=== PATIENT | female | born 1935 | race Caucasian/White ===

== ENCOUNTER → 2016-04-07 | Outpatient (CLI) | payer OTHER ==
[~2016-04-07] MED LIST: ACET-749 PO; ASCO1CAP3 PO; ASPI81TA28 PO; ATEN50TA8 PO; BIOT1CAP3 PO; CHOL100010 PO; CLTP PO; CYAN100T6 PO; GLC500 PO; GLIM2TAB2 PO; HYDC25 PO; METH500T37 PO; MGN PO; MULT-506 PO; OMEP20CA9 PO; POTA10CA28 PO; SALI1SPR15 NAE; [UNRECOGNIZED DRUG - OTHER] OPL
[2016-04-07 10:13] LABS: BASO % 0.5 %; BASO ABS # 0.07 K/uL (0-0.2); COMPLETE YES; EOS % 2.7 %; HEMATOCRIT 38.8 % (37-47); IG% 0.4 %; LYMPH % 18.7 %; LYMPH ABS # 2.58 K/uL (1.2-3.4); MEAN CELL VOLUME 88.8 fL (80-100); MEAN CORPUSCULAR HEMOGLOBIN 28.8 pg (25-34); MEAN CORPUSCULAR HGB CONC 32.5 g/dl (32-36); MEAN PLATELET VOLUME 9.8 fL (7.4-10.4); MONO % 7.8 %; NEUT % 69.9 %; PLATELET COUNT 526 K/uL (130-400); RED BLOOD COUNT 4.37 M/uL (4.2-5.4); WHITE BLOOD COUNT 13.82 K/uL (4.8-10.8)
[2016-04-07 10:24] LABS: ESTIMATED AVERAGE GLUCOSE 169 mg/dl; HA1C FLAG Normal (Normal)
== END | disposition home or self-care (01) ==
LOC: C.LAB1850 09:08
PROVIDERS: ATTEND Internal Medicine
DX: E11.9 Type 2 diabetes mellitus without complications (principal); D72.829 Elevated white blood cell count, unspecified; E78.5 Hyperlipidemia, unspecified

== ENCOUNTER → 2016-04-13 | Outpatient (CLI) | payer OTHER | END | disposition home or self-care (01) | LOC: C.LABSPEC 14:04 | PROVIDERS: ATTEND Internal Medicine | DX: E78.5 Hyperlipidemia, unspecified (principal); E11.9 Type 2 diabetes mellitus without complications; D72.829 Elevated white blood cell count, unspecified ==

== ENCOUNTER → 2016-05-02 | Outpatient (CLI) | payer OTHER ==
--- NOTE | 2016-05-02 15:53 | DIAGNOSTIC IMAGING REPORT ---
CERVICAL SPINE 3 VIEWS HISTORY: Neuropathy M48.00 Spinal [id number] COMPARISON: None FINDINGS: The cervical spine is visualized from C1 through the superior endplate of T1. There is no fracture. Mild reversal of the normal cervical curvature rather significant degenerative intervertebral this change from C5 through T1 Prevertebral soft tissues and the atlantodens interval are intact. IMPRESSION: Mild reversal of the normal cervical curvature. Significant degenerative intervertebral disc change C5-T1. No acute bony abnormality. Electronically signed by: Terrance Rodriguez M.D. 05/02/2016 3:52 PM Dictated Date/Time: 05/02/2016 3:51 PM
--- NOTE | 2016-05-02 15:54 | DIAGNOSTIC IMAGING REPORT ---
THORACIC SPINE 3 VIEWS HISTORY: Back pain M48.00 Spinal [id number] COMPARISON: None. FINDINGS: There is no fracture. No subluxation. Significant degenerative intervertebral disc changes throughout. This is most prominent at T11-T12. Moderate sclerosis of the vertebral endplates. Mild patient scoliosis. IMPRESSION: Degenerative change. Scoliosis. No acute process. Electronically signed by: Terrance Rodriguez M.D. 05/02/2016 3:53 PM Dictated Date/Time: 05/02/2016 3:52 PM
== END | disposition home or self-care (01) ==
LOC: C.RAD 14:39
PROVIDERS: ATTEND Internal Medicine
DX: M48.00 Spinal stenosis, site unspecified (principal); M50.322 Other cervical disc degeneration at C5-C6 level; M50.323 Other cervical disc degeneration at C6-C7 level; M50.33 Other cervical disc degeneration, cervicothoracic region; M41.9 Scoliosis, unspecified

== ENCOUNTER → 2016-05-02 | Outpatient (CLI) | payer OTHER ==
[~2016-05-02] MED LIST changes: +OPTIRAY 320 IV PRN
--- NOTE | 2016-05-02 15:32 | DIAGNOSTIC IMAGING REPORT ---
ABDOMEN AND PELVIS CT WITH IV AND ORAL CONTRAST CT DOSE: HISTORY: Colon carcinoma metastatic disease TECHNIQUE: Multiaxial CT images of the abdomen and pelvis were performed following the use of intravenous and oral contrast. COMPARISON STUDY: 09/02/2015 FINDINGS: Stable 7 mm nodular density posterior right costophrenic angle. Lung bases otherwise are clear. Mild fatty infiltration of liver. Spleen is uniform. Pancreas is unremarkable. There is suggestion of focal wall thickening versus adherent soft tissue to the fundus of the gallbladder measuring 1.4 x 0.6 cm. Possibility of a somewhat sessile polyp is also a consideration. Area is an interval finding from the prior study. Gallbladder is negative for distention. Bowel pattern is considered nonobstructive throughout. Kidneys enhance uniformly. There is no evidence for hydronephrosis. There is minimal stable hyperplastic change of the left adrenal. Bowel pattern within the abdomen and pelvis is nonobstructive. There are operative changes consistent with a hemicolectomy. There is no significant abdominal pelvic or inguinal adenopathy. Osseous structures appear to be intact. There is no significant pelvic inguinal or abdominal adenopathy. IMPRESSION: 1. Stable 7 mm nodule right lung base. 2. Fatty infiltration of liver. 3. Focal wall thickening fundal aspect of the gallbladder laterally measuring 1.4 x 0.6 cm. Ultrasound is initially indicated to exclude a sessile or polypoid lesion. 4. Evaluation of the abdomen and pelvis is otherwise negative post hemicolectomy. Electronically signed by: Terrance Rodriguez M.D. 05/02/2016 3:31 PM Dictated Date/Time: 05/02/2016 3:26 PM
--- NOTE | 2016-05-02 15:54 | DIAGNOSTIC IMAGING REPORT ---
CHEST CT WITH CONTRAST CT DOSE: 760.14 mGycm HISTORY: Colon cancer. TECHNIQUE: Multiaxial CT images of the chest were performed following the intravenous administration of contrast. COMPARISON: Chest CT 09/02/2015. FINDINGS: Trace mucoid material within the trachea and mainstem bronchi. There are few partially opacified bilateral lower lobe bronchi. This is similar to the prior study. No pleural effusions. No pneumothorax. 2 cm left apical groundglass opacity remains unchanged. A 1 cm right upper lobe groundglass opacity is also similar to the prior study. Stable 7 mm right lower lobe pulmonary nodule. No new pulmonary nodules identified. No mediastinal or hilar lymphadenopathy. The heart is normal in size. Stable mild nodular thickening within the left adrenal gland. No suspicious lytic or blastic osseous lesions. IMPRESSION: 1. No change from the prior study. 2. Stable 7 mm nodule within the right lower lobe. 3. Stable left upper lobe 2 cm and right upper lobe 1 cm groundglass opacities. These are nonspecific and could represent low-grade primary bronchogenic malignancies. Continued follow-up is recommended for Electronically signed by: Nitesh Gonsalez M.D. 05/02/2016 3:53 PM Dictated Date/Time: 05/02/2016 3:41 PM
== END | disposition home or self-care (01) ==
LOC: C.CTS 14:35
PROVIDERS: ATTEND Nurse Practitioner
DX: C18.2 Malignant neoplasm of ascending colon (principal); R91.1 Solitary pulmonary nodule; K76.0 Fatty (change of) liver, not elsewhere classified; R93.2 Abnormal findings on diagnostic imaging of liver and biliary tract; R91.8 Other nonspecific abnormal finding of lung field; M48.00 Spinal stenosis, site unspecified; M50.322 Other cervical disc degeneration at C5-C6 level; M50.323 Other cervical disc degeneration at C6-C7 level; M50.33 Other cervical disc degeneration, cervicothoracic region; M41.9 Scoliosis, unspecified

== ENCOUNTER → 2016-05-18 | Outpatient (CLI) | payer OTHER ==
[~2016-05-18] MED LIST changes: -OPTIRAY 320 IV PRN
--- NOTE | 2016-05-18 09:30 | DIAGNOSTIC IMAGING REPORT ---
ADDENDUM Review of the study compared to multiple prior CT exams shows that this most likely is a stable finding. Considered to be nonaggressive nonacute and stable. Electronically signed by: Terrance Rodriguez M.D. 06/30/2016 9:14 AM Dictated Date/Time: 06/30/2016 9:13 AM ORIGINAL REPORT BILIARY ULTRASOUND CLINICAL HISTORY: Colon carcinoma gallbladder mass visualized on prior CT scanning. COMPARISON STUDY: CT scan dated 05/02/2016, biliary ultrasound dated to 112 FINDINGS: The pancreas appears sonographically normal. No focal hepatic masses are visualized. The liver is of slightly increased echogenicity. There is no ductal dilatation. The common bile duct measures 5 mm. There is no right-sided hydronephrosis. There is a 16 mm sessile lesion involving the gallbladder fundus. There is a smaller sessile lesion the region of the gallbladder neck. There is an equivocal gallstone in the region the neck. The fundal lesion is nonspecific but could represent adenomyomatosis. IMPRESSION: 1. Equivocal gallstone 2. 16 mm sessile lesion within the gallbladder fundus. While nonspecific, this is a typical site for adenomyomatosis. Unfortunately, the appearance is nonspecific and other diagnostic considerations include gallbladder polyps, gallbladder adenomas, and gallbladder adenocarcinoma. Electronically signed by: Frederic Landers M.D. 05/18/2016 9:29 AM Dictated Date/Time: 05/18/2016 9:20 AM
== END | disposition home or self-care (01) ==
LOC: C.ULTR 08:41
PROVIDERS: ATTEND Nurse Practitioner
DX: C18.2 Malignant neoplasm of ascending colon (principal); K80.20 Calculus of gallbladder without cholecystitis without obstruction; K82.8 Other specified diseases of gallbladder

== ENCOUNTER → 2016-09-01 | Outpatient (CLI) | payer OTHER ==
[~2016-09-01] MED LIST changes: -ACET-749 PO
[2016-09-01 10:15] LABS: CALCIUM 9.1 mg/dl (8.5-10.1)
[2016-09-01 10:18] LABS: ALT/SGPT 20 U/L (12-78); BLOOD UREA NITROGEN 16 mg/dl (7-18); BUN/CREATININE RATIO 13.3 (10-20); CARBON DIOXIDE 26 mmol/L (21-32); CHLORIDE 105 mmol/L (98-107); CHOLESTEROL 214 mg/dl (0-200); GLUCOSE 167 mg/dl (70-99); POTASSIUM 4.2 mmol/L (3.5-5.1); SODIUM 141 mmol/L (136-145)
[2016-09-01 10:21] LABS: ALB/GLOB RATIO 0.9 (0.9-2); ALKALINE PHOSPHATASE 86 U/L (45-117); AST/SGOT 14 U/L (15-37); CHOLESTEROL/HDL RATIO 5.4; HDL CHOLESTEROL 40 mg/dl; LDL CHOLESTEROL CALCULATED 130 mg/dl; TRIGLYCERIDES 221 mg/dl (0-150); VERY LOW DENSITY LIPOPROT CALC 44 mg/dl
[2016-09-01 10:42] LABS: ESTIMATED AVERAGE GLUCOSE 169 mg/dl; HA1C FLAG Normal (Normal)
== END | disposition home or self-care (01) ==
LOC: C.LAB1850 08:59
PROVIDERS: ATTEND Internal Medicine
DX: E11.9 Type 2 diabetes mellitus without complications (principal)

== ENCOUNTER → 2017-06-09 | Outpatient (CLI) | payer OTHER ==
[~2017-06-09] MED LIST changes: +TRAM-10 PO; -[UNRECOGNIZED DRUG - OTHER] OPL
--- NOTE | 2017-06-09 14:23 | DIAGNOSTIC IMAGING REPORT ---
THORACIC SPINE 3 VIEWS ROUTINE CLINICAL HISTORY: M48.00 Spinal [id number] Back pain COMPARISON STUDY: April 2016 FINDINGS: There is a mild S-shaped thoracolumbar scoliosis. The paraspinal line is not displaced. There are mild multilevel degenerative changes. No acute fractures or subluxations are visualized. No destructive lesions are visualized. IMPRESSION: Scoliosis and multilevel degenerative change. No acute fractures Electronically signed by: Frederic Landers M.D. 06/09/2017 2:21 PM Dictated Date/Time: 06/09/2017 2:21 PM
== END | disposition home or self-care (01) ==
LOC: C.RAD1850 14:03
PROVIDERS: ATTEND Internal Medicine
DX: M48.00 Spinal stenosis, site unspecified (principal); M54.9 Dorsalgia, unspecified

== ENCOUNTER 2018-11-28 16:00 | Inpatient (IN) ==
[2018-11-28 17:02] LABS: iSTAT Creatinine 1.7 mg/dl (0.6-1.3); iSTAT Hemoglobin 10.9 g/dl (12.0-16.0); iSTAT Ionized Calcium 1.17 mmol/l (1.12-1.32); iSTAT Potassium 4.8 mEq/L (3.3-5.0)
--- NOTE | 2018-11-28 17:31 | CT Scan Report ---
CT head/brain wo con CLINICAL HISTORY: 83 years-old Female presenting with trauma, fall, posterior head injury. TECHNIQUE: Multidetector CT imaging of the head was performed without the use of intravenous contrast . IV contrast: None. One or more dose lowering techniques were used consistent with the principles of ALARA (as low as reasonably achievable), including automatic exposure control, mA or kV adjustment t o individual patient size, and/or use of iterative reconstruction. COMPARISON: None. CT DOSE (mGy.cm): The estimated cumulative dose is 1400.69. 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 Proportional ventricular and sulcal prominence, likely age-related parenchymal volume loss. No hemorr john. Periventricular and subcortical white matter hypoattenuation, nonspecific but likely indicative of chronic small vessel ischemic change. No acute territorial infarct. No mass effect or midline jonathan ft. No extra-axial fluid collection. Paranasal sinuses and mastoid air cells clear. Calvarium intact. Soft tissue swelling with subcutaneous emphysema and small hematoma in the left parietal scalp near the vertex. IMPRESSION: 1. Chronic small vessel ischemic change. No acute intracranial abnormality. 2. Small left parietal scalp hematoma, laceration, and contusion. No subjacent osseous injury. Electronically signed by: Skip Amador M.D. 11/28/2018 5:30 PM
--- NOTE | 2018-11-28 17:34 | CT Scan Report ---
CT lumbar spine wo con CT DOSE: 1400.69 mGy.cm CLINICAL HISTORY: Low back pain status post trauma. TECHNIQUE: Helical images were acquired in transverse plane. Reformatted sagittal and coronal images were reviewed. A dose lowering technique was utilized adhering to the principles of ALARA. CONTRAST: No contrast was administered COMPARISON STUDY: None. FINDINGS: There is a thoracolumbar scoliosis. L1-2 level: There is a gas within the disc.. There is a circumferential disc bulge. There is no signi ficant spinal or foraminal stenosis L2-3 level: There is gas within the disc. There is a circumferential disc bulge. There is minimal spi nal canal narrowing. There is no significant foraminal stenosis L3-4 level: There is a circumferential disc bulge asymmetric to the right. There is mild to moderate spinal canal narrowing. There is no cystic or foraminal stenosis. L4-5 level: There is a grade 1 spondylolisthesis of L4 and L5. There is gas within the disc. There is a circumferential disc bulge. There is mild to moderate spinal stenosis. There is no significant for aminal narrowing L5-S1 level: There is no evidence of significant disc bulge or focal herniation. There is no evidence of spinal or foraminal stenosis. No acute fractures or traumatic subluxations are visualized. IMPRESSION: 1. No acute fractures or traumatic subluxations identified 2. Multilevel spondylytic changes with mild to moderate spinal stenosis at the L3-4, and L4-5 levels. 3. Scoliosis Electronically signed by: Frederic Landers M.D. 11/28/2018 5:33 PM
--- NOTE | 2018-11-28 17:36 | CT Scan Report ---
CT cervical spine wo con CLINICAL HISTORY: 83 years-old Female presenting with trauma, posterior head injury, fall. TECHNIQUE: Multidetector CT of the cervical spine was performed without the use of intravenous contra st. IV contrast: None. One or more dose lowering techniques were used consistent with the principles of ALARA (as low as reasonably achievable), including automatic exposure control, mA or kV adjustment to individual patient size, and/or use of iterative reconstruction. COMPARISON: Cervical spine radiographs from 05/02/2016. CT DOSE (mGy.cm): The estimated cumulative dose is 1400.69. 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 Slight reversal of normal cervical lordosis centered at C5-6 as on prior exam. Vertebral bodies maint ain normal height and alignment otherwise. Intervertebral disc height loss noted to a severe degree a t C5-6 and C6-7, where there is the greatest degree of degenerative change and disc osteophyte comple xes. Mild to moderate posterior bony spurring resulting in spinal canal narrowing combination with un derlying disc bulges. This is greatest at C5-6. Degenerative changes of the atlantodental articulatio n. Facet arthropathy and uncovertebral hypertrophy results in very degrees of osseous neural foramina l narrowing. No acute fracture or subluxation. Visualized portion of the skull base intact. Paraspina l soft tissues within normal limits. IMPRESSION: 1. No acute osseous injury of the cervical spine. 2. Multilevel degenerative changes with spinal canal and neural foraminal narrowing. Electronically signed by: Skip Amador M.D. 11/28/2018 5:35 PM
--- NOTE | 2018-11-28 18:45 | XRay Report ---
XR chest 1V portable CLINICAL HISTORY: 83 years-old Female presenting with trauma. TECHNIQUE: Portable upright AP view of the chest was obtained. COMPARISON: 06/21/[address] from 06/22/2018. FINDINGS: Atherosclerosis of the aortic arch. Cardiac silhouette normal in size. No focal opacity. No large eff usion or pneumothorax. Osteopenia suspected. No gross evidence of fracture. Upper abdomen normal. IMPRESSION: 1. No acute cardiopulmonary disease. Electronically signed by: Skip Amador M.D. 11/28/2018 6:43 PM
--- NOTE | 2018-11-28 18:46 | XRay Report ---
XR pelvis 1-2V routine CLINICAL HISTORY: 83 years-old Female presenting with trauma. TECHNIQUE: Single frontal view of the pelvis was obtained. COMPARISON: None. FINDINGS: Sacroiliac joints with mild degenerative change. Pubic symphysis and hip joints congruent. Allowing f or underlying osteopenia, bony pelvis intact. Femoral necks intact. Degenerative changes of the lower lumbar spine. And anastomotic suture margin is noted in the right lower quadrant. IMPRESSION: Allowing for osteopenia, no acute osseous injury. Electronically signed by: Skip Amador M.D. 11/28/2018 6:45 PM
[2018-11-28] MEDS ORDERED: LIDO/EPINEPHRINE/SOD BICARB 20 ML VIAL ONE (19:13)
--- NOTE | 2018-11-28 22:01 | History & Physical Report ---
Date of Service November 28, 2018 Assessment & Plan (1) Closed head injury: Monitor overnight Neurochecks Q 4 hours (2) Fall from ground level: PT/OT evaluate and treat Social service consult (patient lives alone and has reported falling numerous times over the past 4 months). (3) Laceration of scalp: Stapled in the ED (4) Hematoma of left parietal scalp: Pain control ordered (5) Diabetic neuropathy associated with type 2 diabetes mellitus: Sliding scale insulin coverage Holding Metformin Continue glimepiride Diabetic diet Check HGBA1C Present on Admission?: Yes (6) Lumbar degenerative disc disease: Pain control (7) Hypertension: Continue HCTZ and atenolol. (8) Hyperlipidemia: Patient has adverse drug reaction to statins and does not take. (9) Diabetes mellitus: Sliding scale insulin coverage Holding Metformin Continue glimepiride Diabetic diet Check HGBA1C History of Present Illness 83 y/o female presented to the ED following a ground level fall at her PCP's office today. She went to office in regards to lower extremity numbness b/l and weakness. while at office she fell back striking her head. No loss of consciousness, No syncope, No seizure activity, No visual changes, No headache, or neck pain. She told me that she simply lost balance and went backwards. She has had longstanding lumbar spine pain and has had facet injections through pain management in the past. She declines having F/C, cough, N/V/D, chest pain, SOB, or dysuria. In the ED she had gregory placed for posterior scalp laceration. CT head was negative for bleed. She does have a L parietal scalp hematoma. Primary Care Provider: Hao Patiño MD Allergies Allergy/AdvReac Type Severity Reaction Status Date / Time Tgnstcj-Hpu-Txa Reductase AdvReac Mild leg Verified 11/28/18 17:07 Inhibitor cramping Home Medications Home Medications Medication Instructions Recorded Confirmed Type aspirin 81 mg tablet,delayed 81 mg PO DAILY 08/06/18 11/28/18 History release biotin 5,000 mcg sublingual tablet 5,000 mcg SL DAILY 08/06/18 11/28/18 History glimepiride 2 mg tablet 2 mg PO HS tab 08/06/18 11/28/18 History metformin 500 mg tablet 1,000 mg PO BID tab 08/06/18 11/28/18 History multivitamin capsule 1 cap PO DAILY 08/06/18 11/28/18 History omeprazole 20 mg capsule,delayed 20 mg PO DAILY 08/06/18 11/28/18 History release potassium chloride ER 10 mEq 10 meq PO DAILY #90 cap 09/11/18 11/28/18 Rx capsule,extended release atenolol 50 mg tablet 50 mg PO DAILY #90 tab 09/26/18 11/28/18 Rx acetaminophen 300 mg-codeine 30 mg 1 tab PO BID #60 tab 11/22/18 11/28/18 Rx tablet calcium carbonate-vitamin D3 1 tab PO DAILY 11/28/18 11/28/18 History [Calcium 600 + D(3)] cholecalciferol (vitamin D3) 1,000 unit PO DAILY 11/28/18 11/28/18 History [Vitamin D3] cyanocobalamin (vitamin B-12) 50 mcg PO DAILY 11/28/18 11/28/18 History [Vitamin B-12] glimepiride 1 mg PO QAM 11/28/18 11/28/18 History hydrochlorothiazide 12.5 mg PO DAILY 11/28/18 11/28/18 History ketoconazole 1 applic TOPICAL BID 11/28/18 11/28/18 History magnesium 250 mg PO DAILY 11/28/18 11/28/18 History methocarbamol 500 mg PO BID PRN 11/28/18 11/28/18 History Past Med/Surg History Medical History History of malignant neoplasm of colon (Resolved) GERD (gastroesophageal reflux disease) HTN (hypertension) Hyperlipidemia Lumbar degenerative disc disease Type II diabetes mellitus Colon cancer Colonic mass H/O: hysterectomy Surgical History H/O right hemicolectomy History of cataract extraction History of tonsillectomy and adenoidectomy Family History Father Lung cancer Mother Stroke syndrome Hypertension Cancer Diabetes Sister Diabetes Social History Preferred Language: [place] Visual Impairment: No Limitations Hearing Ability: Normal Beliefs That Will Affect Care: None marital status: / Current Living Situation: Alone current occupational status: retired Feels Safe at Home: Yes Smoking Status: Current every day smoker Hx Alcohol Use: No Hx Substance Use: No Review of Systems Review of Systems: NEEDS EDITING Constitutional- no fever; no weight loss Eyes- no acute visual changes ENT- no sinus drainage; no pharyngitis Pulmonary- no cough, no wheezing, no shortness of breath Cardiac- no chest pain, no palpitations, no orthopnea, +mild chronic lower ext edema. GI- no nausea, no vomiting, no diarrhea, no melena, no hematochezia - no dysuria, no hematuria Musculoskeletal- + chronic arthralgias, no myalgias Derm- no rashes, no new skin lesions, no changing skin lesions Hematologic- no unusual bruising, no unusual bleeding Lymphatics- no adenopathy Endocrine- no polyuria or polydipsia; no heat or cold intolerance Neuro- no headaches, no focal neurologic symptoms Psych- no anxiety, no depression Physical Exam Physical Exam: NEEDS EDITING General- adult Head- atraumatic Head - gregory posterior scalp, L parietal scalp hematoma. Eyes- PERRL, EOMI, anicteric ENT- oropharynx clear Neck- supple, no JVD, no adenopathy, no thyromegaly; carotids +2/2, no bruits appreciated Lungs- clear to auscultation and percussion Heart- regular rhythm; no murmur, no gallop, no rub appreciated Abdomen- normal bowel sounds, soft, nontender, no masses or hepatosplenomegaly Extremities- +1 edema b/l lower ext mid calf to ankle, no calf tenderness; peripheral pulses intact Neuro- alert, oriented x 3; PERRL, EOMI; no facial palsy; no dysarthria; motor 5 /5 bilaterally; no cogwheel rigidity; finger to nose intact bilaterally, decreased sensation b/l feet. Skin- warm & dry Results & Data Vital Signs (Past 12 Hours) Vital Signs Temp Pulse Pulse Resp BP BP Pulse Ox 11/28/18 21:00 84 18 132/60 95 11/28/18 19:04 91 H 18 146/60 H 94 11/28/18 16:16 36.7 C 93 H 20 150/91 H 94 Laboratory Results POC Hgb 10.9 g/dl (12.0-16.0) L 11/28/18 16:50 POC Hct 32 % (37-47) L 11/28/18 16:50 POC Sodium 139 mEq/L (135-144) 11/28/18 16:50 POC Potassium 4.8 mEq/L (3.3-5.0) 11/28/18 16:50 POC Chloride 105 mEq/L (101-112) 11/28/18 16:50 POC Total CO2 23 mEq/l (24-31) L 11/28/18 16:50 POC Anion Gap 18.0 mmol/L (16-25) 11/28/18 16:50 POC BUN 21 mg/dl (7-18) H 11/28/18 16:50 POC Creatinine 1.7 mg/dl (0.6-1.3) H 11/28/18 16:50 POC Glucose (other) 78 mg/dl (70-99) 11/28/18 16:50 POC Ioniz Calcium Flavio 1.17 mmol/l (1.12-1.32) 11/28/18 16:50 Laboratory Results Laboratory Results POC Hgb 10.9 g/dl (12.0-16.0) L 11/28/18 16:50 POC Hct 32 % (37-47) L 11/28/18 16:50 POC Sodium 139 mEq/L (135-144) 11/28/18 16:50 POC Potassium 4.8 mEq/L (3.3-5.0) 11/28/18 16:50 POC Chloride 105 mEq/L (101-112) 11/28/18 16:50 POC Total CO2 23 mEq/l (24-31) L 11/28/18 16:50 POC Anion Gap 18.0 mmol/L (16-25) 11/28/18 16:50 POC BUN 21 mg/dl (7-18) H 11/28/18 16:50 POC Creatinine 1.7 mg/dl (0.6-1.3) H 11/28/18 16:50 POC Glucose (other) 78 mg/dl (70-99) 11/28/18 16:50 POC Ioniz Calcium Flavio 1.17 mmol/l (1.12-1.32) 11/28/18 16:50 Code Status & VTE Plan VTE Prophylaxis Plan VTE Prophylaxis will be ordered: Yes PG Care Time/CCT Total # of Minutes Spent Total Time Spent: 55 Total Time Spent with Patient: Total time spent is greater than 50% in coordination of care (as documented) at patient's floor/unit and/or counseling patient:
[2018-11-28] MEDS ORDERED: MoRPHine SULFATE 2 MG/ML CARP IV PRN (23:16)
[2018-11-28] MEDS ORDERED: GLUCOSE 10 TABS/TUBE PO PRN (23:16)
[2018-11-28] MEDS ORDERED: ACETAMINOPHEN 325 MG TAB PO PRN (23:16)
[2018-11-28] MEDS ORDERED: DEXTROSE 50% 50 ML SYRINGE IV PRN (23:16)
[2018-11-28] MEDS ORDERED: CARBOHYDRATES FOR HYPOGLYCEMIA PO PRN (23:16)
[2018-11-28] MEDS ORDERED: ONDANSETRON INJ 2 MG/ML 2 ML VIAL IV PRN (23:16)
[2018-11-28] MEDS ORDERED: GLIMEPIRIDE 2 MG TAB PO SCH (23:16)
[2018-11-28] MEDS ORDERED: GLUCAGON FOR INJ 1 MG VIAL SQ PRN (23:16)
[2018-11-28] MEDS: GLUCOSE 40% GEL 15 GM TUBE PO PRN (23:56)
[2018-11-29 00:13] LABS: Creatine Kinase 70 U/L (26-192); Troponin I < 0.015 ng/ml (0-0.045)
[2018-11-29 00:20] LABS: Folate (Folic Acid) > 24.00 ng/ml (>5.38); Vitamin B12 638 pg/ml (211-911)
[2018-11-29 06:33] LABS: Hematocrit (blood only) 33.3 % (37-47); Hemoglobin 10.9 g/dL (12.0-16.0); Mean Corpuscular Hgb Conc 32.7 g/dL (32-36); Mean Corpuscular Volume 91.7 fL (80-100); Mean Platelet Volume 10.1 fL (7.4-10.4); Platelet Count 368 K/uL (130-400); RDW Coefficient of Variation 17.5 % (11.5-14.5); RDW Standard Deviation 58.6 fL (36.4-46.3); Red Blood Count 3.63 M/uL (4.2-5.4); White Blood Count 11.31 K/uL (4.8-10.8)
[2018-11-29 07:00] LABS: Estimated Average Glucose 131 mg/dl; Hemoglobin A1C 6.2 % (4.5-5.6)
[2018-11-29 07:26] LABS: BUN Creatinine Ratio 12.7 (10-20); Calcium 8.6 mg/dl (8.5-10.1); Creatinine Clr Calc Pharmacy 27.5 ml/min; Est GFR (African American) 39.4; Magnesium 1.4 mg/dl (1.8-2.4); Potassium 4.4 mmol/L (3.5-5.1)
[2018-11-29] MEDS ORDERED: INSULIN ASPART 100 UNITS/ML 3 ML PEN SC SCH (07:30)
[2018-11-29] MEDS: GLUCOSE 40% GEL 15 GM TUBE PO PRN (07:31)
[2018-11-29] MEDS ORDERED: Nursing to Pharmacy Communication ONE (08:35)
[2018-11-29] MEDS: MAGNESIUM SULFATE / D5W 1 GM/100 ML BAG IV SCH ×2 (08:59→10:12)
[2018-11-29] MEDS ORDERED: GLIMEPIRIDE 2 MG TAB PO SCH (09:00)
[2018-11-29] MEDS: CYANOCOBALAMIN (VITAMIN B-12) 100 MCG TABLET PO SCH (09:17)
[2018-11-29] MEDS: PANTOprazole 40 MG TAB PO SCH (09:17)
[2018-11-29] MEDS: MULTIVITAMIN TAB PO SCH (09:18)
[2018-11-29] MEDS: CALCIUM 600MG + VIT D 400 IU TAB PO SCH (09:18)
[2018-11-29] MEDS: MAGNESIUM OXIDE 400 MG TAB PO SCH (09:20)
[2018-11-29] MEDS: hydroCHLOROthiazide 25 MG TAB PO SCH (09:20)
[2018-11-29] MEDS: POTASSIUM CHLORIDE 10 MEQ TABCR PO SCH (09:21)
[2018-11-29] MEDS: ATENOLOL 50 MG TABLET PO SCH (09:21)
[2018-11-29] MEDS: ASPIRIN 81 MG ECTAB PO SCH (09:21)
[2018-11-29] MEDS: CHOLECALCIFEROL 1,000 UNITS TAB PO SCH (09:22)
[2018-11-29] MEDS ORDERED: ALUMINUM/MAGNESIUM SUSP 30 ML UDC PO PRN (09:29)
[2018-11-29] MEDS ORDERED: POLYETHYLENE (MIRALAX) 17 GM PACK PO PRN (10:13)
[2018-11-29] MEDS: DOCUSATE SODIUM/SENNA 50/8.6MG TAB PO SCH ×2 (11:37→20:14)
[2018-11-29] MEDS: NICOTINE 21 MG/24 HR TDSY TD SCH (11:38)
[2018-11-29] MEDS: ALBUT/IPRATROP 3MG/0.5MG NEB 3 ML VIAL NEB SCH ×3 (12:43→19:41)
--- NOTE | 2018-11-29 12:44 | Hospitalist Progress Note ---
Date of Service November 29, 2018 Assessment & Plan (1) Closed head injury: - Related to fall; CT head showed small left parietal scalp hematoma, laceration and contusion. - Neuro checks -- mental status is intact, at baseline. (2) Fall from ground level: - Pt. has reported falling frequently over last few months -- may be related to generalized weakness vs. bilateral numbness in setting of spinal complications or diabetic neuropathy vs. hypoglycemic episodes. - PT/OT evaluation -- will likely require rehab placement. (3) Laceration of scalp: - Stapled in ED; continue topical wound care. (4) Hematoma of left parietal scalp: - Monitor CBC daily -- H/H is trending down, will monitor. (5) Chest pain: - Developed chest pain this morning -- may be GERD related vs. cardiac vs. pulmonary. - EKG negative; Trop negative x 2. - PPI daily; also ordered Maalox prn. - Consider evaluation of PE if pain persists. (6) Diabetic neuropathy associated with type 2 diabetes mellitus: - Hgb A1C was 6.2. - Holding home Metformin; will d/c Amaryl due to likelihood of hypoglycemic episodes leading to falls. - Hold SSI coverage - BG 50-70's this AM. - Will likely continue Metformin 1 gm BID at discharge but d/c Amaryl. (7) Lumbar degenerative disc disease: - Continue Tylenol #3 for pain control. (8) Hypertension: - Continue HCTZ and Atenolol. (9) Hyperlipidemia: - Does not tolerate statins. (10) GERD (gastroesophageal reflux disease): - PPI daily; Maalox prn. (11) CKD (chronic kidney disease), stage III: - Renally dose all meds. - Cr is currently at baseline. (12) Anemia: - Hgb trending down -- will continue to monitor. (13) Tobacco abuse: - Smokes >2 PPD; nicotine patch ordered. - Will start Duonebs QID scheduled for wheezing/coarse breath sounds. - CXR was negative. (14) Electrolyte abnormality: - Mag level 1.4 -- ordered Mag sulfate 2 gm IV. (15) DVT prophylaxis: - Heparin q12hr. Dispo: PCU for PT/OT evaluation, evaluation of chest pain and lab work monitoring. Supervising Physician Co-Signing Physician Notes PA Supervision Note: I did not personally see or examine the patient today, but I verified all winn points of SAMIRA Delacruz's assessment and plan with the following exceptions/additions: None Subjective Pt. reports frequent falls at home -- she has struggled with climbing stairs over the last few months. Pt. fell on day of admission and hit her head -- required gregory in the ER for posterior scalp lesion. She denies shortness of breath; pt. is a >2pack per day smoker -- will order nicotine patch. She complained of chest pain this morning -- pain is located in the center of her chest, does not radiate to other areas. Denies nausea/vomiting, diaphoresis, SOB. EKG was negative; Trop negative x 2. Review of Systems Review of Systems: All systems reviewed & are unremarkable except as noted in HPI & below Constitutional: + fatigue and + weakness; no fever, no chills and no anorexia Respiratory: no cough, no dyspnea, no dyspnea on exertion and no wheezing Cardiovascular: + chest pain; no palpitations, no lightheadedness and no edema Gastrointestinal: + constipation; no abdominal pain and no nausea Genitourinary: no difficulty urinating Musculoskeletal: no back pain and no joint pain Integumentary: no non-healing lesions Neurologic: + unsteadiness and + generalized weakness Physical Exam Physical Exam: General: Resting comfortably HEENT: NC/AT; PERRLA with EOMI; [place] conjunctiva, MMM. No erythema of posterior pharynx Neck: Supple and nontender Cardiac: RRR Lungs: on room air; coarse breath sounds throughout Abdomen: Bowel normoactive X 4; Nontender to palpation Extremities: Warm. No edema present Neuro: No focal weakness Skin: Laceration on left parietal lobe, gregory intact. No bleeding noted. Results & Data Vital Signs (Past 12 Hours) Vital Signs Temp Pulse Pulse Resp BP BP Pulse Ox 11/29/18 11:15 36.8 C 72 16 167/87 H 91 11/29/18 07:25 68 11/29/18 06:59 36.4 C L 84 20 155/70 H 97 11/29/18 04:19 36.5 C 88 19 152/79 H 97 Laboratory Results 11/29/18 11/29/18 11/29/18 Range/Units 09:48 07:48 07:30 WBC (4.8-10.8) K/uL RBC (4.2-5.4) M/uL Hgb (12.0-16.0) g/dL POC Hgb (12.0-16.0) g/dl Hct (37-47) % POC Hct (37-47) % MCV (80-100) fL MCH (25-34) pg MCHC (32-36) g/dL RDW Std Deviation (36.4-46.3) fL RDW Coeff of Remy (11.5-14.5) % Plt Count (130-400) K/uL MPV (7.4-10.4) fL POC Sodium (135-144) mEq/L Sodium (136-145) mmol/L POC Potassium (3.3-5.0) mEq/L Potassium (3.5-5.1) mmol/L POC Chloride (101-112) mEq/L Chloride (98-107) mmol/L Carbon Dioxide (21-32) mmol/L POC Total CO2 (24-31) mEq/l Anion Gap (3-11) POC Anion Gap (16-25) mmol/L POC BUN (7-18) mg/dl BUN (7-18) mg/dl Creatinine (0.6-1.2) mg/dl POC Creatinine (0.6-1.3) mg/dl Est Cr Clr Drug Dosing ml/min Est GFR ( Amer) Est GFR (Non-Af Amer) BUN/Creatinine Ratio (10-20) Glucose (70-99) mg/dl POC Glucose 72 51 L* (70-99) POC Glucose (other) (70-99) mg/dl Estimat Average Glucose mg/dl Hemoglobin A1c (4.5-5.6) % Calcium (8.5-10.1) mg/dl POC Ioniz Calcium Flavio (1.12-1.32) mmol/l Magnesium (1.8-2.4) mg/dl Total Creatine Kinase (26-192) U/L Troponin I < 0.015 (0-0.045) ng/ml Vitamin B12 (211-911) pg/ml Folate (>5.38) ng/ml 11/29/18 11/29/18 11/29/18 Range/Units 07:06 05:46 05:46 WBC (4.8-10.8) K/uL RBC (4.2-5.4) M/uL Hgb (12.0-16.0) g/dL POC Hgb (12.0-16.0) g/dl Hct (37-47) % POC Hct (37-47) % MCV (80-100) fL MCH (25-34) pg MCHC (32-36) g/dL RDW Std Deviation (36.4-46.3) fL RDW Coeff of Remy (11.5-14.5) % Plt Count (130-400) K/uL MPV (7.4-10.4) fL POC Sodium (135-144) mEq/L Sodium 142 (136-145) mmol/L POC Potassium (3.3-5.0) mEq/L Potassium 4.4 (3.5-5.1) mmol/L POC Chloride (101-112) mEq/L Chloride 108 H (98-107) mmol/L Carbon Dioxide 29 (21-32) mmol/L POC Total CO2 (24-31) mEq/l Anion Gap 6.0 (3-11) POC Anion Gap (16-25) mmol/L POC BUN (7-18) mg/dl BUN 18 (7-18) mg/dl Creatinine 1.43 H (0.6-1.2) mg/dl POC Creatinine (0.6-1.3) mg/dl Est Cr Clr Drug Dosing 27.5 ml/min Est GFR ( Amer) 39.4 Est GFR (Non-Af Amer) 34.0 BUN/Creatinine Ratio 12.7 (10-20) Glucose 46 L* (70-99) mg/dl POC Glucose 85 (70-99) POC Glucose (other) (70-99) mg/dl Estimat Average Glucose 131 mg/dl Hemoglobin A1c 6.2 H (4.5-5.6) % Calcium 8.6 (8.5-10.1) mg/dl POC Ioniz Calcium Flavio (1.12-1.32) mmol/l Magnesium 1.4 L (1.8-2.4) mg/dl Total Creatine Kinase (26-192) U/L Troponin I (0-0.045) ng/ml Vitamin B12 (211-911) pg/ml Folate (>5.38) ng/ml 11/29/18 11/29/18 11/28/18 Range/Units 05:46 00:13 23:49 WBC 11.31 H (4.8-10.8) K/uL RBC 3.63 L (4.2-5.4) M/uL Hgb 10.9 L (12.0-16.0) g/dL POC Hgb (12.0-16.0) g/dl Hct 33.3 L (37-47) % POC Hct (37-47) % MCV 91.7 (80-100) fL MCH 30.0 (25-34) pg MCHC 32.7 (32-36) g/dL RDW Std Deviation 58.6 H (36.4-46.3) fL RDW Coeff of Remy 17.5 H (11.5-14.5) % Plt Count 368 (130-400) K/uL MPV 10.1 (7.4-10.4) fL POC Sodium (135-144) mEq/L Sodium (136-145) mmol/L POC Potassium (3.3-5.0) mEq/L Potassium (3.5-5.1) mmol/L POC Chloride (101-112) mEq/L Chloride (98-107) mmol/L Carbon Dioxide (21-32) mmol/L POC Total CO2 (24-31) mEq/l Anion Gap (3-11) POC Anion Gap (16-25) mmol/L POC BUN (7-18) mg/dl BUN (7-18) mg/dl Creatinine (0.6-1.2) mg/dl POC Creatinine (0.6-1.3) mg/dl Est Cr Clr Drug Dosing ml/min Est GFR ( Amer) Est GFR (Non-Af Amer) BUN/Creatinine Ratio (10-20) Glucose (70-99) mg/dl POC Glucose 92 47 L* (70-99) POC Glucose (other) (70-99) mg/dl Estimat Average Glucose mg/dl Hemoglobin A1c (4.5-5.6) % Calcium (8.5-10.1) mg/dl POC Ioniz Calcium Flavio (1.12-1.32) mmol/l Magnesium (1.8-2.4) mg/dl Total Creatine Kinase (26-192) U/L Troponin I (0-0.045) ng/ml Vitamin B12 (211-911) pg/ml Folate (>5.38) ng/ml 11/28/18 11/28/18 11/28/18 Range/Units 23:42 23:42 23:23 WBC (4.8-10.8) K/uL RBC (4.2-5.4) M/uL Hgb (12.0-16.0) g/dL POC Hgb (12.0-16.0) g/dl Hct (37-47) % POC Hct (37-47) % MCV (80-100) fL MCH (25-34) pg MCHC (32-36) g/dL RDW Std Deviation (36.4-46.3) fL RDW Coeff of Remy (11.5-14.5) % Plt Count (130-400) K/uL MPV (7.4-10.4) fL POC Sodium (135-144) mEq/L Sodium (136-145) mmol/L POC Potassium (3.3-5.0) mEq/L Potassium (3.5-5.1) mmol/L POC Chloride (101-112) mEq/L Chloride (98-107) mmol/L Carbon Dioxide (21-32) mmol/L POC Total CO2 (24-31) mEq/l Anion Gap (3-11) POC Anion Gap (16-25) mmol/L POC BUN (7-18) mg/dl BUN (7-18) mg/dl Creatinine (0.6-1.2) mg/dl POC Creatinine (0.6-1.3) mg/dl Est Cr Clr Drug Dosing ml/min Est GFR ( Amer) Est GFR (Non-Af Amer) BUN/Creatinine Ratio (10-20) Glucose (70-99) mg/dl POC Glucose 47 L* (70-99) POC Glucose (other) (70-99) mg/dl Estimat Average Glucose mg/dl Hemoglobin A1c (4.5-5.6) % Calcium (8.5-10.1) mg/dl POC Ioniz Calcium Flavio (1.12-1.32) mmol/l Magnesium (1.8-2.4) mg/dl Total Creatine Kinase 70 (26-192) U/L Troponin I < 0.015 (0-0.045) ng/ml Vitamin B12 638 (211-911) pg/ml Folate > 24.00 (>5.38) ng/ml 11/28/18 11/28/18 Range/Units 23:22 16:50 WBC (4.8-10.8) K/uL RBC (4.2-5.4) M/uL Hgb (12.0-16.0) g/dL POC Hgb 10.9 L (12.0-16.0) g/dl Hct (37-47) % POC Hct 32 L (37-47) % MCV (80-100) fL MCH (25-34) pg MCHC (32-36) g/dL RDW Std Deviation (36.4-46.3) fL RDW Coeff of Remy (11.5-14.5) % Plt Count (130-400) K/uL MPV (7.4-10.4) fL POC Sodium 139 (135-144) mEq/L Sodium (136-145) mmol/L POC Potassium 4.8 (3.3-5.0) mEq/L Potassium (3.5-5.1) mmol/L POC Chloride 105 (101-112) mEq/L Chloride (98-107) mmol/L Carbon Dioxide (21-32) mmol/L POC Total CO2 23 L (24-31) mEq/l Anion Gap (3-11) POC Anion Gap 18.0 (16-25) mmol/L POC BUN 21 H (7-18) mg/dl BUN (7-18) mg/dl Creatinine (0.6-1.2) mg/dl POC Creatinine 1.7 H (0.6-1.3) mg/dl Est Cr Clr Drug Dosing ml/min Est GFR ( Amer) Est GFR (Non-Af Amer) BUN/Creatinine Ratio (10-20) Glucose (70-99) mg/dl POC Glucose 47 L* (70-99) POC Glucose (other) 78 (70-99) mg/dl Estimat Average Glucose mg/dl Hemoglobin A1c (4.5-5.6) % Calcium (8.5-10.1) mg/dl POC Ioniz Calcium Flavio 1.17 (1.12-1.32) mmol/l Magnesium (1.8-2.4) mg/dl Total Creatine Kinase (26-192) U/L Troponin I (0-0.045) ng/ml Vitamin B12 (211-911) pg/ml Folate (>5.38) ng/ml PG Care Time/CCT Total # of Minutes Spent Total Time Spent with Patient: Total time spent is greater than 50% in coordination of care (as documented) at patient's floor/unit and/or counseling patient:
[2018-11-30 06:20] LABS: Hematocrit (blood only) 32.7 % (37-47); Hemoglobin 10.5 g/dL (12.0-16.0); Mean Corpuscular Hgb Conc 32.1 g/dL (32-36); Mean Corpuscular Volume 90.1 fL (80-100); Mean Platelet Volume 9.8 fL (7.4-10.4); Platelet Count 362 K/uL (130-400); RDW Coefficient of Variation 17.2 % (11.5-14.5); RDW Standard Deviation 56.6 fL (36.4-46.3); Red Blood Count 3.63 M/uL (4.2-5.4); White Blood Count 11.31 K/uL (4.8-10.8)
[2018-11-30 06:55] LABS: BUN Creatinine Ratio 10.5 (10-20); Calcium 8.1 mg/dl (8.5-10.1); Creatinine Clr Calc Pharmacy 23.9 ml/min; Est GFR (African American) 37.2; Est GFR (Non-African American) 32.1; Magnesium 1.7 mg/dl (1.8-2.4); Potassium 3.8 mmol/L (3.5-5.1)
[2018-11-30] MEDS: ALBUT/IPRATROP 3MG/0.5MG NEB 3 ML VIAL NEB SCH ×3 (07:00→19:08)
[2018-11-30] MEDS ORDERED: GLUCOSE 40% GEL 15 GM TUBE PO PRN (08:36)
[2018-11-30] MEDS ORDERED: GLUCOSE 10 TABS/TUBE PO PRN (08:36)
[2018-11-30] MEDS ORDERED: GLUCAGON FOR INJ 1 MG VIAL SQ PRN (08:36)
[2018-11-30] MEDS ORDERED: DEXTROSE 50% 50 ML SYRINGE IV PRN (08:36)
[2018-11-30] MEDS ORDERED: CARBOHYDRATES FOR HYPOGLYCEMIA PO PRN (08:36)
[2018-11-30] MEDS ORDERED: MAGNESIUM SULFATE / D5W 1 GM/100 ML BAG IV ONE (09:00)
[2018-11-30] MEDS: DOCUSATE SODIUM/SENNA 50/8.6MG TAB PO SCH ×2 (09:35→20:42)
[2018-11-30] MEDS: PANTOprazole 40 MG TAB PO SCH (09:35)
[2018-11-30] MEDS: CYANOCOBALAMIN (VITAMIN B-12) 100 MCG TABLET PO SCH (09:36)
[2018-11-30] MEDS: MAGNESIUM OXIDE 400 MG TAB PO SCH (09:36)
[2018-11-30] MEDS: MULTIVITAMIN TAB PO SCH (09:36)
[2018-11-30] MEDS: CHOLECALCIFEROL 1,000 UNITS TAB PO SCH (09:36)
[2018-11-30] MEDS: ASPIRIN 81 MG ECTAB PO SCH (09:36)
[2018-11-30] MEDS: POTASSIUM CHLORIDE 10 MEQ TABCR PO SCH (09:36)
[2018-11-30] MEDS: CALCIUM 600MG + VIT D 400 IU TAB PO SCH (09:36)
[2018-11-30] MEDS: ATENOLOL 50 MG TABLET PO SCH (09:36)
[2018-11-30] MEDS: hydroCHLOROthiazide 25 MG TAB PO SCH (09:37)
[2018-11-30] MEDS: NICOTINE 21 MG/24 HR TDSY TD SCH (09:37)
[2018-11-30] MEDS ORDERED: IBUPROFEN 200 MG TAB PO ONE (10:05)
[2018-11-30] MEDS ORDERED: ATENOLOL 50 MG TABLET PO SCH (10:15)
[2018-11-30] MEDS ORDERED: ATENOLOL 25 MG TABLET PO STA (10:25)
[2018-11-30] MEDS: INSULIN ASPART 100 UNITS/ML 3 ML PEN SC SCH ×3 (12:29→20:40)
--- NOTE | 2018-11-30 12:55 | Hospitalist Progress Note ---
Date of Service November 30, 2018 Assessment & Plan (1) Closed head injury: - Related to fall; CT head showed small left parietal scalp hematoma, laceration and contusion. - Mental status is at baseline. (2) Fall from ground level: - Pt. has reported falling frequently over last few months -- may be related to generalized weakness vs. bilateral numbness in setting of spinal complications or diabetic neuropathy vs. hypoglycemia. - PT/OT - discharge to rehab, pt. has requested [facility]. (3) Laceration of scalp: - Stapled in ED; continue topical wound care. (4) Hematoma of left parietal scalp: - Monitor CBC daily -- H/H is below baseline, will monitor. (5) Chest pain: - Developed chest pain on 11/29 -- pain is now located in bilat rib area, likely related to chronic coughing episodes. - EKG negative; Trop negative x 2. - Ibuprofen x 1 dose for inflammation; consider short course of steroids for inflammation. - Consider CT of chest to rule out PE if pain persists, no improvement with anti-inflammatory agents. (6) Pain and swelling of lower extremity: - Reports LE edema and pain, most severe on right lateral thigh. Imaging negative for fractures at admission. - Outpatient doppler of bilat LE negative on 11/20; pt. refused repeat doppler during this admission. - ADORE hose for swelling; on HCTZ daily, no indication for increased dose vs. additional loop diuretic. - Tylenol & Tylenol #3 prn acute pain. (7) Diabetic neuropathy associated with type 2 diabetes mellitus: - Hgb A1C was 6.2. - Previously on Metformin and Amaryl at home -- hypoglycemia may have been contributing to falls. - SSI coverage with gluc checks as inpt. - Recommend d/c'ing Metformin at discharge due to CKD and decreasing Amaryl to 1 mg PO daily. (8) Lumbar degenerative disc disease: - Continue Tylenol #3 for pain control. (9) Hypertension: - Continue HCTZ and Atenolol. - BP has been elevated -- will increase Atenolol to 75 mg daily. (10) Hyperlipidemia: - Does not tolerate statins. (11) GERD (gastroesophageal reflux disease): - PPI daily; Maalox prn. (12) CKD (chronic kidney disease), stage III: - Renally dose all meds. - Cr is currently at baseline. (13) Anemia: - Monitor H/H daily -- currently below baseline. (14) Tobacco abuse: - Smokes >2 PPD; nicotine patch ordered. - Duonebs QID scheduled. - CXR was negative. (15) Electrolyte abnormality: - Hypomagnesemia ---> Mag level 1.7, ordered Mag sulfate 1 gm IV. - Continue mag oxide 400 mg daily and KCl 10 mEq daily. (16) DVT prophylaxis: - TEDS; Holding heparin in setting of scalp hematoma, recent falls. Dispo: Downgrade to med/surg with tele; discharge to rehab pending placement. Supervising Physician Co-Signing Physician Notes PA Supervision Note: I did not personally see or examine the patient today, but I verified all winn points of SAMIRA Delacruz's assessment and plan with the following exceptions/additions: None Subjective Pt. has bilat rib pain -- pain is likely related to chronic cough. Pain is increased with inspiration/expiration. Denies sternal chest pain, SOB. Has right leg/lateral thigh pain -- did have doppler of bilat LE on 11/20, was negative for DVT. Has tenderness to palpation of bilat LE in general, appears chronic. Pt. reports swelling of lower extremities, not noted on exam. Denies headache, pain at site of laceration with gregory. Plan for rehab placement -- she requested [facility]. Review of Systems Review of Systems: All systems reviewed & are unremarkable except as noted in HPI & below Constitutional: + fatigue and + weakness; no fever, no chills and no anorexia Respiratory: + problem reported (Bilateral rib pain 2/2 coughing ); no cough, no dyspnea, no dyspnea on exertion and no wheezing Cardiovascular: no chest pain, no palpitations, no lightheadedness and no edema Gastrointestinal: no abdominal pain, no nausea and no constipation Genitourinary: no difficulty urinating Musculoskeletal: + swelling (Bilat LE ) and + myalgia (Bilat LE, >right thigh lateral ); no back pain and no joint pain Integumentary: no non-healing lesions Physical Exam Physical Exam: General: Resting comfortably HEENT: NC/AT; PERRLA with EOMI; [place] conjunctiva, MMM. No erythema of posterior pharynx Neck: Supple and nontender Cardiac: RRR Lungs: on room air; diminished in bilat lung bases, otherwise clear throughout. Abdomen: Bowel normoactive X 4; Nontender to palpation Extremities: Warm. +1 mild bilat LE edema. Tenderness to light palpation over majority of lower extremities, no specific area identified. Neuro: No focal weakness Skin: Laceration on left parietal lobe, gregory intact, no active bleeding noted. Results & Data Vital Signs (Past 12 Hours) Vital Signs Temp Pulse Pulse Pulse Resp BP BP 11/30/18 11:56 37 C 73 20 156/92 H 11/30/18 09:20 37.2 C 88 16 152/73 H 11/30/18 07:45 37.0 C 74 18 134/62 11/30/18 07:02 101 H 18 11/30/18 03:32 36.8 C 72 20 174/71 H 11/30/18 01:47 68 Pulse Ox 11/30/18 11:56 90 11/30/18 09:20 88 L 11/30/18 07:45 95 11/30/18 07:02 91 11/30/18 03:32 92 11/30/18 01:47 Laboratory Results 11/30/18 11/30/18 11/30/18 Range/Units 11:51 05:52 05:52 WBC 11.31 H (4.8-10.8) K/uL RBC 3.63 L (4.2-5.4) M/uL Hgb 10.5 L (12.0-16.0) g/dL Hct 32.7 L (37-47) % MCV 90.1 (80-100) fL MCH 28.9 (25-34) pg MCHC 32.1 (32-36) g/dL RDW Std Deviation 56.6 H (36.4-46.3) fL RDW Coeff of Remy 17.2 H (11.5-14.5) % Plt Count 362 (130-400) K/uL MPV 9.8 (7.4-10.4) fL Sodium 140 (136-145) mmol/L Potassium 3.8 (3.5-5.1) mmol/L Chloride 106 (98-107) mmol/L Carbon Dioxide 29 (21-32) mmol/L Anion Gap 5.0 (3-11) BUN 16 (7-18) mg/dl Creatinine 1.50 H (0.6-1.2) mg/dl Est Cr Clr Drug Dosing 23.9 ml/min Est GFR ( Amer) 37.2 Est GFR (Non-Af Amer) 32.1 BUN/Creatinine Ratio 10.5 (10-20) Glucose 115 H (70-99) mg/dl POC Glucose 246 H (70-99) Calcium 8.1 L (8.5-10.1) mg/dl Magnesium 1.7 L (1.8-2.4) mg/dl 11/29/18 11/29/18 Range/Units 20:22 11:21 WBC (4.8-10.8) K/uL RBC (4.2-5.4) M/uL Hgb (12.0-16.0) g/dL Hct (37-47) % MCV (80-100) fL MCH (25-34) pg MCHC (32-36) g/dL RDW Std Deviation (36.4-46.3) fL RDW Coeff of Remy (11.5-14.5) % Plt Count (130-400) K/uL MPV (7.4-10.4) fL Sodium (136-145) mmol/L Potassium (3.5-5.1) mmol/L Chloride (98-107) mmol/L Carbon Dioxide (21-32) mmol/L Anion Gap (3-11) BUN (7-18) mg/dl Creatinine (0.6-1.2) mg/dl Est Cr Clr Drug Dosing ml/min Est GFR ( Amer) Est GFR (Non-Af Amer) BUN/Creatinine Ratio (10-20) Glucose (70-99) mg/dl POC Glucose 126 H 193 H (70-99) Calcium (8.5-10.1) mg/dl Magnesium (1.8-2.4) mg/dl PG Care Time/CCT Total # of Minutes Spent Total Time Spent with Patient: Total time spent is greater than 50% in coordination of care (as documented) at patient's floor/unit and/or counseling patient:
[2018-12-01] MEDS ORDERED: MoRPHine SULFATE 2 MG/ML CARP IV STA (04:42)
[2018-12-01 05:54] LABS: Hematocrit (blood only) 31.5 % (37-47); Hemoglobin 10.2 g/dL (12.0-16.0); Mean Corpuscular Hgb Conc 32.4 g/dL (32-36); Mean Platelet Volume 9.8 fL (7.4-10.4); Platelet Count 297 K/uL (130-400); RDW Coefficient of Variation 17.3 % (11.5-14.5); RDW Standard Deviation 56.7 fL (36.4-46.3); White Blood Count 18.99 K/uL (4.8-10.8)
[2018-12-01 06:24] LABS: BUN Creatinine Ratio 12.8 (10-20); Creatinine Clr Calc Pharmacy 23.1 ml/min; Est GFR (African American) 35.8; Est GFR (Non-African American) 30.9; Potassium 3.8 mmol/L (3.5-5.1)
[2018-12-01] MEDS: ALBUT/IPRATROP 3MG/0.5MG NEB 3 ML VIAL NEB SCH ×3 (07:04→18:56)
[2018-12-01] MEDS: INSULIN ASPART 100 UNITS/ML 3 ML PEN SC SCH ×4 (08:30→20:18)
--- NOTE | 2018-12-01 08:34 | XRay Report ---
XR chest 1V portable CLINICAL HISTORY: 83 years-old Female presenting with cp. TECHNIQUE: Portable upright AP view of the chest was obtained. COMPARISON: 11/28/2018. FINDINGS: Atherosclerosis of the aortic arch. Cardiac silhouette enlarged. Mild pulmonary vessel prominence. In terval development of extensive left retrocardiac opacity potentially also with a left pleural effusi on. No pneumothorax. Right lung and pleural space grossly clear. Suspected underlying osteopenia. IMPRESSION: 1. Left basilar infiltrate concerning for aspiration or pneumonia. 2. Possible left pleural effusion. 3. Cardiomegaly with mild volume overload. Electronically signed by: Skip Amador M.D. 12/01/2018 8:32 AM
--- NOTE | 2018-12-01 08:51 | Emergency Department Note ---
Entered by Estrellita Colindres acting as a scribe for Hannah Bosch DO History of Present Illness General Chief complaint: Fall Stated complaint: FALL, LACERATION TO BACK OF HEAD, ORAL INJURY Time Seen by Provider: 11/28/18 16:09 Source: patient Mode of arrival: EMS History of Present Illness Provider complaint: Fall Onset (ago): hour(s) 1 Location: head Relieved By: + none Exacerbated By: + none Associated symptoms: + denies other symptoms (Loss of conciousness, shoulder, hip, rib, or abdominal pain) and + other (Lower back soreness, ); no nausea/vomiting and no shortness of breath The patient is a 83 year old female who presents to the Emergency Room with complaints of a fall that occurred about an hour ago. The patient states that she was walking into a doctors appointment when her legs gave out and she fell backwards. The patient reports she hit her head on the ground and in the process knocked out her front dental implant that was placed on Monday. Denies any other facial or dental trauma. The patient's symptoms are not relieved nor are they exacerbated by anything. The patient reports experiencing lower back soreness but denies any pain in her shoulder, hip, ribs, or abdomen. Additionally, the patient denies any nausea/vomiting or shortness of breath. The patient mentioned she was going to a doctors appointment for bilateral leg numbness and swelling that has been ongoing for the past 4 months. The patient reports she takes a baby aspirin everyday but denies being on blood thinners. Patient denies loss of consciousness during the fall, however was not able to get up on her own. Home Medications Home Medications Medication Instructions Recorded Confirmed Type aspirin 81 mg tablet,delayed 81 mg PO DAILY 08/06/18 11/28/18 History release biotin 5,000 mcg sublingual tablet 5,000 mcg SL DAILY 08/06/18 11/28/18 History glimepiride 2 mg tablet 2 mg PO DAILYBD tab 08/06/18 11/29/18 History metformin 500 mg tablet 1,000 mg PO BID tab 08/06/18 11/28/18 History multivitamin capsule 1 cap PO DAILY 08/06/18 11/28/18 History omeprazole 20 mg capsule,delayed 20 mg PO DAILY 08/06/18 11/28/18 History release potassium chloride ER 10 mEq 10 meq PO DAILY #90 cap 09/11/18 11/28/18 Rx capsule,extended release atenolol 50 mg tablet 50 mg PO DAILY #90 tab 09/26/18 11/28/18 Rx acetaminophen 300 mg-codeine 30 mg 1 tab PO BID #60 tab 11/22/18 11/28/18 Rx tablet calcium carbonate-vitamin D3 1 tab PO DAILY 11/28/18 11/28/18 History [Calcium 600 + D(3)] cholecalciferol (vitamin D3) 1,000 unit PO DAILY 11/28/18 11/28/18 History [Vitamin D3] cyanocobalamin (vitamin B-12) 50 mcg PO DAILY 11/28/18 11/28/18 History [Vitamin B-12] glimepiride 1 mg PO QAM 11/28/18 11/28/18 History hydrochlorothiazide 12.5 mg PO DAILY 11/28/18 11/28/18 History ketoconazole 1 applic TOPICAL BID 11/28/18 11/28/18 History magnesium 250 mg PO DAILY 11/28/18 11/28/18 History methocarbamol 500 mg PO BID PRN 11/28/18 11/28/18 History Allergies Allergy/AdvReac Type Severity Reaction Status Date / Time Pvmdtgl-Ubd-Btw Reductase AdvReac Mild leg Verified 11/28/18 17:07 Inhibitor cramping Past Med/Surg History Medical History History of malignant neoplasm of colon (Resolved) GERD (gastroesophageal reflux disease) HTN (hypertension) Hyperlipidemia Lumbar degenerative disc disease Type II diabetes mellitus Colon cancer Colonic mass H/O: hysterectomy Surgical History H/O right hemicolectomy History of cataract extraction History of tonsillectomy and adenoidectomy Family History Father Lung cancer Mother Stroke syndrome Hypertension Cancer Diabetes Sister Diabetes Social History Preferred Language: [place] Communication Ability: Effective Visual Impairment: No Limitations Hearing Ability: Normal Hotel Attendant Required: No Beliefs That Will Affect Care: None marital status: / Current Living Situation: Alone current occupational status: retired Other Information That Helps Us Care for You: No Feels Safe at Home: Yes Safety Concerns: Feels Safe At This Time Smoking Status: Current every day smoker Tobacco Type: cigarettes ; Cigarettes Per Day: 3 packs ; Do You Dip or Chew Tobacco: No ; Hx Alcohol Use: No Hx Substance Use: No Review of Systems See HPI for pertinent positives & negatives. and A total of 10 systems reviewed and were otherwise negative Physical Exam Vital Signs Vital Signs - 24 hr 11/28/18 16:16 11/28/18 19:04 Temperature 36.7 C Temperature Source Oral Sepsis Recent Fever Within 48 Hours No Sepsis Action Taken by Nursing No Action Required Pulse Rate 93 H Pulse Rate [Apical] 91 H Pulse Rhythm Regular Pulse Strength Normal Respiratory Rate 20 18 Respiratory Effort / Characteristics Non-Labored Spontaneous Non-Labored Respiratory Depth Normal Normal Respiratory Pattern Regular Blood Pressure 150/91 H Blood Pressure [Left Arm] 146/60 H Blood Pressure Mean 110 Blood Pressure Mean [Left Arm] 88 Blood Pressure Position Lying Pulse Oximetry 94 94 Oxygen Delivery Method Room Air GENERAL: alert, well appearing, well nourished, no distress, non-toxic HEAD: normal cephalic, atraumatic, no rocha sign, no raccoon eyes EYE EXAM: normal conjunctiva, PERRL and EOM's grossly intact OROPHARYNX: no exudate, no erythema, lips, buccal mucosa, and tongue normal and mucous membranes are moist EARS: TMs clear b/l without hemotympanum, no edema along the canals NECK: supple, no nuchal rigidity, no adenopathy, non-tender CHEST: stable to compression anteriorly and posteriorly LUNGS: clear to auscultation. Normal chest wall mechanics, no w/r/r HEART: no murmurs, S1 normal and S2 normal ABDOMEN: abdomen soft, non-tender, normo-active bowel sounds, no masses, no rebound or guarding. PELVIS: stable to compression anteriorly and posteriorly BACK: Back is symmetrical on inspection and there is no deformity, no midline tenderness, no CVA tenderness. UPPER EXTREMITIES: full active and passive range of motion of all joints without tenderness to palpation, no deformities, normal distal pulses LOWER EXTREMITIES: full active and passive range of motion of all joints without tenderness to palpation, no deformities, normal distal pulses NEURO EXAM: Normal sensorium, cranial nerves II-XII grossly intact, normal speech, no gross weakness of arms, no gross weakness of legs. GCS: 15. Procedures Free Text Procedures Laceration repair: Lido with epi was infiltrated into the wound margins to provide local anesthesia. The wound was inspected for foreign bodies, tendon, artery and bone or joint involvement and none was found. The wound was irrigated with saline and closed with 5 staple(s) using 5 staple(s) and a clean dressing was applied. In order to better approximate wound margins, partial hematoma evacuation was performed. Patient had no recurrent bleeding. The patient tolerated the procedure well. Course 1624: Past medical records reviewed. The patient was evaluated in room C05. A complete history and physical exam was performed. 1934: Patient unsteady here with ambulatory trial. Will ask case management to evaluate options for possible inpatient rehab. Discussed all results with patient. Scalp laceration repaired. 2006: I spoke with Dr. Currie- Hospitalist about the patient's case and he will accept the patient for further evaluation. Administered Medications Acetaminophen (Tylenol) 650 mg PO Q4H PRN PRN Reason: mild pain or fever Stop: 12/28/18 23:15 Last Admin: 11/30/18 21:03 Dose: 650 mg Documented by: [id number] Albuterol (Duoneb) 3 ml NEB [id number] [facility] Stop: 12/29/18 11:59 Last Admin: 12/01/18 07:04 Dose: 3 ml Documented by: [id number] Admin: 11/30/18 19:08 Dose: 3 ml Documented by: [id number] Admin: 11/30/18 13:19 Dose: 3 ml Documented by: [id number] Admin: 11/30/18 07:00 Dose: 3 ml Documented by: [id number] Admin: 11/29/18 19:41 Dose: 3 ml Documented by: [id number] Admin: 11/29/18 13:24 Dose: Not Given Documented by: [id number] Admin: 11/29/18 12:43 Dose: 3 ml Documented by: [id number] Aspirin (Ecotrin Ectab) 81 mg PO DAILY [facility] Stop: 12/29/18 08:59 Last Admin: 11/30/18 09:36 Dose: 81 mg Documented by: [id number] Admin: 11/29/18 09:21 Dose: 81 mg Documented by: [id number] Cyanocobalamin (Vitamin B-12) 50 mcg PO DAILY [facility] Stop: 12/29/18 08:59 Last Admin: 11/30/18 09:36 Dose: 50 mcg Documented by: [id number] Admin: 11/29/18 09:17 Dose: 50 mcg Documented by: [id number] Hydrochlorothiazide (Hctz) 12.5 mg PO DAILY [facility] Stop: 12/29/18 08:59 Last Admin: 11/30/18 09:37 Dose: 12.5 mg Documented by: [id number] Admin: 11/29/18 09:20 Dose: 12.5 mg Documented by: [id number] Insulin Aspart (Novolog Flexpen) 0 units SC ACHS [facility] Stop: 12/30/18 11:29 Last Admin: 11/30/18 20:40 Dose: 1 units Documented by: [id number] Cosigned by: [id number] Admin: 11/30/18 17:25 Dose: Not Given Documented by: [id number] Cosigned by: [id number] Admin: 11/30/18 12:29 Dose: 4 units Documented by: [id number] Cosigned by: [id number] Magnesium Oxide (Mag-Ox) 400 mg PO DAILY [facility] Stop: 12/29/18 08:59 Last Admin: 11/30/18 09:36 Dose: 400 mg Documented by: [id number] Admin: 11/29/18 09:20 Dose: 400 mg Documented by: [id number] Miscellaneous (Remove Nicoderm Patch) 1 ea N/A HS [facility] Stop: 12/29/18 20:59 Last Admin: 11/30/18 20:44 Dose: 1 ea Documented by: [id number] Admin: 11/29/18 20:14 Dose: 1 ea Documented by: [id number] Morphine Sulfate (Morphine Sulfate) 2 mg IV Q3H PRN PRN Reason: Severe Pain Stop: 12/12/18 23:15 Last Admin: 11/30/18 03:09 Dose: 2 mg Documented by: [id number] Multivitamins (Multivitamin Tab) 1 tab PO DAILY [facility] Stop: 12/29/18 08:59 Last Admin: 11/30/18 09:36 Dose: 1 tab Documented by: [id number] Admin: 11/29/18 09:18 Dose: 1 tab Documented by: [id number] Multivitamins/Minerals (Caltrate Plus) 1 tab PO DAILY [facility] Stop: 12/29/18 08:59 Last Admin: 11/30/18 09:36 Dose: 1 tab Documented by: [id number] Admin: 11/29/18 09:18 Dose: 1 tab Documented by: [id number] Nicotine (Nicoderm Cq) 21 mg TD QAM [facility] Stop: 12/29/18 10:14 Last Admin: 11/30/18 09:37 Dose: 21 mg Documented by: [id number] Admin: 11/29/18 11:38 Dose: 21 mg Documented by: [id number] Pantoprazole Sodium (Protonix) 40 mg PO DAILY [facility] Stop: 12/29/18 08:59 Last Admin: 11/30/18 09:35 Dose: 40 mg Documented by: [id number] Admin: 11/29/18 09:17 Dose: 40 mg Documented by: [id number] Potassium Chloride (Klor-Con M10) 10 meq PO DAILY [facility] Stop: 12/29/18 08:59 Last Admin: 11/30/18 09:36 Dose: 10 meq Documented by: [id number] Admin: 11/29/18 09:21 Dose: 10 meq Documented by: [id number] Senna/Docusate Sodium (Senokot S) 1 tab PO BID [facility] Stop: 12/29/18 10:14 Last Admin: 11/30/18 20:42 Dose: 1 tab Documented by: [id number] Admin: 11/30/18 09:35 Dose: 1 tab Documented by: [id number] Admin: 11/29/18 20:14 Dose: Not Given Documented by: [id number] Admin: 11/29/18 11:37 Dose: 1 tab Documented by: [id number] Vitamin D (Vitamin D3) 1,000 units PO DAILY [facility] Stop: 12/29/18 08:59 Last Admin: 11/30/18 09:36 Dose: 1,000 units Documented by: [id number] Admin: 11/29/18 09:22 Dose: 1,000 units Documented by: [id number] Discontinued Medications Atenolol (Tenormin) 50 mg PO DAILY [facility] Stop: 12/29/18 08:59 Last Admin: 11/30/18 09:36 Dose: 50 mg Documented by: [id number] Admin: 11/29/18 09:21 Dose: 50 mg Documented by: [id number] Atenolol (Tenormin) 75 mg PO DAILY [facility] Stop: 12/30/18 10:14 Last Admin: 11/30/18 10:57 Dose: Not Given Documented by: [id number] Atenolol (Tenormin) 25 mg PO NOW STA Stop: 11/30/18 10:26 Last Admin: 11/30/18 12:05 Dose: 25 mg Documented by: [id number] Glimepiride (Amaryl) 2 mg PO HS [facility] Stop: 12/28/18 23:15 Last Admin: 11/28/18 23:50 Dose: Not Given Documented by: [id number] Glucose (Glucose 40%) 15 - 30 gm PO UD PRN; Protocol PRN Reason: Hypoglycemia Protocol Stop: 12/28/18 23:15 Last Admin: 11/29/18 07:31 Dose: 30 gm Documented by: [id number] Admin: 11/28/18 23:56 Dose: 30 gm Documented by: [id number] Magnesium Sulfate/Dextrose (Magnesium Sulfate / D5w) 1 gm in 100 mls @ 100 mls/hr IV Q1H [facility] Stop: 11/29/18 10:14 Last Infusion: 11/29/18 11:27 Dose: 0 mls/hr Documented by: [id number] Admin: 11/29/18 10:12 Dose: 100 mls/hr Documented by: [id number] Infusion: 11/29/18 09:59 Dose: 100 mls/hr Documented by: [id number] Admin: 11/29/18 08:59 Dose: 100 mls/hr Documented by: [id number] Magnesium Sulfate/Dextrose (Magnesium Sulfate / D5w) 1 gm in 100 mls @ 100 mls/hr IV ONE ONE Stop: 11/30/18 09:59 Last Infusion: 11/30/18 10:46 Dose: 0 mls/hr Documented by: [id number] Admin: 11/30/18 09:41 Dose: 100 mls/hr Documented by: [id number] Ibuprofen (Advil) 400 mg PO NOW ONE Stop: 11/30/18 10:06 Last Admin: 11/30/18 12:05 Dose: 400 mg Documented by: [id number] Insulin Aspart (Novolog Flexpen) 0 units SC ACHS [facility] Stop: 12/29/18 07:29 Last Admin: 11/29/18 10:18 Dose: Not Given Documented by: [id number] Cosigned by: [id number] Lidocaine/Epinephrine (Buffered Xylocaine/Epinephrine 1%) Confirm Administered Dose 20 ml .ROUTE .STK-MED ONE Stop: 11/28/18 19:14 Last Admin: 11/28/18 19:39 Dose: 20 ml Documented by: [id number] Miscellaneous (Carbohydrates For Hypoglycemia) 15 - 30 gm PO UD PRN PRN Reason: Hypoglycemia Treatment Stop: 12/28/18 23:15 Last Admin: 11/28/18 23:31 Dose: 30 gm Documented by: [id number] Morphine Sulfate (Morphine Sulfate) 1 mg IV NOW STA Stop: 12/01/18 04:43 Last Admin: 12/01/18 05:19 Dose: 1 mg Documented by: [id number] Medical Decision Making Differential Diagnosis Differential diagnosis: Etiologies such as fracture, cervical/vertebral injury, dislocation, intra- abdominal process, pneumothorax, intrathoracic trauma, intracranial injury, soft tissue injury, neurologic process, as well as other traumatic pathologies were entertained. Medical Records Attestation: I reviewed the patient's medical records. Home Medications Current Medication List: was personally reviewed by me Laboratory Data Result diagrams: 12/01/18 05:33 12/01/18 05:33 Lab Results 11/28/18 11/28/18 11/28/18 Range/Units 16:50 23:22 23:23 WBC (4.8-10.8) K/uL RBC (4.2-5.4) M/uL Hgb (12.0-16.0) g/dL POC Hgb 10.9 L (12.0-16.0) g/dl Hct (37-47) % POC Hct 32 L (37-47) % MCV (80-100) fL MCH (25-34) pg MCHC (32-36) g/dL RDW Std Deviation (36.4-46.3) fL RDW Coeff of Remy (11.5-14.5) % Plt Count (130-400) K/uL MPV (7.4-10.4) fL POC Sodium 139 (135-144) mEq/L Sodium (136-145) mmol/L POC Potassium 4.8 (3.3-5.0) mEq/L Potassium (3.5-5.1) mmol/L POC Chloride 105 (101-112) mEq/L Chloride (98-107) mmol/L Carbon Dioxide (21-32) mmol/L POC Total CO2 23 L (24-31) mEq/l Anion Gap (3-11) POC Anion Gap 18.0 (16-25) mmol/L POC BUN 21 H (7-18) mg/dl BUN (7-18) mg/dl Creatinine (0.6-1.2) mg/dl POC Creatinine 1.7 H (0.6-1.3) mg/dl Est Cr Clr Drug Dosing ml/min Est GFR ( Amer) Est GFR (Non-Af Amer) BUN/Creatinine Ratio (10-20) Glucose (70-99) mg/dl POC Glucose 47 L* 47 L* (70-99) POC Glucose (other) 78 (70-99) mg/dl Estimat Average Glucose mg/dl Hemoglobin A1c (4.5-5.6) % Calcium (8.5-10.1) mg/dl POC Ioniz Calcium Flavio 1.17 (1.12-1.32) mmol/l Magnesium (1.8-2.4) mg/dl Total Creatine Kinase (26-192) U/L Troponin I (0-0.045) ng/ml Vitamin B12 (211-911) pg/ml Folate (>5.38) ng/ml 11/28/18 11/28/18 11/28/18 Range/Units 23:42 23:42 23:49 WBC (4.8-10.8) K/uL RBC (4.2-5.4) M/uL Hgb (12.0-16.0) g/dL POC Hgb (12.0-16.0) g/dl Hct (37-47) % POC Hct (37-47) % MCV (80-100) fL MCH (25-34) pg MCHC (32-36) g/dL RDW Std Deviation (36.4-46.3) fL RDW Coeff of Remy (11.5-14.5) % Plt Count (130-400) K/uL MPV (7.4-10.4) fL POC Sodium (135-144) mEq/L Sodium (136-145) mmol/L POC Potassium (3.3-5.0) mEq/L Potassium (3.5-5.1) mmol/L POC Chloride (101-112) mEq/L Chloride (98-107) mmol/L Carbon Dioxide (21-32) mmol/L POC Total CO2 (24-31) mEq/l Anion Gap (3-11) POC Anion Gap (16-25) mmol/L POC BUN (7-18) mg/dl BUN (7-18) mg/dl Creatinine (0.6-1.2) mg/dl POC Creatinine (0.6-1.3) mg/dl Est Cr Clr Drug Dosing ml/min Est GFR ( Amer) Est GFR (Non-Af Amer) BUN/Creatinine Ratio (10-20) Glucose (70-99) mg/dl POC Glucose 47 L* (70-99) POC Glucose (other) (70-99) mg/dl Estimat Average Glucose mg/dl Hemoglobin A1c (4.5-5.6) % Calcium (8.5-10.1) mg/dl POC Ioniz Calcium Flavio (1.12-1.32) mmol/l Magnesium (1.8-2.4) mg/dl Total Creatine Kinase 70 (26-192) U/L Troponin I < 0.015 (0-0.045) ng/ml Vitamin B12 638 (211-911) pg/ml Folate > 24.00 (>5.38) ng/ml 11/29/18 11/29/18 11/29/18 Range/Units 00:13 05:46 05:46 WBC 11.31 H (4.8-10.8) K/uL RBC 3.63 L (4.2-5.4) M/uL Hgb 10.9 L (12.0-16.0) g/dL POC Hgb (12.0-16.0) g/dl Hct 33.3 L (37-47) % POC Hct (37-47) % MCV 91.7 (80-100) fL MCH 30.0 (25-34) pg MCHC 32.7 (32-36) g/dL RDW Std Deviation 58.6 H (36.4-46.3) fL RDW Coeff of Remy 17.5 H (11.5-14.5) % Plt Count 368 (130-400) K/uL MPV 10.1 (7.4-10.4) fL POC Sodium (135-144) mEq/L Sodium 142 (136-145) mmol/L POC Potassium (3.3-5.0) mEq/L Potassium 4.4 (3.5-5.1) mmol/L POC Chloride (101-112) mEq/L Chloride 108 H (98-107) mmol/L Carbon Dioxide 29 (21-32) mmol/L POC Total CO2 (24-31) mEq/l Anion Gap 6.0 (3-11) POC Anion Gap (16-25) mmol/L POC BUN (7-18) mg/dl BUN 18 (7-18) mg/dl Creatinine 1.43 H (0.6-1.2) mg/dl POC Creatinine (0.6-1.3) mg/dl Est Cr Clr Drug Dosing 27.5 ml/min Est GFR ( Amer) 39.4 Est GFR (Non-Af Amer) 34.0 BUN/Creatinine Ratio 12.7 (10-20) Glucose 46 L* (70-99) mg/dl POC Glucose 92 (70-99) POC Glucose (other) (70-99) mg/dl Estimat Average Glucose mg/dl Hemoglobin A1c (4.5-5.6) % Calcium 8.6 (8.5-10.1) mg/dl POC Ioniz Calcium Flavio (1.12-1.32) mmol/l Magnesium 1.4 L (1.8-2.4) mg/dl Total Creatine Kinase (26-192) U/L Troponin I (0-0.045) ng/ml Vitamin B12 (211-911) pg/ml Folate (>5.38) ng/ml 11/29/18 11/29/18 11/29/18 Range/Units 05:46 07:06 07:30 WBC (4.8-10.8) K/uL RBC (4.2-5.4) M/uL Hgb (12.0-16.0) g/dL POC Hgb (12.0-16.0) g/dl Hct (37-47) % POC Hct (37-47) % MCV (80-100) fL MCH (25-34) pg MCHC (32-36) g/dL RDW Std Deviation (36.4-46.3) fL RDW Coeff of Remy (11.5-14.5) % Plt Count (130-400) K/uL MPV (7.4-10.4) fL POC Sodium (135-144) mEq/L Sodium (136-145) mmol/L POC Potassium (3.3-5.0) mEq/L Potassium (3.5-5.1) mmol/L POC Chloride (101-112) mEq/L Chloride (98-107) mmol/L Carbon Dioxide (21-32) mmol/L POC Total CO2 (24-31) mEq/l Anion Gap (3-11) POC Anion Gap (16-25) mmol/L POC BUN (7-18) mg/dl BUN (7-18) mg/dl Creatinine (0.6-1.2) mg/dl POC Creatinine (0.6-1.3) mg/dl Est Cr Clr Drug Dosing ml/min Est GFR ( Amer) Est GFR (Non-Af Amer) BUN/Creatinine Ratio (10-20) Glucose (70-99) mg/dl POC Glucose 85 51 L* (70-99) POC Glucose (other) (70-99) mg/dl Estimat Average Glucose 131 mg/dl Hemoglobin A1c 6.2 H (4.5-5.6) % Calcium (8.5-10.1) mg/dl POC Ioniz Calcium Flavio (1.12-1.32) mmol/l Magnesium (1.8-2.4) mg/dl Total Creatine Kinase (26-192) U/L Troponin I (0-0.045) ng/ml Vitamin B12 (211-911) pg/ml Folate (>5.38) ng/ml 11/29/18 11/29/18 Range/Units 07:48 09:48 WBC (4.8-10.8) K/uL RBC (4.2-5.4) M/uL Hgb (12.0-16.0) g/dL POC Hgb (12.0-16.0) g/dl Hct (37-47) % POC Hct (37-47) % MCV (80-100) fL MCH (25-34) pg MCHC (32-36) g/dL RDW Std Deviation (36.4-46.3) fL RDW Coeff of Remy (11.5-14.5) % Plt Count (130-400) K/uL MPV (7.4-10.4) fL POC Sodium (135-144) mEq/L Sodium (136-145) mmol/L POC Potassium (3.3-5.0) mEq/L Potassium (3.5-5.1) mmol/L POC Chloride (101-112) mEq/L Chloride (98-107) mmol/L Carbon Dioxide (21-32) mmol/L POC Total CO2 (24-31) mEq/l Anion Gap (3-11) POC Anion Gap (16-25) mmol/L POC BUN (7-18) mg/dl BUN (7-18) mg/dl Creatinine (0.6-1.2) mg/dl POC Creatinine (0.6-1.3) mg/dl Est Cr Clr Drug Dosing ml/min Est GFR ( Amer) Est GFR (Non-Af Amer) BUN/Creatinine Ratio (10-20) Glucose (70-99) mg/dl POC Glucose 72 (70-99) POC Glucose (other) (70-99) mg/dl Estimat Average Glucose mg/dl Hemoglobin A1c (4.5-5.6) % Calcium (8.5-10.1) mg/dl POC Ioniz Calcium Flavio (1.12-1.32) mmol/l Magnesium (1.8-2.4) mg/dl Total Creatine Kinase (26-192) U/L Troponin I < 0.015 (0-0.045) ng/ml Vitamin B12 (211-911) pg/ml Folate (>5.38) ng/ml Imaging Data Radiologist's Impression: Radiology results as stated below per my review and the radiologist's interpretation: CT lumbar spine wo con CT DOSE: 1400.69 mGy.cm CLINICAL HISTORY: Low back pain status post trauma. TECHNIQUE: Helical images were acquired in transverse plane. Reformatted sagittal and coronal images were reviewed. A dose lowering technique was utilized adhering to the principles of ALARA. CONTRAST: No contrast was administered COMPARISON STUDY: None. FINDINGS: There is a thoracolumbar scoliosis. L1-2 level: There is a gas within the disc.. There is a circumferential disc bulge. There is no significant spinal or foraminal stenosis L2-3 level: There is gas within the disc. There is a circumferential disc bulge. There is minimal spinal canal narrowing. There is no significant foraminal stenosis L3-4 level: There is a circumferential disc bulge asymmetric to the right. There is mild to moderate spinal canal narrowing. There is no cystic or foraminal stenosis. L4-5 level: There is a grade 1 spondylolisthesis of L4 and L5. There is gas within the disc. There is a circumferential disc bulge. There is mild to moderate spinal stenosis. There is no significant foraminal narrowing L5-S1 level: There is no evidence of significant disc bulge or focal herniation. There is no evidence of spinal or foraminal stenosis. No acute fractures or traumatic subluxations are visualized. IMPRESSION: 1. No acute fractures or traumatic subluxations identified 2. Multilevel spondylytic changes with mild to moderate spinal stenosis at the L3-4, and L4-5 levels. 3. Scoliosis Electronically signed by: Frederic Landers M.D. 11/28/2018 5:[address] head/brain wo con CLINICAL HISTORY: 83 years-old Female presenting with trauma, fall, posterior head injury. TECHNIQUE: Multidetector CT imaging of the head was performed without the use of intravenous contrast. IV contrast: None. One or more dose lowering techniques were used consistent with the principles of ALARA (as low as reasonably achievable), including automatic exposure control, mA or kV adjustment to indiv idual patient size, and/or use of iterative reconstruction. COMPARISON: None. CT DOSE (mGy.cm): The estimated cumulative dose is 1400.69. FINDINGS: Network Services Project Manager topogram: Unremarkable. Proportional ventricular and sulcal prominence, likely age-related parenchymal volume loss. No hemorrhage. Periventricular and subcortical white matter hypoattenuation, nonspecific but likely indicative of chronic small vessel ischemic change. No acute territorial infarct. No mass effect or midline shift. No extra-axial fluid collection. Paranasal sinuses and mastoid air cells clear. Calvarium intact. Soft tissue swelling with subcutaneous emphysema and small hematoma in the left parietal scalp near the vertex. IMPRESSION: 1. Chronic small vessel ischemic change. No acute intracranial abnormality. 2. Small left parietal scalp hematoma, laceration, and contusion. No subjacent osseous injury. Electronically signed by: Skip Amador M.D. 11/28/2018 5:[address] cervical spine wo con CLINICAL HISTORY: 83 years-old Female presenting with trauma, posterior head in jury, fall. TECHNIQUE: Multidetector CT of the cervical spine was performed without the use of intravenous contrast. IV contrast: None. One or more dose lowering techniques were used consistent with the principles of ALARA (as low as reasonably achievable), including automatic exposure control, mA or kV adjustment to individual patient size, and/or use of iterative reconstruction. COMPARISON: Cervical spine radiographs from 05/02/2016. CT DOSE (mGy.cm): The estimated cumulative dose is 1400.69. FINDINGS: [employer] Services Project Manager topogram: Unremarkable. Slight reversal of normal cervical lordosis centered at C5-6 as on prior exam. Vertebral bodies maintain normal height and alignment otherwise. Intervertebral disc height loss noted to a severe degree at C5-6 and C6-7, where there is the greatest degree of degenerative change and disc osteophyte complexes. Mild to moderate posterior bony spurring resulting in spinal canal narrowing combination with underlying disc bulges. This is greatest at C5-6. Degenerative changes of the atlantodental articulation. Facet arthropathy and uncovertebral hypertrophy results in very degrees of osseous neural foraminal narrowing. No acute fracture or subluxation. Visualized portion of the skull base intact. Paraspinal soft tissues within normal limits. IMPRESSION: 1. No acute osseous injury of the cervical spine. 2. Multilevel degenerative changes with spinal canal and neural foraminal narrowing. Electronically signed by: Skip Amador M.D. 11/28/2018 5:35 PM XR pelvis 1-2V routine CLINICAL HISTORY: 83 years-old Female presenting with trauma. TECHNIQUE: Single frontal view of the pelvis was obtained. COMPARISON: None. FINDINGS: Sacroiliac joints with mild degenerative change. Pubic symphysis and hip joints congruent. Allowing for underlying osteopenia, bony pelvis intact. Femoral necks intact. Degenerative changes of the lower lumbar spine. And anastomotic suture margin is noted in the right lower quadrant. IMPRESSION: Allowing for osteopenia, no acute osseous injury. Electronically signed by: Skip Amador M.D. 11/28/2018 6:45 PM XR chest 1V portable CLINICAL HISTORY: 83 years-old Female presenting with trauma. TECHNIQUE: Portable upright AP view of the chest was obtained. COMPARISON: 06/21/[address] from 06/22/2018. FINDINGS: Atherosclerosis of the aortic arch. Cardiac silhouette normal in size. No focal opacity. No large effusion or pneumothorax. Osteopenia suspected. No gross evidence of fracture. Upper abdomen normal. IMPRESSION: 1. No acute cardiopulmonary disease. Electronically signed by: Skip Amador M.D. 11/28/2018 6:43 PM ECG Data Attestation: I personally reviewed and interpreted this ECG as follows: Indication: other (Fall) Rate (beats per minute): 88 Rhythm: normal sinus Findings: + other (Normal axis, normal intervals); no PVC and no acute ischemic change Blood Pressure Blood Pressure Findings: Elevated blood pressure Blood Pressure Disposition: Referred to patients primary care provider MDM Narrative This is an elderly female who lives at home alone who presents after fall while trying to keep an appointment with her family doctor. Patient did sustain a closed head injury with a scalp laceration. Imaging of the patient was performed and was reassuring, and the scalp laceration repaired. Patient tolerated procedure well and had no new or evolving complaints while she was observed in the emergency room. Patient unfortunately was unable to ambulate with a steady gait even with her walker and I felt it was unsafe for her to be discharged at this time. Patient states she has no other way for family to stay with her for her to stay with any additional family locally. Options for inpatient rehab are unavailable. Case discussed with hospitalist for additional evaluation and management and likely PT/OT evaluation. Patient hemodynamically stable in the emergency room. Have a low suspicion for any other occult traumatic injury. Patient's symptoms did seem mechanical in nature in her lower leg complaints have been ongoing for the last 4 months, no new changes. I do not suspect occult infectious etiology, no evidence of acute electrolyte abnor mality. Patient was gently hydrated here as a precaution. Creatinine appears stable compared to prior. Impression & Plan CHI (closed head injury), Abnormal gait, Fall from ground level, Laceration of scalp, Renal insufficiency, Hypertension Discharge Plan Visit Data *Final* Discharge Date/Time: 11/28/18 22:19 Chief Complaint: Fall Stated Complaint: FALL, LACERATION TO BACK OF HEAD, ORAL INJURY ED Provider: Hannah Bosch Discharge Problem: CHI (closed head injury), Abnormal gait, Fall from ground level, Laceration of scalp, Renal insufficiency, Hypertension Patient Disposition: Admitted As Inpatient Discharge Instructions Interventions: ED Discharge Assessment Last Done: 11/28/18 22:19 Discharge Problem: CHI (closed head injury) Qualifiers: Encounter type: initial encounter Qualified Code(s): S09.90XA - Unspecified injury of head, initial encounter Laceration of scalp Qualifiers: Encounter type: initial encounter Qualified Code(s): S01.01XA - Laceration without foreign body of scalp, initial encounter Hypertension Qualifiers: Hypertension type: essential hypertension Qualified Code(s): I10 - Essential (primary) hypertension The scribe's documentation has been prepared under my direction and personally reviewed by me in its entirety. I confirm that the note above accurately reflects all work, treatment, procedures, and medical decision making performed by me.
[2018-12-01] MEDS ORDERED: AZITHROMYCIN 500 MG in DEXTROSE 5% 250 ML IV STA (09:19)
[2018-12-01] MEDS ORDERED: cefTRIAXone SODIUM 1,000 MG in DEXTROSE 5% 50 ML IV SCH (09:30)
[2018-12-01] MEDS: CALCIUM 600MG + VIT D 400 IU TAB PO SCH (10:56)
[2018-12-01] MEDS: hydroCHLOROthiazide 25 MG TAB PO SCH (10:57)
[2018-12-01] MEDS: ASPIRIN 81 MG ECTAB PO SCH (10:57)
[2018-12-01] MEDS: CHOLECALCIFEROL 1,000 UNITS TAB PO SCH (10:59)
[2018-12-01] MEDS: CYANOCOBALAMIN (VITAMIN B-12) 100 MCG TABLET PO SCH (10:59)
[2018-12-01] MEDS: POTASSIUM CHLORIDE 10 MEQ TABCR PO SCH (11:00)
[2018-12-01] MEDS: MULTIVITAMIN TAB PO SCH (11:00)
[2018-12-01] MEDS: ATENOLOL 50 MG TABLET PO SCH (11:00)
[2018-12-01] MEDS: MAGNESIUM OXIDE 400 MG TAB PO SCH (11:00)
[2018-12-01] MEDS: PANTOprazole 40 MG TAB PO SCH (11:01)
[2018-12-01] MEDS: DOCUSATE SODIUM/SENNA 50/8.6MG TAB PO SCH ×2 (11:22→20:13)
[2018-12-01] MEDS: NICOTINE 21 MG/24 HR TDSY TD SCH (12:57)
--- NOTE | 2018-12-01 13:36 | Hospitalist Progress Note ---
Date of Service December 01, 2018 Assessment & Plan (1) Chest pain: - Developed chest pain on 11/29 -- pain is located in bilat rib area, likely related to chronic coughing episodes vs. PNA. - EKG negative; Trop negative x 2. - Consider short course of steroids for inflammation. - CXR showed left opacity c/w PNA -- see below. (2) PNA (pneumonia): - CXR with left basilar opacity c/w PNA; acute rise in WBC, 18.99 this morning. - Sputum culture pending collection. - Will start Ceftriaxone and Azithromycin for empiric coverage. - Duonebs QID scheduled. (3) Pain and swelling of lower extremity: - Reports LE edema and pain. Imaging negative for fractures at admission. - Outpatient doppler of bilat LE negative on 11/20; pt. refused repeat doppler during this admission. - ADORE hose for swelling. - Tylenol & Tylenol #3 prn acute pain. (4) Fall from ground level: - Pt. has reported falling frequently over last few months -- may be related to generalized weakness vs. bilateral numbness in setting of spinal complications or diabetic neuropathy vs. hypoglycemia. - PT/OT - discharge to rehab once medically stable, pt. has requested [facility]. (5) Closed head injury: - Related to fall; CT head showed small left parietal scalp hematoma, laceration and contusion. - Mental status is at baseline. (6) Laceration of scalp: - Stapled in ED; continue topical wound care. (7) Hematoma of left parietal scalp: - Monitor CBC daily -- H/H is below baseline but stable. (8) Diabetic neuropathy associated with type 2 diabetes mellitus: - Hgb A1C was 6.2. - Previously on Metformin and Amaryl at home -- hypoglycemia may have been contributing to falls. - SSI coverage with gluc checks as inpt. - Recommend d/c'ing Metformin at discharge due to CKD and decreasing Amaryl to 1 mg PO daily. (9) Lumbar degenerative disc disease: - Continue Tylenol #3 for pain control. (10) Hypertension: - Continue HCTZ and Atenolol. - BP has been intermittently elevated. (11) Hyperlipidemia: - Does not tolerate statins. (12) GERD (gastroesophageal reflux disease): - PPI daily; Maalox prn. (13) CKD (chronic kidney disease), stage III: - Renally dose all meds. - Cr is currently at baseline. (14) Anemia: - Monitor H/H daily -- currently below baseline. (15) Tobacco abuse: - Smokes >2 PPD; nicotine patch ordered. (16) Electrolyte abnormality: - Continue mag oxide 400 mg daily and KCl 10 mEq daily. (17) DVT prophylaxis: - TEDS; Holding heparin in setting of scalp hematoma, recent falls. Dispo: Discharge to rehab once medically stable. Supervising Physician Co-Signing Physician Notes PA Supervision Note: I did not personally see or examine the patient today, but I verified all winn points of SAMIRA Delacruz's assessment and plan with the following exceptions/additions: None Subjective Pt. complained of chest pain overnight -- CXR showed left opacity concerning for PNA. Chest pressure is located on the bilat rib area. Denies SOB at rest or with exertion. Has cough, productive. She is tired/fatigued. Review of Systems Review of Systems: All systems reviewed & are unremarkable except as noted in HPI & below Constitutional: + fatigue and + weakness; no fever, no chills and no anorexia Respiratory: + cough; no change in sputum, no dyspnea, no dyspnea on exertion and no wheezing Cardiovascular: + chest pain; no palpitations, no lightheadedness and no edema Gastrointestinal: no abdominal pain, no nausea, no vomiting, no constipation and no diarrhea/loose stools Genitourinary: no difficulty urinating Musculoskeletal: no back pain and no joint pain Integumentary: no non-healing lesions Physical Exam Physical Exam: General: Resting comfortably, no acute distress. HEENT: NC/AT; PERRLA with EOMI; [place] conjunctiva, MMM. No erythema of posterior pharynx Neck: Supple and nontender Cardiac: RRR Lungs: on room air; crackles in left base, otherwise clear throughout. Abdomen: Bowel normoactive X 4; Nontender to palpation Extremities: Warm. No LE edema noted. Tender to light palpation noted over most of LE. Neuro: No focal weakness Skin: Laceration on left parietal lobe, gregory intact. Results & Data Vital Signs (Past 12 Hours) Vital Signs Temp Pulse Pulse Resp BP Pulse Ox 12/01/18 07:24 36.7 C 78 16 136/74 94 12/01/18 07:06 68 18 95 12/01/18 04:00 36.8 C 65 19 147/65 H 95 12/01/18 03:11 81 Laboratory Results 12/01/18 12/01/18 12/01/18 Range/Units 08:16 05:33 05:33 WBC (4.8-10.8) K/uL RBC (4.2-5.4) M/uL Hgb (12.0-16.0) g/dL Hct (37-47) % MCV (80-100) fL MCH (25-34) pg MCHC (32-36) g/dL RDW Std Deviation (36.4-46.3) fL RDW Coeff of Remy (11.5-14.5) % Plt Count (130-400) K/uL MPV (7.4-10.4) fL Sodium 139 (136-145) mmol/L Potassium 3.8 (3.5-5.1) mmol/L Chloride 105 (98-107) mmol/L Carbon Dioxide 26 (21-32) mmol/L Anion Gap 8.0 (3-11) BUN 20 H (7-18) mg/dl Creatinine 1.55 H (0.6-1.2) mg/dl Est Cr Clr Drug Dosing 23.1 ml/min Est GFR ( Amer) 35.8 Est GFR (Non-Af Amer) 30.9 BUN/Creatinine Ratio 12.8 (10-20) Glucose 138 H (70-99) mg/dl POC Glucose 140 H (70-99) Calcium 8.0 L (8.5-10.1) mg/dl Magnesium 2.0 (1.8-2.4) mg/dl Troponin I < 0.015 (0-0.045) ng/ml 12/01/18 11/30/18 11/30/18 Range/Units 05:33 20:19 16:07 WBC 18.99 H (4.8-10.8) K/uL RBC 3.50 L (4.2-5.4) M/uL Hgb 10.2 L (12.0-16.0) g/dL Hct 31.5 L (37-47) % MCV 90.0 (80-100) fL MCH 29.1 (25-34) pg MCHC 32.4 (32-36) g/dL RDW Std Deviation 56.7 H (36.4-46.3) fL RDW Coeff of Remy 17.3 H (11.5-14.5) % Plt Count 297 (130-400) K/uL MPV 9.8 (7.4-10.4) fL Sodium (136-145) mmol/L Potassium (3.5-5.1) mmol/L Chloride (98-107) mmol/L Carbon Dioxide (21-32) mmol/L Anion Gap (3-11) BUN (7-18) mg/dl Creatinine (0.6-1.2) mg/dl Est Cr Clr Drug Dosing ml/min Est GFR ( Amer) Est GFR (Non-Af Amer) BUN/Creatinine Ratio (10-20) Glucose (70-99) mg/dl POC Glucose 167 H 106 H (70-99) Calcium (8.5-10.1) mg/dl Magnesium (1.8-2.4) mg/dl Troponin I (0-0.045) ng/ml PG Care Time/CCT Total # of Minutes Spent Total Time Spent with Patient: Total time spent is greater than 50% in coordination of care (as documented) at patient's floor/unit and/or counseling patient: (1) Laceration of scalp Encounter type: initial encounter Qualified Code(s): S01.01XA - Laceration without foreign body of scalp, initial encounter
[2018-12-01] MEDS: cefTRIAXone SODIUM 2,000 MG in DEXTROSE 5% 50 ML IV SCH (14:50)
[2018-12-01] MEDS: ACETAMINOPHEN W/CODEINE #3 1 TAB PO PRN (15:37)
[2018-12-02] MEDS: ALBUT/IPRATROP 3MG/0.5MG NEB 3 ML VIAL NEB SCH ×3 (07:04→19:21)
[2018-12-02 07:05] LABS: BUN Creatinine Ratio 12.2 (10-20); Calcium 8.2 mg/dl (8.5-10.1); Creatinine Clr Calc Pharmacy 23.8 ml/min; Est GFR (African American) 36.9; Est GFR (Non-African American) 31.9; Magnesium 1.8 mg/dl (1.8-2.4); Potassium 3.5 mmol/L (3.5-5.1)
[2018-12-02 08:57] LABS: Hematocrit (blood only) 29.6 % (37-47); Hemoglobin 9.5 g/dL (12.0-16.0); Mean Corpuscular Hgb Conc 32.1 g/dL (32-36); Mean Corpuscular Volume 90.8 fL (80-100); Mean Platelet Volume 10.3 fL (7.4-10.4); Platelet Count 341 K/uL (130-400); RDW Coefficient of Variation 17.1 % (11.5-14.5); Red Blood Count 3.26 M/uL (4.2-5.4); White Blood Count 14.05 K/uL (4.8-10.8)
[2018-12-02] MEDS: INSULIN ASPART 100 UNITS/ML 3 ML PEN SC SCH ×4 (10:20→21:49)
[2018-12-02] MEDS: CALCIUM 600MG + VIT D 400 IU TAB PO SCH (10:21)
[2018-12-02] MEDS: ASPIRIN 81 MG ECTAB PO SCH (10:22)
[2018-12-02] MEDS: hydroCHLOROthiazide 25 MG TAB PO SCH (10:22)
[2018-12-02] MEDS: MAGNESIUM OXIDE 400 MG TAB PO SCH (10:23)
[2018-12-02] MEDS: POTASSIUM CHLORIDE 10 MEQ TABCR PO SCH (10:23)
[2018-12-02] MEDS: MULTIVITAMIN TAB PO SCH (10:23)
[2018-12-02] MEDS: NICOTINE 21 MG/24 HR TDSY TD SCH (10:24)
[2018-12-02] MEDS: PANTOprazole 40 MG TAB PO SCH (10:25)
[2018-12-02] MEDS: ATENOLOL 50 MG TABLET PO SCH (10:26)
[2018-12-02] MEDS: CYANOCOBALAMIN (VITAMIN B-12) 100 MCG TABLET PO SCH (10:26)
[2018-12-02] MEDS: predniSONE 20 MG TAB PO SCH (10:26)
[2018-12-02] MEDS: CHOLECALCIFEROL 1,000 UNITS TAB PO SCH (10:26)
[2018-12-02] MEDS: ACETAMINOPHEN W/CODEINE #3 1 TAB PO PRN (10:27)
[2018-12-02] MEDS: cefTRIAXone SODIUM 2,000 MG in DEXTROSE 5% 50 ML IV SCH (10:31)
--- NOTE | 2018-12-02 11:31 | Hospitalist Progress Note ---
Date of Service December 02, 2018 Assessment & Plan (1) Chest pain: - Developed chest pain on 11/29 -- pain is located in bilat rib area, likely related to coughing episodes vs. PNA. - EKG negative; Trop negative x 2. - Tylenol and Tylenol#3 for pain; will avoid NSAIDs in setting of CKD. - Start short course of steroids for inflammation -- Prednisone 40 mg PO daily, taper over next 5-7 days. - CXR showed left opacity c/w PNA -- see below. (2) PNA (pneumonia): - CXR with left basilar opacity c/w PNA; WBC improved from 18.9 to 14.05 since starting antibiotics. - Sputum culture pending collection. - Continue Ceftriaxone and Azithromycin for empiric coverage. - Duonebs QID scheduled. - Will start Prednisone 40 mg PO daily for ?COPD exacerbation and acute inflammation related to coughing. (3) Pain and swelling of lower extremity: - LE edema and pain. Imaging negative for fractures at admission. - Outpatient doppler of bilat LE negative on 11/20; pt. refused repeat doppler during this admission. - ADORE hose for swelling; Heparin q12hr for DVT ppx. (4) Fall from ground level: - Pt. has reported falling frequently over last few months -- may be related to generalized weakness vs. bilateral numbness in setting of spinal complications or diabetic neuropathy vs. hypoglycemia. - PT/OT - discharge to rehab, will need peer to peer for SNF placement on 12/03/18. (5) Closed head injury: - Related to fall; CT head showed small left parietal scalp hematoma, laceration and contusion. - Mental status at baseline. (6) Laceration of scalp: - Stapled in ED; continue topical wound care. - Will need gregory removed 10-14 days following placement. (7) Hematoma of left parietal scalp: - Monitor CBC daily -- H/H is below baseline, will monitor. (8) Diabetic neuropathy associated with type 2 diabetes mellitus: - Hgb A1C was 6.2. - Previously on Metformin and Amaryl at home -- hypoglycemia may have been contributing to falls. - SSI coverage with gluc checks. - Recommend d/c'ing Metformin at discharge due to CKD and decreasing Amaryl to 1 mg PO daily. (9) Lumbar degenerative disc disease: - Continue Tylenol #3 for pain control. (10) Hypertension: - Continue HCTZ and Atenolol. - BP has been intermittently elevated. (11) Hyperlipidemia: - Does not tolerate statins. (12) GERD (gastroesophageal reflux disease): - PPI daily; Maalox prn. (13) CKD (chronic kidney disease), stage III: - Renally dose all meds. - Cr is currently at baseline. (14) Anemia: - Monitor H/H daily -- currently below baseline. (15) Tobacco abuse: - Smokes >2 PPD; nicotine patch ordered. (16) Electrolyte abnormality: - Continue mag oxide 400 mg daily and KCl 10 mEq daily. (17) DVT prophylaxis: - TEDS; will resume Heparin q12hr (>48 hours since fall with scalp laceration) Dispo: Discharge to SNF pending placement -- will need peer to peer completed on Monday, see case management note. Supervising Physician Co-Signing Physician Notes PA Supervision Note: I did not personally see or examine the patient today, but I verified all winn points of SAMIRA Delacruz's assessment and plan with the following exceptions/additions: None Subjective Pt. complains of chest pain -- in bilat rib area, likely related to coughing episodes. Will start prednisone for coverage of inflammation/in setting of COPD with PNA and ?exacerbation. She also has pain in both legs -- previous doppler was negative for DVT. Denies shortness of breath, increased cough with sputum production, N/V, constipation. Plan for SNF placement likely on Monday. Review of Systems Review of Systems: All systems reviewed & are unremarkable except as noted in HPI & below Constitutional: + fatigue and + weakness; no fever, no chills and no anorexia Respiratory: + cough; no change in sputum, no dyspnea, no dyspnea on exertion and no wheezing Cardiovascular: + chest pain; no radiating jaw, neck or arm pain, no palpitations, no lightheadedness and no edema Gastrointestinal: no abdominal pain, no nausea and no constipation Genitourinary: no difficulty urinating Musculoskeletal: + body aches (LE tenderness to palpation); no back pain and no joint pain Integumentary: no non-healing lesions Physical Exam Physical Exam: General: Resting comfortably, no acute distress. HEENT: NC/AT; PERRLA with EOMI; [place] conjunctiva, MMM. No erythema of posterior pharynx Neck: Supple and nontender Cardiac: RRR Lungs: on room air; diminished in bilat lower lung bases. Abdomen: Bowel normoactive X 4; Nontender to palpation Extremities: Warm. Tender to light palpation noted over most of LE, no specific point identified. Neuro: No focal weakness Skin: Laceration on left parietal lobe, gregory intact. Results & Data Vital Signs (Past 12 Hours) Vital Signs Temp Pulse Pulse Resp BP Pulse Ox 12/02/18 07:07 37.2 C 77 19 167/66 H 91 12/02/18 07:04 73 16 92 12/02/18 03:30 37.1 C 80 17 125/64 93 12/01/18 23:32 37.0 C 73 18 149/56 H 92 12/01/18 23:18 65 Laboratory Results 12/02/18 12/02/18 12/02/18 Range/Units 08:06 05:55 05:49 WBC 14.05 H (4.8-10.8) K/uL RBC 3.26 L (4.2-5.4) M/uL Hgb 9.5 L (12.0-16.0) g/dL Hct 29.6 L (37-47) % MCV 90.8 (80-100) fL MCH 29.1 (25-34) pg MCHC 32.1 (32-36) g/dL RDW Std Deviation 57.0 H (36.4-46.3) fL RDW Coeff of Remy 17.1 H (11.5-14.5) % Plt Count 341 (130-400) K/uL MPV 10.3 (7.4-10.4) fL Sodium 139 (136-145) mmol/L Potassium 3.5 (3.5-5.1) mmol/L Chloride 104 (98-107) mmol/L Carbon Dioxide 29 (21-32) mmol/L Anion Gap 5.0 (3-11) BUN 18 (7-18) mg/dl Creatinine 1.51 H (0.6-1.2) mg/dl Est Cr Clr Drug Dosing 23.8 ml/min Est GFR ( Amer) 36.9 Est GFR (Non-Af Amer) 31.9 BUN/Creatinine Ratio 12.2 (10-20) Glucose 107 H (70-99) mg/dl POC Glucose 130 H (70-99) Calcium 8.2 L (8.5-10.1) mg/dl Magnesium 1.8 (1.8-2.4) mg/dl 12/01/18 12/01/18 12/01/18 Range/Units 20:09 17:02 12:04 WBC (4.8-10.8) K/uL RBC (4.2-5.4) M/uL Hgb (12.0-16.0) g/dL Hct (37-47) % MCV (80-100) fL MCH (25-34) pg MCHC (32-36) g/dL RDW Std Deviation (36.4-46.3) fL RDW Coeff of Remy (11.5-14.5) % Plt Count (130-400) K/uL MPV (7.4-10.4) fL Sodium (136-145) mmol/L Potassium (3.5-5.1) mmol/L Chloride (98-107) mmol/L Carbon Dioxide (21-32) mmol/L Anion Gap (3-11) BUN (7-18) mg/dl Creatinine (0.6-1.2) mg/dl Est Cr Clr Drug Dosing ml/min Est GFR ( Amer) Est GFR (Non-Af Amer) BUN/Creatinine Ratio (10-20) Glucose (70-99) mg/dl POC Glucose 139 H 107 H 209 H (70-99) Calcium (8.5-10.1) mg/dl Magnesium (1.8-2.4) mg/dl PG Care Time/CCT Total # of Minutes Spent Total Time Spent with Patient: Total time spent is greater than 50% in coordination of care (as documented) at patient's floor/unit and/or counseling patient: (1) Laceration of scalp Encounter type: initial encounter Qualified Code(s): S01.01XA - Laceration without foreign body of scalp, initial encounter
[2018-12-02] MEDS: DOCUSATE SODIUM/SENNA 50/8.6MG TAB PO SCH ×2 (12:14→21:49)
[2018-12-02] MEDS: AZITHROMYCIN 250 MG in DEXTROSE 5% 250 ML IV SCH (12:15)
[2018-12-02] MEDS: HEPARIN SOD 5,000 UNIT/0.5 ML VIAL SQ SCH (21:49)
[2018-12-03] MEDS: ALBUT/IPRATROP 3MG/0.5MG NEB 3 ML VIAL NEB SCH (06:50)
[2018-12-03 06:52] LABS: Hematocrit (blood only) 28.1 % (37-47); Hemoglobin 9.1 g/dL (12.0-16.0); Mean Corpuscular Hgb Conc 32.4 g/dL (32-36); Mean Corpuscular Volume 90.4 fL (80-100); Mean Platelet Volume 10.2 fL (7.4-10.4); Platelet Count 336 K/uL (130-400); RDW Coefficient of Variation 16.9 % (11.5-14.5); RDW Standard Deviation 56.2 fL (36.4-46.3); Red Blood Count 3.11 M/uL (4.2-5.4); White Blood Count 11.23 K/uL (4.8-10.8)
[2018-12-03 07:32] LABS: BUN Creatinine Ratio 11.4 (10-20); Calcium 8.2 mg/dl (8.5-10.1); Creatinine Clr Calc Pharmacy 20.9 ml/min; Est GFR (African American) 31.5; Est GFR (Non-African American) 27.2; Potassium 3.4 mmol/L (3.5-5.1)
[2018-12-03] MEDS: AZITHROMYCIN 250 MG in DEXTROSE 5% 250 ML IV SCH (07:54)
[2018-12-03] MEDS: INSULIN ASPART 100 UNITS/ML 3 ML PEN SC SCH ×3 (08:03→17:18)
[2018-12-03] MEDS: HEPARIN SOD 5,000 UNIT/0.5 ML VIAL SQ SCH (08:04)
[2018-12-03] MEDS: ACETAMINOPHEN W/CODEINE #3 1 TAB PO PRN (08:29)
[2018-12-03] MEDS: CALCIUM 600MG + VIT D 400 IU TAB PO SCH (08:29)
[2018-12-03] MEDS: DOCUSATE SODIUM/SENNA 50/8.6MG TAB PO SCH (08:29)
[2018-12-03] MEDS: ASPIRIN 81 MG ECTAB PO SCH (08:29)
[2018-12-03] MEDS: NICOTINE 21 MG/24 HR TDSY TD SCH (08:30)
[2018-12-03] MEDS: CYANOCOBALAMIN (VITAMIN B-12) 100 MCG TABLET PO SCH (08:30)
[2018-12-03] MEDS: PANTOprazole 40 MG TAB PO SCH (08:30)
[2018-12-03] MEDS: CHOLECALCIFEROL 1,000 UNITS TAB PO SCH (08:31)
[2018-12-03] MEDS: hydroCHLOROthiazide 25 MG TAB PO SCH (08:31)
[2018-12-03] MEDS: ATENOLOL 50 MG TABLET PO SCH (08:31)
[2018-12-03] MEDS: POTASSIUM CHLORIDE 10 MEQ TABCR PO SCH (08:31)
[2018-12-03] MEDS: MULTIVITAMIN TAB PO SCH (08:31)
[2018-12-03] MEDS: predniSONE 20 MG TAB PO SCH (08:31)
[2018-12-03] MEDS: MAGNESIUM OXIDE 400 MG TAB PO SCH (08:31)
[2018-12-03] MEDS ORDERED: INSULIN HUMAN NPH SC SCH (09:00)
[2018-12-03] MEDS: cefTRIAXone SODIUM 2,000 MG in DEXTROSE 5% 50 ML IV SCH (11:26)
[2018-12-03] MEDS ORDERED: ALBUT/IPRATROP 3MG/0.5MG NEB 3 ML VIAL NEB SCH (13:00)
--- NOTE | 2018-12-03 16:49 | Discharge Summary ---
Date of Service December 03, 2018 Admission HPI Per Admitting Provider 83 y/o female presented to the ED following a ground level fall at her PCP's office today. She went to office in regards to lower extremity numbness b/l and weakness. while at office she fell back striking her head. No loss of consciousness, No syncope, No seizure activity, No visual changes, No headache, or neck pain. She told me that she simply lost balance and went backwards. She has had longstanding lumbar spine pain and has had facet injections through pain management in the past. She declines having F/C, cough, N/V/D, chest pain, SOB, or dysuria. In the ED she had gregory placed for posterior scalp laceration. CT head was negative for bleed. She does have a L parietal scalp hematoma. Primary Care Provider: Hao Patiño MD Admission Exam Per Admitting Provider General- adult Head- atraumatic Head - gregory posterior scalp, L parietal scalp hematoma. Eyes- PERRL, EOMI, anicteric ENT- oropharynx clear Neck- supple, no JVD, no adenopathy, no thyromegaly; carotids +2/2, no bruits appreciated Lungs- clear to auscultation and percussion Heart- regular rhythm; no murmur, no gallop, no rub appreciated Abdomen- normal bowel sounds, soft, nontender, no masses or hepatosplenomegaly Extremities- +1 edema b/l lower ext mid calf to ankle, no calf tenderness; peripheral pulses intact Neuro- alert, oriented x 3; PERRL, EOMI; no facial palsy; no dysarthria; motor 5/5 bilaterally; no cogwheel rigidity; finger to nose intact bilaterally, decreased sensation b/l feet. Skin- warm & dry Principal Diagnosis closed head injury, CAP Discharge Exam Vitals noted and within normal limits GENERAL: Awake, alert to person, place, and time, nontoxic-appearing, in no distress. HENT: Normocephalic, atraumatic. Mucus membranes appear moist. EYES: Normal conjunctiva. Sclera non-icteric. EOMI. NECK: Supple. Full range of motion. RESPIRATORY: Clear to auscultation. Normal work of breathing. CARDIAC: Regular rate, normal rhythm. Extremities warm and well perfused, ABDOMEN: Soft, non-distended. Bowel sounds are normal. LOWER EXTREMITIES: Inspection of calves reveal equal size bilaterally. They are non-tender. Trace edema, stockings in place. No discoloration. NEURO: No gross focal motor deficits noted. Sensation in tact. CN II-XII grossly in tact. . SKIN: Rash not present. No jaundice noted. Significant lesions not present. PSYCH: Appropriate mood and affect. Cooperative. Exam as done by Priscilla Vallejo MD, [employer]. Discharge Data Allergies Allergy/AdvReac Type Severity Reaction Status Date / Time Qhpheme-Nkg-Qls Reductase AdvReac Mild leg Verified 11/28/18 17:07 Inhibitor cramping Consultations 11/28/18 20:08 ED Decision to Admit Stat 11/28/18 23:16 Consult Case Management - Discharge Planning Routine Ordered Studies 11/28/18 16:30 CT cervical spine wo con Stat CT head/brain wo con Stat CT lumbar spine wo con Stat Hospital Course (1) PNA (pneumonia): PT presented to hospital VIA EMS after mechanical fall while at home. CT imaging of head showed small left parietal scalp hematoma, laceration and contusion. No neurological defects or concerns. Laceration stapled in ED with no complications. Imaging of the spine showed chronic arthritis and spinal stenosis. Concern for weakness and cough - found to have pneumonia. Treated for CAP with azithromycin and ceftriaxone to cover for GN. Clinically improved on this co- regimen, plan for azithromycin and cefdinir to be finished Nov. Due to coughing, pt did develop rib pain (cardiac reasons ruled out with negative EKGs, neg troponins, stable CXR). Treated with Tylenol #3 while inpatient, which is a home med. Planned steroid burst for costochondral pain starting at 40mg. Pt notes several weeks of lower extremity pain and edema b/l - doppler 03Sept neg for DVT. Treated with compression and elevation - to continue at home. Given heparin q12hr for prophylaxis only while inpatient. Patients [id number] is very well controlled (last A1C 12Sept 6.2%), and given weakness/concern for falls and lack of OH/CVA history, recommend goal of 7% to prevent risk of hypoglycemia. Recommend continuing monotherapy with metformin and DC sulfonylurea medication as this is associated with hypoglycemia. PT/OT do recommend inpatient rehab and pt and family are agreeable. To do: 1. Finish abx as written with steroid taper 2. Continue tobacco cessation 3. Elevation lower extremities for 20min TID + compression hose for chronic BL LE venous stasis. 4. Will need gregory removed from scalp laceration 23Sept. 5. Continue all other home medications for HTN, chronic pain. (Pt is intolerant of statins). Goal is for increased mobility and strengthening, and eventual return to home independently. Jayshree Vallejo MD. (2) Closed head injury: (3) Hematoma of left parietal scalp: (4) Fall from ground level: (5) Tobacco abuse: (6) CKD (chronic kidney disease), stage III: (7) Pain and swelling of lower extremity: Total Time Total Time Spent Total Time Spent (In Minutes): Less than 30 Discharge Plan Discharge Items Patient Disposition: Transfer [facility] Reason For Visit: GROUND LEVEL FALL WITH CLOSED HEAD INJURY Discharge Diagnosis: ground level fall with closed head injury, mechanical fall, CAP Activity: As commented below Bathing: No limitations Non-emergency contact: Primary Care Provider Call non-emergency contact if: you have any medication questions and your symptoms worsen Follow-up/Referrals: ProHao MD [Primary Care Provider] - Diet: Carb Consistent or DM2 Addtl Attending Provider Instructions: PT presented to hospital VIA EMS after mechanical fall while at home. CT imaging of head showed small left parietal scalp hematoma, laceration and contusion. No neurological defects or concerns. Laceration stapled in ED with no complications. Imaging of the spine showed chronic arthritis and spinal stenosis. Pt was concerned for weakness and cough - found to have pneumonia. Treated for CAP with azithromycin and ceftriaxone to cover for GN. Clinically improved on this co-regimen, plan for azithromycin and cefdinir to be finished Nov. Due to coughing, pt did develop rib pain (cardiac reasons ruled out with negative EKGs, neg troponins, stable CXR). Treated with Tylenol #3 while inpatient, which is a home med. Planned steroid burst for costochondral pain starting at 40mg. Pt notes several weeks of lower extremity pain and edema b/l - doppler 03Sept neg for DVT. Treated with compression and elevation - to continue at home. Given heparin q12hr for prophylaxis only while inpatient. Patients [id number] is very well controlled (last A1C 12Sept 6.2%), and given weakness/concern for falls and lack of OH/CVA history, recommend goal of 7% to prevent risk of hypoglycemia. Recommend continuing monotherapy with metformin and DC sulfonylurea medication as this is associated with hypoglycemia. PT/OT do recommend inpatient rehab and pt and family are agreeable. To do: 1. Finish abx as written with steroid taper 2. Continue tobacco cessation 3. Elevation lower extremities for 20min TID + compression hose for chronic BL LE venous stasis. 4. Will need gregory removed from scalp laceration 23Sept. 5. Continue all other home medications for HTN, chronic pain. (Pt is intolerant of statins). Goal is for increased mobility and strengthening, and eventual return to home independently. Jayshree Vallejo MD. Pending Studies at Discharge: No Stand-Alone Forms: My [facility] Skilled Items Patient informed of condition?: Yes DNR: No Discharge Level of Care: Acute rehab Communicable Disease: No Discharge Prognosis: Improving Lines: None Urinary Catheter: No Medications and DC Order Prescriptions: New azithromycin [Zithromax] 250 mg Tablet 250 mg PO QAM 3 Days Qty: 3 RF: 0 nicotine [Nicoderm CQ] 21 mg/24 hr Patch 24 Hour 21 mg transdermal QAM 30 Days Qty: 30 RF: 0 cefdinir 300 mg Capsule 300 mg PO HS 3 Days Qty: 3 RF: 0 prednisone 10 mg tablet 10 mg PO DAILY Qty: 13 RF: 0 Continued aspirin 81 mg tablet,delayed release (DR/EC) 81 mg PO DAILY RF: 0 metformin 500 mg tablet 1,000 mg PO BID RF: 0 omeprazole 20 mg capsule,delayed release(DR/EC) 20 mg PO DAILY RF: 0 multivitamin capsule 1 cap PO DAILY RF: 0 biotin 5,000 mcg tablet, sublingual 5,000 mcg SL DAILY RF: 0 potassium chloride 10 mEq capsule, extended release 10 meq PO DAILY Qty: 90 RF: 1 atenolol 50 mg tablet 50 mg PO DAILY Qty: 90 RF: 3 acetaminophen-codeine 300-30 mg tablet 1 tab PO BID Qty: 60 RF: 0 Vitamin B-12 50 mcg Tablet 50 mcg PO DAILY RF: 0 magnesium 250 mg Tablet 250 mg PO DAILY RF: 0 ketoconazole 2 % Cream 1 applic TOPICAL BID RF: 0 cholecalciferol (vitamin D3) [Vitamin D3] 1,000 unit Capsule 1,000 unit PO DAILY RF: 0 calcium carbonate-vitamin D3 [Calcium 600 + D(3)] 600 mg(1,500mg) -400 unit Tablet 1 tab PO DAILY RF: 0 hydrochlorothiazide 12.5 mg Tablet 12.5 mg PO DAILY RF: 0 methocarbamol 500 mg tablet 500 mg PO BID PRN (Reason: MUSCLE SPASMS) RF: 0 Discontinued glimepiride 2 mg tablet 2 mg PO DAILYBD RF: 0 glimepiride 2 mg Tablet 1 mg PO QAM RF: 0 Discharge Orders: Discharge Order (Routine); Ordered 12/03/18 Ordered By: Priscilla Vallejo Admission Data Admit Date/Time: 11/29/18 11:01 Attending Provider: Behzad Miller Admit Provider: Twin Currie Primary Care Provider: Hao Patiño Other Providers: Twin Currie ; Cami Alfonso Other Interventions: Discharge Summary Assessment (RN) Last Done: 12/03/18 16:45 DC Date/Time DO NOT enter until pt leaves facility: 12/03/18 18:27 Supervising Physician Co-Signing Physician Notes I personally examined the patient and verified all winn points of history and exam, discussed case, and agree with decision making with Dr Vallejo. Feeling better. Understands going to rehab would be in her best interest, and is willing to do so. No other new complaints. Vitals noted, in general she is awake alert pleasant no distress. HEENT normocephalic atraumatic mucous members are moist. Breathing unlabored no accessory muscle use good effort. Skin shows no rashes no pallor or icterus. Weakness/deconditioning/fall/closed head injurystable for rehab at [facility] Community-acquired pneumoniaimproving, finish course of antibiotics Otherwise as above Resident Activity Tracking Resident Involvement: Resident Care Provided Care Provided: Adult Hospital Medicine
[2018-12-03] MEDS ORDERED: CEFDINIR 300 MG CAP PO SCH (21:00)
[2018-12-04] MEDS ORDERED: AZITHROMYCIN 250 MG TAB PO SCH (09:00)
== END 2018-12-03 18:27 | DRG 190 ==
LOC: ED 16:00 → 2S 16:00 → SUATTDRO 21:17 → 2S 22:19 → SUATTDRO 11-29 11:01 → 2N 11-30 14:30

== ENCOUNTER 2019-07-10 18:48 | Observation (INO) ==
--- NOTE | 2019-07-10 19:28 | Emergency Department Note ---
History of Present Illness General Chief complaint: Leg Injury/Pain Stated complaint: LEG PAIN Time Seen by Provider: 07/10/19 18:52 Source: patient Mode of arrival: EMS Limitations: no limitations History of Present Illness Provider Complaint: + extremity pain Onset (ago): 8 hour(s) Pain Consistency: + constant Location: + left and + lower extremity Current Pain Intensity: 3 Quality: + aching Radiation: + none Relieving factors: + rest Exacerbating factors: + range of motion, + weight bearing and + walking Associated symptoms: + denies other symptoms Context: no recent travel, no recent surgery/procedure and no recent illness HPI Narrative: This is an 83-year-old female who presents to the ED with a chief complaint of left leg pain. The patient states that at 10 AM she was in her shower seat when her leg got twisted in the seat. She states that this injured her leg. She states that the pain prohibited her from getting out of the chair. She finally got out of the chair when her son came to check on her. She was brought in to the hospital by ambulance for evaluation. She denies any other injuries. Denies other symptoms other than being hungry because she has not eaten today. She complains of pain in the left calf region. States that her pain is worse with movement. Home Medications Home Medications Medication Instructions Recorded Confirmed Type aspirin 81 mg tablet,delayed 81 mg PO DAILY 08/06/18 07/10/19 History release biotin 5,000 mcg sublingual tablet 5,000 mcg SL DAILY 08/06/18 11/28/18 History metformin 500 mg tablet 1,000 mg PO BID tab 08/06/18 11/28/18 History multivitamin 1 cap PO DAILY 08/06/18 11/28/18 History omeprazole 20 mg capsule,delayed 20 mg PO DAILY 08/06/18 07/10/19 History release potassium chloride 10 mEq 10 meq PO DAILY #90 cap 09/11/18 11/28/18 Rx capsule,extended release Vitamin B-12 50 mcg PO DAILY 11/28/18 11/28/18 History calcium carbonate-vitamin D3 1 tab PO DAILY 11/28/18 11/28/18 History [Calcium 600 + D(3)] cholecalciferol (vitamin D3) 1,000 unit PO DAILY 11/28/18 11/28/18 History [Vitamin D3] hydrochlorothiazide 12.5 mg PO DAILY 11/28/18 11/28/18 History ketoconazole 1 applic TOPICAL BID 11/28/18 11/28/18 History magnesium 250 mg PO DAILY 11/28/18 11/28/18 History methocarbamol 500 mg PO BID PRN 11/28/18 11/28/18 History prednisone 10 mg PO DAILY #13 tab 12/03/18 Rx blood sugar diagnostic #100 ea 05/28/19 Rx atenolol 25 mg PO DAILY 07/10/19 07/10/19 History nateglinide 60 mg PO DAILY 07/10/19 07/10/19 History sertraline 25 mg PO DAILY 07/10/19 07/10/19 History Allergies Allergy/AdvReac Type Severity Reaction Status Date / Time Amaxges-Itn-Vsq Reductase AdvReac Mild leg Verified 07/10/19 19:28 Inhibitor cramping Past Med/Surg History Medical History Colon cancer Colonic mass GERD (gastroesophageal reflux disease) History of malignant neoplasm of colon (Resolved) HTN (hypertension) (Acute) Hyperlipidemia Lumbar degenerative disc disease Type II diabetes mellitus Surgical History H/O right hemicolectomy H/O: hysterectomy History of cataract extraction History of tonsillectomy and adenoidectomy Family History Father Lung cancer Mother Stroke syndrome Hypertension Cancer Diabetes Sister Diabetes Social History Preferred Language: Nicaraguan Communication Ability: Effective Visual Impairment: No Limitations Hearing Ability: Normal Director Of Claims Required: No Beliefs That Will Affect Care: None marital status: / Current Living Situation: Alone current occupational status: retired Feels Safe at Home: Yes Smoking Status: Never smoker Tobacco Type: cigarettes ; Cigarettes Per Day: 3 packs ; Hx Alcohol Use: No Hx Substance Use: No Review of Systems A total of 6 systems reviewed and were otherwise negative Physical Exam Vital Signs: Vital Signs - 24 hr 07/10/19 18:55 Temperature 36.9 C Temperature Source Oral Pulse Rate 95 H Respiratory Rate 18 Blood Pressure 182/107 H Blood Pressure Estee n 132 Pulse Oximetry 100 Oxygen Delivery Me thod Room Air Sepsis Recent Feve r Within 48 Hours No Sepsis New/Unexpla ined Change in Men dinesh Status No Sepsis Action Take n by Nursing No Action Required Physical Exam: CONSTITUTIONAL/VITAL SIGNS: Reviewed / noted above. GENERAL: Non-toxic in appearance. INTEGUMENTARY: Warm, dry, and Rudolph. HEAD: Normocephalic. EYES: without scleral icterus or trauma. ENT/OROPHARYNX: clear and moist. LYMPHADENOPATHY/NECK: Is supple without lymphadenopathy or meningismus. RESPIRATORY: Lungs clear and equal. CARDIOVASCULAR: Regular rate and rhythm. GI/ABDOMEN: Soft and nontender. No organomegaly or pulsatile mass. No rebound or guarding. Normal bowel sounds. EXTREMITIES: Warm and well perfused. There is tenderness to palpation of the left mid posterior calf. The patient also has increased discomfort with dorsiflexion of the foot and with any movement of the leg. No obvious visible abnormalities noted on my exam. BACK: No CVA tenderness. NEUROLOGICAL: Intact without focal deficits. PSYCHIATRIC: normal affect. MUSCULOSKELETAL: Normally developed with good muscle tone. TRIAGE NURSING DOCUMENTATION REVIEWED. Medical Decision Making Differential Diagnosis Differential includes contusion, fracture, dislocation, laceration Medical Records Attestation: I reviewed the patient's medical records. Home Medications Current Medication List: was personally reviewed by me Imaging Data Attestation: I personally reviewed and interpreted this imaging study as follows: My Impression: No acute fracture or dislocation Radiologist's Impression: X-ray of the left tib-fib:IMPRESSION: Soft tissue swelling with no radiographic evidence of left tibial or fibular fracture. Blood Pressure Blood Pressure Findings: Elevated blood pressure Blood Pressure Disposition: Referred to patients primary care provider [facility] Narrative This is an 83-year-old female who presents to the ED with a chief complaint of left leg pain. The patient states that at 10 AM she was in her shower seat when her leg got twisted in the seat. She states that this injured her leg. She states that the pain prohibited her from getting out of the chair. She finally got out of the chair when her son came to check on her. She was brought in to the hospital by ambulance for evaluation. She denies any other injuries. Denies other symptoms other than being hungry because she has not eaten today. She complains of pain in the left calf region. States that her pain is worse with movement. The patient's blood pressure was noted to be elevated. Her exam reveals tenderness to the left calf region. There is also increased pain with dorsiflexion of the left foot in the area of the calf as well as movement of the knee causes the increased discomfort. No obvious visible abnormalities. No gross bony deformities. X-ray of the tib-fib did not show any fracture or dislocation. There was noted to be soft tissue swelling. Patient was fed while here. She was given some Tylenol for pain. The patient is felt to be stable for discharge. She does have a walker at home. She states that she will stay on one level where she has access to bathroom and food. She is felt to be stable for discharge. I did talk to the patient about possibly going to [facility] rehab as she lives alone has some difficulty getting around. She declined this, however. Impression & Plan Contusion of left leg Discharge Plan Visit Data Chief Complaint: Leg Injury/Pain Stated Complaint: LEG PAIN ED Provider: Henrry Freitas Discharge Problem: Contusion of left leg Patient Disposition: Home - Self-Care Condition: Good Discharge Instructions Activity Restrictions/Additional Instructions: Your x-ray did not show any evidence of a fracture or other serious injury. Use your walker at home to help you get around. Take Tylenol for pain. Follow-up with your doctor for further care and evaluation in 1-2 days if symptoms persist. Return to the emergency department for worsening or new symptoms or any concerns. You have been examined and treated today on an emergency basis only. This is not a substitute for, or an effort to provide, complete comprehensive medical care. It is impossible to recognize and treat all injuries or illnesses in a single emergency department visit. It is therefore important that you follow up closely with your doctor. Call as soon as possible for an appointment. Forms Stand Alone Forms: My [facility], Important Visit Information Prescriptions Prescriptions: No Action aspirin 81 mg tablet,delayed release (DR/EC) 81 mg PO DAILY RF: 0 metformin 500 mg tablet 1,000 mg PO BID RF: 0 omeprazole 20 mg capsule,delayed release(DR/EC) 20 mg PO DAILY RF: 0 multivitamin capsule 1 cap PO DAILY RF: 0 biotin 5,000 mcg tablet, sublingual 5,000 mcg SL DAILY RF: 0 potassium chloride 10 mEq capsule, extended release 10 meq PO DAILY Qty: 90 RF: 1 (DME) OneTouch Ultra Blue Test Strip Strip See Rx Instructions .ROUTE .MEDSUPPLY Qty: 100 RF: 3 Vitamin B-12 50 mcg Tablet 50 mcg PO DAILY RF: 0 magnesium 250 mg Tablet 250 mg PO DAILY RF: 0 ketoconazole 2 % Cream 1 applic TOPICAL BID RF: 0 cholecalciferol (vitamin D3) [Vitamin D3] 1,000 unit Capsule 1,000 unit PO DAILY RF: 0 calcium carbonate-vitamin D3 [Calcium 600 + D(3)] 600 mg(1,500mg) -400 unit Tablet 1 tab PO DAILY RF: 0 hydrochlorothiazide 12.5 mg Tablet 12.5 mg PO DAILY RF: 0 methocarbamol 500 mg tablet 500 mg PO BID PRN (Reason: MUSCLE SPASMS) RF: 0 prednisone 10 mg tablet 10 mg PO DAILY Qty: 13 RF: 0 atenolol 25 mg tablet 25 mg PO DAILY RF: 0 nateglinide 60 mg tablet 60 mg PO DAILY RF: 0 sertraline 25 mg tablet 25 mg PO DAILY RF: 0 Referrals Referrals: Mario Ghosh MD [Primary Care Provider] - Discharge Problem: Contusion of left leg Qualifiers: Encounter type: initial encounter Qualified Code(s): S80.12XA - Contusion of left lower leg, initial encounter
--- NOTE | 2019-07-10 19:46 | XRay Report ---
LEFT TIBIA AND FIBULA 2 VIEWS CLINICAL HISTORY: Left leg injury. FINDINGS: AP and lateral views of the left tibia and fibula are obtained. No prior studies are availa ble for comparison at the time of dictation. The skeletal structures are osteopenic. There is no radi ographic evidence of left tibial or fibular fracture. The knee and ankle joints are grossly maintaine d. Soft tissue edema is present throughout the left lower extremity. IMPRESSION: Soft tissue swelling with no radiographic evidence of left tibial or fibular fracture. Electronically signed by: Philip Cheng M.D. 07/10/2019 7:45 PM
[2019-07-10] MEDS ORDERED: ACETAMINOPHEN 500 MG TAB PO STA (19:59)
[2019-07-10] MEDS ORDERED: ATENOLOL 25 MG TABLET PO ONE (21:21)
[2019-07-10] MEDS ORDERED: POTASSIUM CHLORIDE 20 MEQ TABCR PO STA (21:24)
[2019-07-10] MEDS ORDERED: ATENOLOL 50 MG TABLET ONE (21:43)
--- NOTE | 2019-07-10 21:52 | XRay Report ---
SINGLE VIEW CHEST CLINICAL HISTORY: Renal failure. FINDINGS: An AP, portable, upright chest radiograph is compared to study dated 12/01/2018. The examina tion is degraded by portable technique and patient rotation. The cardiomediastinal silhouette is unre markable noting atherosclerotic calcification of the thoracic aorta. The pulmonary vasculature is non congested. Chronic interstitial thickening is similar to previous. There is bibasilar scarring/atelec tasis. No airspace consolidation or large pleural effusion is identified. No pneumothorax is seen. Th e skeletal structures are osteopenic. The bony thorax is grossly intact. IMPRESSION: No active disease in the chest. ACT 112: Negative or not required by law. Electronically signed by: Philip Cheng M.D. 07/10/2019 9:51 PM
[2019-07-10 22:15] LABS: Hematocrit (blood only) 38.1 % (37-47); Hemoglobin 12.7 g/dL (12.0-16.0); Mean Corpuscular Hemoglobin 30.5 pg (25-34); Mean Corpuscular Hgb Conc 33.3 g/dL (32-36); Mean Corpuscular Volume 91.4 fL (80-100); Mean Platelet Volume 9.7 fL (7.4-10.4); Platelet Count 369 K/uL (130-400); RDW Coefficient of Variation 15.6 % (11.5-14.5); Red Blood Count 4.17 M/uL (4.2-5.4); White Blood Count 19.46 K/uL (4.8-10.8)
[2019-07-10] MEDS ORDERED: TRAMADOL HCL 50 MG TABLET PO STA (22:21)
--- NOTE | 2019-07-10 22:22 | History & Physical Report ---
Date of Service July 10, 2019 Assessment & Plan (1) Asymptomatic hypertensive urgency: Secondary to left leg pain secondary to mechanical fall Ambulatory dysfunction COPD as per records, pulmonary status at baseline colon cancer sp surgery (2014), patient denies knowledge of diagnosis despite documentation DM2 on oral medications, suboptimal control as of recent outpatient hemoglobin A1c of 12.5 every 2019 CRI, creatinine close to baseline past tobacco abuse OBS Medical telemetry Analgesia Titrate home BP meds PT OT eval Basal insulin, ISS BG goal [id number], carb count coverage DVT prophylaxis. Heparin subcu Full code Patient son requesting updates from providers. Mr. Geraldo Carlos, contact #[phone]. Text document was generated using [employer] voice recognition software. It may contain grammatical or spelling errors. Kindly contact undersigned for clarification of any documentation item in question. History of Present Illness Chief Complaint: Fall, left leg pain Primary Care Provider: Mario Ghosh MD History obtained from patient and records. Medical history significant for hypertension, COPD as per records, colon cancer sp surgery, DM2 on oral medications, CRI (recent baseline creatinine of 2 last April 2019), past tobacco abuse. Recent confinement November 2018 for pneumonia in scalp hematoma secondary to mechanical fall. Patient tripped in her shower today after hitting a shower seat with her left leg. Achy left leg pain without chest pain, S OB, syncope, LOC. Patient consulted ER for evaluation. Unable to be placed for rehab from the emergency room. 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 Allergies Allergy/AdvReac Type Severity Reaction Status Date / Time Cvonzdn-Ydh-Yyk Reductase AdvReac Mild leg Verified 07/10/19 19:28 Inhibitor cramping Home Medications Home Medications Medication Instructions Recorded Confirmed Type multivitamin 1 cap PO QPM 08/06/18 07/10/19 History omeprazole 20 mg capsule,delayed 20 mg PO DAILY 08/06/18 07/10/19 History release Vitamin B-12 50 mcg PO DAILY 11/28/18 07/10/19 History cholecalciferol (vitamin D3) 1,000 unit PO DAILY 11/28/18 07/10/19 History [Vitamin D3] hydrochlorothiazide 12.5 mg PO DAILY 11/28/18 07/10/19 History blood sugar diagnostic #100 ea 05/28/19 Rx atenolol 25 mg PO PM 07/10/19 07/10/19 History dulaglutide [Trulicity] 0.75 mg SUBCUT WK 07/10/19 07/10/19 History sertraline 25 mg PO QPM 07/10/19 07/10/19 History Past Med/Surg History Medical History Colon cancer Colonic mass GERD (gastroesophageal reflux disease) History of malignant neoplasm of colon (Resolved) HTN (hypertension) (Acute) Hyperlipidemia Lumbar degenerative disc disease Type II diabetes mellitus Surgical History H/O right hemicolectomy H/O: hysterectomy History of cataract extraction History of tonsillectomy and adenoidectomy Family History Father Lung cancer Mother Stroke syndrome Hypertension Cancer Diabetes Sister Diabetes Social History Preferred Language: [place] Konger Communication Ability: Effective Visual Impairment: No Limitations Hearing Ability: Normal Screening Technician Required: No Beliefs That Will Affect Care: None marital status: / Current Living Situation: Alone current occupational status: retired Feels Safe at Home: Yes Smoking Status: Never smoker Tobacco Type: cigarettes ; Cigarettes Per Day: 3 packs ; Hx Alcohol Use: No Hx Substance Use: No Review of Systems Review of Systems: As per HPI, all 10 systems reviewed, all other ROS negative Physical Exam Physical Exam: GENERAL: Comfortable, pleasant, no respiratory distress SKIN: Normal color, warm HEENT: [place] palpebral conjunctivae, no ptosis, dry buccal mucosa NECK : Supple, no tenderness CHEST : Decreased breath sounds , no tenderness HEART : RRR, systolic murmur ABDOMEN: Some distention, nontender EXTREMITIES : minimal LLE swelling w/tenderness, no other conspicuous deform ities noted NEUROLOGIC : Coherent, no facial asymmetry, no other gross focality Results & Data Results & Data ([facility]) Vital Signs (Past 12 Hours) Vital Signs Temp Pulse Pulse Resp BP BP Pulse Ox 07/10/19 21:45 97 H 18 167/87 H 96 07/10/19 20:19 106 H 18 162/87 H 92 07/10/19 18:55 36.9 C 95 H 18 182/107 H 100 Laboratory Results Laboratory Results Laboratory Results WBC 19.46 K/uL (4.8-10.8) H 07/10/19 22:00 RBC 4.17 M/uL (4.2-5.4) L 07/10/19 22:00 Hgb 12.7 g/dL (12.0-16.0) 07/10/19 22:00 Hct 38.1 % (37-47) 07/10/19 22:00 MCV 91.4 fL (80-100) 07/10/19 22:00 MCH 30.5 pg (25-34) 07/10/19 22:00 MCHC 33.3 g/dL (32-36) 07/10/19 22:00 RDW Std Deviation 52.0 fL (36.4-46.3) H 07/10/19 22:00 RDW Coeff of Remy 15.6 % (11.5-14.5) H 07/10/19 22:00 Plt Count 369 K/uL (130-400) 07/10/19 22:00 MPV 9.7 fL (7.4-10.4) 07/10/19 22:00 Immature Gran % (Auto) 0.7 % 07/10/19 22:00 Neut % (Auto) 85.5 % 07/10/19 22:00 Lymph % (Auto) 6.7 % 07/10/19 22:00 [place] % (Auto) 6.6 % 07/10/19 22:00 Eos % (Auto) 0.3 % 07/10/19 22:00 Baso % (Auto) 0.2 % 07/10/19 22:00 Immature Gran # (Auto) 0.13 K/uL (0.00-0.02) H 07/10/19 22:00 Neut # (Auto) 16.67 K/uL (1.4-6.5) H 07/10/19 22:00 Lymph # (Auto) 1.30 K/uL (1.2-3.4) 07/10/19 22:00 [place] # (Auto) 1.28 K/uL (0.11-0.59) H 07/10/19 22:00 Eos # (Auto) 0.05 K/uL (0-0.5) 07/10/19 22:00 Baso # (Auto) 0.03 K/uL (0-0.2) 07/10/19 22:00 APTT 25.4 Seconds (21.0-31.0) 07/10/19 22:00 PTT Ratio 0.9 07/10/19 22:00 Sodium 136 mmol/L (136-145) 07/10/19 22:00 Potassium 3.9 mmol/L (3.5-5.1) 07/10/19 22:00 Chloride 102 mmol/L (98-107) 07/10/19 22:00 Carbon Dioxide 28 mmol/L (21-32) 07/10/19 22:00 Anion Gap 6.0 (3-11) 07/10/19 22:00 BUN 23 mg/dl (7-18) H 07/10/19 22:00 Creatinine 1.92 mg/dl (0.6-1.2) H 07/10/19 22:00 Est Cr Clr Drug Dosing 12.9 ml/min 07/10/19 22:00 Est GFR ( Amer) 27.6 07/10/19 22:00 Est GFR (Non-Af Amer) 23.8 07/10/19 22:00 BUN/Creatinine Ratio 12.2 (10-20) 07/10/19 22:00 Glucose 284 mg/dl (70-99) H 07/10/19 22:00 Calcium 9.2 mg/dl (8.5-10.1) 07/10/19 22:00 Magnesium 1.5 mg/dl (1.8-2.4) L 07/10/19 22:00 Total Bilirubin 0.6 mg/dl (0.2-1) 07/10/19 22:00 AST 16 U/L (15-37) 07/10/19 22:00 ALT 21 U/L (12-78) 07/10/19 22:00 Alkaline Phosphatase 126 U/L (45-117) H 07/10/19 22:00 Total Creatine Kinase 265 U/L (26-192) H 07/10/19 22:00 Total Protein 7.3 gm/dl (6.4-8.2) 07/10/19 22:00 Albumin 3.4 gm/dl (3.4-5.0) 07/10/19 22:00 Globulin 3.9 gm/dl (2.5-4.0) 07/10/19 22:00 Albumin/Globulin Ratio 0.9 (0.9-2) 07/10/19 22:00 TSH 0.888 uIu/ml (0.300-4.500) 07/10/19 22:00 WBC 19.46 K/uL (4.8-10.8) H 07/10/19 22:00 RBC 4.17 M/uL (4.2-5.4) L 07/10/19:00 Hgb 12.7 g/dL (12.0-16.0) 07/10/19 22:00 Hct 38.1 % (37-47) 07/10/19 22:00 MCV 91.4 fL (80-100) 07/10/19 22:00 MCH 30.5 pg (25-34) 07/10/19 22:00 MCHC 33.3 g/dL (32-36) 07/10/19 22:00 RDW Std Deviation 52.0 fL (36.4-46.3) H 07/10/19 22:00 RDW Coeff of Remy 15.6 % (11.5-14.5) H 07/10/19 22:00 Plt Count 369 K/uL (130-400) 07/10/19 22:00 MPV 9.7 fL (7.4-10.4) 07/10/19 22:00 Diagnostic Findings Left tibia/fibula x-ray: Soft tissue swelling with no radiographic evidence of left tibial or fibular fracture. Chest x-ray : No active disease in the chest. EKG pending at time of dictation
[2019-07-10] MEDS: TRAMADOL HCL 50 MG TABLET PO PRN (22:27)
[2019-07-10 22:28] LABS: Potassium 3.9 mmol/L (3.5-5.1)
[2019-07-10 22:33] LABS: Albumin Level 3.4 gm/dl (3.4-5.0); BUN Creatinine Ratio 12.2 (10-20); Calcium 9.2 mg/dl (8.5-10.1); Creatinine Clr Calc Pharmacy 12.9 ml/min; Est GFR (African American) 27.6; Est GFR (Non-African American) 23.8; Magnesium 1.5 mg/dl (1.8-2.4)
[2019-07-10 22:34] LABS: Partial Thromboplastin Ratio 0.9; Partial Thromboplastin Time 25.4 Seconds (21.0-31.0)
[2019-07-10 22:35] LABS: Basophils # (auto) 0.03 K/uL (0-0.2); Basophils % (auto) 0.2 %; Eosinophils # (auto) 0.05 K/uL (0-0.5); Eosinophils % (auto) 0.3 %; Immature Granulocytes # (auto) 0.13 K/uL (0.00-0.02); Immature Granulocytes % (auto) 0.7 %; Lymphocytes % (auto) 6.7 %; Monocytes # (auto) 1.28 K/uL (0.11-0.59); Monocytes % (auto) 6.6 %; Neutrophils # (auto) 16.67 K/uL (1.4-6.5); Neutrophils % (auto) 85.5 %
[2019-07-10 22:44] LABS: Albumin Globulin Ratio 0.9 (0.9-2); Bilirubin,Total 0.6 mg/dl (0.2-1); Globulin 3.9 gm/dl (2.5-4.0); Thyroid Stimulating Hormone 0.888 uIu/ml (0.300-4.500); Total Protein 7.3 gm/dl (6.4-8.2)
[2019-07-10 22:55] LABS: Appearance Urine Clear (Clear); Bacteria Urine Automated Negative (Negative); Bilirubin Urine Negative (Negative); Blood Urine Negative (Negative); Color Urine Yellow; Epithelial Cell Urine Auto >30 /lpf (0-5); Glucose Urine UA 3+ (Negative); Ketones Urine Trace (Negative); Leukocyte Esterase Urine Negative (Negative); Nitrite Urine Negative (Negative); Protein Urine 1+ (Negative); Specific Gravity Urine 1.025 (1.000-1.030); Urobilinogen Urine Negative (Negative)
[2019-07-10 23:06] LABS: RBC Urine Automated 0-4 /hpf (0-4)
[2019-07-10] MEDS ORDERED: GLUCOSE 10 TABS/TUBE PO PRN (23:14)
[2019-07-10] MEDS ORDERED: ACETAMINOPHEN 325 MG TAB PO PRN (23:14)
[2019-07-10] MEDS ORDERED: PROMETHAZINE HCL 12.5 MG in SODIUM CHLORIDE 0.9% 50 ML IV PRN (23:14)
[2019-07-10] MEDS ORDERED: CARBOHYDRATES FOR HYPOGLYCEMIA PO PRN (23:14)
[2019-07-10] MEDS ORDERED: HYDROmorphone INJ 0.5 MG/0.5 ML SYR IV PRN (23:14)
[2019-07-10] MEDS ORDERED: GLUCAGON FOR INJ 1 MG VIAL SQ PRN (23:14)
[2019-07-10] MEDS ORDERED: DEXTROSE 50% 50 ML SYRINGE IV PRN (23:14)
[2019-07-10] MEDS ORDERED: GLUCOSE 40% GEL 15 GM TUBE PO PRN (23:14)
[2019-07-10] MEDS ORDERED: INSULIN GLARGINE SOLOSTAR 100 UNITS/ML 3 ML PEN SC STA (23:22)
[2019-07-10] MEDS ORDERED: NSS + 20MEQ KCL 20 MEQ/1,000 ML BAG IV ONE (23:30)
[2019-07-11] MEDS: MAGNESIUM SULFATE / D5W 1 GM/100 ML BAG IV SCH ×2 (00:20→01:33)
[2019-07-11] MEDS: INSULIN ASPART 100 UNITS/ML 3 ML PEN SC SCH ×5 (00:26→21:00)
[2019-07-11] MEDS: TRAMADOL HCL 50 MG TABLET PO PRN ×2 (05:36→10:43)
[2019-07-11] MEDS: HEPARIN SOD 5,000 UNIT/0.5 ML VIAL SQ SCH ×3 (05:46→21:01)
[2019-07-11 07:04] LABS: Basophils # (auto) 0.03 K/uL (0-0.2); Basophils % (auto) 0.2 %; Eosinophils # (auto) 0.16 K/uL (0-0.5); Eosinophils % (auto) 1.2 %; Hematocrit (blood only) 33.1 % (37-47); Immature Granulocytes # (auto) 0.13 K/uL (0.00-0.02); Lymphocytes # (auto) 1.78 K/uL (1.2-3.4); Lymphocytes % (auto) 13.5 %; Mean Corpuscular Hemoglobin 30.6 pg (25-34); Mean Corpuscular Hgb Conc 33.2 g/dL (32-36); Mean Corpuscular Volume 92.2 fL (80-100); Mean Platelet Volume 9.7 fL (7.4-10.4); Monocytes # (auto) 1.24 K/uL (0.11-0.59); Monocytes % (auto) 9.4 %; Neutrophils # (auto) 9.82 K/uL (1.4-6.5); Neutrophils % (auto) 74.7 %; Platelet Count 342 K/uL (130-400); RDW Coefficient of Variation 15.8 % (11.5-14.5); RDW Standard Deviation 53.4 fL (36.4-46.3); Red Blood Count 3.59 M/uL (4.2-5.4); White Blood Count 13.16 K/uL (4.8-10.8)
[2019-07-11 07:32] LABS: BUN Creatinine Ratio 12.3 (10-20); Calcium 8.8 mg/dl (8.5-10.1); Creatinine Clr Calc Pharmacy 21.3 ml/min; Est GFR (African American) 30.7; Est GFR (Non-African American) 26.5; Magnesium 2.2 mg/dl (1.8-2.4); Potassium 3.8 mmol/L (3.5-5.1)
[2019-07-11] MEDS: PANTOprazole 40 MG TAB PO SCH (08:15)
[2019-07-11] MEDS: CYANOCOBALAMIN (VITAMIN B-12) 100 MCG TABLET PO SCH (08:15)
[2019-07-11] MEDS: INSULIN GLARGINE SOLOSTAR 100 UNITS/ML 3 ML PEN SC SCH ×2 (08:17→20:59)
--- NOTE | 2019-07-11 11:42 | XRay Report ---
XR ankle LT min 3V routine CLINICAL HISTORY: left ankle pain pain COMPARISON: 07/10/2019 DISCUSSION: Nonspecific soft tissue edematous change. Bone findings consistent with osteopenia. No evidence for fracture or dislocation. Ankle mortise is aligned anatomically. IMPRESSION: 1. Nonspecific soft tissue edema. 2. Osteopenia. 3. No acute bony abnormality. ACT 112: Negative or not required by law. The above report was generated using voice recognition software. It may contain grammatical, syntax or spelling errors. Electronically signed by: Terrance Rodriguez M.D. 07/11/2019 11:40 AM
--- NOTE | 2019-07-11 14:40 | Hospitalist Progress Note ---
Date of Service July 11, 2019 Assessment & Plan (1) Abnormal gait: (2) Fall: Left Lower extremities tenderness Mechanical fall Xray of LLE showed soft tissue swelling with no radiographic evidence of left tibial or fibular fracture. Xray of left ankle showed no evidence for fracture or dislocation. Continue pain control with tramadol and Tylenol Continue PT/OT Fall precaution Waiting for placement to rehab HTN BP was elevated on admission mostly due to the pain Continue Atenolol HCTZ on hold, will resume BP stable Diabetes Hba1c 12.5 on 05/06/19 Outpatient DM meds on hold On lantus and insulin novolog coverage Continue monitor BS CKD Creatinine on admission 1.9 Creatinine has been fluctuates from 1.5 to 2 Creatinine today 1.7 Will continue to hold HCTZ today Monitor BMP Elevated WBC Mostly reactive due to the Fall Procalcitonin wnl UA negative for UTI CXR showed no infiltrate WBC trending down to 13 Elevated CPK CPK on admission 265--> 282 Received IVF Continue monitor DVT px on Heparin subq CODE STATUS Full code Disposition Will discharge to rehab tomorrow Admission and Anticipated Discharge Date Admission Date: July 10, 2019 Subjective Pt was seen and examined Lying in bed with no distress Pt said that she is having a lot of pain in her Left foot She said that pain is worst when she moved her left leg Denies any chest pain, palpitation, dizziness and SOB Physical Exam Physical Exam: General- No acute distress Head- atraumatic Eyes- PERRL, EOMI, ENT- oropharynx clear Neck- supple, no JVD Lungs- clear to auscultation Heart- regular rhythm; + murmur Abdomen- normal bowel sounds, soft, nontender Extremities- no calf tenderness, right ankle pain Neuro- alert, oriented x 3; PERRL, EOMI; no facial palsy; no dysarthria Skin- warm & dry Results & Data Results & Data ([facility]) Vital Signs (Past 12 Hours) Vital Signs Temp Pulse Pulse Resp BP Pulse Ox 07/11/19 11:03 36.4 C L 78 16 116/67 93 07/11/19 10:47 93 07/11/19 08:00 65 07/11/19 07:47 37 C 81 16 105/62 91 07/11/19 02:42 36.8 C 76 16 123/72 95
[2019-07-11] MEDS ORDERED: ATENOLOL 25 MG TABLET PO SCH (21:00)
[2019-07-11] MEDS ORDERED: SERTRALINE HCL 50 MG TABLET PO SCH (21:00)
[2019-07-11] MEDS ORDERED: MULTIVITAMIN TAB PO SCH (21:00)
[2019-07-12] MEDS: HEPARIN SOD 5,000 UNIT/0.5 ML VIAL SQ SCH ×2 (05:43→13:03)
[2019-07-12 05:44] LABS: Hematocrit (blood only) 32.8 % (37-47); Hemoglobin 10.8 g/dL (12.0-16.0); Mean Corpuscular Hemoglobin 30.9 pg (25-34); Mean Corpuscular Hgb Conc 32.9 g/dL (32-36); Mean Platelet Volume 9.8 fL (7.4-10.4); Platelet Count 332 K/uL (130-400); RDW Coefficient of Variation 15.9 % (11.5-14.5); RDW Standard Deviation 54.6 fL (36.4-46.3); Red Blood Count 3.49 M/uL (4.2-5.4); White Blood Count 11.68 K/uL (4.8-10.8)
[2019-07-12 06:16] LABS: BUN Creatinine Ratio 11.9 (10-20); Calcium 8.6 mg/dl (8.5-10.1); Creatinine Clr Calc Pharmacy 19.6 ml/min; Est GFR (African American) 27.8
[2019-07-12] MEDS: CYANOCOBALAMIN (VITAMIN B-12) 100 MCG TABLET PO SCH (09:54)
[2019-07-12] MEDS: PANTOprazole 40 MG TAB PO SCH (09:54)
[2019-07-12] MEDS: INSULIN GLARGINE SOLOSTAR 100 UNITS/ML 3 ML PEN SC SCH (09:57)
[2019-07-12] MEDS: INSULIN ASPART 100 UNITS/ML 3 ML PEN SC SCH ×2 (09:58→13:04)
--- NOTE | 2019-07-12 16:28 | Hospitalist Progress Note ---
Date of Service July 12, 2019 Assessment & Plan (1) Abnormal gait: (2) Fall: Left Lower extremities tenderness Mechanical fall Xray of LLE showed soft tissue swelling with no radiographic evidence of left tibial or fibular fracture. Xray of left ankle showed no evidence for fracture or dislocation. Continue pain control with tramadol and Tylenol Continue PT/OT Fall precaution Will go to rehab today HTN BP was elevated on admission mostly due to the pain Continue Atenolol HCTZ on hold, will resume BP stable Diabetes Hba1c 12.5 on 05/06/19 Outpatient DM meds on hold On lantus and insulin novolog coverage Continue monitor BS CKD Creatinine on admission 1.9 Creatinine has been fluctuates from 1.5 to 2 Creatinine today 1.79 HCTZ on hold Will resume on discharge Check BMP in 1 week Elevated WBC Mostly reactive due to the Fall Procalcitonin wnl UA negative for UTI CXR showed no infiltrate WBC trending down to 11K Elevated CPK CPK on admission 265--> 282 -->149 Received IVF Continue monitor DVT px on Heparin subq CODE STATUS Full code Disposition Will discharge to rehab today Admission and Anticipated Discharge Date Admission Date: July 10, 2019 Subjective Pt was seen and examined Lying in bed with no distress She said that she feels tired Pt said that her pain is slightly improves Updated provided to her son Denies any chest pain, palpitation and SOB Physical Exam Physical Exam: General- No acute distress Head- atraumatic Eyes- PERRL, EOMI, ENT- oropharynx clear Neck- supple, no JVD Lungs- clear to auscultation Heart- regular rhythm; + murmur Abdomen- normal bowel sounds, soft, nontender Extremities- no calf tenderness, right ankle pain Neuro- alert, oriented x 3; PERRL, EOMI; no facial palsy; no dysarthria Skin- warm & dry Results & Data Results & Data ([facility]) Vital Signs (Past 12 Hours) Vital Signs Temp Pulse Resp BP BP Pulse Ox 07/12/19 14:41 36.2 C L 71 18 116/71 93 07/12/19 10:52 36.9 C 77 18 137/72 90 07/12/19 07:13 36.9 C 76 16 148/70 H 91
--- NOTE | 2019-07-13 08:37 | Discharge Summary ---
Date of Service July 12, 2019 Admission HPI Per Admitting Provider History obtained from patient and records. Medical history significant for hypertension, COPD as per records, colon cancer sp surgery, DM2 on oral medications, CRI (recent baseline creatinine of 2 last April 2019), past tobacco abuse. Recent confinement November 2018 for pneumonia in scalp hematoma secondary to mechanical fall. Patient tripped in her shower today after hitting a shower seat with her left leg. Achy left leg pain without chest pain, S OB, syncope, LOC. Patient consulted ER for evaluation. Unable to be placed for rehab from the emergency room. 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 Admission Exam Per Admitting Provider GENERAL: Comfortable, pleasant, no respiratory distress SKIN: Normal color, warm HEENT: [place] palpebral conjunctivae, no ptosis, dry buccal mucosa NECK : Supple, no tenderness CHEST : Decreased breath sounds , no tenderness HEART : RRR, systolic murmur ABDOMEN: Some distention, nontender EXTREMITIES : minimal LLE swelling w/tenderness, no other conspicuous deformities noted NEUROLOGIC : Coherent, no facial asymmetry, no other gross focality Principal Diagnosis Abnormal gait: Fall: HTN Diabetes Chronic Kidney disease Elevated WBC Elevated Creatine Kinase Discharge Exam General- No acute distress Head- atraumatic Eyes- PERRL, EOMI, ENT- oropharynx clear Neck- supple, no JVD Lungs- clear to auscultation Heart- regular rhythm; + murmur Abdomen- normal bowel sounds, soft, nontender Extremities- no calf tenderness, right ankle pain Neuro- alert, oriented x 3; PERRL, EOMI; no facial palsy; no dysarthria Skin- warm & dry Discharge Data Allergies Allergy/AdvReac Type Severity Reaction Status Date / Time Mkwpyiu-Mes-Wko Reductase AdvReac Mild leg Verified 07/10/19 19:28 Inhibitor cramping Consultations 07/10/19 21:15 ED Decision to Admit Stat 07/10/19 23:14 Consult Case Management - Discharge Planning Routine Ordered Studies LEFT TIBIA AND FIBULA 2 VIEWS CLINICAL HISTORY: Left leg injury. FINDINGS: AP and lateral views of the left tibia and fibula are obtained. No prior studies are available for comparison at the time of dictation. The skeletal structures are osteopenic. There is no radiographic evidence of left tibial or fibular fracture. The knee and ankle joints are grossly maintained. Soft tissue edema is present throughout the left lower extremity. IMPRESSION: Soft tissue swelling with no radiographic evidence of left tibial or fibular fracture. Electronically signed by: Philip Cheng M.D. 07/10/2019 7:45 PM Dictated: 07/10/191942 Transcribed: 07/10/191942 SINGLE VIEW CHEST CLINICAL HISTORY: Renal failure. FINDINGS: An AP, portable, upright chest radiograph is compared to study dated 12/01/2018. The examination is degraded by portable technique and patient rotation. The cardiomediastinal silhouette is unremarkable noting atherosclerotic calcification of the thoracic aorta. The pulmonary vasculature is noncongested. Chronic interstitial thickening is similar to previous. There is bibasilar scarring/atelectasis. No airspace consolidation or large pleural effusion is identified. No pneumothorax is seen. The skeletal structures are osteopenic. The bony thorax is grossly intact. IMPRESSION: No active disease in the chest. ACT 112: Negative or not required by law. Electronically signed by: Philip Cheng M.D. 07/10/2019 9:51 PM Dictated: 07/10/192149 Transcribed: 07/10/192149 XR ankle LT min 3V routine CLINICAL HISTORY: left ankle pain pain COMPARISON: 07/10/2019 DISCUSSION: Nonspecific soft tissue edematous change. Bone findings consistent with osteopenia. No evidence for fracture or dislocation. Ankle mortise is aligned anatomically. IMPRESSION: 1. Nonspecific soft tissue edema. 2. Osteopenia. 3. No acute bony abnormality. ACT 112: Negative or not required by law. The above report was generated using voice recognition software. It may contain grammatical, syntax or spelling errors. Electronically signed by: Terrance Rodriguez M.D. 07/11/2019 11:40 AM Dictated: 07/11/19 1138 Transcribed: 07/11/19 1138 Hospital Course (1) Abnormal gait: (2) Fall: Left Lower extremities tenderness Mechanical fall Xray of LLE showed soft tissue swelling with no radiographic evidence of left tibial or fibular fracture. Xray of left ankle showed no evidence for fracture or dislocation. Continue pain control with tramadol and Tylenol Continue PT/OT Fall precaution Will go to rehab today HTN BP was elevated on admission mostly due to the pain Continue Atenolol HCTZ on hold, will resume BP stable Diabetes Hba1c 12.5 on 05/06/19 Outpatient DM meds on hold On lantus and insulin novolog coverage Continue monitor BS CKD Creatinine on admission 1.9 Creatinine has been fluctuates from 1.5 to 2 Creatinine today 1.9 HCTZ on hold Will resume on discharge Check BMP in 1 week Elevated WBC Mostly reactive due to the Fall Procalcitonin wnl UA negative for UTI CXR showed no infiltrate WBC trending down to 11K Elevated CPK CPK on admission 265--> 282 -->149 Received IVF Continue monitor DVT px on Heparin subq CODE STATUS Full code Disposition Will discharge to rehab today Total Time Total Time Spent Total Time Spent (In Minutes): 35 minutes Total Time Includes: Examination of the Patient, Discharge Planning, Medication Reconciliation, Communication With Other Providers and Other Discharge Plan Discharge Items Patient Disposition: Transfer Inpatient Rehab Fac Reason For Visit: HTN URGENCY Discharge Diagnosis: Abnormal gait: Fall: HTN Diabetes Chronic Kidney disease Elevated WBC Elevated Creatine Kinase Condition on Discharge: Good Activity: Resume your previous activity Non-emergency contact: Primary Care Provider Call non-emergency contact if: you have any medication questions, your pain is not controlled and your pain is worsening Follow-up/Referrals: Mario Ghosh MD [Primary Care Provider] - Diet: Carb Consistent or DM2 Addtl Attending Provider Instructions: Follow up with your primary care provider once discharge from rehab Continue physical and occupational therapy Increase activity as tolerated Fall precaution Continue monitor your blood sugar and your physician will adjust your diabetic medication if needed Check BMP in 1 week to monitor electrolytes and kidney function Please hold Tramadol if pt becomes lethargy and drowsy. Pending Studies at Discharge: No Stand-Alone Forms: My [facility] [place] Skilled Items Patient informed of condition?: Yes DNR: No Discharge Level of Care: Acute rehab Communicable Disease: No Discharge Prognosis: Stable Lines: None Urinary Catheter: No Medications and DC Order Prescriptions: New tramadol 50 mg Tablet 25 - 50 mg PO Q6HWA PRN (Reason: pain) Qty: 10 RF: 0 acetaminophen [Mapap (acetaminophen)] 325 mg Tablet 650 mg PO Q6H PRN (Reason: mild pain (scale score 1-4)) Qty: 30 RF: 0 Continued omeprazole 20 mg capsule,delayed release(DR/EC) 20 mg PO DAILY RF: 0 multivitamin capsule 1 cap PO QPM RF: 0 (DME) OneTouch Ultra Blue Test Strip Strip See Rx Instructions .ROUTE .MEDSUPPLY Qty: 100 RF: 3 Vitamin B-12 50 mcg Tablet 50 mcg PO DAILY RF: 0 cholecalciferol (vitamin D3) [Vitamin D3] 1,000 unit Capsule 1,000 unit PO DAILY RF: 0 hydrochlorothiazide 12.5 mg Tablet 12.5 mg PO DAILY RF: 0 atenolol 25 mg tablet 25 mg PO PM RF: 0 sertraline 25 mg tablet 25 mg PO QPM RF: 0 Trulicity 0.75 mg/0.5 mL pen injector 0.75 mg SUBCUT WK RF: 0 Discharge Orders: Discharge Order (Routine); Ordered 07/12/19 Ordered By: Urbano Estrada Admission Data Admit Date/Time: 07/10/19 22:24 Attending Provider: Urbano Estrada Admit Provider: Oseas Rasmussen Primary Care Provider: Mario Ghosh Other Providers: [facility] ; Oseas Rasmussen Other Interventions: Discharge Summary Assessment (RN) Last Done: 07/12/19 17:05 DC Date/Time DO NOT enter until pt leaves facility: 07/12/19 17:20
== END 2019-07-12 17:20 ==
LOC: 2N 18:48 → ED 18:48 → 2N 23:02

== ENCOUNTER 2019-10-25 08:07 | Inpatient (IN) ==
--- NOTE | 2019-10-25 08:13 | Emergency Department Note ---
History of Present Illness General Chief complaint: Diarrhea Time Seen by Provider: 10/25/19 08:08 Source: patient, EMS, RN notes reviewed and old records reviewed Mode of arrival: EMS Limitations: altered mental status History of Present Illness Provider complaint: Altered mental status Onset (ago): day(s) 1 Location: head Associated symptoms: + confusion and + weakness; no chest pain, no diaphoresis, no fever/chills, no headaches, no nausea/vomiting and no shortness of breath Treatments prior to arrival: none This is an 84-year-old female who was recently evaluated in the emergency department for high blood sugar who comes from [facility]. Pt was recently evaluated in the ED for high blood sugar. EMS reports that the patient has been trying to use the bathroom in a closet and has been generally confused. There was concern for pneumonia several days ago. Upon arrival to the emergency department the patient has no complaints although she was originally confused when EMS arrived. Home Medications Home Medications Medication Instructions Recorded Confirmed Type Vitamin B-12 50 mcg PO DAILY 11/28/18 10/25/19 History cholecalciferol (vitamin D3) 1,000 unit PO DAILY 11/28/18 10/25/19 History [Vitamin D3] hydrochlorothiazide 12.5 mg PO MOWEFR 11/28/18 10/25/19 History blood sugar diagnostic #100 ea 05/28/19 10/25/19 Rx Trulicity 0.75 mg SUBCUT WK 07/10/19 10/25/19 History atenolol 12.5 mg PO PM 07/10/19 10/25/19 History sertraline 25 mg PO HS 07/10/19 10/25/19 History acetaminophen [Mapap 650 mg PO Q6H PRN #30 tab 07/12/19 10/25/19 Rx (acetaminophen)] docusate sodium 100 mg PO BID 10/25/19 10/25/19 History insulin glargine [Basaglar KwikPen 30 unit SUBCUT HS 10/25/19 10/25/19 History U-100 Insulin] multivitamin,ch-uign-dzviogkb 1 tab PO DAILY 10/25/19 10/25/19 History [Therems-M] nitrofurantoin monohyd/m-cryst 100 mg PO BID 10/25/19 10/25/19 History pantoprazole 40 mg PO QAM 10/25/19 10/25/19 History polyethylene glycol 3350 [Miralax] 17 g PO DAILY PRN 10/25/19 10/25/19 History tramadol 25 mg PO Q12H PRN 10/25/19 10/25/19 History Allergies Allergy/AdvReac Type Severity Reaction Status Date / Time Jjmqxmj-Kby-Qid Reductase AdvReac Mild leg Verified 10/25/19 09:19 Inhibitor cramping Past Med/Surg History Medical History Colon cancer Colonic mass GERD (gastroesophageal reflux disease) History of malignant neoplasm of colon (Resolved) HTN (hypertension) (Acute) Hyperlipidemia Lumbar degenerative disc disease Type II diabetes mellitus Surgical History H/O right hemicolectomy H/O: hysterectomy History of cataract extraction History of tonsillectomy and adenoidectomy Family History Father Lung cancer Mother Stroke syndrome Hypertension Cancer Diabetes Sister Diabetes Social History Smoking Status: Unknown if ever smoked Cigarettes Per Day: 3 packs; Hx Alcohol Use: No Hx Substance Use: No Preferred Language: Peruvian Communication Ability: Effective Visual Impairment: No Limitations Hearing Ability: Normal 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 Beliefs That Will Affect Care: None marital status: / Current Living Situation: Spouse current occupational status: retired Feels Safe at Home: Yes Review of Systems A total of 10 systems reviewed and were otherwise negative Physical Exam Vital Signs Vital Signs - 24 hr 10/25/19 08:28 Temperature 37.4 C Temperature Source Oral Pulse Rate 77 Respiratory Rate 18 Respiratory Effort / Characteristics Non-Labored Spontaneous Respiratory Depth Normal Respiratory Pattern Regular Blood Pressure 170/66 H Blood Pressure Mean 100 Pulse Oximetry 96 Oxygen Delivery Method Room Air Sepsis Recent Fever Within 48 Hours No Sepsis New/Unexplained Change in Mental Status N/A Sepsis Action Taken by Nursing No Action Required VITAL SIGNS - Vital signs and nursing notes were reviewed. GENERAL - 84-year-old female appearing stated age who is in no acute distress. Communicates well with provider and answers some questions appropriately. SKIN - Without rashes. HEAD - NC/AT. EYES - PERRL with EOMI bilaterally. Sclera anicteric. Palpebral conjunctiva pink and moist with no injection noted. EARS - No deformities of external structures noted on gross examination bilaterally. No pain elicited with palpation of the tragus bilaterally. External auditory canals without discharge or otorrhea. Tympanic membranes pearly bryan without retraction or bulging. No fluid or purulent material visualized behind the TM. Handle of malleus, umbo, cone of light, pars tensa/flaccid all easily visualized. NOSE - Midline and without cyanosis. No epistaxis or purulent drainage noted. Septum midline without deviation or septal hematoma noted. MOUTH/OROPHARYNX - Without perioral cyanosis. Buccal mucosa pink and moist and without leukoplakia. Tongue midline with equal elevation of palate bilaterally. No tonsillar hypertrophy, erythema, or exudates noted. dentition noted. NECK - Neck with FROM. Supple to palpation. lymphadenopathy noted. No nuchal rigidity. LUNGS - Chest wall symmetric without accessory muscle use, intercostals retra ctions, or central cyanosis. Normal vesicular breath sounds CTA B/L. No wheezes, rales, or rhonchi appreciated. CARDIAC - RRR with S1/S2. No murmur, rubs, or gallops appreciated. ABDOMEN - Abdominal contour without pulsations or visible masses. BS normoactive all four quadrants. No tenderness, palpable masses, hepatosplenomegaly, or ascites noted. EXTREMITIES - No clubbing or peripheral cyanosis. No pretibial edema present. +3/5 radial, posterior tibial, and dorsalis pedis pulses palpated throughout. +5/5 strength noted in UE/LE bilaterally. NEUROLOGIC - Cranial nerves II through XII grossly intact. Sensory intact to light touch throughout. Patellar reflexes +2/4. PSYCH - A&Ox3 and cooperates fully with examiner. Pt is very pleasant and interacts well with examiner. Course Administered Medications Atenolol (Tenormin) 12.5 mg PO QAM [facility] Stop: 11/25/19 08:59 Last Admin: 10/26/19 10:19 Dose: 12.5 mg Documented by: [id number] Cyanocobalamin (Vitamin B-12) 50 mcg PO DAILY [facility] Stop: 11/25/19 08:59 Last Admin: 10/26/19 10:20 Dose: 50 mcg Documented by: [id number] Ertapenem 500 mg/ Sodium (Chloride) 55 mls @ 110 mls/hr IV Q24H [facility]; Protocol Stop: 11/05/19 13:59 Last Infusion: 10/26/19 16:03 Dose: 0 mls/hr Documented by: [id number] Admin: 10/26/19 15:30 Dose: 110 mls/hr Documented by: [id number] Insulin Aspart (Novolog Flexpen) 0 units SC ACHS [facility] Stop: 11/25/19 11:29 Last Admin: 10/26/19 21:11 Dose: 3 units Documented by: [id number] Cosigned by: [id number] Admin: 10/26/19 17:22 Dose: 5 units Documented by: [id number] Cosigned by: [id number] Admin: 10/26/19 13:11 Dose: Not Given Documented by: [id number] Magnesium Oxide (Mag-Ox) 400 mg PO [facility] Stop: 11/25/19 09:44 Last Admin: 10/26/19 10:19 Dose: 400 mg Documented by: [id number] Pantoprazole Sodium (Protonix) 40 mg PO [facility] Stop: 11/25/19 08:59 Last Admin: 10/26/19 10:19 Dose: 40 mg Documented by: [id number] Sertraline HCl (Zoloft) 25 mg PO [facility] Stop: 11/25/19 08:59 Last Admin: 10/26/19 10:20 Dose: 25 mg Documented by: [id number] Vitamin D (Vitamin D3) 1,000 units PO DAILY [facility] Stop: 11/25/19 08:59 Last Admin: 10/26/19 10:20 Dose: 1,000 units Documented by: [id number] Discontinued Medications Albuterol (Duoneb) 3 ml NEB NOW STA Stop: 10/26/19 18:49 Last Admin: 10/26/19 19:11 Dose: 3 ml Documented by: [id number] Hydralazine HCl (Hydralazine Hcl) 5 mg IV NOW ONE Stop: 10/25/19 12:36 Last Admin: 10/25/19 13:21 Dose: 5 mg Documented by: [id number] Sodium Chloride (Nss) 500 mls @ 999 mls/hr IV .Q31M [facility] Stop: 10/25/19 08:45 Last Infusion: 10/25/19 09:27 Dose: 0 mls/hr Documented by: [id number] Admin: 10/25/19 08:54 Dose: 999 mls/hr Documented by: [id number] Piperacillin Sod/Tazobactam (Sod 3.375 gm/ Dextrose) 100 ml in 115 mls @ 230 mls/hr IV TODAY@1300 ONE Stop: 10/25/19 13:29 Last Admin: 10/25/19 14:05 Dose: Not Given Documented by: [id number] Cefoxitin Sodium (Mefoxin) 2,000 mg in 60 mls @ 100 mls/hr IV NOW STA Stop: 10/25/19 13:32 Last Infusion: 10/25/19 14:08 Dose: 0 mls/hr Documented by: [id number] Admin: 10/25/19 13:22 Dose: 100 mls/hr Documented by: [id number] Ertapenem 500 mg/ Sodium (Chloride) 55 mls @ 110 mls/hr IV NOW STA Stop: 10/25/19 13:36 Last Infusion: 10/25/19 15:13 Dose: 0 mls/hr Documented by: [id number] Admin: 10/25/19 14:10 Dose: 110 mls/hr Documented by: [id number] Sodium Chloride (Nss 1000ml) 1,000 mls @ 100 mls/hr IV .Q10H [facility] Stop: 11/24/19 14:34 Last Infusion: 10/26/19 09:59 Dose: 0 mls/hr Documented by: [id number] Admin: 10/25/19 22:57 Dose: 100 mls/hr Documented by: [id number] Infusion: 10/25/19 22:57 Dose: 100 mls/hr Documented by: [id number] Admin: 10/25/19 15:23 Dose: 100 mls/hr Documented by: [id number] Acetaminophen (Ofirmev) 1,000 mg in 100 mls @ 400 mls/hr IV Q8H PRN; Protocol PRN Reason: Headache or Pain Stop: 10/28/19 17:59 Last Infusion: 10/25/19 18:22 Dose: 0 mls/hr Documented by: [id number] Admin: 10/25/19 18:07 Dose: 400 mls/hr Documented by: [id number] Dextrose/Sodium Chloride (D5w And 1/2nss) 1,000 mls @ 60 mls/hr IV .[id number] [facility] Stop: 11/25/19 07:14 Last Infusion: 10/26/19 09:59 Dose: 0 mls/hr Documented by: [id number] Admin: 10/26/19 07:55 Dose: 60 mls/hr Documented by: [id number] Potassium Chloride (K Elliot / Wtr) 10 meq in 100 mls @ 100 mls/hr IV Q1H [facility] Stop: 10/26/19 09:29 Last Infusion: 10/26/19 15:25 Dose: 0 mls/hr Documented by: [id number] Admin: 10/26/19 12:58 Dose: 100 mls/hr Documented by: [id number] Infusion: 10/26/19 11:17 Dose: 100 mls/hr Documented by: [id number] Admin: 10/26/19 10:17 Dose: 100 mls/hr Documented by: [id number] Magnesium Sulfate/Dextrose (Magnesium Sulfate / D5w) 1 gm in 100 mls @ 50 mls/hr IV Q2H [facility] Stop: 10/26/19 13:59 Last Infusion: 10/26/19 15:25 Dose: 0 mls/hr Documented by: [id number] Admin: 10/26/19 13:00 Dose: 50 mls/hr Documented by: [id number] Infusion: 10/26/19 12:29 Dose: 50 mls/hr Documented by: [id number] Admin: 10/26/19 10:29 Dose: 50 mls/hr Documented by: [id number] Furosemide 40 mg/ Syringe 4 mls @ 4 mls/min IV ONE ONE Stop: 10/26/19 18:31 Last Admin: 10/26/19 18:32 Dose: 4 mls/min Documented by: [id number] Indomethacin (Indocin) Confirm Administered Dose 100 mg ND .STK-MED ONE Stop: 10/25/19 19:08 Last Admin: 10/25/19 20:37 Dose: 100 mg Documented by: [id number] Insulin Glargine (Lantus Per Unit) 10 units SQ NOW ONE Stop: 10/26/19 16:31 Last Admin: 10/26/19 16:14 Dose: 10 units Documented by: [id number] Cosigned by: [id number] Ioversol (Optiray 320) Confirm Administered Dose 1 ml IV .STK-MED ONE Stop: 10/25/19 17:09 Last Admin: 10/26/19 12:57 Dose: Not Given Documented by: [id number] Potassium Chloride (Archana Ciel Elix) 40 meq PO NOW STA Stop: 10/26/19 07:08 Last Admin: 10/26/19 12:58 Dose: Not Given Documented by: [id number] Potassium Chloride (Archana Ciel Elix) 40 meq PO NOW STA Stop: 10/26/19 10:13 Last Admin: 10/26/19 10:21 Dose: 40 meq Documented by: [id number] Medical Decision Making Differential Diagnosis Infection, dehydration, metabolic abnormality, hypo/hyperglycemia, electrolyte disturbance, anemia, hypoxia, cardiac sources, intracerebral event, toxicologic, neurologic, as well as other pathologies. Medical Records Attestation: I reviewed the patient's medical records. Home Medications Current Medication List: was personally reviewed by me Laboratory Data Attestation: I reviewed the patient's lab results. Result diagrams: 10/27/19 05:56 10/26/19 15:01 Lab Results 10/25/19 10/25/19 10/25/19 Range/Units 08:25 08:31 08:31 WBC 20.06 H (4.8-10.8) K/uL RBC 3.59 L (4.2-5.4) M/uL Hgb 10.6 L (12.0-16.0) g/dL Hct 31.8 L (37-47) % MCV 88.6 (80-100) fL MCH 29.5 (25-34) pg MCHC 33.3 (32-36) g/dL RDW Std Deviation 50.5 H (36.4-46.3) fL RDW Coeff of Remy 15.6 H (11.5-14.5) % Plt Count 466 H (130-400) K/uL MPV 10.1 (7.4-10.4) fL Immature Gran % (Auto) 0.5 % Neut % (Auto) 82.9 % Lymph % (Auto) 6.9 % [place] % (Auto) 6.0 % Eos % (Auto) 3.6 % Baso % (Auto) 0.1 % Neut # (Auto) 16.62 H (1.4-6.5) K/uL Lymph # (Auto) 1.38 (1.2-3.4) K/uL [place] # (Auto) 1.20 H (0.11-0.59) K/uL Eos # (Auto) 0.72 H (0-0.5) K/uL Baso # (Auto) 0.03 (0-0.2) K/uL Immature Gran # (Auto) 0.11 H (0.00-0.02) K/uL Sodium 135 L (136-145) mmol/L Potassium 3.5 (3.5-5.1) mmol/L Chloride 104 (98-107) mmol/L Carbon Dioxide 21 (21-32) mmol/L Anion Gap 10.0 (3-11) BUN 31 H (7-18) mg/dl Creatinine 1.69 H (0.6-1.2) mg/dl Est Cr Clr Drug Dosing 21.8 ml/min Est GFR ( Amer) 32.0 Est GFR (Non-Af Amer) 27.6 BUN/Creatinine Ratio 18.4 (10-20) Glucose 142 H (70-99) mg/dl Lactate (0.4-2.0) mmol/L Calcium 8.8 (8.5-10.1) mg/dl Total Bilirubin 0.6 (0.2-1) mg/dl AST 11 L (15-37) U/L ALT 29 (12-78) U/L Alkaline Phosphatase 160 H (45-117) U/L Total Creatine Kinase 27 (26-192) U/L Troponin I < 0.015 (0-0.045) ng/ml Total Protein 7.2 (6.4-8.2) gm/dl Albumin 2.6 L (3.4-5.0) gm/dl Globulin 4.6 H (2.5-4.0) gm/dl Albumin/Globulin Ratio 0.6 L (0.9-2) Procalcitonin (0-0.5) ng/ml TSH 1.880 (0.300-4.500) uIu/ml Urine Color Urine Appearance (Clear) Urine pH (4.5-7.5) Ur Specific [place] (1.000-1.030) Urine Protein (Negative) Urine Glucose (UA) (Negative) Urine Ketones (Negative) Urine Blood (Negative) Urine Nitrite (Negative) Urine Bilirubin (Negative) Urine Urobilinogen (Negative) Ur Leukocyte Esterase (Negative) Urine WBC (Auto) (0-5) /hpf Urine RBC (Auto) (0-4) /hpf U Hyaline Cast (Auto) (0-5) /lpf U Epithel Cells (Auto) (0-5) /lpf Urine Bacteria (Auto) (Negative) Stl C. diff Tox B Gene Negative Cdiff Gene (Neg) COVID-19 PCR (Negative) 10/25/19 10/25/19 10/25/19 Range/Units 08:45 11:55 13:00 WBC (4.8-10.8) K/uL RBC (4.2-5.4) M/uL Hgb (12.0-16.0) g/dL Hct (37-47) % MCV (80-100) fL MCH (25-34) pg MCHC (32-36) g/dL RDW Std Deviation (36.4-46.3) fL RDW Coeff of Remy (11.5-14.5) % Plt Count (130-400) K/uL MPV (7.4-10.4) fL Immature Gran % (Auto) % Neut % (Auto) % Lymph % (Auto) % [place] % (Auto) % Eos % (Auto) % Baso % (Auto) % Neut # (Auto) (1.4-6.5) K/uL Lymph # (Auto) (1.2-3.4) K/uL [place] # (Auto) (0.11-0.59) K/uL Eos # (Auto) (0-0.5) K/uL Baso # (Auto) (0-0.2) K/uL Immature Gran # (Auto) (0.00-0.02) K/uL Sodium (136-145) mmol/L Potassium (3.5-5.1) mmol/L Chloride (98-107) mmol/L Carbon Dioxide (21-32) mmol/L Anion Gap (3-11) BUN (7-18) mg/dl Creatinine (0.6-1.2) mg/dl Est Cr Clr Drug Dosing ml/min Est GFR ( Amer) Est GFR (Non-Af Amer) BUN/Creatinine Ratio (10-20) Glucose (70-99) mg/dl Lactate 1.1 (0.4-2.0) mmol/L Calcium (8.5-10.1) mg/dl Total Bilirubin (0.2-1) mg/dl AST (15-37) U/L ALT (12-78) U/L Alkaline Phosphatase (45-117) U/L Total Creatine Kinase (26-192) U/L Troponin I (0-0.045) ng/ml Total Protein (6.4-8.2) gm/dl Albumin (3.4-5.0) gm/dl Globulin (2.5-4.0) gm/dl Albumin/Globulin Ratio (0.9-2) Procalcitonin (0-0.5) ng/ml TSH (0.300-4.500) uIu/ml Urine Color Dark Yellow Urine Appearance Clear (Clear) Urine pH 5.0 (4.5-7.5) Ur Specific [place] 1.016 (1.000-1.030) Urine Protein 1+ H (Negative) Urine Glucose (UA) Negative (Negative) Urine Ketones Negative (Negative) Urine Blood Negative (Negative) Urine Nitrite Negative (Negative) Urine Bilirubin Negative (Negative) Urine Urobilinogen Negative (Negative) Ur Leukocyte Esterase Negative (Negative) Urine WBC (Auto) 1-5 (0-5) /hpf Urine RBC (Auto) 0-4 (0-4) /hpf U Hyaline Cast (Auto) 1-5 (0-5) /lpf U Epithel Cells (Auto) 10-20 H (0-5) /lpf Urine Bacteria (Auto) Negative (Negative) Stl C. diff Tox B Gene (Neg) COVID-19 PCR NEGATIVE (Negative) 10/25/19 Range/Units 13:00 WBC (4.8-10.8) K/uL RBC (4.2-5.4) M/uL Hgb (12.0-16.0) g/dL Hct (37-47) % MCV (80-100) fL MCH (25-34) pg MCHC (32-36) g/dL RDW Std Deviation (36.4-46.3) fL RDW Coeff of Remy (11.5-14.5) % Plt Count (130-400) K/uL MPV (7.4-10.4) fL Immature Gran % (Auto) % Neut % (Auto) % Lymph % (Auto) % [place] % (Auto) % Eos % (Auto) % Baso % (Auto) % Neut # (Auto) (1.4-6.5) K/uL Lymph # (Auto) (1.2-3.4) K/uL [place] # (Auto) (0.11-0.59) K/uL Eos # (Auto) (0-0.5) K/uL Baso # (Auto) (0-0.2) K/uL Immature Gran # (Auto) (0.00-0.02) K/uL Sodium (136-145) mmol/L Potassium (3.5-5.1) mmol/L Chloride (98-107) mmol/L Carbon Dioxide (21-32) mmol/L Anion Gap (3-11) BUN (7-18) mg/dl Creatinine (0.6-1.2) mg/dl Est Cr Clr Drug Dosing ml/min Est GFR ( Amer) Est GFR (Non-Af Amer) BUN/Creatinine Ratio (10-20) Glucose (70-99) mg/dl Lactate (0.4-2.0) mmol/L Calcium (8.5-10.1) mg/dl Total Bilirubin (0.2-1) mg/dl AST (15-37) U/L ALT (12-78) U/L Alkaline Phosphatase (45-117) U/L Total Creatine Kinase (26-192) U/L Troponin I (0-0.045) ng/ml Total Protein (6.4-8.2) gm/dl Albumin (3.4-5.0) gm/dl Globulin (2.5-4.0) gm/dl Albumin/Globulin Ratio (0.9-2) Procalcitonin 0.62 H (0-0.5) ng/ml TSH (0.300-4.500) uIu/ml Urine Color Urine Appearance (Clear) Urine pH (4.5-7.5) Ur Specific [place] (1.000-1.030) Urine Protein (Negative) Urine Glucose (UA) (Negative) Urine Ketones (Negative) Urine Blood (Negative) Urine Nitrite (Negative) Urine Bilirubin (Negative) Urine Urobilinogen (Negative) Ur Leukocyte Esterase (Negative) Urine WBC (Auto) (0-5) /hpf Urine RBC (Auto) (0-4) /hpf U Hyaline Cast (Auto) (0-5) /lpf U Epithel Cells (Auto) (0-5) /lpf Urine Bacteria (Auto) (Negative) Stl C. diff Tox B Gene (Neg) COVID-19 PCR (Negative) Imaging Data Radiologist's Impression: [facility], [place] [phone] XRay Report Patient: FRANCK PASTRANA Date: 10/25/19 MR#: [id number]: [address], [address] Acct ID:[id number]: [facility] Date: 1935[facility] Zip: [place] [address] Age: 84Location: ED Sex: F Room/Bed: Att Phy:Diagnosis: ALTERED MENTAL STATUS Chani Phy: [employer] [facility],IncService Date: 10/25/19 Fam Phy:Interpreting Phy: Terrance Rodriguez MD Admit Phy: Ordering Phy: Henrry Cooper MD cc: ~ XR chest 1V portable CLINICAL HISTORY: Pt c/o pneumonia pain. Nausea. Dyspnea. COMPARISON STUDY: 10/23/2019 FINDINGS: Mild chronic and chronic interstitial and bronchovascular prominence. This is unchanged to slightly improved compared to the prior exam. No well- defined focal infiltrate. IMPRESSION: Mild improvement of the interstitial edematous change described previously. ACT 112: Negative or not required by law. The above report was generated using voice recognition software. It may contain grammatical, syntax or spelling errors. Electronically signed by: Terrance Rodriguez M.D. 10/25/2019 9:59 AM Dictated: 10/25/19 0959 Transcribed: 10/25/19 0959 [facility], [place] [phone] CT Scan Report Patient: FRANCK PASTRANA Date: 10/25/19 MR#: [id number]: [address], [address] Acct ID:[id number]: [facility] Date: 1935[facility] Zip: [place] [address] Age: 84Location: ED Sex: F Room/Bed: Att Phy:Diagnosis: ALTERED MENTAL STATUS Chani Phy: [facility] Nash,IncService Date: 10/25/19 Fam Phy:Interpreting Phy: Frederic Landers MD Admit Phy: Ordering Phy: Henrry Cooper MD cc: ~ CT head/brain wo con CLINICAL HISTORY: Acute change in mental status COMPARISON STUDY: November 2018 TECHNIQUE: Axial CT of the brain is performed from the vertex to the skull base. IV contrast was not administered for this examination. A dose lowering technique was utilized adhering to the principles of ALARA. CT DOSE: 614.27 mGy.cm FINDINGS: No intra or extra-axial mass lesions are visualized. There is no CT evidence of acute cortical infarction. There is no evidence of midline shift. There is no acute hemorrhage. No calvarial fractures are visualized. There are patchy white matter hypodensities likely on a small vessel basis. There is no evidence of pathologic ventricular dilatation. There is no evidence of acute sinusitis IMPRESSION: No acute intracranial findings ACT 112: Negative or not required by law. Electronically signed by: Frederic Landers M.D. 10/25/2019 9:26 AM Dictated: 10/25/19923 Transcribed: 10/25/19923 [place] [phone] CT Scan Report Patient: FRANCK PASTRANA Date: 10/25/19 MR#: [id number]: [address] Acct ID:[id number]: [facility]ERSON[facility] MARY LOU Date: 1935ty Zip: [place] [address] Age: 84Location: ED Sex: F Room/Bed: Att Phy:Diagnosis: ALTERED MENTAL STATUS Chani Phy: [facility]lee Nash,IncService Date: 10/25/19 Fam Phy:Interpreting Phy: Philip Cheng MD Admit Phy: Ordering Phy: Henrry Cooper MD cc: ~ CT SCAN OF THE ABDOMEN AND PELVIS WITHOUT IV CONTRAST CLINICAL HISTORY: Diarrhea. COMPARISON STUDY: Abdominal CT dated 05/02/2016. TECHNIQUE: CT scan of the abdomen and pelvis is performed from the lung bases to the proximal femora. Images are reviewed in the axial, sagittal, and coronal planes. IV contrast was not administered for this examination as per the referring clinician. Note that the examination was performed in suboptimal fashion without oral and IV contrast. There is also motion artifact. A dose lowering technique was utilized adhering to the principles of ALARA. CT DOSE: 405.77 mGy.cm FINDINGS: Lung bases: The heart is normal in size and without pericardial effusion. The coronary arteries and mitral annulus are densely calcified. There are trace pleural effusions with dependent atelectasis. No lobar consolidation is seen at the lung bases. There is a small hiatal hernia. Liver: The unenhanced liver is normal in size, contour, and attenuation. There is minimal central intrahepatic biliary ductal dilatation. Gallbladder: The gallbladder is distended. There is layering hyperdense material within the gallbladder lumen. There is also hyperdense material filling the com mon bile duct (axial images #167 and #176). No gallbladder wall thickening or pericholecystic inflammation is identified. Adenomyomatosis is noted in the fundal region. Spleen: Normal in size and attenuation. Pancreas: The unenhanced pancreas is atrophic and grossly unremarkable. Adrenal glands: Nodular thickening of the adrenal glands is similar to previous. Kidneys: The unenhanced kidneys are atrophic and without hydronephrosis. There are no renal calculi identified. There is no evidence of contour deforming renal mass lesion. Abdominal vasculature: The abdominal aorta is normal in course and caliber noting advanced atherosclerotic calcification. Bowel: There is no bowel obstruction. Liquid stool is noted in the right colon. There is no colonic wall thickening or pericolonic inflammation. A tiny duodenal diverticulum is noted. The appendix is not identified and reported surgically absent. Peritoneum: There is no intraperitoneal free air or abdominal ascites. There is a small fat-containing umbilical hernia. Lymphadenopathy: Calcified upper abdominal lymph nodes are incidentally noted. No pathologically enlarged lymph nodes are identified. Pelvic viscera: The bladder is decompressed around a Still catheter and not well evaluated. The uterus is surgically absent. No adnexal lesion is seen. Skeletal structures: The skeletal structures are osteopenic. There is mild-to- moderate lumbosacral spondylosis. No lytic or blastic lesions are seen. IMPRESSION: 1. Suboptimal examination without oral and IV contrast. The examination is also compromised by motion artifact. 2. The gallbladder is significantly distended. There is minimal layering hyperdense material within the gallbladder lumen, as well as large hyperdense filling defects within the dilated common bile duct. This could represent cholelithiasis/choledocholithiasis or possibly hemobilia. Ultrasound could be considered for further assessment. 3. Liquid stool is noted in the right colon. Clinical indication evidence of a diarrheal illness. There is no colonic wall thickening or pericolonic inflammation. 4. Trace pleural effusions. 5. Additional findings as above. ACT 112: Negative or not required by law. Electronically signed by: Philip Cheng M.D. 10/25/2019 12:27 PM Dictated: 10/25/19 1216 Transcribed: 10/25/19 1216 [place] [phone] Ultrasound Report Patient: FRANCK PASTRANA Date: 10/25/19 MR#: [id number]: [address], [address] Acct ID:[id number]: SOLIS MANRIQUE PERSONAL [facility] Date: 1935ty Zip: [place] [address] Age: 84Location: ED Sex: F Room/Bed: Att Phy:Diagnosis: ALTERED MENTAL STATUS Chani Phy: [facility] Date: 10/25/19 Fam Phy:Interpreting Phy: Terrance Rodriguez MD Admit Phy: Ordering Phy: Brandee Sun MD cc: ~ US gallbladder HISTORY: Pain. Nausea. choledocholithiasis COMPARISON: None. FINDINGS: Combination of gallstones and sludge within the gallbladder lumen. Common bile duct 1 cm. Combination of gallstones and sludge within the proximal common bile duct. Liver is uniform throughout. Pancreas and right kidney are within normal limits. IMPRESSION: 1. Gallstones and sludge within the gallbladder lumen. 2. Distended common duct at 1 cm. 3. Choledocholithiasis with a combination of sludge and gallstones within the proximal common bile duct ACT 112: Negative or not required by law. The above report was generated using voice recognition software. It may contain grammatical, syntax or spelling errors. Electronically signed by: Terrance Rodriguez M.D. 10/25/2019 2:27 PM Dictated: 10/25/19 1426 Transcribed: 10/25/19 1426 ECG Data Attestation: I personally reviewed and interpreted this ECG as follows: Indication: + altered mental status Rate (beats per minute): 76 Rhythm: + normal sinus ECG Intervals/blocks: + Normal QT-c (452) ECG [place]: + Normal ECG ST segments: no ST depression and no ST elevation Comparison ECG Date: no prior available MDM Narrative Patient was seen and evaluated as above in room A10. Review was performed of nursing notes and vital signs. I did review pertinent previous visits and patient history. After obtaining a thorough history and physical examination the above work up was performed. This is an 84-year-old female presents emergency department with altered mental status. The patient this is the patient's second visit to the emergency department this week. She was sent for CAT scan abdomen pelvis which was concerning for choledocholithiasis. She was started on broad-spectrum antibiotics and discussed with both gastroenterology as well as the hospitalist service. Patient is in agreement with the treatment plan. She has an increasing white blood cell count. An order was placed for continuous cardiac monitoring. The monitor shows a rate of 86 with Normal SInus rhythm. The patient was evaluated during the global COVID-19 pandemic, and that diagnosi s was suspected/considered upon their initial presentation. Their evaluation, treatment and testing was consistent with current guidelines for patients who present with complaints or symptoms that may be related to COVID-19. Impression & Plan Hyperglycemia, Cholangitis, Leukocytosis Discharge Plan Visit Data *Final* Discharge Date/Time: 10/25/19 13:45 Chief Complaint: Diarrhea ED Provider: Henrry Cooper Discharge Problem: Hyperglycemia, Cholangitis, Leukocytosis Patient Disposition: Admitted As Inpatient Discharge Instructions Interventions: ED Discharge Assessment Last Done: 10/25/19 13:45 Discharge Problem: Leukocytosis Qualifiers: Leukocytosis type: unspecified Qualified Code(s): D72.829 - Elevated white bloo d cell count, unspecified
[2019-10-25] MEDS ORDERED: SODIUM CHLORIDE 0.9% 500 ML IV SCH (08:15)
[2019-10-25 08:44] LABS: Basophils # (auto) 0.03 K/uL (0-0.2); Basophils % (auto) 0.1 %; Eosinophils # (auto) 0.72 K/uL (0-0.5); Eosinophils % (auto) 3.6 %; Hematocrit (blood only) 31.8 % (37-47); Hemoglobin 10.6 g/dL (12.0-16.0); Immature Granulocytes # (auto) 0.11 K/uL (0.00-0.02); Immature Granulocytes % (auto) 0.5 %; Lymphocytes # (auto) 1.38 K/uL (1.2-3.4); Lymphocytes % (auto) 6.9 %; Mean Corpuscular Hemoglobin 29.5 pg (25-34); Mean Corpuscular Hgb Conc 33.3 g/dL (32-36); Mean Corpuscular Volume 88.6 fL (80-100); Mean Platelet Volume 10.1 fL (7.4-10.4); Neutrophils # (auto) 16.62 K/uL (1.4-6.5); Neutrophils % (auto) 82.9 %; Platelet Count 466 K/uL (130-400); RDW Coefficient of Variation 15.6 % (11.5-14.5); RDW Standard Deviation 50.5 fL (36.4-46.3); Red Blood Count 3.59 M/uL (4.2-5.4); White Blood Count 20.06 K/uL (4.8-10.8)
[2019-10-25 09:02] LABS: Alanine Aminotransferase 29 U/L (12-78); Albumin Level 2.6 gm/dl (3.4-5.0); Aspartate Aminotransferase 11 U/L (15-37); BUN Creatinine Ratio 18.4 (10-20); Blood Urea Nitrogen 31 mg/dl (7-18); Calcium 8.8 mg/dl (8.5-10.1); Carbon Dioxide 21 mmol/L (21-32); Chloride 104 mmol/L (98-107); Creatinine Clr Calc Pharmacy 21.8 ml/min; Est GFR (Non-African American) 27.6; Glucose 142 mg/dl (70-99); Potassium 3.5 mmol/L (3.5-5.1); Sodium 135 mmol/L (136-145)
[2019-10-25 09:12] LABS: Albumin Globulin Ratio 0.6 (0.9-2); Alkaline Phosphatase 160 U/L (45-117); Bilirubin,Total 0.6 mg/dl (0.2-1); Creatine Kinase 27 U/L (26-192); Globulin 4.6 gm/dl (2.5-4.0); Total Protein 7.2 gm/dl (6.4-8.2); Troponin I < 0.015 ng/ml (0-0.045)
[2019-10-25 09:20] LABS: Appearance Urine Clear (Clear); Bacteria Urine Automated Negative (Negative); Bilirubin Urine Negative (Negative); Blood Urine Negative (Negative); Color Urine Dark Yellow; Glucose Urine UA Negative (Negative); Ketones Urine Negative (Negative); Leukocyte Esterase Urine Negative (Negative); Nitrite Urine Negative (Negative); Protein Urine 1+ (Negative); RBC Urine Automated 0-4 /hpf (0-4); Specific Gravity Urine 1.016 (1.000-1.030); Urobilinogen Urine Negative (Negative)
--- NOTE | 2019-10-25 09:28 | CT Scan Report ---
CT head/brain wo con CLINICAL HISTORY: Acute change in mental status COMPARISON STUDY: November 2018 TECHNIQUE: Axial CT of the brain is performed from the vertex to the skull base. IV contrast was not administered for this examination. A dose lowering technique was utilized adhering to the principles of ALARA. CT DOSE: 614.27 mGy.cm FINDINGS: No intra or extra-axial mass lesions are visualized. There is no CT evidence of acute cortical infarc tion. There is no evidence of midline shift. There is no acute hemorrhage. No calvarial fractures ar e visualized. There are patchy white matter hypodensities likely on a small vessel basis. There is no evidence of pathologic ventricular dilatation. There is no evidence of acute sinusitis IMPRESSION: No acute intracranial findings ACT 112: Negative or not required by law. Electronically signed by: Frederic Landers M.D. 10/25/2019 9:26 AM
--- NOTE | 2019-10-25 09:54 | Ultrasound Report ---
US venous doppler LE LT CLINICAL HISTORY: Pt c/o left Lower extremity PAIN. EDEMA. COMPARISON STUDY: 11/20/2018 FINDINGS: Real-time and color flow Doppler imaging were performed. Flow was seen within the femoral, popliteal and calf veins with no intraluminal thrombus demonstrated. The saphenous vein is patent. IMPRESSION: No evidence of deep venous thrombosis. ACT 112: Negative or not required by law. The above report was generated using voice recognition software. It may contain grammatical, syntax or spelling errors. Electronically signed by: Terrance Rodriguez M.D. 10/25/2019 9:53 AM
--- NOTE | 2019-10-25 10:01 | XRay Report ---
XR chest 1V portable CLINICAL HISTORY: Pt c/o pneumonia pain. Nausea. Dyspnea. COMPARISON STUDY: 10/23/2019 FINDINGS: Mild chronic and chronic interstitial and bronchovascular prominence. This is unchanged to slightly improved compared to the prior exam. No well-defined focal infiltrate. IMPRESSION: Mild improvement of the interstitial edematous change described previously. ACT 112: Negative or not required by law. The above report was generated using voice recognition software. It may contain grammatical, syntax or spelling errors. Electronically signed by: Terrance Rodriguez M.D. 10/25/2019 9:59 AM
--- NOTE | 2019-10-25 12:28 | CT Scan Report ---
CT SCAN OF THE ABDOMEN AND PELVIS WITHOUT IV CONTRAST CLINICAL HISTORY: Diarrhea. COMPARISON STUDY: Abdominal CT dated 05/02/2016. TECHNIQUE: CT scan of the abdomen and pelvis is performed from the lung bases to the proximal femora. Images are reviewed in the axial, sagittal, and coronal planes. IV contrast was not administered for this examination as per the referring clinician. Note that the examination was performed in suboptim al fashion without oral and IV contrast. There is also motion artifact. A dose lowering technique was utilized adhering to the principles of ALARA. CT DOSE: 405.77 mGy.cm FINDINGS: Lung bases: The heart is normal in size and without pericardial effusion. The coronary arteries and m itral annulus are densely calcified. There are trace pleural effusions with dependent atelectasis. No lobar consolidation is seen at the lung bases. There is a small hiatal hernia. Liver: The unenhanced liver is normal in size, contour, and attenuation. There is minimal central int rahepatic biliary ductal dilatation. Gallbladder: The gallbladder is distended. There is layering hyperdense material within the gallbladd er lumen. There is also hyperdense material filling the common bile duct (axial images #167 and #176) . No gallbladder wall thickening or pericholecystic inflammation is identified. Adenomyomatosis is no temo in the fundal region. Spleen: Normal in size and attenuation. Pancreas: The unenhanced pancreas is atrophic and grossly unremarkable. Adrenal glands: Nodular thickening of the adrenal glands is similar to previous. Kidneys: The unenhanced kidneys are atrophic and without hydronephrosis. There are no renal calculi i dentified. There is no evidence of contour deforming renal mass lesion. Abdominal vasculature: The abdominal aorta is normal in course and caliber noting advanced atheroscle rotic calcification. Bowel: There is no bowel obstruction. Liquid stool is noted in the right colon. There is no colonic w all thickening or pericolonic inflammation. A tiny duodenal diverticulum is noted. The appendix is n ot identified and reported surgically absent. Peritoneum: There is no intraperitoneal free air or abdominal ascites. There is a small fat-containin g umbilical hernia. Lymphadenopathy: Calcified upper abdominal lymph nodes are incidentally noted. No pathologically enla rged lymph nodes are identified. Pelvic viscera: The bladder is decompressed around a Still catheter and not well evaluated. The uteru s is surgically absent. No adnexal lesion is seen. Skeletal structures: The skeletal structures are osteopenic. There is rmon-me-vukaeqze lumbosacral sp ondylosis. No lytic or blastic lesions are seen. IMPRESSION: 1. Suboptimal examination without oral and IV contrast. The examination is also compromised by motion artifact. 2. The gallbladder is significantly distended. There is minimal layering hyperdense material within t he gallbladder lumen, as well as large hyperdense filling defects within the dilated common bile duct . This could represent cholelithiasis/choledocholithiasis or possibly hemobilia. Ultrasound could be considered for further assessment. 3. Liquid stool is noted in the right colon. Clinical indication evidence of a diarrheal illness. The re is no colonic wall thickening or pericolonic inflammation. 4. Trace pleural effusions. 5. Additional findings as above. ACT 112: Negative or not required by law. Electronically signed by: Philip Cheng M.D. 10/25/2019 12:27 PM
[2019-10-25] MEDS ORDERED: PIPERACILL/TAZOBAC CONSULT ACTIVE PRN (12:33)
[2019-10-25] MEDS ORDERED: hydrALAZINE HCL 20 MG/ML VIAL IV ONE (12:35)
[2019-10-25] MEDS ORDERED: cefOXitin 2,000 MG/60 ML BAG IV STA (12:57)
[2019-10-25] MEDS ORDERED: PIPERACILLIN/TAZOBACTAM 3.375 GM in DEXTROSE 5% 100 ML/100 ML BAG IV ONE (13:00)
[2019-10-25] MEDS ORDERED: ERTAPENEM SODIUM 500 MG in SODIUM CHLORIDE 0.9% 50 ML IV STA (13:07)
[2019-10-25] MEDS ORDERED: ONDANSETRON INJ 2 MG/ML 2 ML VIAL IV PRN ×2 (13:19→20:12)
--- NOTE | 2019-10-25 13:24 | Gastrointestinal Consultation ---
Date of Consultation October 25, 2019 Assessment & Plan (1) Cholangitis: Ms. Carlos's confusion and leukocytosis are most likely caused by cholangitis as evidenced by CT suggesting choledocholithiasis in the presence of leukocytosis. 1. Discussed with Dr. Mesa who reviewed the case and has planned ERCP this afternoon. 2. Continue Ertapenem. 3. Keep NPO. 4. IV fluids per primary services. 5. I spoke with Geraldo Carlos, her son. He is at work, a highway truck driver. After discussing indication and providing a description of the procedure, of which he was familiar because his underwent this previously, I reviewed risks: infection, perforation of the bile duct and pancreatitis. He provides informal consent. He says that he will probably not be here during the procedure but can be reached by phone. Present on Admission?: Yes Supervising Physician Co-Signing Physician Notes I performed a history and physical examination of the patient today, including specifically on physical exam - soft abdomen. I have discussed the patient's management with the advanced practitioner. Please refer to the nurse practitioner's note for the documented findings and plan of care. ERCP today History of Present Illness Reason for Consultation: "ERCP" Requesting Physician: Dr. Cooper Attending Physician: Dr. Sun History of Present Illness Ms. Fatmata Carlos is an 84 yr old female who lives at [facility]. She carries a hx of DM-2, right jayesh-collectomy for colon cancer, interstitial lung disease, hx of smoking, CKD, hyperlipidemia, DVT (not anticoagulated). She was sent to [facility] for confusion and there is also some mention of diarrhea. She was also tx for recent UTI (see 10/16/19 urine cx) and hyperglycemia on 10/22. On arrival, afebrile with leukocytosis (WBC 20 with shift left). LFTs are normal. CT shows layering gallbladder sludge and debris in the CBD. The pt is awake and interactive and able to tell me her name but unable to tell me where she lives or what month/yr this is. She is being given Ertapenime and Vanco IV, fluids and being kept NPO. Allergies Allergy/AdvReac Type Severity Reaction Status Date / Time Pvpgxlu-Csb-Szn Reductase AdvReac Mild leg Verified 10/25/19 09:19 Inhibitor cramping Home Medications Home Medications Medication Instructions Recorded Confirmed Type Vitamin B-12 50 mcg PO DAILY 11/28/18 10/25/19 History cholecalciferol (vitamin D3) 1,000 unit PO DAILY 11/28/18 10/25/19 History [Vitamin D3] hydrochlorothiazide 12.5 mg PO MOWEFR 11/28/18 10/25/19 History blood sugar diagnostic #100 ea 05/28/19 10/25/19 Rx Trulicity 0.75 mg SUBCUT WK 07/10/19 10/25/19 History atenolol 12.5 mg PO PM 07/10/19 10/25/19 History sertraline 25 mg PO HS 07/10/19 10/25/19 History acetaminophen [Mapap 650 mg PO Q6H PRN #30 tab 07/12/19 10/25/19 Rx (acetaminophen)] docusate sodium 100 mg PO BID 10/25/19 10/25/19 History insulin glargine [Basaglar KwikPen 30 unit SUBCUT HS 10/25/19 10/25/19 History U-100 Insulin] multivitamin,ss-sjxj-sdbwqqqb 1 tab PO DAILY 10/25/19 10/25/19 History [Therems-M] nitrofurantoin monohyd/m-cryst 100 mg PO BID 10/25/19 10/25/19 History pantoprazole 40 mg PO QAM 10/25/19 10/25/19 History polyethylene glycol 3350 [Miralax] 17 g PO DAILY PRN 10/25/19 10/25/19 History tramadol 25 mg PO Q12H PRN 10/25/19 10/25/19 History Patient History Medical History Colon cancer Colonic mass GERD (gastroesophageal reflux disease) History of malignant neoplasm of colon (Resolved) HTN (hypertension) (Acute) Hyperlipidemia Lumbar degenerative disc disease Type II diabetes mellitus Surgical History H/O right hemicolectomy H/O: hysterectomy History of cataract extraction History of tonsillectomy and adenoidectomy Family History Father Lung cancer Mother Stroke syndrome Hypertension Cancer Diabetes Sister Diabetes Social History Smoking Status: Unknown if ever smoked Cigarettes Per Day: 3 packs; Hx Alcohol Use: No Hx Substance Use: No Preferred Language: Hebrew Communication Ability: Effective Visual Impairment: No Limitations Hearing Ability: Normal Mimeographer Required: No Beliefs That Will Affect Care: None marital status: / Current Living Situation: Spouse current occupational status: retired Other Information That Helps Us Care for You: No Feels Safe at Home: Yes Safety Concerns: Feels Safe At This Time Review of Systems Review of Systems: Pt c/o diarrhea but answers no too all other ROS questions - unsure of her ability to provide ROS due to confusion. Physical Exam Constitutional: well developed, well nourished, + ill appearing and + thin; no acute distress Eyes: PERRL, conjunctivae normal, anicteric sclerae ENMT: external ear and nose normal, oropharynx normal Neck: trachea midline, no thyromegaly Respiratory: normal respiratory effort, lungs clear to auscultation Cardiovascular: RRR, no murmur, no edema Gastrointestinal (Abdomen): normal bowel sounds, soft, nontender, no hepatosplenomegaly pt is not tender on deep palpation Musculoskeletal: no cyanosis or clubbing, extremities motor strength 5/5 able to walk to bathroom with assistance Skin: Red, dull, non confluent rash on lower legs. Neurologic: PERRL, EOMI, accommodation nl, no face palsy, no dysarthria Psychiatric: Orientation: alert Speech: normal rate/rhythm/volume of speech Affect: + anxious affect (slightly) Insight: + limited insight Judgement: + poor judgement Lymphatic: no cervical or axillary lymphadenopathy Results & Data ([facility]) Vital Signs (Past 12 Hours) Vital Signs Temp Pulse Resp BP Pulse Ox 10/25/19 11:00 80 20 172/68 H 95 10/25/19 10:31 75 20 151/82 H 100 10/25/19 10:01 74 20 168/69 H 98 10/25/19 09:42 78 18 175/75 H 96 10/25/19 09:01 77 19 183/83 H 94 10/25/19 08:30 80 20 160/79 H 95 10/25/19 08:28 37.4 C 77 18 170/66 H 96 Laboratory Results WBC 20, Hb 10, Hct 31, Platelets 466, INR 1.0, Na 135, K 3.5, BN 31, Cr 169, glucose 142. T Bili 0.6, AST 11, ALT 29, Alk Phos 160. Diagnostic Findings Non contrast CT abd/pelvis today: 1. Suboptimal examination without oral and IV contrast. The examination is also compromised by motion artifact. 2. The gallbladder is significantly distended. There is minimal layering hyperdense material within the gallbladder lumen, as well as large hyperdense filling defects within the dilated common bile duct. This could represent cholelithiasis/choledocholithiasis or possibly hemobilia. Ultrasound could be considered for further assessment. 3. Liquid stool is noted in the right colon. Clinical indication evidence of a diarrheal illness. There is no colonic wall thickening or pericolonic inflammati on. 4. Trace pleural effusions. 5. Additional findings as above. Medications Administered Cefoxitin and Ertapenem IV
--- NOTE | 2019-10-25 13:29 | Electrocardiogram Report ---
Test Reason : Blood Pressure : / mmHG Vent. Rate : 076 BPM Atrial Rate : 076 BPM P-R Int : 134 ms QRS Dur : 068 ms QT Int : 402 ms P-R-T Axes : 077 013 065 degrees QTc Int : 452 ms Normal sinus rhythm Normal ECG When compared with ECG of 23-OCT-2019 16:58, No significant change was found Confirmed by Jamari Reddy ([id number]) on 10/25/2019 1:29:13 PM Referred By: Baylee Ely Mckee Confirmed By:Esau Reddy
--- NOTE | 2019-10-25 14:13 | History & Physical Report ---
Date of Service October 25, 2019 Assessment & Plan Admission and Anticipated Discharge Date Admission Date: Sepsis secondary to choledocholithiasis/with cholecystitis: Patient presents with elevated white count 20,000, with left shift, dehydration, with acute renal failure Source of infection choledochal lithiasis, with distended gallbladder and sludge suggestive of cholecystitis Appreciate input from [facility] gastroenterology, status post ERCP today Blood culture ordered Patient started on IV Invanz Surgery consult requested as patient will need cholecystectomy prior to discharge Confusion/altered mental status due to metabolic encephalopathy: Due to sepsis/infection-as outlined above CT head negative, no evidence of stroke Continue IV fluids, antibiotic as outlined above, underwent ERCP, surgery consult requested for cholecystectomy Leukocytosis: Due to sepsis with choledocholithiasis cholecystitis, Management as outlined above Follow daily CBC Follow blood cultures Acute renal failure on CKD stage IV: Due to sepsis/infection causing dehydration Continue IV fluids Avoid contrast studies, NSAIDs Hold HCTZ Follow BMP Type 2 diabetes: Insulin sliding scale, basal Lantus Hyponatremia: IV fluids with normal saline, repeat BMP in a.m. CODE STATUS: DNR/DNI DVT prophylaxis SCD and teds as patient will need GI procedure and possible gallbladder surgery Disposition: Admit to telemetry, patient is a resident at [facility], Will need PT OT evaluation when medically stable Case management consulted for discharge planning issues History of Present Illness Chief Complaint: Confusion/weakness Primary Care Provider: N[facility]aux Riche [facility] 84-year-old female with past medical history of CKD stage III ,type 2 diabetes, hypertension, hyperlipidemia ,interstitial lung disease history of colon cancer status post right hemicolectomy in 2014, Sent to ER from [facility] as patient was found to be confused, disoriented Patient had multiple loose watery bowel movements in ER Stool C. difficile negative, Lab showed: marked leukocytosis with white count of 20K, normal LFT, alkaline phosphatase mildly elevated 160, and acute renal failure creatinine 1.6 COVID-[address] abdomen pelvis shows significantly distended gallbladder with sludge, large hyperdense filling defect in the dilated common bile duct, right upper quadrant ultrasound shows positive stone and sludge within the gallbladder lumen, and distended CBD duct at 1 cm along with choledocholithiasis with a combination of sludge and gallstone within the proximal common biliary tract GI evaluation requested, patient was seen by [facility] GI team in the ER, Underwent ERCP today Allergies Allergy/AdvReac Type Severity Reaction Status Date / Time Xnesvds-Bak-Hlo Reductase AdvReac Mild leg Verified 10/25/19 09:19 Inhibitor cramping Home Medications Home Medications Medication Instructions Recorded Confirmed Type Vitamin B-12 50 mcg PO DAILY 11/28/18 10/25/19 History cholecalciferol (vitamin D3) 1,000 unit PO DAILY 11/28/18 10/25/19 History [Vitamin D3] hydrochlorothiazide 12.5 mg PO MOWEFR 11/28/18 10/25/19 History blood sugar diagnostic #100 ea 05/28/19 10/25/19 Rx Trulicity 0.75 mg SUBCUT WK 07/10/19 10/25/19 History atenolol 12.5 mg PO PM 07/10/19 10/25/19 History sertraline 25 mg PO HS 07/10/19 10/25/19 History acetaminophen [Mapap 650 mg PO Q6H PRN #30 tab 07/12/19 10/25/19 Rx (acetaminophen)] docusate sodium 100 mg PO BID 10/25/19 10/25/19 History insulin glargine [Basaglar KwikPen 30 unit SUBCUT HS 10/25/19 10/25/19 History U-100 Insulin] multivitamin,tb-vrew-tuivtldr 1 tab PO DAILY 10/25/19 10/25/19 History [Therems-M] nitrofurantoin monohyd/m-cryst 100 mg PO BID 10/25/19 10/25/19 History pantoprazole 40 mg PO QAM 10/25/19 10/25/19 History polyethylene glycol 3350 [Miralax] 17 g PO DAILY PRN 10/25/19 10/25/19 History tramadol 25 mg PO Q12H PRN 10/25/19 10/25/19 History Past Med/Surg History Medical History Colon cancer Colonic mass GERD (gastroesophageal reflux disease) History of malignant neoplasm of colon (Resolved) HTN (hypertension) (Acute) Hyperlipidemia Lumbar degenerative disc disease Type II diabetes mellitus Surgical History H/O right hemicolectomy H/O: hysterectomy History of cataract extraction History of tonsillectomy and adenoidectomy Family History Father Lung cancer Mother Stroke syndrome Hypertension Cancer Diabetes Sister Diabetes Social History Smoking Status: Unknown if ever smoked Cigarettes Per Day: 3 packs; Hx Alcohol Use: No Hx Substance Use: No Preferred Language: Serbian Communication Ability: Effective Visual Impairment: No Limitations Hearing Ability: Normal Operations Vocational Instructor Required: No Beliefs That Will Affect Care: None marital status: / Current Living Situation: Spouse current occupational status: retired Feels Safe at Home: Yes Review of Systems Review of Systems: Unobtainable due to cognitive status Physical Exam Constitutional: WD/WN, vitals as above + ill appearing Eyes: + anicteric sclerae ENMT: Dry oral mucous membrane Neck: trachea midline, no thyromegaly Respiratory: normal respiratory effort; no respiratory distress and no cough Auscultation: lungs clear to auscultation bilaterally; no wheezes Cardiovascular: RRR, no murmur, no edema Gastrointestinal (Abdomen): Percussion/Palpation: abdomen soft Epigastric and right upper quadrant tenderness Musculoskeletal: Generalized weakness Skin: no rashes, warm and dry Neurologic: PERRL, EOMI, accommodation nl, no face palsy, no dysarthria Psychiatric: Orientation: alert Confused, oriented to person only Results & Data Results & Data ([facility]) Vital Signs (Past 12 Hours) Vital Signs Temp Pulse Resp BP Pulse Ox 10/25/19 13:30 89 18 177/80 H 99 10/25/19 13:21 79 20 167/72 H 99 10/25/19 13:01 93 H 18 170/82 H 97 10/25/19 12:34 87 20 178/86 H 99 10/25/19 12:01 82 18 191/91 H 96 10/25/19 11:31 84 18 163/73 H 96 10/25/19 11:00 80 20 172/68 H 95 10/25/19 10:31 75 20 151/82 H 100 10/25/19 10:01 74 20 168/69 H 98 10/25/19 09:42 78 18 175/75 H 96 10/25/19 09:01 77 19 183/83 H 94 08/07/20 08:30 80 20 160/79 H 95 10/25/19 08:28 37.4 C 77 18 170/66 H 96 Diagnostic Findings Non contrast CT abd/pelvis today: 1. Suboptimal examination without oral and IV contrast. The examination is also compromised by motion artifact. 2. The gallbladder is significantly distended. There is minimal layering hyperde nse material within the gallbladder lumen, as well as large hyperdense filling defects within the dilated common bile duct. This could represent cholelithiasis/choledocholithiasis or possibly hemobilia. Ultrasound could be considered for further assessment. 3. Liquid stool is noted in the right colon. Clinical indication evidence of a diarrheal illness. There is no colonic wall thickening or pericolonic inflammation. 4. Trace pleural effusions. 5. Additional findings as above. US gallbladder FINDINGS: Combination of gallstones and sludge within the gallbladder lumen. Common bile duct 1 cm. Combination of gallstones and sludge within the proximal common bile duct. Liver is uniform throughout. Pancreas and right kidney are within normal limits. IMPRESSION: 1. Gallstones and sludge within the gallbladder lumen. 2. Distended common duct at 1 cm. 3. Choledocholithiasis with a combination of sludge and gallstones within the proximal common bile duct Code Status & VTE Plan VTE Prophylaxis Plan VTE Prophylaxis will be ordered: Yes
--- NOTE | 2019-10-25 14:28 | Ultrasound Report ---
US gallbladder HISTORY: Pain. Nausea. choledocholithiasis COMPARISON: None. FINDINGS: Combination of gallstones and sludge within the gallbladder lumen. Common bile duct 1 cm. Combination of gallstones and sludge within the proximal common bile duct. Liver is uniform throughout. Pancreas and right kidney are within normal limits. IMPRESSION: 1. Gallstones and sludge within the gallbladder lumen. 2. Distended common duct at 1 cm. 3. Choledocholithiasis with a combination of sludge and gallstones within the proximal common bile du ct ACT 112: Negative or not required by law. The above report was generated using voice recognition software. It may contain grammatical, syntax or spelling errors. Electronically signed by: Terrance Rodriguez M.D. 10/25/2019 2:27 PM
[2019-10-25] MEDS: SODIUM CHLORIDE 0.9% 1000ML 1,000 ML IV SCH ×2 (15:23→22:57)
--- NOTE | 2019-10-25 16:01 | Surgery Consultation ---
Date of Consultation October 25, 2019 Assessment & Plan (1) Cholangitis: This is an 84y F with a PMH of CKD, DM2, HTN, HLD, interstitial lung disease, and colon cancer s/p R hemicolectomy '15, who presents to the [facility] ED from [facility] on 10/25/19 with presumed confusion. Surgery was consulted as imaging has revealed a distended gallbladder with cholelithiasis, sludge, & choledocholithiasis. WBC 20. LFTs overall unremarkable with a slight increase in alkp: 160. Patients vital signs are stable. She is currently NPO with IVF and has been started on IV ertapenem for concern of cholangitis. She has been scheduled for an ERCP with GI this evening. We will follow along and discuss surgical planning in the near future pending patient's progress. Dr. Mendez-patient is found with dilated common bile duct and debris within the common bile duct likely cholangitis She does have a dilated gallbladder with sludge. I do not plan on performing cholecystectomy at the same time as the ERCP We will see how she does for a day or 2 and likely proceed before she is discharged likely on Monday or Monday. May have Clear liquids postop if ordered by the GI team. I did discuss this with her son Geraldo and he understands. History of Present Illness Attending Physician: Brandee Sun MD History of Present Illness This is an 84y F with a PMH of CKD, DM2, HTN, HLD, interstitial lung disease, and colon cancer s/p R hemicolectomy '15, who presents to the [facility] ED from [facility] on 10/25/19 with presumed confusion. Per patient she states that she was doing some work with [employer] today, when people noted she was acting confused and was subsequently sent here for further evaluation. In the ED labs were notable for an elevated WBC 20, LFT's normal outside of slightly elevated AlkP: 160, Cr: 1.6, Covid-19 negative. She was imaged with head CT which was unremarkable in addition to a CT a/p that revealed a significantly distended gallbladder with large hyperdense filling defects within the dilated common bile duct. A follow up RUQ US was obtained thereafter revealing + stones & sludge within the gallbladder lumen, a distended common duct at 1 cm, along with choledocholithiasis with a combination of sludge and gallstones within the proximal common bile duct. Patient alert and oriented to person and place, but thinks the year is 2016. When asked she currently denies any abdominal pain, diarrhea/constipation, nausea/vomiting, fevers/chills, urinary symptoms, chest pain or shortness of breath. She states she has been eating "too good" at [facility] and denies any issues with greasy/fatty/spicy foods in the past. Surgery was consulted for further evaluation given gallbladder findings on imaging. Allergies Allergy/AdvReac Type Severity Reaction Status Date / Time Qkoqpwv-Uvq-Nup Reductase AdvReac Mild leg Verified 10/25/19 09:19 Inhibitor cramping Home Medications Home Medications Medication Instructions Recorded Confirmed Type Vitamin B-12 50 mcg PO DAILY 11/28/18 10/25/19 History cholecalciferol (vitamin D3) 1,000 unit PO DAILY 11/28/18 10/25/19 History [Vitamin D3] hydrochlorothiazide 12.5 mg PO MOWEFR 11/28/18 10/25/19 History blood sugar diagnostic #100 ea 05/28/19 10/25/19 Rx Trulicity 0.75 mg SUBCUT WK 07/10/19 10/25/19 History atenolol 12.5 mg PO PM 07/10/19 10/25/19 History sertraline 25 mg PO HS 07/10/19 10/25/19 History acetaminophen [Mapap 650 mg PO Q6H PRN #30 tab 07/12/19 10/25/19 Rx (acetaminophen)] docusate sodium 100 mg PO BID 10/25/19 10/25/19 History insulin glargine [Basaglar KwikPen 30 unit SUBCUT HS 10/25/19 10/25/19 History U-100 Insulin] multivitamin,kc-juut-bdfkyqfb 1 tab PO DAILY 10/25/19 10/25/19 History [Therems-M] nitrofurantoin monohyd/m-cryst 100 mg PO BID 10/25/19 10/25/19 History pantoprazole 40 mg PO QAM 10/25/19 10/25/19 History polyethylene glycol 3350 [Miralax] 17 g PO DAILY PRN 10/25/19 10/25/19 History tramadol 25 mg PO Q12H PRN 10/25/19 10/25/19 History Patient History Medical History Colon cancer Colonic mass GERD (gastroesophageal reflux disease) History of malignant neoplasm of colon (Resolved) HTN (hypertension) (Acute) Hyperlipidemia Lumbar degenerative disc disease Type II diabetes mellitus Surgical History H/O right hemicolectomy H/O: hysterectomy History of cataract extraction History of tonsillectomy and adenoidectomy Family History Father Lung cancer Mother Stroke syndrome Hypertension Cancer Diabetes Sister Diabetes Social History Smoking Status: Unknown if ever smoked Cigarettes Per Day: 3 packs; Hx Alcohol Use: No Hx Substance Use: No Preferred Language: Indonesian Communication Ability: Effective Visual Impairment: No Limitations Hearing Ability: Normal 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 Beliefs That Will Affect Care: None marital status: / Current Living Situation: Spouse current occupational status: retired Other Information That Helps Us Care for You: No Feels Safe at Home: Yes Safety Concerns: Feels Safe At This Time Review of Systems Review of Systems: Other (Patient has some confusion, but her responses to ROS are as below) Constitutional: no fever and no chills Respiratory: no dyspnea Gastrointestinal: no abdominal pain, no bloating, no nausea, no vomiting and no change in bowel habits Genitourinary: denies urinary symptoms Physical Exam Physical Exam: awake, oriented to person and place Constitutional: cooperative and comfortable; no acute distress Respiratory: normal respiratory effort Gastrointestinal (Abdomen): Inspection/Auscultation: + abdominal surgical scar (two horizontal scars noted on abdomen, healed well); abdomen not distended Percussion/Palpation: + abdomen tender (mild ttp RUQ) and abdomen soft Results & Data Vital Signs (Past 12 Hours) Vital Signs Temp Pulse Pulse Resp BP BP Pulse Ox 10/25/19 14:51 37.1 C 99 H 18 176/78 H 96 10/25/19 13:30 89 18 177/80 H 99 10/25/19 13:21 79 20 167/72 H 99 10/25/19 13:01 93 H 18 170/82 H 97 10/25/19 12:34 87 20 178/86 H 99 10/25/19 12:01 82 18 191/91 H 96 10/25/19 11:31 84 18 163/73 H 96 10/25/19 11:00 80 20 172/68 H 95 10/25/19 10:31 75 20 151/82 H 100 10/25/19 10:01 74 20 168/69 H 98 10/25/19 09:42 78 18 175/75 H 96 10/25/19 09:01 77 19 183/83 H 94 10/25/19 08:30 80 20 160/79 H 95 10/25/19 08:28 37.4 C 77 18 170/[address] SCAN OF THE ABDOMEN AND PELVIS WITHOUT IV CONTRAST CLINICAL HISTORY: Diarrhea. COMPARISON STUDY: Abdominal CT dated 05/02/2016. TECHNIQUE: CT scan of the abdomen and pelvis is performed from the lung bases to the proximal femora. Images are reviewed in the axial, sagittal, and coronal planes. IV contrast was not administered for this examination as per the referring clinician. Note that the examination was performed in suboptimal fashion without oral and IV contrast. There is also motion artifact. A dose lowering technique was utilized adhering to the principles of ALARA. CT DOSE: 405.77 mGy.cm FINDINGS: Lung bases: The heart is normal in size and without pericardial effusion. The coronary arteries and mitral annulus are densely calcified. There are trace pleural effusions with dependent atelectasis. No lobar consolidation is seen at the lung bases. There is a small hiatal hernia. Liver: The unenhanced liver is normal in size, contour, and attenuation. There is minimal central intrahepatic biliary ductal dilatation. Gallbladder: The gallbladder is distended. There is layering hyperdense material within the gallbladder lumen. There is also hyperdense material filling the common bile duct (axial images #167 and #176). No gallbladder wall thickening or pericholecystic inflammation is identified. Adenomyomatosis is noted in the fundal region. Spleen: Normal in size and attenuation. Pancreas: The unenhanced pancreas is atrophic and grossly unremarkable. Adrenal glands: Nodular thickening of the adrenal glands is similar to previous. Kidneys: The unenhanced kidneys are atrophic and without hydronephrosis. There are no renal calculi identified. There is no evidence of contour deforming renal mass lesion. Abdominal vasculature: The abdominal aorta is normal in course and caliber noting advanced atherosclerotic calcification. Bowel: There is no bowel obstruction. Liquid stool is noted in the right colon. There is no colonic wall thickening or pericolonic inflammation. A tiny duodenal diverticulum is noted. The appendix is not identified and reported surgically absent. Peritoneum: There is no intraperitoneal free air or abdominal ascites. There is a small fat-containing umbilical hernia. Lymphadenopathy: Calcified upper abdominal lymph nodes are incidentally noted. No pathologically enlarged lymph nodes are identified. Pelvic viscera: The bladder is decompressed around a Still catheter and not well evaluated. The uterus is surgically absent. No adnexal lesion is seen. Skeletal structures: The skeletal structures are osteopenic. There is wgvn-zo-hyledavv lumbosacral spondylosis. No lytic or blastic lesions are seen. IMPRESSION: 1. Suboptimal examination without oral and IV contrast. The examination is also compromised by motion artifact. 2. The gallbladder is significantly distended. There is minimal layering hyperdense material within the gallbladder lumen, as well as large hyperdense filling defects within the dilated common bile duct. This could represent aarti lithiasis/choledocholithiasis or possibly hemobilia. Ultrasound could be considered for further assessment. 3. Liquid stool is noted in the right colon. Clinical indication evidence of a diarrheal illness. There is no colonic wall thickening or pericolonic inflammation. 4. Trace pleural effusions. 5. Additional findings as above. ACT 112: Negative or not required by law. Electronically signed by: Philip Cheng M.D. 10/25/2019 12:27 PM US gallbladder HISTORY: Pain. Nausea. choledocholithiasis COMPARISON: None. FINDINGS: Combination of gallstones and sludge within the gallbladder lumen. Common bile duct 1 cm. Combination of gallstones and sludge within the proximal common bile duct. Liver is uniform throughout. Pancreas and right kidney are within normal limits. IMPRESSION: 1. Gallstones and sludge within the gallbladder lumen. 2. Distended common duct at 1 cm. 3. Choledocholithiasis with a combination of sludge and gallstones within the proximal common bile duct ACT 112: Negative or not required by law. The above report was generated using voice recognition software. It may contain grammatical, syntax or spelling errors. Electronically signed by: Terrance Rodriguez M.D. 10/25/2019 2:27 PM PG Care Time/CCT Total # of Minutes Spent Total Time Spent with Patient: Total time spent is greater than 50% in coordination of care (as documented) at patient's floor/unit and/or counseling patient: Coding Level of Care Code 71279 Initial Inpt Care Lvl 1 Diagnoses Cholangitis K83.09
[2019-10-25] MEDS ORDERED: IOVERSOL 50ml IV ONE (17:08)
[2019-10-25] MEDS ORDERED: ACETAMINOPHEN 1,000 MG/100 ML VIAL IV PRN (18:00)
--- NOTE | 2019-10-25 18:41 | History & Physical Bridge Note ---
Date of Service October 25, 2019 History & Physical Bridge Note I have examined the patient, reviewed the History & Physical and in the interval since the performance of the History & Physical I have noted the following changes of clinical significance: no changes noted
[2019-10-25] MEDS ORDERED: INDOMETHACIN 50 MG SUPP PR ONE (19:07)
[2019-10-25] MEDS ORDERED: PROPOFOL IV EMULSION 10 MG/ML 20 ML VIAL IV ONE (19:24)
[2019-10-25] MEDS ORDERED: fentaNYL citrate 100 MCG/2 ML VIAL ONE (19:24)
[2019-10-25] MEDS ORDERED: LIDOCAINE HCL 2% 2 ML VIAL/AMP(20MG/ML) INFIL ONE (19:24)
[2019-10-25] MEDS ORDERED: ONDANSETRON INJ 2 MG/ML 2 ML VIAL ONE (19:27)
--- NOTE | 2019-10-25 19:39 | Anesthesiology Consultation ---
Date of Service October 25, 2019 Assessment & Plan (1) Encounter for pre-operative examination: Chart Review Chart Review: Acceptable Risk for Surgery and Patient NOT seen in Pre Admission Testing Consults Requested none History Surgery Operation Date: 10/25/19 13:50 Proposed Procedures p Endoscopic Retrograde Cholangiopancreatogram - Marcai Mesa MD Height/Weight Height: 5 ft 4 in Weight: 56.9 kg Allergies Allergy/AdvReac Type Severity Reaction Status Date / Time Rymgpbx-Ipm-Byl Reductase AdvReac Mild leg Verified 10/25/19 09:19 Inhibitor cramping Medications Home Medications Medication Instructions Recorded Confirmed Last Taken Vitamin B-12 50 mcg PO DAILY 11/28/18 10/25/19 10/25/19 cholecalciferol (vitamin D3) 1,000 unit PO DAILY 11/28/18 10/25/19 10/25/19 [Vitamin D3] hydrochlorothiazide 12.5 mg PO MOWEFR 11/28/18 10/25/19 10/25/19 blood sugar diagnostic #100 ea 05/28/19 10/25/19 Unknown Trulicity 0.75 mg SUBCUT WK 07/10/19 10/25/19 07/08/19 atenolol 12.5 mg PO PM 07/10/19 10/25/19 Unknown sertraline 25 mg PO HS 07/10/19 10/25/19 Unknown acetaminophen [Mapap 650 mg PO Q6H PRN #30 tab 07/12/19 10/25/19 Unknown (acetaminophen)] docusate sodium 100 mg PO BID 10/25/19 10/25/19 10/25/19 insulin glargine [Basaglar KwikPen 30 unit SUBCUT HS 10/25/19 10/25/19 Unknown U-100 Insulin] multivitamin,vv-uucj-cniwyuss 1 tab PO DAILY 10/25/19 10/25/19 Unknown [Therems-M] nitrofurantoin monohyd/m-cryst 100 mg PO BID 10/25/19 10/25/19 10/25/19 pantoprazole 40 mg PO QAM 10/25/19 10/25/19 10/25/19 polyethylene glycol 3350 [Miralax] 17 g PO DAILY PRN 10/25/19 10/25/19 Unknown tramadol 25 mg PO Q12H PRN 10/25/19 10/25/19 Unknown Active Medications Generic Name Dose Route Start Last Admin Trade Name Freq PRN Reason Stop Dose Admin Sodium Chloride 1,000 mls @ 100 mls/hr 10/25/19 14:35 10/25/19 15:23 Nss 1000ml IV 11/24/19 14:34 100 mls/hr .Q10H CAIO Administration Acetaminophen 1,000 mg in 100 mls @ 400 mls/hr 10/25/19 18:00 10/25/19 18:22 Ofirmev IV Infused Q8H PRN Infusion Headache or Pain Protocol NPO Date Last Intake of Fluids: 10/25/19 Time Last Intake of Fluids: 07:00 Date Last Intake of Solids: 10/24/19 Time Last Intake of Solids: 09:00 Past Medical History Medical History Colon cancer Colonic mass GERD (gastroesophageal reflux disease) History of malignant neoplasm of colon (Resolved) HTN (hypertension) (Acute) Hyperlipidemia Lumbar degenerative disc disease Type II diabetes mellitus Exercise / Class Metabolic Activity III < 4 Walking/Shop/Light housework Past Family History Family History Father Lung cancer Mother Stroke syndrome Hypertension Cancer Diabetes Sister Diabetes Past Surgical History Surgical History H/O right hemicolectomy H/O: hysterectomy History of cataract extraction History of tonsillectomy and adenoidectomy Past Anesthesia History No Hx of Anesthesia Complications and No Family Hx of Anesthesia Complications History of PONV No Hx of PONV and No Hx of Motion Sickness Social History Smoking Status: Unknown if ever smoked tobacco type: cigarettes Smoking cigarettes per day: 3 packs Hx Alcohol Use: No Hx Substance Use: No Physical Exam Vital Signs Last Vital Signs Temp 37.3 C 10/25/19 18:27 Pulse 92 H 10/25/19 18:27 Resp 18 10/25/19 18:27 BP 143/61 H 10/25/19 18:27 Pulse Ox 95 10/25/19 18:27 Testing Laboratory Results 10/25/19 08:31 10/25/19 08:31 Urine Color Dark Yellow 10/25/19 08:45 Urine Appearance Clear (Clear) 10/25/19 08:45 Urine pH 5.0 (4.5-7.5) 10/25/19 08:45 Ur Specific [place] 1.016 (1.000-1.030) 10/25/19 08:45 Urine Protein 1+ (Negative) H 10/25/19 08:45 Urine Glucose (UA) Negative (Negative) 10/25/19 08:45 Urine Ketones Negative (Negative) 10/25/19 08:45 Urine Nitrite Negative (Negative) 10/25/19 08:45 Ur Leukocyte Esterase Negative (Negative) 10/25/19 08:45 Urine WBC (Auto) 1-5 /hpf (0-5) 10/25/19 08:45 Urine RBC (Auto) 0-4 /hpf (0-4) 10/25/19 08:45 U Hyaline Cast (Auto) 1-5 /lpf (0-5) 10/25/19 08:45 U Epithel Cells (Auto) 10-20 /lpf (0-5) H 10/25/19 08:45 Urine Bacteria (Auto) Negative (Negative) 10/25/19 08:45 10/25/19 16:29 POC Glucose 167 H
[2019-10-25] MEDS ORDERED: ePHEDrine sulfate 50 MG/ML AMP IV PRN (20:12)
[2019-10-25] MEDS ORDERED: fentaNYL citrate 100 MCG/2 ML VIAL IV PRN (20:12)
[2019-10-25] MEDS ORDERED: ATROPINE SULFATE 0.1 MG/ML 10ML SYR IV PRN (20:12)
--- NOTE | 2019-10-25 20:40 | Operative Report ---
Post Operative Report Pre & Post Diagnosis Operation Date: 10/25/19 13:50 Pre-Op Diagnosis: Cholangitis Post-Op Diagnosis: Cholangitis I identified the patient and participated in the time-out.: Yes Procedure Operation Date: 10/25/19 13:50 Actual Procedures p Endoscopic Retrograde Cholangiopancreatogram(Not Applicable) - Marcia Mesa MD Surgeon Marcia Mesa MD Water Attendant None Estimated Blood Loss 0 Findings See Below (CBD stones removed) Specimens None Description of Procedure ERCP I attest to the content of the Intraoperative Record and any orders documented therein. Any exceptions are noted below.
--- NOTE | 2019-10-25 20:51 | GI REPORT ---
Patient Name: Fatmata Carlos Procedure Date: 10/25/2019 7:31 PM Date of : 1935 Admit Type: Inpatient Age: 84 Gender: Female Attending MD: Marcia Mesa MD Procedure: ERCP Providers: Marcia Mesa MD Referring MD: [facility], [facility] Yovani Esteves Ayesha H. Pervez Indications: Bile duct stone on Computed Tomogram Scan, For therapy of bile duct stone(s), For therapy of ascending cholangitis Medicines: General Anesthesia Complications: No immediate complications. Estimated Blood Loss: Estimated blood loss: none. Procedure: Pre-Anesthesia Assessment: - Prior to the procedure, a History and Physical was performed, and patient medications, allergies and sensitivities were reviewed. The patient's tolerance of previous anesthesia was reviewed. - The alternatives, risks and benefits of the procedure were discussed at length with the patient's son. The patient's proxy verbalized understanding of the risks as well as the alternatives and wished to proceed with the procedure. - Patient identification and proposed procedure were verified prior to the procedure by the physician and the nurse. The procedure was verified in the procedure room. - Pre-procedure physical examination revealed no contraindications to sedation. After obtaining informed consent, the scope was passed under direct vision. Throughout the procedure, the patient's blood pressure, pulse, and oxygen saturations were monitored continuously. The Scope was introduced through the mouth, and advanced to the duodenum and used to inject contrast into the bile duct. The ERCP was accomplished without difficulty. The patient tolerated the procedure well. Findings: The passenger attendant film was normal. The esophagus was successfully intubated under direct vision. The scope was advanced to a normal major papilla in the descending duodenum without detailed examination of the pharynx, larynx and associated structures, and upper GI tract. The upper GI tract was grossly normal. The major papilla was located entirely within a diverticulum. A 0.035 inch straight standard wire was passed into the biliary tree. The Fusion OMNI sphincterotome was passed over the guidewire and the bile duct was then deeply cannulated. Contrast was injected. I personally interpreted the bile duct images. Ductal flow of contrast was adequate. Image quality was adequate. Contrast extended to the main bile duct. The main bile duct was dilated. The largest diameter was 10 mm. The lower third of the main bile duct contained multiple stones. Biliary sphincterotomy was made with a monofilament traction (standard) sphincterotome using ERBE electrocautery. There was no post-sphincterotomy bleeding. Bile duct orifice was successfully dilated with an 8 mm balloon dilator. The biliary tree was swept with a 15 mm balloon starting at the bifurcation. Many stones were removed. No stones remained. Indomethacin 100 mg was given via suppository to decrease the risk of post-ERCP pancreatitis (PEP). PD was not cannulated. Impression: - The major papilla was located entirely within a diverticulum. - Choledocholithiasis was found. Complete removal was accomplished by biliary sphincterotomy, balloon sphincteroplasty and balloon extraction. Recommendation: - Return patient to hospital [facility] for ongoing care. - Surgery for cholecystectomy this admission. - Complete a 7 days course of Antibiotics. - Clear liquid diet. - Recall GI if needed. Marcia Mesa MD 10/25/2019 8:50:52 PM This report has been signed electronically. Note Initiated On: 10/25/2019 7:31 PM Number of Addenda: 0 I attest to the content of the Intraoperative Record and orders documented therein, exceptions below {[id number]}
--- NOTE | 2019-10-25 20:52 | Fluoroscopy Report ---
[place] ERCP biliary ductal CLINICAL HISTORY: EXPLORE DUCTS COMPARISON STUDY: CT of the abdomen and pelvis and right quadrant ultrasound October 25, 2019. FLUOROSCOPY TIME: 3 minutes and 41 seconds. FLUOROSCOPIC IMAGES: 16 FINDINGS: Fluoroscopy was provided during ERCP. The common bile duct was cannulated. Multiple filling defects within the common bile duct are noted. These suggest choledocholithiasis. Balloon sweep thro ugh the common bile duct was performed. Contrast within the duodenum and gallbladder is noted. Intrah epatic bile ducts are partially opacified. IMPRESSION: Fluoroscopy provided during ERCP. ACT 112: Negative or not required by law. Electronically signed by: Get Hollingsworth M.D. 10/25/2019 8:50 PM
--- NOTE | 2019-10-25 21:09 | Anesthesiology Progress Note ---
Date of Service October 25, 2019 Anesthesia Post Procedure Vital Signs Vital Signs: Temp Pulse Pulse Resp BP BP Pulse Ox 10/25/19 18:27 37.3 C 92 H 18 143/61 H 95 10/25/19 14:51 37.1 C 99 H 18 176/78 H 96 10/25/19 13:30 89 18 177/80 H 99 10/25/19 13:21 79 20 167/72 H 99 10/25/19 13:01 93 H 18 170/82 H 97 10/25/19 12:34 87 20 178/86 H 99 10/25/19 12:01 82 18 191/91 H 96 10/25/19 11:31 84 18 163/73 H 96 10/25/19 11:00 80 20 172/68 H 95 10/25/19 10:31 75 20 151/82 H 100 10/25/19 10:01 74 20 168/69 H 98 10/25/19 09:42 78 18 175/75 H 96 10/25/19 09:01 77 19 183/83 H 94 10/25/19 08:30 80 20 160/79 H 95 10/25/19 08:28 37.4 C 77 18 170/66 H 96 Transfer of Care Handoff Completed per policy Notes Mental Status: alert / awake / arousable and participated in evaluation Patient Amnestic to Procedure: Yes Nausea / Vomiting: adequately controlled Pain: adequately controlled Airway Patency, RR, SpO2: stable & adequate BP & HR: stable & adequate Hydration State: stable & adequate Anesthetic Complications: no major complications apparent and Pt Satisfied with anesthetic care
[2019-10-25] MEDS ORDERED: traMADol HCL 50 MG TABLET PO PRN (21:42)
[2019-10-26 06:12] LABS: Basophils # (auto) 0.03 K/uL (0-0.2); Basophils % (auto) 0.2 %; Eosinophils # (auto) 0.62 K/uL (0-0.5); Eosinophils % (auto) 3.7 %; Hematocrit (blood only) 27.3 % (37-47); Hemoglobin 9.2 g/dL (12.0-16.0); Immature Granulocytes % (auto) 0.6 %; Lymphocytes # (auto) 1.72 K/uL (1.2-3.4); Lymphocytes % (auto) 10.3 %; Mean Corpuscular Hemoglobin 29.6 pg (25-34); Mean Corpuscular Hgb Conc 33.7 g/dL (32-36); Mean Corpuscular Volume 87.8 fL (80-100); Monocytes # (auto) 0.91 K/uL (0.11-0.59); Monocytes % (auto) 5.4 %; Neutrophils # (auto) 13.38 K/uL (1.4-6.5); Neutrophils % (auto) 79.8 %; Platelet Count 455 K/uL (130-400); RDW Coefficient of Variation 15.5 % (11.5-14.5); RDW Standard Deviation 50.2 fL (36.4-46.3); Red Blood Count 3.11 M/uL (4.2-5.4); White Blood Count 16.76 K/uL (4.8-10.8)
[2019-10-26 06:47] LABS: Albumin Level 2.1 gm/dl (3.4-5.0); BUN Creatinine Ratio 18.5 (10-20); Calcium 8.1 mg/dl (8.5-10.1); Creatinine Clr Calc Pharmacy 22.6 ml/min; Est GFR (African American) 33.4; Est GFR (Non-African American) 28.8
[2019-10-26 06:56] LABS: Albumin Globulin Ratio 0.6 (0.9-2); Bilirubin,Total 0.4 mg/dl (0.2-1); Globulin 3.8 gm/dl (2.5-4.0); Total Protein 5.9 gm/dl (6.4-8.2)
[2019-10-26] MEDS ORDERED: POTASSIUM CHLORIDE 20 MEQ/15 ML UDC PO STA ×2 (07:07→10:12)
--- NOTE | 2019-10-26 07:08 | Surgery Progress Note ---
Date of Service October 26, 2019 Assessment & Plan (1) Cholangitis: Patient is status post ERCP with removal of stones from the common bile duct I do not believe she is had any stent placement He is currently on clear liquids I do not plan to proceed with laparoscopic cholecystectomy today, more likely tomorrow 10/26 Or Monday depending on the patient's progress Continue antibiotics, may advance diet and make n.p.o. after midnight Subjective Vital signs are stable Results & Data Vital Signs (Past 12 Hours) Vital Signs Temp Pulse Resp BP Pulse Ox 10/26/19 03:36 36.5 C 85 16 153/81 H 96 10/26/19 00:15 165/81 H 10/25/19 23:16 36.5 C 82 16 186/70 H 96 10/25/19 21:30 36.9 C 82 16 161/70 H 93 10/25/19 21:15 36.7 C 74 20 144/77 H 94 10/25/19 21:10 78 20 151/64 H 94 10/25/19 20:50 36.9 C 79 20 182/79 H 100 PG Care Time/CCT Total # of Minutes Spent Total Time Spent with Patient: Total time spent is greater than 50% in coordination of care (as documented) at patient's floor/unit and/or counseling patient: Coding Level of Care Code 83127 Subseq [facility] 3 Diagnoses Cholangitis K83.09
[2019-10-26] MEDS ORDERED: D5W AND 1/2NSS 1,000 ML IV SCH (07:15)
--- NOTE | 2019-10-26 09:30 | Hospitalist Progress Note ---
Date of Service October 26, 2019 Assessment & Plan (1) Cholangitis: Sepsis with leukocytosis secondary Cholangitis with Choledocholithiasis Metabolic encephalopathy -leukocytosis of 20,00 on admission, admission CT suggesting choledocholithiasis in the presence of leukocytosis. 10/25/2019 ERCP found Choledocholithiasis and this was removed by gastronenterology team. -continue empiric antibiotic Ertapenem, follow admission blood cultures -10/26/2019 Patient is not in distress. She denies acute pain or respiratory distress. She is a poor historian. She knows that she is from a senior care and reports that she walks with a walker at the senior care. However, she cannot describe her symptoms on prior to coming to hospital. She does not seem to understand that results of her ERCP yesterday. Gastroenterology service had recommended patient to have cholecystectomy with general surgery. General surgery Dr. Yovani Mendez discussed with her son and power of ophthalmic surgical assistant Geraldo, , about consent for cholecystectomy planned for Monday10/27/2019 Chronic kidney disease stage IV -her admission creatinine labs reviewed and does not reflect acute renal failure as her creatinine of 1.6 consistent with numbers in the past with creatinine clearance slightly under 30 -she was given IV fluids on this admission with HCTZ held Hypokalemia, Hypomagnesemia Hyponatremia is ruled out -serum sodium as 135 is not consistent with a hyponatremia. her recent serum sodium levels are generally normal -serum potassium is 3 and serum magnesium is 1.7 on 10/26/2019. IV and oral potassium and magnesium supplements ordered. recheck labs on 10/26/2019 afternoon Hypertension -continue home dose atenolol -monitor blood pressure off HCTZ for now -prn IV hydralazine Type 2 diabetes with half-way current use of insulin -Insulin sliding scale for now based on blood sugar glucose CODE STATUS: DNR/DNI DVT prophylaxis SCD Admission and Anticipated Discharge Date Admission Date: October 25, 2019 Subjective Patient is not in distress. She denies acute pain or respiratory distress. She is a poor historian. She knows that she is from a senior care and reports that she walks with a walker at the senior care. However, she cannot describe her symptoms on prior to coming to hospital. She does not seem to understand that results of her ERCP yesterday. Gastroenterology service had recommended patient to have cholecystectomy with general surgery. General surgery Dr. Yovani Mendez discussed with her son and power of ophthalmic surgical assistant Geraldo, , about consent for cholecystectomy planned for Monday10/27/2019 Review of Systems Review of Systems: All systems reviewed & are unremarkable except as noted in Subjective Physical Exam Constitutional: comfortable Eyes: PERRL, conjunctivae normal, anicteric sclerae EOM intact bilaterally ENMT: external ear and nose normal, oropharynx normal Neck: trachea midline, no thyromegaly normal visual inspection Respiratory: normal respiratory effort, lungs clear to auscultation Cardiovascular: Rate/Rhythm: regular rate and regular rhythm Gastrointestinal (Abdomen): normal bowel sounds, soft, nontender, no hepatosplenomegaly Musculoskeletal: Head/Neck/Chest: normocephalic and head atraumatic Neurologic: PERRL, EOMI, accommodation nl, no face palsy, no dysarthria CN's II-XI intact bilaterally Psychiatric: Orientation: alert and cooperative Genitourinary: read Results & Data Results & Data ([facility]) Vital Signs (Past 12 Hours) Vital Signs Temp Pulse Resp BP Pulse Ox 10/26/19 07:05 37 C 79 20 143/50 H 96 10/26/19 03:36 36.5 C 85 16 153/81 H 96 10/26/19 00:15 165/81 H 10/25/19 23:16 36.5 C 82 16 186/70 H 96 10/25/19 21:30 36.9 C 82 16 161/70 H 93
[2019-10-26] MEDS ORDERED: ACETAMINOPHEN 1,000 MG/100 ML VIAL IV PRN (09:43)
[2019-10-26] MEDS ORDERED: GLUCOSE 40% GEL 15 GM TUBE PO PRN (09:45)
[2019-10-26] MEDS ORDERED: GLUCAGON FOR INJ 1 MG VIAL SQ PRN (09:45)
[2019-10-26] MEDS ORDERED: DEXTROSE 50% 50 ML SYRINGE IV PRN (09:45)
[2019-10-26] MEDS ORDERED: CARBOHYDRATES FOR HYPOGLYCEMIA PO PRN (09:45)
[2019-10-26] MEDS ORDERED: GLUCOSE 10 TABS/TUBE PO PRN (09:45)
[2019-10-26] MEDS: POTASSIUM CHLORIDE / WTR 10 MEQ/100 ML PLCT IV SCH ×2 (10:17→12:58)
[2019-10-26] MEDS: ATENOLOL 25 MG TABLET PO SCH (10:19)
[2019-10-26] MEDS: PANTOprazole 40 MG TAB PO SCH (10:19)
[2019-10-26] MEDS: MAGNESIUM OXIDE 400 MG TAB PO SCH (10:19)
[2019-10-26] MEDS: SERTRALINE HCL 50 MG TABLET PO SCH (10:20)
[2019-10-26] MEDS: CHOLECALCIFEROL 1,000 UNITS 25 MCG TAB PO SCH (10:20)
[2019-10-26] MEDS: CYANOCOBALAMIN (VITAMIN B-12) 100 MCG TABLET PO SCH (10:20)
[2019-10-26] MEDS: MAGNESIUM SULFATE / D5W 1 GM/100 ML BAG IV SCH ×2 (10:29→13:00)
--- NOTE | 2019-10-26 10:48 | Gastroenterology Progress Note ---
Date of Service October 26, 2019 Assessment & Plan Admission and Anticipated Discharge Date Admission Date: October 25, 2019 Subjective No events overnight. Abd: soft NT Labs show improvement in AP, stable WBC on Invanz. A/P: Cont abx, not further recs Results & Data ([facility]) Vital Signs (Past 12 Hours) Vital Signs Temp Pulse Resp BP Pulse Ox 10/26/19 07:05 37 C 79 20 143/50 H 96 10/26/19 03:36 36.5 C 85 16 153/81 H 96 10/26/19 00:15 165/81 H 10/25/19 23:16 36.5 C 82 16 186/70 H 96
[2019-10-26] MEDS: INSULIN ASPART 100 UNITS/ML 3 ML PEN SC SCH ×3 (13:11→21:11)
[2019-10-26] MEDS: ERTAPENEM SODIUM 500 MG in SODIUM CHLORIDE 0.9% 50 ML IV SCH (15:30)
[2019-10-26 15:37] LABS: BUN Creatinine Ratio 18.6 (10-20); Calcium 8.2 mg/dl (8.5-10.1); Est GFR (African American) 32.5; Magnesium 2.7 mg/dl (1.8-2.4); Potassium 4.1 mmol/L (3.5-5.1)
[2019-10-26] MEDS ORDERED: LANTUS PER UNIT CHARGE SQ ONE (16:30)
--- NOTE | 2019-10-26 18:27 | XRay Report ---
XR chest 1V portable CLINICAL HISTORY: wheezing dyspnea COMPARISON STUDY: 10/25/2019 FINDINGS: Slight interstitial prominence right upper lung and left base. No significant change from t he prior study. Right base and left apex are clear. IMPRESSION: Slight bilateral interstitial prominence considered unchanged from the prior exam. ACT 112: Negative or not required by law. The above report was generated using voice recognition software. It may contain grammatical, syntax or spelling errors. Electronically signed by: Terrance Rodriguez M.D. 10/26/2019 6:26 PM
[2019-10-26] MEDS ORDERED: FUROSEMIDE 40 MG in SYRINGE 0 ML IV ONE (18:30)
[2019-10-26] MEDS ORDERED: ALBUT/IPRATROP 3MG/0.5MG NEB 3 ML VIAL NEB STA (18:48)
[2019-10-26] MEDS ORDERED: ALBUT/IPRATROP 3MG/0.5MG NEB 3 ML VIAL NEB PRN (18:49)
--- NOTE | 2019-10-26 18:51 | Communication Note ---
Date of Service: October 26, 2019 notified by Nursing , pt got very Short of breath with audible wheeze while attempt to walk to bedside commode noted to have increased work of breathing spo2 remained in 96% in RA pt is ordered Neb tx portable cxray /IV Lasix ordered by Primary attending Dr Navarro pt evaluated at bedside appears comfortable , denies of any SOB at present feels better after neb tx continue to monitor Brandee Sun MD
--- NOTE | 2019-10-27 06:02 | History & Physical Bridge Note ---
Date of Service October 27, 2019 History & Physical Bridge Note I have examined the patient, reviewed the History & Physical and in the interval since the performance of the History & Physical I have noted the following changes of clinical significance: no changes noted
[2019-10-27 06:26] LABS: Basophils # (auto) 0.06 K/uL (0-0.2); Basophils % (auto) 0.4 %; Eosinophils # (auto) 1.14 K/uL (0-0.5); Eosinophils % (auto) 7.8 %; Hematocrit (blood only) 29.7 % (37-47); Hemoglobin 9.7 g/dL (12.0-16.0); Immature Granulocytes # (auto) 0.12 K/uL (0.00-0.02); Immature Granulocytes % (auto) 0.8 %; Lymphocytes # (auto) 1.49 K/uL (1.2-3.4); Lymphocytes % (auto) 10.2 %; Mean Corpuscular Hemoglobin 29.2 pg (25-34); Mean Corpuscular Hgb Conc 32.7 g/dL (32-36); Mean Corpuscular Volume 89.5 fL (80-100); Mean Platelet Volume 10.1 fL (7.4-10.4); Monocytes # (auto) 1.03 K/uL (0.11-0.59); Neutrophils # (auto) 10.82 K/uL (1.4-6.5); Neutrophils % (auto) 73.8 %; Platelet Count 608 K/uL (130-400); RDW Coefficient of Variation 15.4 % (11.5-14.5); RDW Standard Deviation 50.7 fL (36.4-46.3); Red Blood Count 3.32 M/uL (4.2-5.4); White Blood Count 14.66 K/uL (4.8-10.8)
[2019-10-27] MEDS ORDERED: LIDOCAINE HCL 2% 2 ML VIAL/AMP(20MG/ML) INFIL ONE (06:54)
[2019-10-27] MEDS ORDERED: PROPOFOL IV EMULSION 10 MG/ML 20 ML VIAL IV ONE (06:54)
[2019-10-27] MEDS ORDERED: ROCURONIUM BROMIDE 10 MG/ML 5 ML VIAL IV ONE (06:54)
[2019-10-27] MEDS ORDERED: fentaNYL citrate 100 MCG/2 ML VIAL ONE (06:54)
[2019-10-27] MEDS ORDERED: ONDANSETRON INJ 2 MG/ML 2 ML VIAL ONE (06:54)
[2019-10-27] MEDS ORDERED: hydroCHLOROthiazide 25 MG TAB PO STA (07:17)
[2019-10-27] MEDS ORDERED: ALBUT/IPRATROP 3MG/0.5MG NEB 3 ML VIAL NEB PRN (07:18)
[2019-10-27 07:24] LABS: Albumin Globulin Ratio 0.6 (0.9-2); Albumin Level 2.3 gm/dl (3.4-5.0); BUN Creatinine Ratio 16.3 (10-20); Bilirubin,Total 0.4 mg/dl (0.2-1); Calcium 8.6 mg/dl (8.5-10.1); Est GFR (African American) 32.5; Globulin 4.1 gm/dl (2.5-4.0); Potassium 3.4 mmol/L (3.5-5.1); Total Protein 6.4 gm/dl (6.4-8.2)
--- NOTE | 2019-10-27 07:34 | Anesthesiology Consultation ---
Date of Service October 27, 2019 Assessment & Plan Chart Review Chart Review: Acceptable Risk for Surgery Consults Requested none Proposed Anesthesia Risk / Benefits Reviewed With: PT / POA / Parent / Guardian, Accepts Plan and Informed Consent Obtained History Surgery Operation Date: 10/25/19 13:50 Proposed Procedures p Endoscopic Retrograde Cholangiopancreatogram - Marcia Mesa MD Operation Date: 10/27/19 07:30 Proposed Procedures p Laparoscopic Cholecystectomy - Yovani Mendez MD, FACS Height/Weight Height: 5 ft 4 in Weight: 61.1 kg Allergies Allergy/AdvReac Type Severity Reaction Status Date / Time Ashnyav-Hdv-Ygw Reductase AdvReac Mild leg Verified 10/25/19 09:19 Inhibitor cramping Medications Home Medications Medication Instructions Recorded Confirmed Last Taken Vitamin B-12 50 mcg PO DAILY 11/28/18 10/25/19 10/25/19 cholecalciferol (vitamin D3) 1,000 unit PO DAILY 11/28/18 10/25/19 10/25/19 [Vitamin D3] hydrochlorothiazide 12.5 mg PO MOWEFR 11/28/18 10/25/19 10/25/19 blood sugar diagnostic #100 ea 05/28/19 10/25/19 Unknown Trulicity 0.75 mg SUBCUT WK 07/10/19 10/25/19 07/08/19 atenolol 12.5 mg PO PM 07/10/19 10/25/19 Unknown sertraline 25 mg PO HS 07/10/19 10/25/19 Unknown acetaminophen [Mapap 650 mg PO Q6H PRN #30 tab 07/12/19 10/25/19 Unknown (acetaminophen)] docusate sodium 100 mg PO BID 10/25/19 10/25/19 10/25/19 insulin glargine [Basaglar KwikPen 30 unit SUBCUT HS 10/25/19 10/25/19 Unknown U-100 Insulin] multivitamin,kp-twzh-osclaxgd 1 tab PO DAILY 10/25/19 10/25/19 Unknown [Therems-M] nitrofurantoin monohyd/m-cryst 100 mg PO BID 10/25/19 10/25/19 10/25/19 pantoprazole 40 mg PO QAM 10/25/19 10/25/19 10/25/19 polyethylene glycol 3350 [Miralax] 17 g PO DAILY PRN 10/25/19 10/25/19 Unknown tramadol 25 mg PO Q12H PRN 10/25/19 10/25/19 Unknown Active Medications Generic Name Dose Route Start Last Admin Trade Name Maria Elena PRN Reason Stop Dose Admin Atenolol 12.5 mg 10/26/19 09:00 10/26/19 10:19 Tenormin PO 11/25/19 08:59 12.5 mg QAM CAIO Administration Cyanocobalamin 50 mcg 10/26/19 09:00 10/26/19 10:20 Vitamin B-12 PO 11/25/19 08:59 50 mcg DAILY CAIO Administration Ertapenem 500 mg/ Sodium 55 mls @ 110 mls/hr 10/26/19 14:00 10/26/19 16:03 Chloride IV 11/05/19 13:59 Infused Q24H CAIO Infusion Protocol Insulin Aspart 0 units 10/26/19 11:30 10/26/19 21:11 Novolog Flexpen SC 11/25/19 11:29 3 units ACHS CAIO Administration Magnesium Oxide 400 mg 10/26/19 09:45 10/26/19 10:19 Mag-Ox PO 11/25/19 09:44 400 mg QAM CAIO Administration Pantoprazole Sodium 40 mg 10/26/19 09:00 10/26/19 10:19 Protonix PO 11/25/19 08:59 40 mg QAM CAIO Administration Sertraline HCl 25 mg 10/26/19 09:00 10/26/19 10:20 Zoloft PO 11/25/19 08:59 25 mg QAM CAIO Administration Vitamin D 1,000 units 10/26/19 09:00 10/26/19 10:20 Vitamin D3 PO 11/25/19 08:59 1,000 units DAILY CAIO Administration NPO Date Last Intake of Fluids: 10/25/19 Time Last Intake of Fluids: 07:00 Date Last Intake of Solids: 10/24/19 Time Last Intake of Solids: 09:00 Past Medical History Medical History Colon cancer Colonic mass GERD (gastroesophageal reflux disease) History of malignant neoplasm of colon (Resolved) HTN (hypertension) (Acute) Hyperlipidemia Lumbar degenerative disc disease Type II diabetes mellitus Past Family History Family History Father Lung cancer Mother Stroke syndrome Hypertension Cancer Diabetes Sister Diabetes Past Surgical History Surgical History H/O right hemicolectomy H/O: hysterectomy History of cataract extraction History of tonsillectomy and adenoidectomy Social History Smoking Status: Unknown if ever smoked tobacco type: cigarettes Smoking cigarettes per day: 3 packs Hx Alcohol Use: No Hx Substance Use: No Physical Exam Vital Signs Last Vital Signs Temp 37.4 C 10/27/19 04:02 Pulse 86 10/27/19 04:02 Resp 18 10/27/19 04:02 BP 184/83 H 10/27/19 04:02 Pulse Ox 92 10/27/19 04:02 Testing Laboratory Results 10/27/19 05:56 10/27/19 05:56 Urine Color Dark Yellow 10/25/19 08:45 Urine Appearance Clear (Clear) 10/25/19 08:45 Urine pH 5.0 (4.5-7.5) 10/25/19 08:45 Ur Specific Sullivan 1.016 (1.000-1.030) 10/25/19 08:45 Urine Protein 1+ (Negative) H 10/25/19 08:45 Urine Glucose (UA) Negative (Negative) 10/25/19 08:45 Urine Ketones Negative (Negative) 10/25/19 08:45 Urine Nitrite Negative (Negative) 10/25/19 08:45 Ur Leukocyte Esterase Negative (Negative) 10/25/19 08:45 Urine WBC (Auto) 1-5 /hpf (0-5) 10/25/19 08:45 Urine RBC (Auto) 0-4 /hpf (0-4) 10/25/19 08:45 U Hyaline Cast (Auto) 1-5 /lpf (0-5) 10/25/19 08:45 U Epithel Cells (Auto) 10-20 /lpf (0-5) H 10/25/19 08:45 Urine Bacteria (Auto) Negative (Negative) 10/25/19 08:45 10/25/19 13:00 Aerobic Blood Culture - Preliminary Blood No growth in Aerobic bottle after 24 hours. Anaerobic Blood Culture - Preliminary No growth in Anaerobic bottle after 24 hours. 10/25/19 13:01 Aerobic Blood Culture - Preliminary Blood No growth in Aerobic bottle after 24 hours. Anaerobic Blood Culture - Preliminary No growth in Anaerobic bottle after 24 hours. 10/25/19 08:25 Escherichia coli Shiga Toxins Test - Preliminary Stool Stool Culture - Preliminary No Salmonella isolated to date, No Shigella isolated to date, No Campylobacter jejuni isolated to date. 10/27/19 10/26/19 07:06 20:31 POC Glucose 158 H 188 H
[2019-10-27] MEDS ORDERED: fentaNYL citrate 100 MCG/2 ML VIAL IV PRN (07:38)
[2019-10-27] MEDS ORDERED: HYDROmorphone INJ 2 MG/ML SYR/VIAL IV PRN (07:38)
[2019-10-27] MEDS ORDERED: METOCLOPRAMIDE HCL INJ 5 MG/ML 2 ML VIAL IV PRN (07:38)
[2019-10-27] MEDS ORDERED: ONDANSETRON INJ 2 MG/ML 2 ML VIAL IV PRN ×2 (07:38→09:40)
[2019-10-27] MEDS ORDERED: ATROPINE SULFATE 0.1 MG/ML 10ML SYR IV PRN (07:38)
[2019-10-27] MEDS ORDERED: ePHEDrine sulfate 50 MG/ML AMP IV PRN (07:38)
[2019-10-27] MEDS ORDERED: PROMETHAZINE HCL 12.5 MG in SODIUM CHLORIDE 0.9% 50 ML IV PRN ×2 (07:38→09:40)
[2019-10-27] MEDS ORDERED: BUPIVACAINE 0.5 % 5 MG/1 ML MPF 30ML VIAL ONE (07:50)
[2019-10-27] MEDS ORDERED: LABETALOL HCL IV 5 MG/ML 20ML IV ONE (08:20)
[2019-10-27] MEDS ORDERED: GLYCOPYRROLATE 0.2 MG/ML VIAL ONE (08:27)
[2019-10-27] MEDS ORDERED: NEOSTIGMINE METHYLSULFATE 5 MG/5 ML SYR ONE (08:27)
[2019-10-27] MEDS ORDERED: ACETAMINOPHEN 1,000 MG/100 ML VIAL IV ONE (08:37)
--- NOTE | 2019-10-27 08:37 | Post Operative Brief Note ---
PG Immediate Post Op with CF Date of Surgery October 27, 2019 Pre & Post Diagnosis Operation Date: 10/25/19 13:50 Pre-Op Diagnosis: Cholangitis Post-Op Diagnosis: Cholangitis, cholelithiasis Operation Date: 10/27/19 07:30 Pre-Op Diagnosis: Cholangitis Post-Op Diagnosis: Cholangitis, cholelithiasis, gb polyp I identified the patient and participated in the time-out.: Yes Procedure Operation Date: 10/25/19 13:50 Actual Procedures p Endoscopic Retrograde Cholangiopancreatogram(Not Applicable) - Marcia Mesa MD Operation Date: 10/27/19 07:30 Actual Procedures p Laparoscopic Cholecystectomy(Not Applicable) - Yovani Mendez MD, FACS lysis of adhesions Surgeon Yovani Mendez MD, FACS Sanitary Engineer None Estimated Blood Loss 0 Findings Consistent with Post-Op Diagnosis Specimens Specimen Description: A. Gallbladder and contents Drains Still Catheter (In placed prior to arrival to OR. )
--- NOTE | 2019-10-27 09:19 | Anesthesiology Progress Note ---
Date of Service October 27, 2019 Anesthesia Post Procedure Vital Signs Vital Signs: Temp Pulse Pulse Pulse Resp BP Pulse Ox 10/27/19 09:15 36.9 C 71 18 137/57 L 97 10/27/19 09:05 70 20 149/55 H 97 10/27/19 08:55 71 20 149/61 H 99 10/27/19 08:45 37.1 C 70 22 163/61 H 100 10/27/19 04:02 37.4 C 86 18 184/83 H 92 10/26/19 22:45 37.6 C H 87 16 168/85 H 92 10/26/19 19:44 37.1 C 81 24 181/65 H 94 10/26/19 19:13 71 18 95 10/26/19 15:58 68 10/26/19 15:50 36.5 C 70 18 136/60 96 10/26/19 11:10 74 18 160/71 H 97 Transfer of Care Handoff Completed per policy Notes Mental Status: alert / awake / arousable and participated in evaluation Patient Amnestic to Procedure: Yes Nausea / Vomiting: adequately controlled Pain: adequately controlled Airway Patency, RR, SpO2: stable & adequate BP & HR: stable & adequate Hydration State: stable & adequate Anesthetic Complications: no major complications apparent
[2019-10-27] MEDS ORDERED: SODIUM CHLORIDE 0.9% 1000ML 1,000 ML IV SCH (09:40)
[2019-10-27] MEDS ORDERED: ACETAMINOPHEN 325 MG TAB PO PRN (09:40)
[2019-10-27] MEDS ORDERED: HYDROCODONE/ACETAMOPHEN 5/325MG TAB PO PRN ×2 (09:40)
[2019-10-27] MEDS ORDERED: MoRPHine SULFATE 2 MG/ML CARP IV PRN ×2 (09:40)
[2019-10-27] MEDS: INSULIN ASPART 100 UNITS/ML 3 ML PEN SC SCH ×5 (09:53→20:39)
[2019-10-27] MEDS: POTASSIUM CHLORIDE / WTR 10 MEQ/100 ML PLCT IV SCH ×2 (09:57→10:05)
[2019-10-27] MEDS: MAGNESIUM OXIDE 400 MG TAB PO SCH (11:17)
[2019-10-27] MEDS: CYANOCOBALAMIN (VITAMIN B-12) 100 MCG TABLET PO SCH (11:17)
[2019-10-27] MEDS: PANTOprazole 40 MG TAB PO SCH (11:17)
[2019-10-27] MEDS: CHOLECALCIFEROL 1,000 UNITS 25 MCG TAB PO SCH (11:18)
[2019-10-27] MEDS: SERTRALINE HCL 50 MG TABLET PO SCH (11:18)
--- NOTE | 2019-10-27 11:18 | Hospitalist Progress Note ---
Date of Service October 27, 2019 Assessment & Plan (1) Cholangitis: Sepsis with leukocytosis secondary Cholangitis with Choledocholithiasis Metabolic encephalopathy -leukocytosis of 20,00 on admission, admission CT suggesting choledocholithiasis in the presence of leukocytosis. 10/25/2019 ERCP found Choledocholithiasis and this was removed by gastronenterology team. -continue empiric antibiotic Ertapenem, follow admission blood cultures -10/26/2019 Patient is not in distress. She denies acute pain or respiratory distress. She is a poor historian. She knows that she is from a alf and reports that she walks with a walker at the alf. However, she cannot describe her symptoms on prior to coming to hospital. She does not seem to understand that results of her ERCP yesterday. Gastroenterology service had recommended patient to have cholecystectomy with general surgery. General surgery Dr. Yovani Mendez discussed with her son and power of contracts attorney Geraldo, , about consent for cholecystectomy planned for Monday10/27/2019 -10/27/2019: status post Laparoscopic Cholecystectomy by Dr. Mendez. the brief OR report also mentions lysis of adhesions and gallbladder polyp. continue to monitor inpatient for post-operative recovery and pain control Chronic kidney disease stage IV -her admission creatinine labs reviewed and does not reflect acute renal failure as her creatinine of 1.6 consistent with numbers in the past with creatinine clearance slightly under 30. she was given IV fluids on this admission with HCTZ held. she did get 1 dose of Lasix on 10/27/2019 evening when she was wheezing and also nebulizer treatment Hypokalemia, Hypomagnesemia Hyponatremia is ruled out -serum sodium as 135 is not consistent with a hyponatremia. her recent serum sodium levels are generally normal -serum potassium is 3 and serum magnesium is 1.7 on 10/26/2019. 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 On nasal cannula oxygen currently after the OR. breathing is comfortable. she is tired but follows commands and is talking. there are laparoscopic incisions of the belly in dressing she denies acute pain or other acute symptoms Review of Systems Review of Systems: All systems reviewed & are unremarkable except as noted in Subjective Physical Exam Constitutional: comfortable Eyes: PERRL, conjunctivae normal, anicteric sclerae EOM intact bilaterally ENMT: external ear and nose normal, oropharynx normal Neck: trachea midline, no thyromegaly normal visual inspection Respiratory: normal respiratory effort, lungs clear to auscultation Cardiovascular: Rate/Rhythm: regular rate and regular rhythm Gastrointestinal (Abdomen): normal bowel sounds, soft, nontender, no hepatosplenomegaly there are laparoscopic incisions of the belly in dressing Musculoskeletal: Head/Neck/Chest: normocephalic and head atraumatic Neurologic: PERRL, EOMI, accommodation nl, no face palsy, no dysarthria CN's II-XI intact bilaterally Psychiatric: Orientation: alert and cooperative Results & Data Results & Data ([facility]) Vital Signs (Past 12 Hours) Vital Signs Temp Pulse Pulse Resp BP Pulse Ox 10/27/19 09:30 37.0 C 81 18 151/72 H 96 10/27/19 09:25 70 18 136/51 L 97 10/27/19 09:15 36.9 C 71 18 137/57 L 97 10/27/19 09:05 70 20 149/55 H 97 10/27/19 08:55 71 20 149/61 H 99 10/27/19 08:45 37.1 C 70 22 163/61 H 100 10/27/19 04:02 37.4 C 86 18 184/83 H 92
--- NOTE | 2019-10-27 12:09 | Operative Report (OR) ---
DATE OF OPERATION: 10/27/2019 NAME OF OPERATION: Laparoscopic cholecystectomy with lysis of adhesions. STAFF SURGEON: Yovani Mendez MD. VICE PRESIDENT OF ENGINEERING: Nurses. DESCRIPTION OF PROCEDURE: The patient was brought in the Operating Room and placed on the operating table in supine position. Her abdomen was prepped and draped in usual fashion. The patient had undergone prior ERCP for common bile duct stones and cholangitis. A 0.5% plain Marcaine was used to anesthetize all incisions. She had previous surgery with a right upper quadrant transverse incision. Incision was made below the umbilicus, carrying dissection down to the fascia, placing a Veress needle, producing pneumoperitoneum. An 11 mm port was placed at this level. There were some adhesions to the incision, which created some obstruction, but I was able to work around that. Under visualization, three 5 mm ports were placed, 1 cephalad and 2 laterally, all under visualization. The gallbladder was grasped and retracted. There was a large polypoid mass in the tip of the gallbladder, not invasive. Gallbladder was aspirated of bile. Dissection carried out the neto hepatis showing significant chronic scar tissue. Also, prior to that, I had to take down adhesions to the gallbladder from chronic inflammation and prior surgery. Cystic duct and cystic artery were identified. These were clipped and transected and the gallbladder dissected away from the liver bed through chronic scar tissue. Gallbladder was placed in an Endobag. After appropriate irrigation and hemostasis, the Endobag was removed through the umbilical site. All ports were removed. Fascia at the umbilicus closed using 0 Vicryl suture. Skin reapproximated using subcuticular 4-0 Monocryl. Dermabond was used and Steri-Strips. The patient was transferred to Recovery Room in stable condition. I attest to the content of the Intraoperative Record and any orders documented therein. Any exception s are noted below.
[2019-10-27] MEDS: ATENOLOL 25 MG TABLET PO SCH (12:31)
[2019-10-27] MEDS: ERTAPENEM SODIUM 500 MG in SODIUM CHLORIDE 0.9% 50 ML IV SCH (14:33)
[2019-10-27] MEDS ORDERED: INSULIN GLARGINE SOLOSTAR 100 UNITS/ML 3 ML PEN SC SCH (21:00)
[2019-10-28] MEDS: hydrALAZINE HCL 20 MG/ML VIAL IV PRN (04:09)
[2019-10-28] MEDS ORDERED: SODIUM CHLORIDE 0.65% NA SOLN 45 ML (OCEAN) ONE (04:55)
[2019-10-28] MEDS ORDERED: FUROSEMIDE 20 MG in SYRINGE 0 ML IV ONE (06:45)
[2019-10-28 07:03] LABS: Basophils # (auto) 0.09 K/uL (0-0.2); Basophils % (auto) 0.5 %; Eosinophils # (auto) 0.71 K/uL (0-0.5); Eosinophils % (auto) 4.3 %; Hematocrit (blood only) 31.1 % (37-47); Hemoglobin 9.8 g/dL (12.0-16.0); Immature Granulocytes # (auto) 0.29 K/uL (0.00-0.02); Immature Granulocytes % (auto) 1.8 %; Lymphocytes # (auto) 1.21 K/uL (1.2-3.4); Lymphocytes % (auto) 7.4 %; Mean Corpuscular Hgb Conc 31.5 g/dL (32-36); Mean Platelet Volume 10.4 fL (7.4-10.4); Monocytes # (auto) 1.31 K/uL (0.11-0.59); Neutrophils # (auto) 12.77 K/uL (1.4-6.5); Platelet Count 653 K/uL (130-400); RDW Coefficient of Variation 15.8 % (11.5-14.5); RDW Standard Deviation 53.3 fL (36.4-46.3); Red Blood Count 3.38 M/uL (4.2-5.4); White Blood Count 16.38 K/uL (4.8-10.8)
[2019-10-28 07:04] LABS: Estimated Average Glucose 169 mg/dl; Hemoglobin A1C 7.5 % (4.5-5.6)
[2019-10-28] MEDS: INSULIN ASPART 100 UNITS/ML 3 ML PEN SC SCH ×4 (07:31→21:14)
[2019-10-28 07:33] LABS: Albumin Level 2.3 gm/dl (3.4-5.0); BUN Creatinine Ratio 15.8 (10-20); Calcium 8.4 mg/dl (8.5-10.1); Creatinine Clr Calc Pharmacy 22.9 ml/min; Est GFR (African American) 33.9; Est GFR (Non-African American) 29.3; Magnesium 2.1 mg/dl (1.8-2.4); Potassium 3.7 mmol/L (3.5-5.1)
[2019-10-28 07:36] LABS: Albumin Globulin Ratio 0.6 (0.9-2); Bilirubin,Total 0.4 mg/dl (0.2-1); Globulin 4.1 gm/dl (2.5-4.0); Total Protein 6.4 gm/dl (6.4-8.2)
--- NOTE | 2019-10-28 08:04 | XRay Report ---
XR chest 1V portable HISTORY: wheezing COMPARISON: Chest 10/26/2019. FINDINGS: Slight progression of the diffuse interstitial thickening, right greater than left and trac e bilateral pleural effusions. The suggestive of mild asymmetric interstitial pulmonary edema. The he art remains stable in size. No new focal lung consolidations to suggest pneumonia. No pneumothorax. IMPRESSION: Slight progression of the mild asymmetric interstitial pulmonary edema and trace bilateral pleural ef fusions. ACT 112: Negative or not required by law. Electronically signed by: Nitesh Gonsalez M.D. 10/28/2019 8:03 AM
--- NOTE | 2019-10-28 08:58 | Surgery Progress Note ---
Date of Service October 28, 2019 Assessment & Plan (1) Cholangitis: POD#1 laparoscopic cholecystectomy/ POD#3 ERCP LFT's within normal limits, WBC 16, patient afebrile Continues on IV Ertapenem for cholangitis Abdomen soft, incisions c/d/i without sign of infection Okay to advance diet as tolerates Received some lasix this AM for wheezing, CXR showing mild pulmonary edema and trace pleural effusions, currently appears to be breathing comfortably on 2L Expect a couple more days in house prior to discharge back to facility Subjective Patient resting in bed, currently denies any complaints. No abdominal pain, nausea/vomiting. Tolerating liquid diet. Physical Exam Physical Exam: awake Gastrointestinal (Abdomen): Inspection/Auscultation: + abdominal surgical incision (c/d/i with dermabond overtop and with steri's to R lateral incision); abdomen not distended Percussion/Palpation: abdomen soft; abdomen nontender Results & Data Vital Signs (Past 12 Hours) Vital Signs Temp Pulse Resp BP Pulse Ox 10/28/19 08:07 37.4 C 99 H 20 157/78 H 97 10/28/19 04:12 158/67 H 96 10/28/19 04:00 37.5 C 85 19 184/75 H 85 L 10/28/19 00:00 36.7 C 93 H 19 157/68 H 90 PG Care Time/CCT Total # of Minutes Spent Total Time Spent with Patient: Total time spent is greater than 50% in coordination of care (as documented) at patient's floor/unit and/or counseling patient: Coding Level of Care Code None Diagnoses Cholangitis K83.09
[2019-10-28] MEDS ORDERED: PIPERACILL/TAZOBAC CONSULT ACTIVE PRN (09:02)
--- NOTE | 2019-10-28 09:20 | Hospitalist Progress Note ---
Date of Service October 28, 2019 Assessment & Plan (1) Cholangitis: Sepsis with leukocytosis secondary Cholangitis with Choledocholithiasis Metabolic encephalopathy -leukocytosis of 20,00 on admission, admission CT suggesting choledocholithiasis in the presence of leukocytosis. 10/25/2019 ERCP found Choledocholithiasis and this was removed by gastronenterology team. -was initially started on empiric antibiotic Ertapenem -10/26/2019 Patient is not in distress. She denies acute pain or respiratory distress. She is a poor historian. [facility] and [facility]. However, she cannot describe her symptoms on prior to coming to hospital. She does not seem to understand that results of her ERCP yesterday. Gastroenterology service had recommended patient to have cholecystectomy with general surgery. General surgery Dr. Yovani Mendez discussed with her son and power of penciller Geraldo, , about consent for cholecystectomy planned for Monday10/27/2019 -10/27/2019: status post Laparoscopic cholecystectomy with lysis of adhesions by Dr. Mendez. -10/28/2019: her earlier admission blood cultures with no growth to date. however WBC counts remains elevated. is 16,000 on 10/28/2019. broaden antibiotics from Ertapenem to Zosyn q8 hours for now and repeat blood culture on 10/28/2019 continue PT/OT evaluations since patient is from a personal [facility] Chronic kidney disease stage IV -her admission creatinine labs reviewed and does not reflect acute renal failure as her creatinine of 1.6 consistent with numbers in the past with creatinine clearance slightly under 30. she was given IV fluids on this admission with HCTZ held. she did get 1 dose of Lasix on 10/27/2019 evening when she was wheezing and also nebulizer treatment. also As per nurse on 10/28/2019 AM that patient had episode of shortness of breath overnight and patient was given Lasix. -creatinine on 10/28/2019 remains stable as 1.6 Hypokalemia, Hypomagnesemia Hyponatremia is ruled out -serum sodium as 135 is not consistent with a hyponatremia. 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 titrate up as needed based on patient's hospital blood sugars. CODE STATUS: DNR/DNI DVT prophylaxis: SCDs Admission and Anticipated Discharge Date Admission Date: October 25, 2019 Subjective As per nurse, patient had episode of shortness of breath overnight and patient was given Lasix. Patient seen and examined at bedside in AM with therapist. Patient needed a lot of assistance to sit up a the bedside. patient on nasal cannula oxygen. she had a couple coughs but no wheezing or crackles on lung exam. patient does not have acute distress. denies other symptoms Review of Systems Review of Systems: All systems reviewed & are unremarkable except as noted in Subjective Physical Exam Constitutional: comfortable Eyes: PERRL, conjunctivae normal, anicteric sclerae EOM intact bilaterally ENMT: external ear and nose normal, oropharynx normal Neck: trachea midline, no thyromegaly normal visual inspection Respiratory: normal respiratory effort, lungs clear to auscultation Cardiovascular: Rate/Rhythm: regular rate and regular rhythm Gastrointestinal (Abdomen): Percussion/Palpation: abdomen soft Musculoskeletal: Head/Neck/Chest: normocephalic and head atraumatic Neurologic: PERRL, EOMI, accommodation nl, no face palsy, no dysarthria CN's II-XI intact bilaterally Psychiatric: Orientation: alert and cooperative Results & Data Results & Data ([facility]) Vital Signs (Past 12 Hours) Vital Signs Temp Pulse Resp BP Pulse Ox 10/28/19 08:07 37.4 C 99 H 20 157/78 H 97 10/28/19 04:12 158/67 H 96 10/28/19 04:00 37.5 C 85 19 184/75 H 85 L 10/28/19 00:00 36.7 C 93 H 19 157/68 H 90
[2019-10-28] MEDS ORDERED: PIPERACILLIN/TAZOBACTAM 3.375 GM in DEXTROSE 5% 100 ML IV ONE (09:30)
[2019-10-28] MEDS: MAGNESIUM OXIDE 400 MG TAB PO SCH (09:31)
[2019-10-28] MEDS: CYANOCOBALAMIN (VITAMIN B-12) 100 MCG TABLET PO SCH (09:31)
[2019-10-28] MEDS: PANTOprazole 40 MG TAB PO SCH (09:32)
[2019-10-28] MEDS: SERTRALINE HCL 50 MG TABLET PO SCH (09:32)
[2019-10-28] MEDS: CHOLECALCIFEROL 1,000 UNITS 25 MCG TAB PO SCH (09:32)
[2019-10-28] MEDS: ATENOLOL 25 MG TABLET PO SCH (09:32)
[2019-10-28] MEDS: HEPARIN SOD 5,000 UNIT/0.5 ML VIAL SQ SCH ×2 (09:33→21:14)
[2019-10-28] MEDS: hydroCHLOROthiazide 25 MG TAB PO SCH (09:33)
[2019-10-28] MEDS ORDERED: INSULIN GLARGINE SOLOSTAR 100 UNITS/ML 3 ML PEN SC ONE (13:30)
[2019-10-28] MEDS: PIPERACILLIN/TAZOBACTAM 3.375 GM in DEXTROSE 5% 100 ML IV SCH (17:02)
[2019-10-28] MEDS ORDERED: INSULIN GLARGINE SOLOSTAR 100 UNITS/ML 3 ML PEN SC SCH (21:00)
[2019-10-28] MEDS: INSULIN GLARGINE SOLOSTAR 100 UNITS/ML 3 ML PEN SC SCH (21:14)
[2019-10-29] MEDS: PIPERACILLIN/TAZOBACTAM 3.375 GM in DEXTROSE 5% 100 ML IV SCH ×4 (00:19→23:59)
[2019-10-29 07:14] LABS: Basophils # (auto) 0.08 K/uL (0-0.2); Basophils % (auto) 0.6 %; Eosinophils # (auto) 1.35 K/uL (0-0.5); Hematocrit (blood only) 30.1 % (37-47); Hemoglobin 9.6 g/dL (12.0-16.0); Immature Granulocytes # (auto) 0.26 K/uL (0.00-0.02); Immature Granulocytes % (auto) 1.9 %; Lymphocytes # (auto) 1.33 K/uL (1.2-3.4); Lymphocytes % (auto) 9.9 %; Mean Corpuscular Hemoglobin 29.1 pg (25-34); Mean Corpuscular Hgb Conc 31.9 g/dL (32-36); Mean Corpuscular Volume 91.2 fL (80-100); Mean Platelet Volume 9.7 fL (7.4-10.4); Monocytes # (auto) 1.24 K/uL (0.11-0.59); Monocytes % (auto) 9.2 %; Neutrophils # (auto) 9.24 K/uL (1.4-6.5); Neutrophils % (auto) 68.4 %; Platelet Count 548 K/uL (130-400); RDW Coefficient of Variation 15.8 % (11.5-14.5); RDW Standard Deviation 52.4 fL (36.4-46.3)
[2019-10-29 07:41] LABS: BUN Creatinine Ratio 16.1 (10-20); Calcium 8.1 mg/dl (8.5-10.1); Creatinine Clr Calc Pharmacy 22.4 ml/min; Est GFR (African American) 33.2; Est GFR (Non-African American) 28.6; Potassium 3.8 mmol/L (3.5-5.1)
[2019-10-29] MEDS: PANTOprazole 40 MG TAB PO SCH (08:22)
[2019-10-29] MEDS: HEPARIN SOD 5,000 UNIT/0.5 ML VIAL SQ SCH ×2 (08:22→21:15)
[2019-10-29] MEDS: ATENOLOL 25 MG TABLET PO SCH (08:22)
[2019-10-29] MEDS: MAGNESIUM OXIDE 400 MG TAB PO SCH (08:22)
[2019-10-29] MEDS: SERTRALINE HCL 50 MG TABLET PO SCH (08:22)
[2019-10-29] MEDS: CYANOCOBALAMIN (VITAMIN B-12) 100 MCG TABLET PO SCH (08:22)
[2019-10-29] MEDS: CHOLECALCIFEROL 1,000 UNITS 25 MCG TAB PO SCH (08:22)
[2019-10-29] MEDS: INSULIN GLARGINE SOLOSTAR 100 UNITS/ML 3 ML PEN SC SCH ×2 (08:23→21:16)
[2019-10-29] MEDS: INSULIN ASPART 100 UNITS/ML 3 ML PEN SC SCH ×4 (08:24→21:17)
--- NOTE | 2019-10-29 08:55 | Hospitalist Progress Note ---
Date of Service October 29, 2019 Assessment & Plan (1) Cholangitis: Sepsis with leukocytosis secondary Cholangitis with Choledocholithiasis Metabolic encephalopathy status post ERCP and Laparoscopic cholecystectomy with lysis of adhesions on this hospital stay -leukocytosis of 20,00 on admission, admission CT suggesting choledocholithiasis in the presence of leukocytosis. 10/25/2019 ERCP found Choledocholithiasis and this was removed by gastronenterology team. -was initially started on empiric antibiotic Ertapenem -10/26/2019 Patient is not in distress. She denies acute pain or respiratory distress. She is a poor historian. She knows that [facility] is from a [facility] and reports that she [facility] with a walker at the [facility]. However, she cannot describe her symptoms on prior to coming to hospital. She does not seem to understand that results of her ERCP yesterday. Gastroenterology service had recommended patient to have cholecystectomy with general surgery. General surgery Dr. Yovani Mendez discussed with her son and power of traffic law attorney Geraldo, , about consent for cholecystectomy planned for Monday10/27/2019 -10/27/2019: status post by Dr. Mendez. -10/28/2019: her earlier admission blood cultures with no growth to date. however WBC counts remains elevated. is 16,000 on 10/28/2019. broaden antibiotics from Ertapenem to Zosyn q8 hours for now and repeat blood culture on 10/28/2019 -10/29/2019: WBC 13,500. Continue broad spectrum Zosyn for now. can consider swi tching antibiotics when WBC normalizes or depending on 10/28/2019 blood cultures -Patient lives at [facility]. PT recommending SNF/rehab prior to return. continue PT/OT evaluations -prn nebulizers if wheezing Chronic kidney disease stage IV -her admission creatinine labs reviewed and does not reflect acute renal failure as her creatinine of 1.6 consistent with numbers in the past with creatinine clearance slightly under 30. she was given IV fluids on this admission with HCTZ held. she did get 1 dose of Lasix on 10/27/2019 evening when she was wheezing and also nebulizer treatment. also As per nurse on 10/28/2019 AM that patient had episode of shortness of breath overnight and patient was given Lasix. -creatinine on 10/29/2019 remains stable as 1.6 Hypokalemia, Hypomagnesemia Hyponatremia is ruled out -serum sodium as 135 is not consistent with a hyponatremia. her recent serum sodium levels are generally normal -serum potassium is 3 and serum magnesium is 1.7 on 10/26/2019 and IV and oral potassium and magnesium supplements given; additional potassium given on 10/27/2019 -10/29/2019 current serum electrolytes at goal Hypertension -continue home dose atenolol -prn IV hydralazine -resumed home dose HCTZ 12.5 mg every Monday/Mon/Monday on this admission Type 2 diabetes with [place] current use of insulin -Insulin sliding scale for now based on blood sugar glucose -Lantus 10 units BID for now (home dose Lantus is reported to be 30 units qhs). titrate up as needed based on patient's hospital blood sugars. DVT prophylaxis: SCDs CODE STATUS: DNR/DNI Patient lives at [facility]. PT recommending SNF/rehab prior to return My colleague Dr. Milligan will be taking over the care as hospitalist starting on 10/30/2019 Admission and Anticipated Discharge Date Admission Date: October 25, 2019 Subjective Patient seen and examined in AM with nurse at bedside. Patient continues to have read because of less than ideal mobility. Patient breathing with nasal cannula oxygen. no acute shortness of breath. no chest pain. no dizziness. no palpitations. no vomiting Review of Systems Review of Systems: All systems reviewed & are unremarkable except as noted in Subjective Physical Exam Constitutional: comfortable Eyes: PERRL, conjunctivae normal, anicteric sclerae EOM intact bilaterally ENMT: external ear and nose normal, oropharynx normal Neck: trachea midline, no thyromegaly normal visual inspection Respiratory: normal respiratory effort, lungs clear to auscultation Cardiovascular: Rate/Rhythm: regular rate and regular rhythm Gastrointestinal (Abdomen): normal bowel sounds, soft, nontender, no hepatosplenomegaly Inspection/Auscultation: normal bowel sounds Percussion/Palpation: abdomen soft non tender to palpation. laproscopic incisions healing without drainage Musculoskeletal: Head/Neck/Chest: normocephalic and head atraumatic Neurologic: PERRL, EOMI, accommodation nl, no face palsy, no dysarthria CN's II-XI intact bilaterally Psychiatric: Orientation: alert and cooperative Genitourinary: + bladder abnormality (read) Results & Data Results & Data ([facility]) Vital Signs (Past 12 Hours) Vital Signs Temp Pulse Resp BP Pulse Ox 10/29/19 07:19 37.2 C 76 20 159/67 H 100 10/29/19 03:50 36.4 C L 75 19 168/76 H 98 10/29/19 00:15 37.1 C 79 19 139/61 92
--- NOTE | 2019-10-29 09:30 | Surgery Progress Note ---
Date of Service October 29, 2019 Assessment & Plan (1) S/P laparoscopic cholecystectomy: Patient tolerating some p.o. Vital signs are stable Appears to be relatively stable from her cholecystectomy Adjusting IV antibiotics and may need a week or so of p.o. antibiotics Supportive care And discharge when medically stable Results & Data Vital Signs (Past 12 Hours) Vital Signs Temp Pulse Resp BP Pulse Ox 10/29/19 07:19 37.2 C 76 20 159/67 H 100 10/29/19 03:50 36.4 C L 75 19 168/76 H 98 10/29/19 00:15 37.1 C 79 19 139/61 92 PG Care Time/CCT Total # of Minutes Spent Total Time Spent with Patient: Total time spent is greater than 50% in coordination of care (as documented) at patient's floor/unit and/or counseling patient: Coding Level of Care Code None Diagnoses S/P laparoscopic cholecystectomy Z90.49
[2019-10-30 06:14] LABS: Hematocrit (blood only) 32.3 % (37-47); Hemoglobin 10.2 g/dL (12.0-16.0); Mean Corpuscular Hemoglobin 28.6 pg (25-34); Mean Corpuscular Hgb Conc 31.6 g/dL (32-36); Mean Corpuscular Volume 90.5 fL (80-100); Platelet Count 660 K/uL (130-400); RDW Coefficient of Variation 15.2 % (11.5-14.5); RDW Standard Deviation 50.7 fL (36.4-46.3); Red Blood Count 3.57 M/uL (4.2-5.4); White Blood Count 15.45 K/uL (4.8-10.8)
[2019-10-30] MEDS: HEPARIN SOD 5,000 UNIT/0.5 ML VIAL SQ SCH ×2 (07:50→22:06)
[2019-10-30] MEDS: INSULIN ASPART 100 UNITS/ML 3 ML PEN SC SCH ×4 (07:50→22:06)
[2019-10-30] MEDS: ATENOLOL 25 MG TABLET PO SCH (07:55)
[2019-10-30] MEDS: hydroCHLOROthiazide 25 MG TAB PO SCH (07:56)
[2019-10-30] MEDS: MAGNESIUM OXIDE 400 MG TAB PO SCH (07:56)
[2019-10-30] MEDS: INSULIN GLARGINE SOLOSTAR 100 UNITS/ML 3 ML PEN SC SCH ×2 (07:56→22:06)
[2019-10-30] MEDS: SERTRALINE HCL 50 MG TABLET PO SCH (07:56)
[2019-10-30] MEDS: CYANOCOBALAMIN (VITAMIN B-12) 100 MCG TABLET PO SCH (07:56)
[2019-10-30] MEDS: PANTOprazole 40 MG TAB PO SCH (07:57)
[2019-10-30] MEDS: CHOLECALCIFEROL 1,000 UNITS 25 MCG TAB PO SCH (07:57)
[2019-10-30] MEDS: PIPERACILLIN/TAZOBACTAM 3.375 GM in DEXTROSE 5% 100 ML IV SCH (08:02)
[2019-10-30] MEDS ORDERED: IMIPENEM/CILASTATIN CONSULT ACTIVE PRN (12:35)
--- NOTE | 2019-10-30 12:39 | Hospitalist Progress Note ---
Date of Service October 30, 2019 Assessment & Plan (1) Cholangitis: (2) S/P laparoscopic cholecystectomy: (1) Cholangitis: Sepsis with leukocytosis secondary Cholangitis with Choledocholithiasis Metabolic encephalopathy status post ERCP and Laparoscopic cholecystectomy with lysis of adhesions per Dr. Bebeto Navarro's notes: -leukocytosis of 20,00 on admission, admission CT suggesting choledocholithiasis in the presence of leukocytosis. 10/25/2019 ERCP found Choledocholithiasis and this was removed by gastronenterology team. -was initially started on empiric antibiotic Ertapenem -10/26/2019 Patient is not in distress. She denies acute pain or respiratory distress. She is a poor historian. She knows that she is from a [facility] and reports that she walks with a walker at the halfway. However, she cannot describe her symptoms on prior to coming to hospital. She does not seem to understand that results of her ERCP yesterday. Gastroenterology service had recommended patient to have cholecystectomy with general surgery. General surgery Dr. Yovani Mendez discussed with her son and power of managing attorney Geraldo, , about consent for cholecystectomy planned for Monday10/27/2019 -10/27/2019: status post by Dr. Mendez. -10/28/2019: her earlier admission blood cultures with no growth to date. however WBC counts remains elevated. is 16,000 on 10/28/2019. broaden antibiotics from Ertapenem to Zosyn q8 hours for now and repeat blood culture on 10/28/2019 -10/29/2019: WBC 13,500. Continue broad spectrum Zosyn for now. can consider switching antibiotics when WBC normalizes or depending on 10/28/2019 blood cultures -Patient lives at [facility]. PT recommending SNF/rehab prior to return. continue PT/OT evaluations -prn nebulizers if wheezing 10/30/19: afebrile, but still has leukocytosis of 15k, mental status back to baseline mostly repeat blood cultures pending still has WBC of 15k, procalcitonin 0.5 has history of ESBL E coli 10/16/19 urine culture ordered transition from Zosyn to Imipenem monitor Chronic kidney disease stage IV -her admission creatinine labs reviewed and does not reflect acute renal failure as her creatinine of 1.6 consistent with numbers in the past with creatinine clearance slightly under 30. 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 PT recommending SNF/rehab prior to return Discharge when medically stable Admission and Anticipated Discharge Date Admission Date: October 25, 2019 Subjective ff up for cholangitis, s/p cholecystectomy seen resting in bed, alert, oriented x 2 cooperative, answers most questions appropriately states she feels about the same as yesterday reports lower abdominal discomfort no chills, no nausea tolerating diet well no chest pain, palpitations, dizziness no other symptoms Review of Systems Review of Systems: All systems reviewed & are unremarkable except as noted in HPI & below Physical Exam Physical Exam: General- oriented x 3, not in distress, speaks in sentences with no effort or accessory muscle use Head- atraumatic Eyes- PERRL, EOMI, anicteric ENT- oropharynx clear Neck- supple, no JVD, no adenopathy, no thyromegaly; carotids +2/2, no bruits appreciated Lungs- clear to auscultation bilaterally, no rales/wheezes Heart- normal rate, regular rhythm; no murmur, no gallop, no rub appreciated Abdomen- normal bowel sounds, nondistended, soft, (+) mild Lower quadrant, suprapubic tenderness, no masses or hepatosplenomegaly Extremities- no pretibial edema, no calf tenderness; peripheral pulses intact Neuro- alert, oriented x 3; CN 2-12 grossly intact; motor 5/5 bilaterally;sensation 100% on all extremities; no other gross focal neurologic deficits Skin- warm & dry Results & Data Results & Data ([facility]) Vital Signs (Past 12 Hours) Vital Signs Temp Pulse Pulse Resp BP Pulse Ox 10/30/19 11:29 36.8 C 62 19 150/69 H 95 10/30/19 08:00 67 10/30/19 07:23 37.0 C 74 19 167/72 H 94 10/30/19 04:59 37.3 C 79 19 166/70 H 90 Laboratory Results Laboratory Results - last 24 hr 10/29/19 10/29/19 10/30/19 16:15 20:14 05:39 WBC 15.45 H RBC 3.57 L Hgb 10.2 L Hct 32.3 L MCV 90.5 MCH 28.6 MCHC 31.6 L RDW Std Deviation 50.7 H RDW Coeff of Remy 15.2 H Plt Count 660 H MPV 10.0 POC Glucose 141 H 170 H 10/30/19 10/30/19 07:22 11:18 WBC RBC Hgb Hct MCV MCH MCHC RDW Std Deviation RDW Coeff of Remy Plt Count MPV POC Glucose 157 H 264 H
[2019-10-30] MEDS ORDERED: IMIPENEM/CILASTATIN SODIUM 500 MG in DEXTROSE 5% 100 ML IV SCH (12:45)
[2019-10-30] MEDS ORDERED: PHARMACY GLYCEMIC MGMT CONSULT PRN (13:19)
[2019-10-30] MEDS ORDERED: HALOPERIDOL LACTATE 5 MG/ML 1 ML VIAL ONE (13:48)
--- NOTE | 2019-10-30 13:52 | Pharmacy Report ---
Glycemic Control Consultation - Date of Service October 30, 2019 - Scope Scope: Glycemic Pharmacist consulted for glycemic control and to write orders per [facility] inpatient glycemic control protocol. - Objective Weight: 61.2 kg Accuchecks BSG (last 24hrs): 10/29/19 10/29/19 10/30/19 16:15 20:14 07:22 POC Glucose 141 H 170 H 157 H 10/30/19 11:18 POC Glucose 264 H HbA1c: Hemoglobin A1c 7.5 % (4.5-5.6) H 10/26/19 15:01 - Recent Pertinent Medications Outpatient Anti-diabetic Regimen: * Insulin glargine 30 units HS, Trulicity 0.75 mg weekly * A1c = 7.5 % 10/29 The patient is currently receiving: * Basal insulin: Lantus 10 units every 12 hours * Correctional Insulin: Novolog Correction per scale ACHS Goal Range: Low 100 mg/dL - High 140 mg/dL Correction Factor: 30 mg/dL/unit * Prandial insulin: Per carb ratio of 1 unit per 11 grams CHO consumed * Oral Agents: Risk Factors for Insulin Resistance: * Steroids: * Infection: Zosyn --> Imipenem * Pressors: * IVF: * Recent Surgery: POD #3 * Diet: T1DM * Mechanical Ventilation: - Assessment & Plan Assessment & Plan: ASSESSMENT: * Ms. Carlos BSGs have improved over the last 24 hours with the addition of lantus 10 units BID * Fasting has trended down, will continue current lantus dose * BSG elevated with lunch today- will tighten carb ratio PLAN FOR INPATIENT GLYCEMIC CONTROL: * Basal insulin * Lantus [] units SQ BID * Bolus insulin * NovoLog per scale ACHS or Q6hrs while NPO * Goal Range: Low [] mg/dL - High [] mg/dL * Correction Factor: [] mg/dL/unit * Nutritional / Prandial insulin per carb ratio of 1 unit per [] grams CHO consumed OR PLAN FOR INPATIENT GLYCEMIC CONTROL: * Continuing Lantus 10 units SQ BID * Continuing correction factor to 30 mg/dl/unit * Continuing carb ratio to 1 unit per 10 grams CHO consumed * Changing goal range to Low 110 mg/dL - High 140 mg/dL * Please note that the plan above was derived based on current level of insulin resistance and hospital stress. These recommendations are appropriate for inpatient admission only. Plan of care upon discharge will need to be reassessed to avoid potential outpatient hypo/hyperglycemia. Thank you.
[2019-10-30] MEDS ORDERED: HALOPERIDOL LACTATE 5 MG/ML 1 ML VIAL IM STA (13:56)
[2019-10-31] MEDS: IMIPENEM/CILASTATIN SODIUM 500 MG in DEXTROSE 5% 100 ML IV SCH ×2 (04:05→16:46)
--- NOTE | 2019-10-31 06:45 | Surgery Progress Note ---
Date of Service October 31, 2019 Assessment & Plan (1) S/P laparoscopic cholecystectomy: Seems to be doing well post surgery Very weak but making some progress From a surgical standpoint can continue antibiotics IV/p.o. for 7 to 10 days postop We will continue to follow her in the hospital and as an outpatient in 1 to 2 weeks Admission and Anticipated Discharge Date Admission Date: October 25, 2019 Results & Data ([facility]) Vital Signs (Past 12 Hours) Vital Signs Temp Pulse Pulse Resp BP BP Pulse Ox 10/31/19 04:48 37.2 C 75 20 169/79 H 91 10/31/19 00:32 65 10/31/19 00:26 37.4 C 81 19 148/87 H 92 10/30/19 20:28 36.9 C 73 19 140/60 91 PG Care Time/CCT Total # of Minutes Spent Total Time Spent with Patient: Total time spent is greater than 50% in coordination of care (as documented) at patient's floor/unit and/or counseling patient: Coding Level of Care Code None Diagnoses S/P laparoscopic cholecystectomy Z90.49
[2019-10-31 07:17] LABS: Est GFR (African American) 32.5
[2019-10-31] MEDS: ATENOLOL 25 MG TABLET PO SCH (08:48)
[2019-10-31] MEDS: CHOLECALCIFEROL 1,000 UNITS 25 MCG TAB PO SCH (08:49)
[2019-10-31] MEDS: MAGNESIUM OXIDE 400 MG TAB PO SCH (08:49)
[2019-10-31] MEDS: CYANOCOBALAMIN (VITAMIN B-12) 100 MCG TABLET PO SCH (08:49)
[2019-10-31] MEDS: SERTRALINE HCL 50 MG TABLET PO SCH (08:50)
[2019-10-31] MEDS: PANTOprazole 40 MG TAB PO SCH (08:51)
[2019-10-31] MEDS: INSULIN ASPART 100 UNITS/ML 3 ML PEN SC SCH ×4 (08:54→20:44)
[2019-10-31] MEDS: INSULIN GLARGINE SOLOSTAR 100 UNITS/ML 3 ML PEN SC SCH ×2 (08:55→20:43)
[2019-10-31] MEDS: HEPARIN SOD 5,000 UNIT/0.5 ML VIAL SQ SCH ×2 (08:55→20:42)
[2019-10-31 15:34] LABS: Basophils % (auto) 0.6 %; Eosinophils # (auto) 1.17 K/uL (0-0.5); Eosinophils % (auto) 7.4 %; Hematocrit (blood only) 29.4 % (37-47); Hemoglobin 9.5 g/dL (12.0-16.0); Immature Granulocytes # (auto) 0.68 K/uL (0.00-0.02); Immature Granulocytes % (auto) 4.3 %; Lymphocytes # (auto) 1.64 K/uL (1.2-3.4); Lymphocytes % (auto) 10.3 %; Mean Corpuscular Hemoglobin 28.9 pg (25-34); Mean Corpuscular Hgb Conc 32.3 g/dL (32-36); Mean Corpuscular Volume 89.4 fL (80-100); Monocytes # (auto) 1.71 K/uL (0.11-0.59); Monocytes % (auto) 10.8 %; Neutrophils # (auto) 10.56 K/uL (1.4-6.5); Neutrophils % (auto) 66.6 %; Platelet Count 579 K/uL (130-400); RDW Coefficient of Variation 15.2 % (11.5-14.5); RDW Standard Deviation 49.4 fL (36.4-46.3); Red Blood Count 3.29 M/uL (4.2-5.4); White Blood Count 15.86 K/uL (4.8-10.8)
--- NOTE | 2019-10-31 16:47 | Hospitalist Progress Note ---
Date of Service October 31, 2019 Assessment & Plan (1) Cholangitis: (2) S/P laparoscopic cholecystectomy: (1) Cholangitis: (2) S/P laparoscopic cholecystectomy: (1) Cholangitis: Sepsis with leukocytosis secondary Cholangitis with Choledocholithiasis Metabolic encephalopathy status post ERCP and Laparoscopic cholecystectomy with lysis of adhesions per Dr. Beebto Navarro's notes: -leukocytosis of 20,00 on admission, admission CT suggesting choledocholithiasis in the presence of leukocytosis. 10/25/2019 ERCP found Choledocholithiasis and this was removed by gastronenterology team. -was initially started on empiric antibiotic Ertapenem -10/26/2019 Patient is not in distress. She denies acute pain or respiratory distress. She is a poor historian. She knows that she is from a [place] [facility] and reports that she [facility] with [place] [facility]. However, she cannot de scribe her symptoms on prior to coming to hospital. She does not seem to understand that results of her ERCP yesterday. Gastroenterology service had recommended patient to have cholecystectomy with general surgery. General surgery Dr. Yovani Mendez discussed with her son and power of incident commander Geraldo, , about consent for cholecystectomy planned for Monday10/27/2019 -10/27/2019: status post by Dr. Mendez. -10/28/2019: her earlier admission blood cultures with no growth to date. however WBC counts remains elevated. is 16,000 on 10/28/2019. broaden antibiotics from Ertapenem to Zosyn q8 hours for now and repeat blood culture on 10/28/2019 -10/29/2019: WBC 13,500. Continue broad spectrum Zosyn for now. can consider switching antibiotics when WBC normalizes or depending on 10/28/2019 blood cult ures -Patient lives [facility]. PT recommending SNF/rehab prior to return. continue PT/OT evaluations -prn nebulizers if wheezing 10/31/19: afebrile, WBC still at 15k, mental status back to baseline mostly repeat blood cultures negative urine culture negative so far has history of ESBL E coli 10/16/19 clinically improved today continue Imipenem, if cultures remain negative, transition to PO Augmentin tomorrow monitor closely Chronic kidney disease stage IV -her admission creatinine labs reviewed and does not reflect acute renal failure as her creatinine of 1.6 consistent with numbers in the past with creatinine clearance slightly under 30. - crea stable at 1.6 Hypokalemia, Hypomagnesemia - resolved Hypertension -continue home dose atenolol -prn IV hydralazine -monitor Type [facility] diabetes with jail current use of insulin -Insulin sliding scale, Lantus 10 units BID DVT prophylaxis: Heparin CODE STATUS: DNR/DNI Patient lives [facility]. PT recommending SNF/rehab prior to return Discharge when medically stable Admission and Anticipated Discharge Date Admission Date: October 25, 2019 Subjective ff up for cholangitis, s/p lap aarti seen resting in bed, sitting up, oriented x 2 answers questions appropriately states she feels better today denies abdominal pain, nausea, chills no chest pain, dyspnea, palpitations, dizziness no other symptoms Review of Systems Review of Systems: All systems reviewed & are unremarkable except as noted in HPI & below Physical Exam Physical Exam: General- oriented x 2, not in distress, speaks in sentences with no effort or accessory muscle use Eyes- anicteric Neck- no JVD Lungs- clear breath sounds bilaterally, no rales/wheezes Heart- normal rate, regular rhythm; no murmurs Abdomen- normal bowel sounds, nondistended, soft, nontender Extremities- no pretibial edema, no calf tenderness Neuro- alert, oriented x 3; no gross focal neurologic deficits Skin- warm & dry Results & Data Results & Data ([facility]) Vital Signs (Past 12 Hours) Vital Signs Temp Pulse Pulse Pulse Resp BP BP 10/31/19 16:00 67 10/31/19 14:59 37.6 C H 72 16 143/73 H 10/31/19 11:31 37.4 C 72 18 124/72 10/31/19 07:25 37.1 C 77 17 164/67 H 10/31/19 04:48 37.2 C 75 20 169/79 H Pulse Ox 10/31/19 16:00 10/31/19 14:59 94 10/31/19 11:31 92 10/31/19 07:25 94 10/31/19 04:48 91 Laboratory Results Laboratory Results - last 24 hr 10/30/19 10/31/19 10/31/19 19:59 06:23 07:07 WBC RBC Hgb Hct MCV MCH MCHC RDW Std Deviation RDW Coeff of Remy Plt Count MPV Immature Gran % (Auto) Neut % (Auto) Lymph % (Auto) [place] % (Auto) Eos % (Auto) Baso % (Auto) Neut # (Auto) Lymph # (Auto) [place] # (Auto) Eos # (Auto) Baso # (Auto) Immature Gran # (Auto) Creatinine 1.67 H Est Cr Clr Drug Dosing 22.0 Est GFR ( Amer) 32.5 Est GFR (Non-Af Amer) 28.0 POC Glucose 201 H 212 H 10/31/19 10/31/19 10/31/19 11:13 15:24 16:31 WBC 15.86 H RBC 3.29 L Hgb 9.5 L Hct 29.4 L MCV 89.4 MCH 28.9 MCHC 32.3 RDW Std Deviation 49.4 H RDW Coeff of Remy 15.2 H Plt Count 579 H MPV 10.0 Immature Gran % (Auto) 4.3 Neut % (Auto) 66.6 Lymph % (Auto) 10.3 [place] % (Auto) 10.8 Eos % (Auto) 7.4 Baso % (Auto) 0.6 Neut # (Auto) 10.56 H Lymph # (Auto) 1.64 [place] # (Auto) 1.71 H Eos # (Auto) 1.17 H Baso # (Auto) 0.10 Immature Gran # (Auto) 0.68 H Creatinine Est Cr Clr Drug Dosing Est GFR ( Amer) Est GFR (Non-Af Amer) POC Glucose 187 H 147 H
[2019-11-01] MEDS: IMIPENEM/CILASTATIN SODIUM 500 MG in DEXTROSE 5% 100 ML IV SCH ×2 (04:56→15:28)
[2019-11-01] MEDS: INSULIN ASPART 100 UNITS/ML 3 ML PEN SC SCH ×4 (09:03→22:16)
[2019-11-01] MEDS: HEPARIN SOD 5,000 UNIT/0.5 ML VIAL SQ SCH ×2 (09:04→22:16)
[2019-11-01] MEDS: INSULIN GLARGINE SOLOSTAR 100 UNITS/ML 3 ML PEN SC SCH ×2 (09:05→22:16)
[2019-11-01] MEDS: PANTOprazole 40 MG TAB PO SCH (09:06)
[2019-11-01] MEDS: MAGNESIUM OXIDE 400 MG TAB PO SCH (09:06)
[2019-11-01] MEDS: ATENOLOL 25 MG TABLET PO SCH (09:06)
[2019-11-01] MEDS: CYANOCOBALAMIN (VITAMIN B-12) 100 MCG TABLET PO SCH (09:09)
[2019-11-01] MEDS: SERTRALINE HCL 50 MG TABLET PO SCH (09:10)
[2019-11-01] MEDS: CHOLECALCIFEROL 1,000 UNITS 25 MCG TAB PO SCH (09:10)
[2019-11-01 10:10] LABS: Basophils # (auto) 0.13 K/uL (0-0.2); Basophils % (auto) 0.8 %; Eosinophils # (auto) 1.36 K/uL (0-0.5); Eosinophils % (auto) 8.1 %; Hematocrit (blood only) 30.9 % (37-47); Hemoglobin 9.7 g/dL (12.0-16.0); Immature Granulocytes # (auto) 0.61 K/uL (0.00-0.02); Immature Granulocytes % (auto) 3.6 %; Lymphocytes # (auto) 1.29 K/uL (1.2-3.4); Lymphocytes % (auto) 7.7 %; Mean Corpuscular Hemoglobin 28.3 pg (25-34); Mean Corpuscular Hgb Conc 31.4 g/dL (32-36); Mean Corpuscular Volume 90.1 fL (80-100); Mean Platelet Volume 10.2 fL (7.4-10.4); Monocytes # (auto) 1.89 K/uL (0.11-0.59); Monocytes % (auto) 11.2 %; Neutrophils # (auto) 11.58 K/uL (1.4-6.5); Neutrophils % (auto) 68.6 %; Platelet Count 595 K/uL (130-400); RDW Coefficient of Variation 15.2 % (11.5-14.5); RDW Standard Deviation 49.8 fL (36.4-46.3); Red Blood Count 3.43 M/uL (4.2-5.4); White Blood Count 16.86 K/uL (4.8-10.8)
[2019-11-01 10:34] LABS: Calcium 7.9 mg/dl (8.5-10.1); Creatinine Clr Calc Pharmacy 23.3 ml/min; Est GFR (African American) 34.7; Est GFR (Non-African American) 29.9; Potassium 3.3 mmol/L (3.5-5.1)
--- NOTE | 2019-11-01 13:40 | Pharmacy Report ---
Pharmacy Glycemic Short Note 2 - Date of Service November 01, 2019 - Glycemic Short BSG Results (Last 24 hours): 10/31/19 10/31/19 11/01/19 16:31 20:22 07:03 Glucose POC Glucose 147 H 161 H 86 11/01/19 11/01/19 09:51 11:22 Glucose 145 H POC Glucose 135 H OUTPATIENT ANTIDIABETIC REGIMEN: * Insulin glargine 30 units HS * Trulicity 0.75 mg sq weekly * A1c 7.5% on 10/26/2019 ASSESSMENT: * Patient received 48 units of insulin yesterday, 30 of which were basal * BSGs ranged from 147-212, fasting improved this morning 86 * Lantus was increased to 15 BID yesterday, will slightly reduce today given big drop in fasting level * Will continue current novolog parameters PLAN FOR INPATIENT GLYCEMIC CONTROL: * Hold outpatient oral diabetes medications * Basal insulin * Lantus 12 units SQ BID * Bolus insulin * NovoLog per scale ACHS or Q6hrs while NPO * Goal Range: Low 110 mg/dL - High 140 mg/dL * Correction Factor: 25 mg/dL/unit * Nutritional / Prandial insulin per carb ratio of 1 unit per 9 grams CHO consumed
[2019-11-01] MEDS ORDERED: POTASSIUM CHLORIDE CRTAB 20 MEQ TABCR PO STA (14:28)
[2019-11-01] MEDS: hydrALAZINE HCL 20 MG/ML VIAL IV PRN (16:11)
--- NOTE | 2019-11-01 17:43 | Hospitalist Progress Note ---
Date of Service November 01, 2019 Assessment & Plan (1) Cholangitis: (2) S/P laparoscopic cholecystectomy: (1) Cholangitis: (2) S/P laparoscopic cholecystectomy: (1) Cholangitis: (2) S/P laparoscopic cholecystectomy: (1) Cholangitis: Sepsis with leukocytosis secondary Cholangitis with Choledocholithiasis Metabolic encephalopathy status post ERCP and Laparoscopic cholecystectomy with lysis of adhesions per Dr. Bebeto Navarro's notes: -leukocytosis of 20,00 on admission, admission CT suggesting choledocholithiasis in the presence of leukocytosis. 10/25/2019 ERCP found Choledocholithiasis and this was removed by gastronenterology team. -was initially started on empiric antibiotic Ertapenem -10/26/2019 Patient is not in distress. She denies acute pain or respiratory distress. She is a poor historian. She knows that she is from a assisted and reports that she walks with a walker at the assisted. However, she cannot describe her symptoms on prior to coming to hospital. She does not seem to understand that results of her ERCP yesterday. Gastroenterology service had recommended patient to have cholecystectomy with general surgery. General surgery Dr. Yovani Mendez discussed with her son and power of litigation attorney Geraldo, , about consent for cholecystectomy planned for Monday10/27/2019 -10/27/2019: status post by Dr. Mendez. -10/28/2019: her earlier admission blood cultures with no growth to date. however WBC counts remains elevated. is 16,000 on 10/28/2019. broaden antibiotics from Ertapenem to Zosyn q8 hours for now and repeat blood culture on 10/28/2019 -10/29/2019: WBC 13,500. Continue broad spectrum Zosyn for now. can consider switching antibiotics when WBC normalizes or depending on 10/28/2019 blood cultures -Patient lives at [facility]. PT recommending SNF/rehab prior to return. continue PT/OT evaluations -prn nebulizers if wheezing 11/01/19: T-max 37.9, WBC still at 16kk, mental status back to baseline mostly repeat blood cultures negative urine culture negative so far has history of ESBL E coli 10/16/19 Seems to be improving clinically but still has significant leukocytosis with neutrophilic predominance Check CT abdomen and pelvis We will consult Belk[facility] RON continue Imipenem monitor closely Chronic kidney disease stage IV -her admission creatinine labs reviewed and does not reflect acute renal failure as her creatinine of 1.6 consistent with numbers in the past with creatinine clearance slightly under 30. 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 PT recommending SNF/rehab prior to return Discharge when medically stable Admission and Anticipated Discharge Date Admission Date: October 25, 2019 Subjective Follow-up for cholangitis, choledocholithiasis, status post cholecystectomy Seen resting in bed, sleeping but easily awakened Oriented x2, answers all questions appropriately States she feels fine overall today, somewhat weak Denies abdominal pain, tolerating diet well No fevers or chills, no nausea vomiting Diarrhea per rn staffing Denies cough, shortness of breath, headache, or any other symptoms Review of Systems Review of Systems: All systems reviewed & are unremarkable except as noted in HPI & below Physical Exam Physical Exam: General- oriented x2, not in distress, speaks in sentences with no effort or accessory muscle use Eyes- anicteric Neck- no JVD Lungs- clear BS bilaterally, no crackles, no wheezing, bilaterally Heart- normal rate, regular rhythm; no murmurs Abdomen- normal bowel sounds, nondistended, soft, nontender in all quadrants No suprapubic tenderness Extremities- no pretibial edema, no calf tenderness Neuro- alert, oriented x 2; no gross focal neurologic deficits Skin- warm & dry Results & Data Results & Data ([facility]) Vital Signs (Past 12 Hours) Vital Signs Temp Pulse Resp BP Pulse Ox 11/01/19 17:02 167/75 H 11/01/19 15:18 37.1 C 73 20 174/78 H 96 11/01/19 11:57 36.6 C 64 18 154/66 H 94 11/01/19 07:54 36.9 C 81 20 170/79 H 94 Laboratory Results Laboratory Results - last 24 hr 10/31/19 11/01/19 11/01/19 20:22 07:03 09:51 WBC 16.86 H RBC 3.43 L Hgb 9.7 L Hct 30.9 L MCV 90.1 MCH 28.3 MCHC 31.4 L RDW Std Deviation 49.8 H RDW Coeff of Remy 15.2 H Plt Count 595 H MPV 10.2 Immature Gran % (Auto) 3.6 Neut % (Auto) 68.6 Lymph % (Auto) 7.7 [place] % (Auto) 11.2 Eos % (Auto) 8.1 Baso % (Auto) 0.8 Neut # (Auto) 11.58 H Lymph # (Auto) 1.29 [place] # (Auto) 1.89 H Eos # (Auto) 1.36 H Baso # (Auto) 0.13 Immature Gran # (Auto) 0.61 H Sodium Potassium Chloride Carbon Dioxide Anion Gap BUN Creatinine Est Cr Clr Drug Dosing Est GFR ( Amer) Est GFR (Non-Af Amer) BUN/Creatinine Ratio Glucose POC Glucose 161 H 86 Calcium 11/01/19 11/01/19 11/01/19 09:51 11:22 16:10 WBC RBC Hgb Hct MCV MCH MCHC RDW Std Deviation RDW Coeff of Remy Plt Count MPV Immature Gran % (Auto) Neut % (Auto) Lymph % (Auto) [place] % (Auto) Eos % (Auto) Baso % (Auto) Neut # (Auto) Lymph # (Auto) [place] # (Auto) Eos # (Auto) Baso # (Auto) Immature Gran # (Auto) Sodium 139 Potassium 3.3 L Chloride 106 Carbon Dioxide 24 Anion Gap 9.0 BUN 24 H Creatinine 1.58 H Est Cr Clr Drug Dosing 23.3 Est GFR ( Amer) 34.7 Est GFR (Non-Af Amer) 29.9 BUN/Creatinine Ratio 15.0 Glucose 145 H POC Glucose 135 H 103 H Calcium 7.9 L
[2019-11-01] MEDS: amLODIPine BESYLATE 5 MG TAB PO SCH (18:41)
--- NOTE | 2019-11-01 19:42 | CT Scan Report ---
ABDOMEN AND PELVIS CT WITHOUT CONTRAST CT DOSE: 290.26 mGy.cm HISTORY: Acute generalized abdominal pain with recent cholecystectomy r/o intraabdominal infection, s/p cholecystectomy TECHNIQUE: Multiaxial CT images of the abdomen and pelvis were performed without contrast. A dose lo wering technique was utilized adhering to the principles of ALARA. COMPARISON STUDY: CT abdomen and pelvis 10/25/2019, chest CT 06/22/2018 FINDINGS: Resolution of the trace pleural effusions. Respiratory motion artifact limits evaluation of the lung bases. 8 mm solid nodule the basal right lower lobe is unchanged. No definite pneumatosis or pneumope ritoneum. Imaged inferior cardiac chambers are unremarkable. Trace pericardial effusion. Limited exam without the use of contrast. Unremarkable spleen. Thickening of the left greater than right adrenal glands. Mild generalized pancreatic atrophy. Interval cholecystectomy. Edema within the neto hepatis is likely postsurgical. No drainable fluid collection. Considerable amount of intrahepatic and extra hepatic pneumobilia. 4 mm radiodense focus is noted within the region of the common bile duct on imag e 143 series 3. The liver is otherwise unremarkable. Nonspecific bilateral perinephric stranding. No obstructive uropathy or ureteral calculi. Still jameel ter within a decompressed urinary bladder. Uterus appears surgically absent. Calcified plaque the abd ominal aorta. No aneurysm or adenopathy. Mild nonspecific distal esophageal wall thickening. No bowel obstruction. Surgical suture material of the ascending colon. Tiny fat filled periumbilical hernia. Degenerative changes of the spine, pelvis and hips. Lumbar levoscoliosis. IMPRESSION: 1. Interval cholecystectomy. Stranding within the neto hepatis with moderate pneumobilia are likely expected postsurgical findings. No postoperative fluid collection. 2. 4 mm radiodensity of the distal common bile duct is suspicious for choledocholithiasis. 3. No bowel obstruction or bowel wall thickening. 4. Additional findings as above. ACT 112: Negative or not required by law. The above report was generated using voice recognition software. It may contain grammatical, syntax o r spelling errors. Electronically signed by: Mendoza Trinidad M.D. 11/01/2019 7:41 PM
[2019-11-02] MEDS: IMIPENEM/CILASTATIN SODIUM 500 MG in DEXTROSE 5% 100 ML IV SCH ×2 (04:29→16:51)
[2019-11-02 06:43] LABS: Hematocrit (blood only) 29.4 % (37-47); Hemoglobin 9.5 g/dL (12.0-16.0); Mean Corpuscular Hemoglobin 29.1 pg (25-34); Mean Corpuscular Hgb Conc 32.3 g/dL (32-36); Mean Corpuscular Volume 89.9 fL (80-100); Mean Platelet Volume 10.2 fL (7.4-10.4); Platelet Count 579 K/uL (130-400); RDW Coefficient of Variation 15.2 % (11.5-14.5); Red Blood Count 3.27 M/uL (4.2-5.4)
[2019-11-02] MEDS: HEPARIN SOD 5,000 UNIT/0.5 ML VIAL SQ SCH ×2 (09:16→21:52)
[2019-11-02] MEDS: INSULIN GLARGINE SOLOSTAR 100 UNITS/ML 3 ML PEN SC SCH ×2 (09:17→21:51)
[2019-11-02] MEDS: MAGNESIUM OXIDE 400 MG TAB PO SCH (09:18)
[2019-11-02] MEDS: PANTOprazole 40 MG TAB PO SCH (09:19)
[2019-11-02] MEDS: CHOLECALCIFEROL 1,000 UNITS 25 MCG TAB PO SCH (09:20)
[2019-11-02] MEDS: ATENOLOL 25 MG TABLET PO SCH (09:20)
[2019-11-02] MEDS: CYANOCOBALAMIN (VITAMIN B-12) 100 MCG TABLET PO SCH (09:21)
[2019-11-02] MEDS: amLODIPine BESYLATE 5 MG TAB PO SCH (09:22)
[2019-11-02] MEDS: SERTRALINE HCL 50 MG TABLET PO SCH (09:22)
[2019-11-02] MEDS: INSULIN ASPART 100 UNITS/ML 3 ML PEN SC SCH ×4 (09:44→21:50)
[2019-11-02 10:24] LABS: Alanine Aminotransferase 19 U/L (12-78); Alkaline Phosphatase 103 U/L (45-117); Aspartate Aminotransferase 15 U/L (15-37); Bilirubin Direct < 0.1 mg/dl (0-0.2); Bilirubin,Total 0.5 mg/dl (0.2-1); Total Protein 6.1 gm/dl (6.4-8.2)
--- NOTE | 2019-11-02 16:27 | Gastroenterology Progress Note ---
Date of Service November 02, 2019 Assessment & Plan Admission and Anticipated Discharge Date Admission Date: October 25, 2019 Subjective I have seen and examined the patient today, feels fine denies abdominal pain. She had ERCP last week with CBD stones removal followed by Lap aarti. Her WBC did not resolve despite ABx hence CT scan was obtained which showed possible retained CBD stone. On exam abdomen is soft. LFTs normal. Recommend: ERCP tomorrow to clear the bile duct. I spoke to her Son and obtained consent. Results & Data ([facility]) Vital Signs (Past 12 Hours) Vital Signs Temp Pulse Resp BP Pulse Ox 11/02/19 15:06 37 C 74 18 146/75 H 96 11/02/19 12:07 36.7 C 83 16 146/78 H 97 11/02/19 07:27 36.8 C 79 18 159/74 H 95
[2019-11-02] MEDS: LACTOBACILLUS ACIDOPHILUS (FLORANEX) TAB PO SCH (16:51)
--- NOTE | 2019-11-02 18:29 | Hospitalist Progress Note ---
Date of Service November 02, 2019 Assessment & Plan (1) Cholangitis: (2) S/P laparoscopic cholecystectomy: Cholangitis: Sepsis with leukocytosis secondary Cholangitis with Choledocholithiasis Metabolic encephalopathy status post ERCP and Laparoscopic cholecystectomy with lysis of adhesions per Dr. Bebeto Navarro's notes: -leukocytosis of 20,00 on admission, admission CT suggesting choledocholithiasis in the presence of leukocytosis. 10/25/2019 ERCP found Choledocholithiasis and this was removed by gastronenterology team. -was initially started on empiric antibiotic Ertapenem -10/26/2019 Patient is not in distress. She denies acute pain or respiratory distress. She is a poor historian. She knows that she is from a correction and reports that she walks with a walker at the correction. However, she cannot describe her symptoms on prior to coming to hospital. She does not seem to understand that results of her ERCP yesterday. Gastroenterology service had recommended patient to have cholecystectomy with general surgery. General surgery Dr. Yovani Mendez discussed with her son and power of associate attorney Geraldo, , about consent for cholecystectomy planned for Monday10/27/2019 -10/27/2019: status post by Dr. Mendez. -10/28/2019: her earlier admission blood cultures with no growth to date. however WBC counts remains elevated. is 16,000 on 10/28/2019. broaden antibiotics from Ertapenem to Zosyn q8 hours for now and repeat blood culture on 10/28/2019 -10/29/2019: WBC 13,500. Continue broad spectrum Zosyn for now. can consider switching antibiotics when WBC normalizes or depending on 10/28/2019 blood cultures -Patient lives at [facility]. PT recommending SNF/rehab prior to return. continue PT/OT evaluations -prn nebulizers if wheezing 11/02/19: T-max 37.6, WBC still at 15,700, mental status back to baseline mostly repeat blood cultures negative urine culture negative so far has history of ESBL E coli 10/16/19 Seems to be improving clinically but still has significant leukocytosis with neutrophilic predominance CT abdomen and pelvis: No fluid collection but possible choledocholithiasis noted in the common bile duct GI reconsulted, will perform ERCP tomorrow continue Imipenem monitor closely Chronic kidney disease stage IV -her admission creatinine labs reviewed and does not reflect acute renal failure as her creatinine of 1.6 consistent with numbers in the past with creatinine clearance slightly under 30. 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 PT recommending SNF/rehab prior to return Discharge when medically stable Admission and Anticipated Discharge Date Admission Date: October 25, 2019 Subjective Follow-up for cholangitis, status post cholecystectomy Seen resting in bed, comfortable, not in distress, watching TV Answers most questions appropriately Pleasant cooperative States she feels fine today Denies abdominal pain, nausea vomiting, fever chills No chest pain, shortness of breath or palpitations, dizziness no other symptom Review of Systems Review of Systems: All systems reviewed & are unremarkable except as noted in HPI & below Physical Exam Physical Exam: General- oriented x 2, not in distress, speaks in sentences with no effort or accessory muscle use Eyes- anicteric Neck- no JVD Lungs- clear BS, no crackles, no wheezing bilaterally Heart- normal rate, regular rhythm; no murmurs Abdomen- normal bowel sounds, nondistended, soft, nontender No Al[place]renga sign Extremities- no pretibial edema, no calf tenderness Neuro- alert, oriented x 2; no gross focal neurologic deficits Skin- warm & dry Results & Data Results & Data ([facility]) Vital Signs (Past 12 Hours) Vital Signs Temp Pulse Resp BP Pulse Ox 11/02/19 15:06 37 C 74 18 146/75 H 96 11/02/19 12:07 36.7 C 83 16 146/78 H 97 11/02/19 07:27 36.8 C 79 18 159/74 H 95 Laboratory Results Laboratory Results - last 24 hr 11/01/19 11/02/19 11/02/19 20:52 06:07 06:11 WBC 15.70 H RBC 3.27 L Hgb 9.5 L Hct 29.4 L MCV 89.9 MCH 29.1 MCHC 32.3 RDW Std Deviation 50.0 H RDW Coeff of Rmey 15.2 H Plt Count 579 H MPV 10.2 POC Glucose 143 H Total Bilirubin 0.5 Direct Bilirubin < 0.1 AST 15 ALT 19 Alkaline Phosphatase 103 Total Protein 6.1 L Albumin 2.0 L 11/02/19 11/02/19 11/02/19 07:14 11:23 16:25 WBC RBC Hgb Hct MCV MCH MCHC RDW Std Deviation RDW Coeff of Remy Plt Count MPV POC Glucose 148 H 234 H 121 H Total Bilirubin Direct Bilirubin AST ALT Alkaline Phosphatase Total Protein Albumin
[2019-11-03] MEDS: IMIPENEM/CILASTATIN SODIUM 500 MG in DEXTROSE 5% 100 ML IV SCH ×2 (04:44→16:48)
[2019-11-03] MEDS ORDERED: IOVERSOL 50ml IV ONE (06:48)
[2019-11-03] MEDS: INSULIN ASPART 100 UNITS/ML 3 ML PEN SC SCH ×4 (08:52→20:50)
[2019-11-03] MEDS: INSULIN GLARGINE SOLOSTAR 100 UNITS/ML 3 ML PEN SC SCH ×2 (08:52→20:49)
[2019-11-03] MEDS: LACTOBACILLUS ACIDOPHILUS (FLORANEX) TAB PO SCH ×3 (11:07→16:50)
[2019-11-03] MEDS: CHOLECALCIFEROL 1,000 UNITS 25 MCG TAB PO SCH (11:07)
[2019-11-03] MEDS: CYANOCOBALAMIN (VITAMIN B-12) 100 MCG TABLET PO SCH (11:07)
[2019-11-03] MEDS: MAGNESIUM OXIDE 400 MG TAB PO SCH (11:07)
[2019-11-03] MEDS: PANTOprazole 40 MG TAB PO SCH (11:36)
[2019-11-03] MEDS: SERTRALINE HCL 50 MG TABLET PO SCH (11:36)
[2019-11-03] MEDS: hydrALAZINE HCL 20 MG/ML VIAL IV PRN (11:37)
--- NOTE | 2019-11-03 12:36 | History & Physical Bridge Note ---
Date of Service November 03, 2019 History & Physical Bridge Note I have examined the patient, reviewed the History & Physical and in the interval since the performance of the History & Physical I have noted the following changes of clinical significance: no changes noted ERCP today, consent taken from her son.,
[2019-11-03] MEDS ORDERED: ePHEDrine sulfate 50 MG/ML AMP IV PRN (12:39)
[2019-11-03] MEDS ORDERED: fentaNYL citrate 100 MCG/2 ML VIAL IV PRN (12:39)
[2019-11-03] MEDS ORDERED: ONDANSETRON INJ 2 MG/ML 2 ML VIAL IV PRN (12:39)
[2019-11-03] MEDS ORDERED: ATROPINE SULFATE 0.1 MG/ML 10ML SYR IV PRN (12:39)
--- NOTE | 2019-11-03 12:43 | Anesthesiology Consultation ---
Date of Service November 03, 2019 Assessment & Plan (1) Encounter for pre-operative examination: Chart Review Chart Review: Acceptable Risk for Surgery and Patient NOT seen in Pre Admission Testing covid neg 10/25/2019. Consults Requested none History Surgery Operation Date: 10/25/19 13:50 Proposed Procedures p Endoscopic Retrograde Cholangiopancreatogram - Marcia Mesa MD Operation Date: 10/27/19 07:30 Proposed Procedures p Laparoscopic Cholecystectomy - Yovani Mendez MD, FACS Operation Date: 11/03/19 12:00 Proposed Procedures p Endoscopic Retrograde Cholangiopancreato - Marcia Mesa MD Height/Weight Height: 5 ft 4 in Weight: 57.8 kg Allergies Allergy/AdvReac Type Severity Reaction Status Date / Time [id number]-[id number]-[id number] Reductase AdvReac Mild leg Verified 10/25/19 09:19 Inhibitor cramping Medications Home Medications Medication Instructions Recorded Confirmed Last Taken Vitamin B-12 50 mcg PO DAILY 11/28/18 10/25/19 10/25/19 cholecalciferol (vitamin D3) 1,000 unit PO DAILY 11/28/18 10/25/19 10/25/19 [Vitamin D3] hydrochlorothiazide 12.5 mg PO MOWEFR 11/28/18 10/25/19 10/25/19 blood sugar diagnostic #100 ea 05/28/19 10/25/19 Unknown Trulicity 0.75 mg SUBCUT WK 07/10/19 10/25/19 07/08/19 atenolol 12.5 mg PO PM 07/10/19 10/25/19 Unknown sertraline 25 mg PO HS 07/10/19 10/25/19 Unknown acetaminophen [Mapap 650 mg PO Q6H PRN #30 tab 07/12/19 10/25/19 Unknown (acetaminophen)] docusate sodium 100 mg PO BID 10/25/19 10/25/19 10/25/19 insulin glargine [Basaglar KwikPen 30 unit SUBCUT HS 10/25/19 10/25/19 Unknown U-100 Insulin] multivitamin,ky-garv-siltakea 1 tab PO DAILY 10/25/19 10/25/19 Unknown [Therems-M] nitrofurantoin monohyd/m-cryst 100 mg PO BID 10/25/19 10/25/19 10/25/19 pantoprazole 40 mg PO QAM 10/25/19 10/25/19 10/25/19 polyethylene glycol 3350 [Miralax] 17 g PO DAILY PRN 10/25/19 10/25/19 Unknown tramadol 25 mg PO Q12H PRN 10/25/19 10/25/19 Unknown Active Medications Generic Name Dose Route Start Last Admin Trade Name Fredania PRN Reason Stop Dose Admin Acetaminophen 650 mg 10/27/19 09:40 11/01/19 04:30 Acetaminophen 325 Mg Tab PO 11/26/19 09:39 650 mg Q4H PRN Administration Pain Amlodipine Besylate 5 mg 11/01/19 18:15 11/02/19 09:22 Amlodipine Besylate 5 Mg Tab PO 12/01/19 18:14 5 mg QAM CAIO Administration Atenolol 12.5 mg 10/26/19 09:00 11/02/19 09:20 Tenormin PO 11/25/19 08:59 12.5 mg QAM CAIO Administration Cyanocobalamin 50 mcg 10/26/19 09:00 11/03/19 11:07 Vitamin B-12 PO 11/25/19 08:59 Not Given DAILY CAIO Hydralazine HCl 10 mg 10/25/19 21:41 11/03/19 11:37 Hydralazine Hcl IV 11/24/19 21:40 10 mg Q8 PRN Administration SBP more than 160 Imipenem/Cilastatin Sodium 500 110 mls @ 110 mls/hr 10/31/19 04:00 11/03/19 06:14 mg/ Dextrose IV 11/09/19 15:59 Infused Q12H [facility] Infusion Protocol Insulin Aspart 0 units 10/26/19 11:30 11/03/19 11:36 Insulin Aspart 100 Units/Ml 3 Ml Pen SC 11/25/19 11:29 Not Given ACHS CAIO Insulin Glargine 12 units 11/01/19 09:00 11/03/19 08:52 Insulin Glargine Solostar 100 Units/Ml 3 Ml Pen SC 11/27/19 20:59 12 units BID CAIO Administration Lactobacillus Acidophilus 4 tab 11/02/19 17:00 11/03/19 11:37 Lactobacillus Acidophilus (Floranex) Tab PO 12/02/19 16:59 Not Given TIDM CAIO Magnesium Oxide 400 mg 10/26/19 09:45 11/03/19 11:07 Mag-Ox PO 11/25/19 09:44 Not Given QAM CAIO Pantoprazole Sodium 40 mg 10/26/19 09:00 11/03/19 11:36 Protonix PO 11/25/19 08:59 Not Given QAM CAIO Sertraline HCl 25 mg 10/26/19 09:00 11/03/19 11:36 Zoloft PO 11/25/19 08:59 Not Given QAM CAIO Tramadol HCl 25 mg 10/25/19 21:42 10/28/19 04:57 Ultram PO 11/24/19 21:41 25 mg Q12H PRN Administration pain Vitamin D 1,000 units 10/26/19 09:00 11/03/19 11:07 Vitamin D3 PO 11/25/19 08:59 Not Given DAILY CAIO NPO Date Last Intake of Fluids: 10/26/19 Time Last Intake of Fluids: 21:00 Last Intake of Fluids Comment: Ice chips Date Last Intake of Solids: 10/26/19 Time Last Intake of Solids: 21:00 Past Medical History Medical History Colon cancer Colonic mass GERD (gastroesophageal reflux disease) History of malignant neoplasm of colon HTN (hypertension) Hyperlipidemia Lumbar degenerative disc disease Type II diabetes mellitus Exercise / Class Metabolic Activity III < 4 Walking/Shop/Light housework Past Family History Family History Father Lung cancer Mother Stroke syndrome Hypertension Cancer Diabetes Sister Diabetes Past Surgical History Surgical History H/O right hemicolectomy H/O: hysterectomy History of cataract extraction History of tonsillectomy and adenoidectomy S/P laparoscopic cholecystectomy (10/27/19) Laparoscopic cholecystectomy with lysis of adhesions 10/27/19 Dr. Mendez Past Anesthesia History No Hx of Anesthesia Complications and No Family Hx of Anesthesia Complications History of PONV No Hx of PONV and No Hx of Motion Sickness Social History Smoking Status: Unknown if ever smoked tobacco type: cigarettes Smoking cigarettes per day: 3 packs Hx Alcohol Use: No Hx Substance Use: No Physical Exam Vital Signs Last Vital Signs Temp 37.4 C 11/03/19 11:48 Pulse 86 11/03/19 11:48 Resp 20 11/03/19 11:48 BP 163/75 H 11/03/19 11:48 Pulse Ox 96 11/03/19 11:48 ENMT Mouth: + dentition abnormality and + poor dentition; no TMJ abnormality Thyromental Distance: < 3.5 Finger Breadths Mallampati Class: III Neck normal visual inspection Respiratory normal respiratory effort Auscultation: lungs clear to auscultation bilaterally Cardiovascular Rate/Rhythm: regular rate and regular rhythm Musculoskeletal Spine: normal cervical ROM and no pain with cervical ROM Neurologic moves all extremities Psychiatric Orientation: alert and oriented x 3 Testing Laboratory Results 11/02/19 06:07 11/02/19 06:11 Hemoglobin A1c 7.5 % (4.5-5.6) H 10/26/19 15:01 Urine Color Dark Yellow 10/25/19 08:45 Urine Appearance Clear (Clear) 10/25/19 08:45 Urine pH 5.0 (4.5-7.5) 10/25/19 08:45 Ur Specific [place] 1.016 (1.000-1.030) 10/25/19 08:45 Urine Protein 1+ (Negative) H 10/25/19 08:45 Urine Glucose (UA) Negative (Negative) 10/25/19 08:45 Urine Ketones Negative (Negative) 10/25/19 08:45 Urine Nitrite Negative (Negative) 10/25/19 08:45 Ur Leukocyte Esterase Negative (Negative) 10/25/19 08:45 Urine WBC (Auto) 1-5 /hpf (0-5) 10/25/19 08:45 Urine RBC (Auto) 0-4 /hpf (0-4) 10/25/19 08:45 U Hyaline Cast (Auto) 1-5 /lpf (0-5) 10/25/19 08:45 U Epithel Cells (Auto) 10-20 /lpf (0-5) H 10/25/19 08:45 Urine Bacteria (Auto) Negative (Negative) 10/25/19 08:45 10/28/19 09:31 Aerobic Blood Culture - Final Blood No growth in Aerobic bottle after 5 days. Anaerobic Blood Culture - Final No growth in Anaerobic bottle after 5 days. 10/28/19 09:44 Aerobic Blood Culture - Final Blood No growth in Aerobic bottle after 5 days. Anaerobic Blood Culture - Final No growth in Anaerobic bottle after 5 days. 10/30/19 Unknown Urine Culture - Final Urine,Clean Catch No growth - less than 1,000 colonies/mL. 10/25/19 13:00 Aerobic Blood Culture - Final Blood No growth in Aerobic bottle after 5 days. Anaerobic Blood Culture - Final No growth in Anaerobic bottle after 5 days. 10/25/19 13:01 Aerobic Blood Culture - Final Blood No growth in Aerobic bottle after 5 days. Anaerobic Blood Culture - Final No growth in Anaerobic bottle after 5 days. 10/25/19 08:25 Escherichia coli Shiga Toxins Test - Final Stool Stool Culture - Final No Salmonella isolated, No Shigella isolated, No Campylobacter jejuni isolated. 11/03/19 11/03/19 11:09 07:23 POC Glucose 126 H 208 H Electrocardiogram Date: 10/25/19 DICTATED BY: Jamari Reddy MD Test Reason : Blood Pressure : / mmHG Vent. Rate : 076 BPM Atrial Rate : 076 BPM P-R Int : 134 ms QRS Dur : 068 ms QT Int : 402 ms P-R-T Axes : 077 013 065 degrees QTc Int : 452 ms Normal sinus rhythm Normal ECG When compared with ECG of 23-OCT-2019 16:58, No significant change was found Confirmed by Jamari Reddy ([id number]) on 10/25/2019 1:29:13 PM
[2019-11-03] MEDS ORDERED: fentaNYL citrate 100 MCG/2 ML VIAL ONE (12:49)
--- NOTE | 2019-11-03 13:17 | Operative Report ---
Post Operative Report Pre & Post Diagnosis Operation Date: 10/25/19 13:50 Pre-Op Diagnosis: Cholangitis Post-Op Diagnosis: Cholangitis Operation Date: 10/27/19 07:30 Pre-Op Diagnosis: Cholangitis Post-Op Diagnosis: Cholangitis Operation Date: 11/03/19 12:00 Pre-Op Diagnosis: abnormal cat scan Post-Op Diagnosis: slush I identified the patient and participated in the time-out.: Yes Procedure Operation Date: 10/25/19 13:50 Actual Procedures p Endoscopic Retrograde Cholangiopancreatogram(Not Applicable) - Marcia Mesa MD Operation Date: 10/27/19 07:30 Actual Procedures p Laparoscopic Cholecystectomy(Not Applicable) - Yovani Mendez MD, FACS Operation Date: 11/03/19 12:00 Actual Procedures p Endoscopic Retrograde Cholangiopancreatography(Not Applicable) - Marcia Mesa MD Surgeon Marcia Mesa MD Paint Stock Clerk None Estimated Blood Loss 0 Findings See Below (Sludge removed) Specimens None Description of Procedure ERCP I attest to the content of the Intraoperative Record and any orders documented therein. Any exceptions are noted below.
--- NOTE | 2019-11-03 13:35 | Fluoroscopy Report ---
[place] ERCP biliary ductal HISTORY: 84 years-old Female ERCP COMPARISON: CT abdomen and pelvis 11/01/2019 TECHNIQUE: 9 spot fluoroscopic images of the abdomen were obtained utilizing 41.2 seconds fluoroscopy time FINDINGS: Endoscope is noted within the duodenum. Retrograde injection of contrast into the common bile duct de monstrates multiple biliary lucent filling defects possibly reflective of air bubbles. Balloon sweep of the common bile duct. Cholecystectomy. Contrast flows into the duodenum without contrast extravasa tion. No definite retained filling defects in the biliary tree identified. IMPRESSION: Fluoroscopic assistance as above. Please see procedural report for further details. ACT 112: Negative or not required by law. The above report was generated using voice recognition software. It may contain grammatical, syntax o r spelling errors. Electronically signed by: Mendoza Trinidad M.D. 11/03/2019 1:33 PM
--- NOTE | 2019-11-03 13:36 | GI REPORT ---
Patient Name: Fatmata Carlos Procedure Date: 11/03/2019 12:55 PM Date of : 1935 Admit Type: Inpatient Age: 84 Gender: Female Attending MD: Marcia Mesa MD Procedure: ERCP Providers: Marcia Mesa MD Referring MD: Jayde Brand Robin A. Panlilio Indications: Bile duct stone on Computed Tomogram Scan Medicines: General Anesthesia Complications: No immediate complications. Upon removal of the bite block, the patient was clenching and had a loose damaged tooth which fell out spontaneously, this was removed and placed in a bag. Estimated Blood Loss: Estimated blood loss: none. Procedure: Pre-Anesthesia Assessment: - Prior to the procedure, a History and Physical was performed, and patient medications, allergies and sensitivities were reviewed. The patient's tolerance of previous anesthesia was reviewed. - The risks and benefits of the procedure and the sedation options and risks were discussed with the patient. All questions were answered and informed consent was obtained. - Patient identification and proposed procedure were verified prior to the procedure by the physician and the nurse. The procedure was verified in the procedure room. - Pre-procedure physical examination revealed no contraindications to sedation. After obtaining informed consent, the scope was passed under direct vision. Throughout the procedure, the patient's blood pressure, pulse, and oxygen saturations were monitored continuously. The scope was introduced through the mouth, and advanced to the duodenum and used to inject contrast into the bile duct. The ERCP was accomplished without difficulty. The patient tolerated the procedure well. Findings: A culinary assistant film of the abdomen was obtained. Surgical clips, consistent with a previous cholecystectomy, were seen in the area of the right upper quadrant of the abdomen. The esophagus was successfully intubated under direct vision. The scope was advanced to a normal major papilla in the descending duodenum without detailed examination of the pharynx, larynx and associated structures, and upper GI tract. The upper GI tract was grossly normal. The major papilla was located entirely within a diverticulum. A biliary sphincterotomy had been performed. The sphincterotomy appeared open. A 0.035 inch straight standard wire was passed into the biliary tree. The Fusion OMNI sphincterotome was passed over the guidewire and the bile duct was then deeply cannulated. Contrast was injected. I personally interpreted the bile duct images. Ductal flow of contrast was adequate. Image quality was adequate. Contrast extended to the main bile duct. Opacification of the main bile duct was successful. The maximum diameter of the ducts was 9 mm. The biliary tree was swept with a 15 mm balloon starting at the bifurcation. Sludge was swept from the duct. No stones. PD not cannulated. Impression: - Prior biliary sphincterotomy appeared open. - The biliary tree was swept and sludge was found. No stones seen. Recommendation: - Return patient to [facility] for ongoing care. - Consider other sources of leukocytosis, consider ID evaluation if needed however there is no evidence of biliary infection today. Marcia Mesa MD 11/03/2019 1:36:41 PM This report has been signed electronically. Note Initiated On: 11/03/2019 12:55 PM Number of Addenda: 0 I attest to the content of the Intraoperative Record and orders documented therein, exceptions below {[id number]}
--- NOTE | 2019-11-03 14:07 | Pharmacy Report ---
Pharmacy Glycemic Short Note 2 - Date of Service November 03, 2019 - Glycemic Short BSG Results (Last 24 hours): 11/02/19 11/02/19 11/03/19 16:25 21:13 07:23 POC Glucose 121 H 226 H 208 H 11/03/19 11/03/19 11:09 13:38 POC Glucose 126 H 121 H OUTPATIENT ANTIDIABETIC REGIMEN: * Insulin glargine 30 units HS * Trulicity 0.75 mg sq weekly * A1c 7.5% on 10/26/2019 ASSESSMENT: 11/02 * Patient received total of 40 units of insulin yesterday, of which 24 were basal insulin * Fasting BSG elevated at 208 - patient NPO for ERCP / plan to give full basal this AM. Anticipate diet resuming, however will adjust Lantus for HS dosing if BSGs trending down PLAN FOR INPATIENT GLYCEMIC CONTROL: * Hold outpatient oral diabetes medications * Basal insulin * Lantus 8-12 units for tonight, NPO status * Bolus insulin * NovoLog per scale ACHS or Q6hrs while NPO * Goal Range: Low 110 mg/dL - High 140 mg/dL * Correction Factor: 25 mg/dL/unit * Nutritional / Prandial insulin per carb ratio of 1 unit per 9 grams CHO consumed
[2019-11-03] MEDS: hydroCHLOROthiazide 25 MG TAB PO SCH (14:23)
[2019-11-03] MEDS: ATENOLOL 25 MG TABLET PO SCH (14:25)
[2019-11-03] MEDS: amLODIPine BESYLATE 5 MG TAB PO SCH (14:25)
[2019-11-03 14:57] LABS: Basophils # (auto) 0.11 K/uL (0-0.2); Basophils % (auto) 0.6 %; Eosinophils # (auto) 0.96 K/uL (0-0.5); Eosinophils % (auto) 5.4 %; Hematocrit (blood only) 31.6 % (37-47); Hemoglobin 9.8 g/dL (12.0-16.0); Immature Granulocytes # (auto) 0.44 K/uL (0.00-0.02); Immature Granulocytes % (auto) 2.5 %; Lymphocytes # (auto) 1.53 K/uL (1.2-3.4); Lymphocytes % (auto) 8.6 %; Mean Corpuscular Hemoglobin 28.2 pg (25-34); Mean Corpuscular Volume 90.8 fL (80-100); Mean Platelet Volume 10.1 fL (7.4-10.4); Monocytes # (auto) 1.61 K/uL (0.11-0.59); Neutrophils # (auto) 13.24 K/uL (1.4-6.5); Neutrophils % (auto) 73.9 %; Platelet Count 623 K/uL (130-400); RDW Coefficient of Variation 15.5 % (11.5-14.5); RDW Standard Deviation 51.1 fL (36.4-46.3); Red Blood Count 3.48 M/uL (4.2-5.4); White Blood Count 17.89 K/uL (4.8-10.8)
[2019-11-03 15:17] LABS: BUN Creatinine Ratio 15.2 (10-20); Calcium 8.1 mg/dl (8.5-10.1); Creatinine Clr Calc Pharmacy 27.3 ml/min; Est GFR (Non-African American) 36.2; Potassium 3.9 mmol/L (3.5-5.1)
--- NOTE | 2019-11-03 15:38 | Hospitalist Progress Note ---
Date of Service November 03, 2019 Assessment & Plan (1) Cholangitis: (2) S/P laparoscopic cholecystectomy: (1) Cholangitis: (2) S/P laparoscopic cholecystectomy: Cholangitis: Sepsis with leukocytosis secondary Cholangitis with Choledocholithiasis Metabolic encephalopathy status post ERCP and Laparoscopic cholecystectomy with lysis of adhesions per Dr. Bebeto Navarro's notes: -leukocytosis of 20,00 on admission, admission CT suggesting choledocholithiasis in the presence of leukocytosis. 10/25/2019 ERCP found Choledocholithiasis and this was removed by gastronenterology team. -was initially started on empiric antibiotic Ertapenem -10/26/2019 Patient is not in distress. She denies acute pain or respiratory distress. She is a poor historian. She knows that she is from a [facility] and reports that she walks with a walker at the [facility]. However, she cannot describe her symptoms on prior to coming to hospital. She does not seem to understand that results of her ERCP yesterday. Gastroenterology service had recommended patient to have cholecystectomy with general surgery. General surgery Dr. Yovani Mendez discussed with her son and power of ip attorney Geraldo, , about consent for cholecystectomy planned for Monday10/27/2019 -10/27/2019: status post by Dr. Mendez. -10/28/2019: her earlier admission blood cultures with no growth to date. however WBC counts remains elevated. is 16,000 on 10/28/2019. broaden antibiotics from Ertapenem to Zosyn q8 hours for now and repeat blood culture on 10/28/2019 -10/29/2019: WBC 13,500. Continue broad spectrum Zosyn for now. can consider switching antibiotics when WBC normalizes or depending on 10/28/2019 blood cultures -Patient lives at [facility]. PT recommending SNF/rehab prior to return. continue PT/OT evaluations -prn nebulizers if wheezing 11/03/19: T-max 37.7, WBC still at 17,800, mental status back to baseline mostly repeat blood cultures negative urine culture negative so far has history of ESBL E coli 10/16/19 Seems to be improving clinically but still has significant leukocytosis with neutrophilic predominance CT abdomen and pelvis: No fluid collection but possible choledocholithiasis noted in the common bile duct GI reconsulted, s/p repeat ERCP: biliary tree swept, sludge was found, no stones seen continue Imipenem will consult Belkys RON Chronic kidney disease stage IV - her admission creatinine labs reviewed and does not reflect acute renal failure as her creatinine of 1.6 consistent with numbers in the past with creatinine clearance slightly under 30. 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 PT recommending SNF/rehab prior to return Discharge when medically stable Admission and Anticipated Discharge Date Admission Date: October 25, 2019 Subjective ff up for acute cholangitis, s/p ERCP with removal of choledocholithiasis, s/p cholecystectomy seen resting in bed, comfortable just came back from repeat ERCP with sludge removal oriented x 2, answers questions appropriately states she feels fine overall denies abdominal pain, nausea/vomiting, fever/chills no chest pain, dyspnea, palpitations, dizziness no other symptoms Review of Systems 2 Review of Systems: All systems reviewed & are unremarkable except as noted in HPI & below Physical Exam Physical Exam: General- oriented x 2, not in distress, speaks in sentences with no effort or accessory muscle use Eyes- anicteric Neck- no JVD Lungs- clear BS BL no rales no wheezing Heart- normal rate, regular rhythm; no murmurs Abdomen- normal bowel sounds, nondistended, soft, nontender Extremities- no pretibial edema, no calf tenderness Neuro- alert, oriented x 2; no gross focal neurologic deficits Skin- warm & dry Results & Data Results & Data ([facility]) Vital Signs (Past 12 Hours) Vital Signs Temp Pulse Pulse Resp BP BP Pulse Ox 11/03/19 15:08 37.0 C 79 27 H 128/71 99 11/03/19 14:19 37.1 C 85 16 148/69 H 95 11/03/19 14:05 36.7 C 81 24 140/50 L 97 11/03/19 13:55 36.7 C 84 20 142/55 H 97 11/03/19 13:45 88 20 154/55 H 92 11/03/19 13:35 89 20 140/57 L 98 11/03/19 13:27 36.2 C L 90 22 152/52 H 98 11/03/19 11:48 37.4 C 86 20 163/75 H 96 11/03/19 07:52 37.2 C 76 18 176/74 H 98 Laboratory Results Laboratory Results - last 24 hr 11/02/19 11/02/19 11/02/19 06:11 16:25 21:13 WBC RBC Hgb Hct MCV MCH MCHC RDW Std Deviation RDW Coeff of Remy Plt Count MPV Immature Gran % (Auto) Neut % (Auto) Lymph % (Auto) [place] % (Auto) Eos % (Auto) Baso % (Auto) Neut # (Auto) Lymph # (Auto) [place] # (Auto) Eos # (Auto) Baso # (Auto) Immature Gran # (Auto) Sodium Potassium 4.2 D Chloride Carbon Dioxide Anion Gap BUN Creatinine Est Cr Clr Drug Dosing Est GFR ( Amer) Est GFR (Non-Af Amer) BUN/Creatinine Ratio Glucose POC Glucose 121 H 226 H Calcium 11/03/19 11/03/19 11/03/19 07:23 11:09 13:38 WBC RBC Hgb Hct MCV MCH MCHC RDW Std Deviation RDW Coeff of Remy Plt Count MPV Immature Gran % (Auto) Neut % (Auto) Lymph % (Auto) [place] % (Auto) Eos % (Auto) Baso % (Auto) Neut # (Auto) Lymph # (Auto) [place] # (Auto) Eos # (Auto) Baso # (Auto) Immature Gran # (Auto) Sodium Potassium Chloride Carbon Dioxide Anion Gap BUN Creatinine Est Cr Clr Drug Dosing Est GFR ( Amer) Est GFR (Non-Af Amer) BUN/Creatinine Ratio Glucose POC Glucose 208 H 126 H 121 H Calcium 11/03/19 11/03/19 14:43 14:43 WBC 17.89 H RBC 3.48 L Hgb 9.8 L Hct 31.6 L MCV 90.8 MCH 28.2 MCHC 31.0 L RDW Std Deviation 51.1 H RDW Coeff of Remy 15.5 H Plt Count 623 H MPV 10.1 Immature Gran % (Auto) 2.5 Neut % (Auto) 73.9 Lymph % (Auto) 8.6 [place] % (Auto) 9.0 Eos % (Auto) 5.4 Baso % (Auto) 0.6 Neut # (Auto) 13.24 H Lymph # (Auto) 1.53 [place] # (Auto) 1.61 H Eos # (Auto) 0.96 H Baso # (Auto) 0.11 Immature Gran # (Auto) 0.44 H Sodium 138 Potassium 3.9 Chloride 107 Carbon Dioxide 24 Anion Gap 7.0 BUN 21 H Creatinine 1.35 H Est Cr Clr Drug Dosing 27.3 Est GFR ( Amer) 42.0 Est GFR (Non-Af Amer) 36.2 BUN/Creatinine Ratio 15.2 Glucose 121 H POC Glucose Calcium 8.1 L
--- NOTE | 2019-11-03 15:40 | Anesthesiology Progress Note ---
Date of Service November 03, 2019 Anesthesia Post Procedure Vital Signs Vital Signs: Temp Pulse Pulse Resp BP BP Pulse Ox 11/03/19 15:08 37.0 C 79 27 H 128/71 99 11/03/19 14:19 37.1 C 85 16 148/69 H 95 11/03/19 14:05 36.7 C 81 24 140/50 L 97 11/03/19 13:55 36.7 C 84 20 142/55 H 97 11/03/19 13:45 88 20 154/55 H 92 11/03/19 13:35 89 20 140/57 L 98 11/03/19 13:27 36.2 C L 90 22 152/52 H 98 11/03/19 11:48 37.4 C 86 20 163/75 H 96 11/03/19 07:52 37.2 C 76 18 176/74 H 98 11/03/19 03:31 37.7 C H 90 18 161/68 H 90 11/02/19 23:02 37.5 C 79 16 160/97 H 93 11/02/19 20:02 37.2 C 77 18 157/67 H 90 Transfer of Care Handoff Completed per policy Notes Mental Status: alert / awake / arousable and participated in evaluation Patient Amnestic to Procedure: Yes Nausea / Vomiting: adequately controlled Pain: adequately controlled Airway Patency, RR, SpO2: stable & adequate BP & HR: stable & adequate Hydration State: stable & adequate Anesthetic Complications: no major complications apparent and Pt Satisfied with anesthetic care
[2019-11-03] MEDS: HEPARIN SOD 5,000 UNIT/0.5 ML VIAL SQ SCH (20:49)
[2019-11-03] MEDS ORDERED: INSULIN GLARGINE SOLOSTAR 100 UNITS/ML 3 ML PEN SC SCH (21:00)
[2019-11-04] MEDS: IMIPENEM/CILASTATIN SODIUM 500 MG in DEXTROSE 5% 100 ML IV SCH ×2 (04:29→17:22)
--- NOTE | 2019-11-04 08:08 | Surgery Progress Note ---
Date of Service November 04, 2019 Assessment & Plan (1) S/P laparoscopic cholecystectomy: Patient had low-grade fever 37 8 She said she feels fine, tolerating diet Had a repeat ERCP yesterday with some sludge in the common bile duct Her abdomen is soft and her wounds are healing very well without evidence of infection Apparently infectious disease to check on the patient Admission and Anticipated Discharge Date Admission Date: October 25, 2019 Results & Data ([facility]) Vital Signs (Past 12 Hours) Vital Signs Temp Pulse Pulse Resp BP Pulse Ox 11/04/19 07:54 36.5 C 80 18 109/70 98 11/04/19 07:46 85 11/04/19 04:23 37.8 C H 86 18 124/73 91 11/03/19 23:29 37.5 C 82 16 140/55 L 92 PG Care Time/CCT Total # of Minutes Spent Total Time Spent with Patient: Total time spent is greater than 50% in coordination of care (as documented) at patient's floor/unit and/or counseling patient: Coding Level of Care Code None Diagnoses S/P laparoscopic cholecystectomy Z90.49
[2019-11-04] MEDS ORDERED: INSULIN GLARGINE SOLOSTAR 100 UNITS/ML 3 ML PEN SC SCH (09:00)
[2019-11-04] MEDS: LACTOBACILLUS ACIDOPHILUS (FLORANEX) TAB PO SCH ×3 (09:02→17:26)
[2019-11-04] MEDS: HEPARIN SOD 5,000 UNIT/0.5 ML VIAL SQ SCH ×2 (09:02→22:39)
[2019-11-04] MEDS: SERTRALINE HCL 50 MG TABLET PO SCH (09:03)
[2019-11-04] MEDS: amLODIPine BESYLATE 5 MG TAB PO SCH (09:03)
[2019-11-04] MEDS: CYANOCOBALAMIN (VITAMIN B-12) 100 MCG TABLET PO SCH (09:04)
[2019-11-04] MEDS: ATENOLOL 25 MG TABLET PO SCH (09:04)
[2019-11-04] MEDS: CHOLECALCIFEROL 1,000 UNITS 25 MCG TAB PO SCH (09:04)
[2019-11-04] MEDS: MAGNESIUM OXIDE 400 MG TAB PO SCH (09:05)
[2019-11-04] MEDS: PANTOprazole 40 MG TAB PO SCH (09:05)
[2019-11-04] MEDS: INSULIN GLARGINE SOLOSTAR 100 UNITS/ML 3 ML PEN SC SCH ×2 (09:06→21:00)
[2019-11-04] MEDS: INSULIN ASPART 100 UNITS/ML 3 ML PEN SC SCH ×4 (09:06→21:01)
--- NOTE | 2019-11-04 09:34 | Gastroenterology Progress Note ---
Date of Service November 04, 2019 Assessment & Plan (1) S/P laparoscopic cholecystectomy: 84 year old female S/P CCY and repeat ERCP w/ sludge removal, clinically feeling well and tolerating PO intake. No GI contraindication to diet Agree with ID evaluation Please see prior reports for additional recommendations GI to sign off Admission and Anticipated Discharge Date Admission Date: October 25, 2019 Supervising Physician Co-Signing Physician Notes I have seen and examined the patient with ZULY Chapman whose note reflects our findings and plan. s/p ERCP. Feeling well. Subjective S/P ERCP No stones But sludge No LFTs this AM No concerns this AM No abd pain, nausea/vomiting. Denies diarrhea. Review of Systems Constitutional: no fever, no chills and no fatigue Respiratory: no cough and no dyspnea Cardiovascular: no chest pain and no dyspnea Gastrointestinal: no abdominal pain and no blood in stools Physical Exam Constitutional: no acute distress Neck: trachea midline Respiratory: normal respiratory effort Gastrointestinal (Abdomen): Percussion/Palpation: abdomen soft; abdomen nontender, no guarding and abdomen not rigid Skin: no rashes, warm and dry Results & Data ([facility]) Vital Signs (Past 12 Hours) Vital Signs Temp Pulse Pulse Resp BP Pulse Ox 11/04/19 07:54 36.5 C 80 18 109/70 98 11/04/19 07:46 85 11/04/19 04:23 37.8 C H 86 18 124/73 91 11/03/19 23:29 37.5 C 82 16 140/55 L 92
--- NOTE | 2019-11-04 13:41 | Pharmacy Report ---
Pharmacy Glycemic Short Note 2 - Date of Service November 04, 2019 - Glycemic Short BSG Results (Last 24 hours): 11/03/19 11/03/19 11/03/19 13:38 14:43 16:16 Glucose 121 H POC Glucose 121 H 196 H 11/03/19 11/04/19 11/04/19 20:30 08:13 11:36 Glucose POC Glucose 112 H 148 H 180 H OUTPATIENT ANTIDIABETIC REGIMEN: * Insulin glargine 30 units HS * Trulicity 0.75 mg sq weekly * A1c 7.5% on 10/26/2019 ASSESSMENT: 11/03 * Over the last 24 hrs, 30 units of insulin have been administer however this patient was mostly NPO for much of this * Fasting BSG 148 this AM with 24 units basal on board - close to goal, there may be room to titrate upwards slightly - will reassess tomorrow * Novolog doses appear to be performing well for the most part, some post- prandial hyperglycemic episode in prior days when eating - will adjust carb ratio 11/02 * Patient received total of 40 units of insulin yesterday, of which 24 were basal insulin * Fasting BSG elevated at 208 - patient NPO for ERCP / plan to give full basal this AM. Anticipate diet resuming, however will adjust Lantus for HS dosing if BSGs trending down PLAN FOR INPATIENT GLYCEMIC CONTROL: * Hold outpatient oral diabetes medications * Basal insulin - no change * Lantus 12 units SQ BID * Bolus insulin - slight increase * NovoLog per scale ACHS or Q6hrs while NPO * Goal Range: Low 110 mg/dL - High 140 mg/dL * Correction Factor: 25 mg/dL/unit * Nutritional / Prandial insulin per carb ratio of 1 unit per 8 grams CHO consumed
--- NOTE | 2019-11-04 14:34 | Ultrasound Report ---
RIGHT LOWER EXTREMITY VENOUS DOPPLER CLINICAL HISTORY: Lower extremity pain and swelling. COMPARISON STUDY: Bilateral lower extremity venous Doppler ultrasound November 20, 2018. TECHNIQUE: Sonography of the deep venous system of the right lower extremity was performed. Compress ion and augmentation were evaluated. FINDINGS: The right common femoral, superficial femoral and popliteal veins were compressible. Augme ntation was normal. Flow was shown within the deep calf vessels. Note is made of a 4.1 x 3.6 x 1 cm r ight popliteal cyst which is similar to ultrasound of November 20, 2018. IMPRESSION: 1. No evidence of deep venous thrombus within the right lower extremity. 2. No significant change in a right popliteal cyst since ultrasound of November 20, 2018. ACT 112: Negative or not required by law. Electronically signed by: Get Hollingsworth M.D. 11/04/2019 2:33 PM
--- NOTE | 2019-11-04 17:00 | Hospitalist Progress Note ---
Date of Service November 04, 2019 Assessment & Plan (1) Cholangitis: (2) S/P laparoscopic cholecystectomy: (1) Cholangitis: (2) S/P laparoscopic cholecystectomy: Cholangitis: Sepsis with leukocytosis secondary Cholangitis with Choledocholithiasis Metabolic encephalopathy status post ERCP and Laparoscopic cholecystectomy with lysis of adhesions per Dr. Bebeto Navarro's notes: -leukocytosis of 20,00 on admission, admission CT suggesting choledocholithiasis in the presence of leukocytosis. 10/25/2019 ERCP found Choledocholithiasis and this was removed by gastronenterology team. -was initially started on empiric antibiotic Ertapenem -10/26/2019 Patient is not in distress. She denies acute pain or respiratory distress. She is a poor historian. She knows that she is from a longterm and reports that she walks with a walker at the longterm. However, she cannot describe her symptoms on prior to coming to hospital. She does not seem to understand that results of her ERCP yesterday. Gastroenterology service had recommended patient to have cholecystectomy with general surgery. General surgery Dr. Yovani Mendez discussed with her son and power of disability attorney Geraldo, , about consent for cholecystectomy planned for Monday10/27/2019 -10/27/2019: status post by Dr. Mendez. -10/28/2019: her earlier admission blood cultures with no growth to date. however WBC counts remains elevated. is 16,000 on 10/28/2019. broaden antibiotics from Ertapenem to Zosyn q8 hours for now and repeat blood culture on 10/28/2019 -10/29/2019: WBC 13,500. Continue broad spectrum Zosyn for now. can consider switching antibiotics when WBC normalizes or depending on 10/28/2019 blood cultures -Patient lives at [facility]. PT recommending SNF/rehab prior to return. continue PT/OT evaluations -prn nebulizers if wheezing 11/04/19: T-max 37.8, WBC still at 17,800, mental status back to baseline mostly repeat blood cultures negative urine culture negative so far has history of ESBL E coli 10/16/19 Seems to be improving clinically but still has significant leukocytosis with neutrophilic predominance CT abdomen and pelvis: No fluid collection but possible choledocholithiasis noted in the common bile duct GI reconsulted, s/p repeat ERCP: biliary tree swept, sludge was found, no stones seen continue Imipenem Awaiting recommendations by Belk[facility] RON Chronic kidney disease stage IV - her admission creatinine labs reviewed and does not reflect acute renal failure as her creatinine of 1.6 consistent with numbers in the past with creatinine clearance slightly under 30. 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 PT recommending SNF/rehab prior to return Discharge when medically stable Admission and Anticipated Discharge Date Admission Date: October 25, 2019 Subjective ff up for acute cholangitis, status post cholecystectomy, status post ERCP x2 with removal of choledocholithiasis and biliary sludge, persistent leukocytosis Seen resting in bed, comfortable, in good spirits, oriented x2, answers all questions appropriately States she feels fine overall Denies abdominal pain, nausea or vomiting, tolerating food well Denies chills No other symptoms Temperature Max 37.8 Review of Systems Review of Systems: All systems reviewed & are unremarkable except as noted in HPI & below Physical Exam Physical Exam: General- oriented x 2, not in distress, speaks in sentences with no effort or accessory muscle use Eyes- anicteric Neck- no JVD Lungs- clear breath sounds bilaterally, no wheezing Heart- normal rate, regular rhythm; no murmurs Abdomen- normal bowel sounds, nondistended, soft, nontender No CVA tenderness, no Al[place]renga sign Extremities mild right pedal edema, no other edema, no calf tenderness Neuro- alert, oriented x 2; no gross focal neurologic deficits Skin- warm & dry Results & Data Results & Data ([facility]) Vital Signs (Past 12 Hours) Vital Signs Temp Pulse Pulse Resp BP Pulse Ox 11/04/19 15:31 37.8 C H 75 19 117/55 L 97 11/04/19 11:43 36.8 C 74 16 115/60 98 11/04/19 07:54 36.5 C 80 18 109/70 98 11/04/19 07:46 85 Laboratory Results Laboratory Results - last 24 hr 10/29/19 11/03/19 11/04/19 Unknown 20:30 08:13 POC Glucose 112 H 148 H SARS-CoV-2 RNA (RT-PCR) Not Detected 11/04/19 11/04/19 11:36 16:13 POC Glucose 180 H 123 H SARS-CoV-2 RNA (RT-PCR)
[2019-11-05] MEDS: IMIPENEM/CILASTATIN SODIUM 500 MG in DEXTROSE 5% 100 ML IV SCH ×2 (03:55→16:59)
[2019-11-05 06:35] LABS: Basophils # (auto) 0.11 K/uL (0-0.2); Basophils % (auto) 0.6 %; Eosinophils # (auto) 1.14 K/uL (0-0.5); Eosinophils % (auto) 6.7 %; Hematocrit (blood only) 29.2 % (37-47); Hemoglobin 9.4 g/dL (12.0-16.0); Immature Granulocytes # (auto) 0.27 K/uL (0.00-0.02); Immature Granulocytes % (auto) 1.6 %; Lymphocytes # (auto) 1.63 K/uL (1.2-3.4); Lymphocytes % (auto) 9.5 %; Mean Corpuscular Hemoglobin 29.2 pg (25-34); Mean Corpuscular Hgb Conc 32.2 g/dL (32-36); Mean Corpuscular Volume 90.7 fL (80-100); Mean Platelet Volume 10.6 fL (7.4-10.4); Monocytes # (auto) 1.74 K/uL (0.11-0.59); Monocytes % (auto) 10.2 %; Neutrophils % (auto) 71.4 %; Platelet Count 583 K/uL (130-400); RDW Coefficient of Variation 15.5 % (11.5-14.5); RDW Standard Deviation 51.7 fL (36.4-46.3); Red Blood Count 3.22 M/uL (4.2-5.4); White Blood Count 17.09 K/uL (4.8-10.8)
[2019-11-05 07:06] LABS: BUN Creatinine Ratio 15.7 (10-20); Est GFR (African American) 37.9; Est GFR (Non-African American) 32.7; Potassium 4.1 mmol/L (3.5-5.1)
[2019-11-05] MEDS: HEPARIN SOD 5,000 UNIT/0.5 ML VIAL SQ SCH ×2 (08:19→21:08)
[2019-11-05] MEDS: INSULIN ASPART 100 UNITS/ML 3 ML PEN SC SCH ×4 (08:20→21:09)
[2019-11-05] MEDS: INSULIN GLARGINE SOLOSTAR 100 UNITS/ML 3 ML PEN SC SCH ×2 (08:21→21:08)
[2019-11-05] MEDS: ATENOLOL 25 MG TABLET PO SCH (08:22)
[2019-11-05] MEDS: PANTOprazole 40 MG TAB PO SCH (08:22)
[2019-11-05] MEDS: amLODIPine BESYLATE 5 MG TAB PO SCH (08:22)
[2019-11-05] MEDS: SERTRALINE HCL 50 MG TABLET PO SCH (08:22)
[2019-11-05] MEDS: CYANOCOBALAMIN (VITAMIN B-12) 100 MCG TABLET PO SCH (08:23)
[2019-11-05] MEDS: LACTOBACILLUS ACIDOPHILUS (FLORANEX) TAB PO SCH ×3 (08:23→17:00)
[2019-11-05] MEDS: MAGNESIUM OXIDE 400 MG TAB PO SCH (08:24)
[2019-11-05] MEDS: hydroCHLOROthiazide 25 MG TAB PO SCH (08:24)
[2019-11-05] MEDS: CHOLECALCIFEROL 1,000 UNITS 25 MCG TAB PO SCH (09:28)
--- NOTE | 2019-11-05 11:06 | Pharmacy Report ---
Pharmacy Glycemic Short Note 2 - Date of Service November 05, 2019 - Glycemic Short BSG Results (Last 24 hours): 11/04/19 11/04/19 11/04/19 11:36 16:13 20:44 Glucose POC Glucose 180 H 123 H 173 H 11/05/19 11/05/19 06:08 07:23 Glucose 127 H POC Glucose 167 H OUTPATIENT ANTIDIABETIC REGIMEN: * Insulin glargine 30 units HS * Trulicity 0.75 mg sq weekly * A1c 7.5% on 10/26/2019 ASSESSMENT: 11/04 * 39 units administered over last 24 hrs while tolerating a diet * BSGs have fallen within the range of 123-180 - indicating good control * Fasting BSG elevated again this AM at 167, therefore will up titrate basal today * Post-prandial BSGs well controlled with current Novolog parameters - no change 11/03 * Over the last 24 hrs, 30 units of insulin have been administer however this p atient was mostly NPO for much of this * Fasting BSG 148 this AM with 24 units basal on board - close to goal, there may be room to titrate upwards slightly - will reassess tomorrow * Novolog doses appear to be performing well for the most part, some post- prandial hyperglycemic episode in prior days when eating - will adjust carb ratio 11/02 * Patient received total of 40 units of insulin yesterday, of which 24 were basal insulin * Fasting BSG elevated at 208 - patient NPO for ERCP / plan to give full basal this AM. Anticipate diet resuming, however will adjust Lantus for HS dosing if BSGs trending down PLAN FOR INPATIENT GLYCEMIC CONTROL: * Hold outpatient oral diabetes medications * Basal insulin - increase * Lantus 14 units SQ BID * Bolus insulin - no change * NovoLog per scale ACHS or Q6hrs while NPO * Goal Range: Low 110 mg/dL - High 140 mg/dL * Correction Factor: 25 mg/dL/unit * Nutritional / Prandial insulin per carb ratio of 1 unit per 8 grams CHO consumed
--- NOTE | 2019-11-05 18:05 | Hospitalist Progress Note ---
Date of Service November 05, 2019 Assessment & Plan (1) Cholangitis: (2) S/P laparoscopic cholecystectomy: (3) Status post endoscopic retrograde cholangiopancreatography: 84-year-old female with history of diabetes, hypertension, CKD stage IV presenting with weakness and confusion Cholangitis: Sepsis with leukocytosis secondary Cholangitis with Choledocholithiasis Metabolic encephalopathy status post ERCP with removal of choledocholithiasis and Laparoscopic cholecystectomy with lysis of adhesions In summary, patient admitted with acute cholangitis and cholecystitis, underwent cholecystectomy and ERCP with removal of choledocholithiasis. Patient overall is clinically improved, abdominal pain-free, however patient still had persistent significant leukocytosis . Repeat cultures including blood and urine negative. Repeat CT abdomen and pelvis over the weekend showed possible choledocholithiasis in the CBD. Repeat ERCP performed with removal of sludge. However GI does not feel biliary tract is the source for leukocytosis anymore, recommended [facility] consult. 11/05/2019 [facility] recommends transitioning patient from ertapenem to Zosyn, repeat CT chest and abdomen to rule out for source. 11/05/2019 Afebrile overnight, WBC still at 17,000, mental status back to baseline mostly repeat blood cultures negative urine culture negative Currently on antibiotic day #11, imipenem IV [facility] service consulted, recommend to transition to Zosyn Repeat CT chest and abdomen ordered, noncontrast secondary to CKD stage IV Peripheral smear also ordered to evaluate for [id number] If patient continues to afebrile, clinically improving, repeat CT chest and abdomen unrevealing, peripheral smear also unremarkable, Possibly discharge with p.o. 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 current use of insulin - Insulin sliding scale, Lantus 10 units BID Hypertension - Not at goal Added amlodipine 5 mg daily - continue home dose HCTZ, and atenolol - prn IV hydralazine - Blood pressure improved Episodes of delirium -Intermittently requiring Haldol Mental status mostly back to baseline, calm and cooperative the past few days Chronic kidney disease stage IV - crea stable at 1.6, at baseline Hypokalemia, Hypomagnesemia -Replace, monitor DVT prophylaxis: Heparin SC q12h CODE STATUS: DNR/DNI Patient lives at [facility] but will need to transition to [facility] facility Already accepted to [facility] Discharge when medically stable Follow-up with PCP, general surgery, GI Plan of care discussed with patient's son Geraldo in detail All questions were answered He is understanding, agreeable, comfortable with the plan of care Admission and Anticipated Discharge Date Admission Date: October 25, 2019 Subjective Follow-up for acute cholangitis, status post cholecystectomy, choledocholithiasis, status post ERCP x2 with removal of choledocholithiasis, persistent leukocytosis Seen resting in bed, sleeping but easily awakened Oriented x3, answers all questions appropriately States she feels fine overall Denies abdominal pain, nausea vomiting, fevers or chills No chest pain, shortness of breath, cough, sputum production No headache, neck pain, dizziness No other symptoms Review of Systems Review of Systems: All systems reviewed & are unremarkable except as noted in HPI & below Physical Exam Physical Exam: General- oriented x 3, not in distress, speaks in sentences with no effort or accessory muscle use Eyes- anicteric Neck- no JVD Lungs- clear breath sounds, no crackles or wheezing Heart- normal rate, regular rhythm; no murmurs Abdomen- normal bowel sounds, nondistended, soft, nontender No [place]ga sign No CVA tenderness Extremities-mild lower leg edema, no calf tenderness Neuro- alert, oriented x 3; no gross focal neurologic deficits Skin- warm & dry Results & Data Results & Data ([facility]) Vital Signs (Past 12 Hours) Vital Signs Temp Pulse Resp BP Pulse Ox 11/05/19 15:37 37.1 C 72 16 135/64 91 11/05/19 11:50 36.8 C 84 18 135/64 96 11/05/19 07:56 36.5 C 76 18 129/81 99 Laboratory Results Laboratory Results - last 24 hr 11/04/19 11/05/19 11/05/19 20:44 06:08 06:08 WBC 17.09 H RBC 3.22 L Hgb 9.4 L Hct 29.2 L MCV 90.7 MCH 29.2 MCHC 32.2 RDW Std Deviation 51.7 H RDW Coeff of Remy 15.5 H Plt Count 583 H MPV 10.6 H Immature Gran % (Auto) 1.6 Neut % (Auto) 71.4 Lymph % (Auto) 9.5 [place] % (Auto) 10.2 Eos % (Auto) 6.7 Baso % (Auto) 0.6 Neut # (Auto) 12.20 H Lymph # (Auto) 1.63 [place] # (Auto) 1.74 H Eos # (Auto) 1.14 H Baso # (Auto) 0.11 Immature Gran # (Auto) 0.27 H Sodium 135 L Potassium 4.1 Chloride 104 Carbon Dioxide 23 Anion Gap 8.0 BUN 23 H Creatinine 1.47 H Est Cr Clr Drug Dosing 25.0 Est GFR ( Amer) 37.9 Est GFR (Non-Af Amer) 32.7 BUN/Creatinine Ratio 15.7 Glucose 127 H POC Glucose 173 H Calcium 8.0 L COVID-19 Eval Order SARS-CoV-2, RNA, NAAT 11/05/19 11/05/19 11/05/19 07:23 11:30 16:18 WBC RBC Hgb Hct MCV MCH MCHC RDW Std Deviation RDW Coeff of Ermy Plt Count MPV Immature Gran % (Auto) Neut % (Auto) Lymph % (Auto) [place] % (Auto) Eos % (Auto) Baso % (Auto) Neut # (Auto) Lymph # (Auto) [place] # (Auto) Eos # (Auto) Baso # (Auto) Immature Gran # (Auto) Sodium Potassium Chloride Carbon Dioxide Anion Gap BUN Creatinine Est Cr Clr Drug Dosing Est GFR ( Amer) Est GFR (Non-Af Amer) BUN/Creatinine Ratio Glucose POC Glucose 167 H 137 H 124 H Calcium COVID-19 Eval Order SARS-CoV-2, RNA, NAAT 11/05/19 11/05/19 17:04 17:04 WBC RBC Hgb Hct MCV MCH MCHC RDW Std Deviation RDW Coeff of Remy Plt Count MPV Immature Gran % (Auto) Neut % (Auto) Lymph % (Auto) [place] % (Auto) Eos % (Auto) Baso % (Auto) Neut # (Auto) Lymph # (Auto) [place] # (Auto) Eos # (Auto) Baso # (Auto) Immature Gran # (Auto) Sodium Potassium Chloride Carbon Dioxide Anion Gap BUN Creatinine Est Cr Clr Drug Dosing Est GFR ( Amer) Est GFR (Non-Af Amer) BUN/Creatinine Ratio Glucose POC Glucose Calcium COVID-19 Eval [facility] SARS-CoV-2, RNA, NAAT NEGATIVE
[2019-11-05] MEDS ORDERED: PIPERACILL/TAZOBAC CONSULT ACTIVE PRN (19:35)
[2019-11-05] MEDS ORDERED: PIPERACILLIN/TAZOBACTAM 3.375 GM in DEXTROSE 5% 100 ML IV ONE (22:00)
[2019-11-06] MEDS: PIPERACILLIN/TAZOBACTAM 3.375 GM in DEXTROSE 5% 100 ML IV SCH ×3 (04:42→20:09)
[2019-11-06 06:32] LABS: Partial Thromboplastin Ratio 1.2; Partial Thromboplastin Time 33.9 Seconds (21.0-31.0)
[2019-11-06] MEDS: CHOLECALCIFEROL 1,000 UNITS 25 MCG TAB PO SCH (08:26)
[2019-11-06] MEDS: CYANOCOBALAMIN (VITAMIN B-12) 100 MCG TABLET PO SCH (08:26)
[2019-11-06] MEDS: SERTRALINE HCL 50 MG TABLET PO SCH (08:26)
[2019-11-06] MEDS: LACTOBACILLUS ACIDOPHILUS (FLORANEX) TAB PO SCH ×3 (08:27→18:18)
[2019-11-06] MEDS: PANTOprazole 40 MG TAB PO SCH (08:27)
[2019-11-06] MEDS: MAGNESIUM OXIDE 400 MG TAB PO SCH (08:27)
[2019-11-06] MEDS: ATENOLOL 25 MG TABLET PO SCH (08:27)
[2019-11-06] MEDS: amLODIPine BESYLATE 5 MG TAB PO SCH (08:27)
[2019-11-06] MEDS: HEPARIN SOD 5,000 UNIT/0.5 ML VIAL SQ SCH ×2 (08:28→21:29)
[2019-11-06] MEDS: INSULIN GLARGINE SOLOSTAR 100 UNITS/ML 3 ML PEN SC SCH ×2 (08:28→21:27)
[2019-11-06] MEDS: INSULIN ASPART 100 UNITS/ML 3 ML PEN SC SCH ×4 (08:30→21:28)
--- NOTE | 2019-11-06 09:22 | CT Scan Report ---
CT SCAN OF THE ABDOMEN AND PELVIS WITHOUT CONTRAST CLINICAL HISTORY: Fever, pain. Possible intra-abdominal infection. COMPARISON STUDY: 11/01/2019 TECHNIQUE: CT scan of the abdomen and pelvis was performed from the lung bases to the proximal femurs . Images are reviewed in the axial, sagittal, and coronal planes. IV contrast was not administered fo r this examination. A dose lowering technique was utilized adhering to the principles of ALARA. CT DOSE: FINDINGS: Lower chest: There is subpleural reticulation. There is a stable 8 mm subpleural right lower lobe pul monary nodule Liver: There is pneumobilia likely secondary to a prior sphincterotomy. No focal masses are visualize d on this noncontrast study Gallbladder: Surgically absent Spleen: Normal in size and attenuation. Pancreas: Unremarkable. Adrenal glands: There is mild bilateral adrenal gland thickening likely secondary to adenomatous hype rplasia Kidneys: No renal, ureteral, or bladder calculi are visualized. There is persistent bilateral perinep hric stranding. Bowel: There are no transition zones to indicate bowel obstruction. There is colonic diverticulosis. There is no evidence of acute diverticulitis. Postsurgical changes involve the right colon. There are scattered colonic air-fluid levels. Peritoneum: There is no intraperitoneal free air or abdominal ascites. Is a fat-containing left anter olateral abdominal wall hernia. There is a tiny fat-containing umbilical hernia. Vasculature: The abdominal aorta is normal in course and caliber. Adenopathy: None. Pelvic viscera: The uterus appears surgically absent Skeletal structures: No destructive osseous lesions are seen. IMPRESSION: 1. No acute intra-abdominal or pelvic findings 2. Stable 8 mm subpleural right lower lobe pulmonary nodule 3. No evidence of bowel obstruction. No evidence of free air 4. No acute inflammatory changes ACT 112: Negative or not required by law. Electronically signed by: Frederic Landers M.D. 11/06/2019 9:20 AM
--- NOTE | 2019-11-06 09:28 | Hospitalist Progress Note ---
Date of Service November 06, 2019 Assessment & Plan (1) Status post endoscopic retrograde cholangiopancreatography: (2) S/P laparoscopic cholecystectomy: (3) Cholangitis: Sepsis with leukocytosis secondary Cholangitis with Choledocholithiasis Metabolic encephalopathy status post ERCP and Laparoscopic cholecystectomy with lysis of adhesions on this hospital stay -leukocytosis of 20,00 on admission, admission CT suggesting choledocholithiasis in the presence of leukocytosis. 10/25/2019 ERCP found Choledocholithiasis and this was removed by gastronenterology team. -was initially started on empiric antibiotic Ertapenem -10/26/2019 Patient is not in distress. She denies acute pain or respiratory distress. She is a poor historian. She [facility] that [facility] and reports that she [facility] with a walker at the jail. However, she cannot describe her symptoms on prior to coming to hospital. She does not seem to understand that results of her ERCP yesterday. Gastroenterology service had recommended patient to have cholecystectomy with general surgery. General surgery Dr. Yovani Mendez discussed with her son and power of corporate associate attorney Geraldo, , about consent for cholecystectomy planned for Monday10/27/2019 -10/27/2019: status post by Dr. Mendez. -10/28/2019: her earlier admission blood cultures with no growth to date. however WBC counts remains elevated. is 16,000 on 10/28/2019. broaden antibiotics from Ertapenem to Zosyn q8 hours for now and repeat blood culture on 10/28/2019 -10/29/2019: WBC 13,500. Continue broad spectrum Zosyn for now. can consider switching antibiotics when WBC normalizes or depending on 10/28/2019 blood cultures -Patient lives at [facility]. PT recommending SNF/rehab prior to return. continue PT/OT evaluations -prn nebulizers if wheezing Chronic kidney disease stage IV -her admission creatinine labs reviewed and does not reflect acute renal failure as her creatinine of 1.6 consistent with numbers in the past with creatinine clearance slightly under 30. she was given IV fluids on this admission with HCTZ held. she did get 1 dose of Lasix on 10/27/2019 evening when she was wheezing and also nebulizer treatment. also As per nurse on 10/28/2019 AM that patient had episode of shortness of breath overnight and patient was given Lasix. -creatinine on 10/29/2019 remains stable as 1.6 Hypokalemia, Hypomagnesemia Hyponatremia is ruled out -serum sodium as 135 is not consistent with a hyponatremia. 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 titrate up as needed based on patient's hospital blood sugars. DVT prophylaxis: SCDs CODE STATUS: DNR/DNI Patient lives at [facility]. PT recommending SNF/rehab prior to return Rec from ID at [facility]Switch to Zosyn, CT C/Abd/Pelvis, but Cr elevated, to look for infection source, recheck cdt, poss WBC scan ROS-No Headache, No Visual Changes, No Nausea, No Vomiting, No Fever, No Chills, No Neck Pain or Stiffness, No Chest Pain, No Palpitations, No SOB, No RAYGOZA, No Cough, No Sputum, No Wheezing, No Abdominal Pain, No Diarrhea, No Hematemesis, No Hemoptysis, No Unexpected Weight Loss, No Flank pain, No Melena, No Hematochezia, No Frequency, No Urgency, No Burning, No Hematuria, No Rashes, No Diaphoresis. Appetite is Normal Physical Exam Gen-AAO x 3, NAD, Afebrile Head-NCAT, EOMI, PERRLA, Anicteric Sclera, No Posterior Pharyngeal Erythema Neck-Supple, No JVD, No Thyromegaly, No Masses, No LAD, No Bruits Lungs-Clear to Auscultation Bilaterally, No Rales, No Rhonchi, No Wheezing, No Crepitus Chest-No S4, +S1, +S2, No S3, No Murmurs, No Rubs, No Gallops, No Ectopy Abdomen-Soft, Bowel Sounds Present, Non Tender, Non Distended, No Hepatomegaly, No Splenomegaly, No Palpable Masses, No Rebound, No Rigidity, No Guarding Musculoskeletal-Full Range of Motion Bilaterally, No CVAT Extremities-No Cyanosis, No Clubbing, No Edema Nuero-Cranial Nerves II-XII grossly intact, Motor WNL, DTRs WNL, Strength WNL, Non Focal Psych-Normal Mood Admission and Anticipated Discharge Date Admission Date: October 25, 2019 Results & Data Results & Data ([facility]) Vital Signs (Past 12 Hours) Vital Signs Temp Pulse Resp BP BP Pulse Ox 11/06/19 07:13 36.9 C 73 18 136/70 90 11/05/19 23:06 37.0 C 68 16 144/68 H 91
--- NOTE | 2019-11-06 09:51 | CT Scan Report ---
CT OF THE CHEST WITHOUT IV CONTRAST CLINICAL HISTORY: Evaluate for infection. COMPARISON STUDY: Chest CT June 22, 2018. Chest radiograph October 28, 2019. CT DOSE: 666.86 mGy.cm TECHNIQUE: Axial images of the chest were obtained without IV contrast. Images were reviewed in the axial, sagittal, and coronal planes. IV contrast was not administered for this examination. Automat ed exposure control was utilized for the study. A dose lowering technique was utilized adhering to t he principles of ALARA. FINDINGS: Size of the heart is normal. There is no pericardial effusion. There is a mildly enlarged subcarinal lymph node shown on axial image 141 of 296. This node measures 1.3 cm in short axis diamet er. This node was normal in size on chest CT of June 22, 2018. Central airways are patent. There is n o pneumothorax. There is a trace right pleural effusion. A few groundglass nodules, including a 2 cm left upper lobe nodule on image 68 of 296 are similar to exam of June 22, 2018. Several of these are obscured by mild airspace opacities within the lungs. A right lower lobe pulmonary nodule is unchange d from earlier exams. This is benign given stability. There are old bilateral rib fractures. Abdomen and pelvis will be reported separately. There is pneumobilia. IMPRESSION: 1. Mild airspace opacities within the lungs. The findings favor an infectious process. Pulmonary christiano a could appear similar. 2. Trace right pleural effusion. 3. No change in several groundglass nodules, several of which are obscured by superimposed airspace o pacities. These are similar to chest CT of June 22, 2018. Low-grade neoplasms cannot be excluded and these should be assessed on subsequent chest CT. 4. Interval development of a mildly enlarged subcarinal lymph node. This is likely reactive but a fol low-up chest CT in 3 months is recommended. ACT 112: Negative or not required by law. Electronically signed by: Get Hollingsworth M.D. 11/06/2019 9:50 AM
[2019-11-07] MEDS: PIPERACILLIN/TAZOBACTAM 3.375 GM in DEXTROSE 5% 100 ML IV SCH ×3 (04:11→20:42)
[2019-11-07 07:32] LABS: Partial Thromboplastin Ratio 1.2; Partial Thromboplastin Time 34.2 Seconds (21.0-31.0)
[2019-11-07] MEDS: LACTOBACILLUS ACIDOPHILUS (FLORANEX) TAB PO SCH ×3 (08:08→17:46)
[2019-11-07] MEDS: ATENOLOL 25 MG TABLET PO SCH (08:11)
[2019-11-07] MEDS: CHOLECALCIFEROL 1,000 UNITS 25 MCG TAB PO SCH (08:11)
[2019-11-07] MEDS: amLODIPine BESYLATE 5 MG TAB PO SCH (08:11)
[2019-11-07] MEDS: CYANOCOBALAMIN (VITAMIN B-12) 100 MCG TABLET PO SCH (08:11)
[2019-11-07] MEDS: hydroCHLOROthiazide 25 MG TAB PO SCH (08:12)
[2019-11-07] MEDS: MAGNESIUM OXIDE 400 MG TAB PO SCH (08:12)
[2019-11-07] MEDS: PANTOprazole 40 MG TAB PO SCH (08:12)
[2019-11-07] MEDS: SERTRALINE HCL 50 MG TABLET PO SCH (08:12)
[2019-11-07] MEDS: INSULIN GLARGINE SOLOSTAR 100 UNITS/ML 3 ML PEN SC SCH (08:18)
[2019-11-07] MEDS: HEPARIN SOD 5,000 UNIT/0.5 ML VIAL SQ SCH ×2 (08:18→20:46)
[2019-11-07] MEDS: INSULIN ASPART 100 UNITS/ML 3 ML PEN SC SCH ×4 (08:24→20:48)
--- NOTE | 2019-11-07 08:29 | Hospitalist Progress Note ---
Date of Service November 07, 2019 Assessment & Plan (1) Status post endoscopic retrograde cholangiopancreatography: (2) S/P laparoscopic cholecystectomy: (3) Cholangitis: Sepsis with leukocytosis secondary Cholangitis with Choledocholithiasis Metabolic encephalopathy status post ERCP and Laparoscopic cholecystectomy with lysis of adhesions on this hospital stay -leukocytosis of 20,00 on admission, admission CT suggesting choledocholithiasis in the presence of leukocytosis. 10/25/2019 ERCP found Choledocholithiasis and this was removed by gastronenterology team. -was initially started on empiric antibiotic Ertapenem -10/26/2019 Patient is not in distress. She denies acute pain or respiratory distress. She is a poor historian. She knows that she is from a senior living and reports that she walks with a walker at the senior living. However, she cannot describe her symptoms on prior to coming to hospital. She does not seem to understand that results of her ERCP yesterday. Gastroenterology service had recommended patient to have cholecystectomy with general surgery. General surgery Dr. Yovani Mendez discussed with her son and power of transactional attorney Geraldo, , about consent for cholecystectomy planned for Monday10/27/2019 -10/27/2019: status post by Dr. Mendez. -10/28/2019: her earlier admission blood cultures with no growth to date. however WBC counts remains elevated. is 16,000 on 10/28/2019. broaden antibiotics from Ertapenem to Zosyn q8 hours for now and repeat blood culture on 10/28/2019 -10/29/2019: WBC 13,500. Continue broad spectrum Zosyn for now. can consider switching antibiotics when WBC normalizes or depending on 10/28/2019 blood cultures -Patient lives at [facility]. PT recommending SNF/rehab prior to return. continue PT/OT evaluations -prn nebulizers if wheezing Chronic kidney disease stage IV -her admission creatinine labs reviewed and does not reflect acute renal failure as her creatinine of 1.6 consistent with numbers in the past with creatinine clearance slightly under 30. she was given IV fluids on this admission with HCTZ held. she did get 1 dose of Lasix on 10/27/2019 evening when she was wheezing and also nebulizer treatment. also As per nurse on 10/28/2019 AM that patient had episode of shortness of breath overnight and patient was given Lasix. -creatinine on 10/29/2019 remains stable as 1.6 Hypokalemia, Hypomagnesemia Hyponatremia is ruled out -serum sodium as 135 is not consistent with a hyponatremia. 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 titrate up as needed based on patient's hospital blood sugars. DVT prophylaxis: SCDs CODE STATUS: DNR/DNI Patient lives at [facility]. PT recommending SNF/rehab prior to return Rec from ID at [facility]-Switch to Zosyn, CT C/Abd/Pelvis, but Cr elevated, to look for infection source, recheck cdt, can't do WBC scans here ROS-No Headache, No Visual Changes, No Nausea, No Vomiting, No Fever, No Chills, No Neck Pain or Stiffness, No Chest Pain, No Palpitations, No SOB, No RAYGOZA, No Cough, No Sputum, No Wheezing, No Abdominal Pain, No Diarrhea, No Hematemesis, No Hemoptysis, No Unexpected Weight Loss, No Flank pain, No Melena, No Hematochezia, No Frequency, No Urgency, No Burning, No Hematuria, No Rashes, No Diaphoresis. Appetite is Normal Physical Exam Gen-AAO x 3, NAD, Afebrile Head-NCAT, EOMI, PERRLA, Anicteric Sclera, No Posterior Pharyngeal Erythema Neck-Supple, No JVD, No Thyromegaly, No Masses, No LAD, No Bruits Lungs-Clear to Auscultation Bilaterally, No Rales, No Rhonchi, No Wheezing, No Crepitus Chest-No S4, +S1, +S2, No S3, No Murmurs, No Rubs, No Gallops, No Ectopy Abdomen-Soft, Bowel Sounds Present, Non Tender, Non Distended, No Hepatomegaly, No Splenomegaly, No Palpable Masses, No Rebound, No Rigidity, No Guarding Musculoskeletal-Full Range of Motion Bilaterally, No CVAT Extremities-No Cyanosis, No Clubbing, No Edema Nuero-Cranial Nerves II-XII grossly intact, Motor WNL, DTRs WNL, Strength WNL, Non Focal Psych-Normal Mood Admission and Anticipated Discharge Date Admission Date: October 25, 2019 Results & Data Results & Data ([facility]) Vital Signs (Past 12 Hours) Vital Signs Temp Pulse Resp BP Pulse Ox 11/07/19 07:16 36.9 C 74 20 133/69 91 11/06/19 23:15 37.3 C 73 16 146/60 H 91
--- NOTE | 2019-11-07 11:29 | Pharmacy Report ---
Pharmacy Glycemic Short Note 2 - Date of Service November 07, 2019 - Glycemic Short BSG Results (Last 24 hours): 11/06/19 11/06/19 11/06/19 12:08 16:57 20:58 POC Glucose 151 H 108 H 232 H 11/07/19 08:16 POC Glucose 146 H OUTPATIENT ANTIDIABETIC REGIMEN: * Insulin glargine 30 units HS * Trulicity 0.75 mg sq weekly * A1c 7.5% on 10/26/2019 ASSESSMENT: 11/05 * 38 units administered over last 24 hrs however only appreciable carbs consumed where with breakfast * Fasting BSG 146 this AM w/ 28 units basal on board - still slightly elevated however may improve w/ repeat Lantus dosing as steady-state not achieved * Post-prandial BSGs controlled 2 of 3 yesterday with current Novolog doses - however HS elevation could have been due to uncovered cabs with dinner yesterday. Will not react at this time - but will follow BSG pattern 11/04 * 39 units administered over last 24 hrs while tolerating a diet * BSGs have fallen within the range of 123-180 - indicating good control * Fasting BSG elevated again this AM at 167, therefore will up titrate basal today * Post-prandial BSGs well controlled with current Novolog parameters - no change 11/03 * Over the last 24 hrs, 30 units of insulin have been administer however this patient was mostly NPO for much of this * Fasting BSG 148 this AM with 24 units basal on board - close to goal, there may be room to titrate upwards slightly - will reassess tomorrow * Novolog doses appear to be performing well for the most part, some post- prandial hyperglycemic episode in prior days when eating - will adjust carb ratio 11/02 * Patient received total of 40 units of insulin yesterday, of which 24 were basal insulin * Fasting BSG elevated at 208 - patient NPO for ERCP / plan to give full basal this AM. Anticipate diet resuming, however will adjust Lantus for HS dosing if BSGs trending down PLAN FOR INPATIENT GLYCEMIC CONTROL: * Hold outpatient oral diabetes medications * Basal insulin - no change * Lantus 14 units SQ BID * Bolus insulin - no change * NovoLog per scale ACHS or Q6hrs while NPO * Goal Range: Low 110 mg/dL - High 140 mg/dL * Correction Factor: 25 mg/dL/unit * Nutritional / Prandial insulin per carb ratio of 1 unit per 8 grams CHO consumed
[2019-11-07] MEDS ORDERED: INSULIN GLARGINE SOLOSTAR 100 UNITS/ML 3 ML PEN SC ONE (21:00)
[2019-11-08] MEDS: PIPERACILLIN/TAZOBACTAM 3.375 GM in DEXTROSE 5% 100 ML IV SCH ×2 (03:56→11:38)
[2019-11-08 06:26] LABS: Hematocrit (blood only) 29.1 % (37-47); Hemoglobin 9.5 g/dL (12.0-16.0); Mean Corpuscular Hemoglobin 29.9 pg (25-34); Mean Corpuscular Hgb Conc 32.6 g/dL (32-36); Mean Corpuscular Volume 91.5 fL (80-100); Mean Platelet Volume 10.4 fL (7.4-10.4); Platelet Count 642 K/uL (130-400); RDW Coefficient of Variation 15.4 % (11.5-14.5); RDW Standard Deviation 51.7 fL (36.4-46.3); Red Blood Count 3.18 M/uL (4.2-5.4); White Blood Count 11.31 K/uL (4.8-10.8)
[2019-11-08 07:00] LABS: BUN Creatinine Ratio 11.5 (10-20); Calcium 8.8 mg/dl (8.5-10.1); Creatinine Clr Calc Pharmacy 19.1 ml/min; Est GFR (African American) 27.2; Est GFR (Non-African American) 23.5; Potassium 3.6 mmol/L (3.5-5.1)
[2019-11-08] MEDS ORDERED: INSULIN GLARGINE SOLOSTAR 100 UNITS/ML 3 ML PEN SC SCH (09:00)
--- NOTE | 2019-11-08 09:19 | Discharge Summary ---
Date of Service November 08, 2019 Admission HPI Per Admitting Provider 84-year-old female with past medical history of CKD stage III ,type 2 diabetes, hypertension, hyperlipidemia ,interstitial lung disease history of colon cancer status post right hemicolectomy in 2014, [facility] was found to be confused, disoriented Patient had multiple loose watery bowel movements in ER Stool C. difficile negative, Lab showed: marked leukocytosis with white count of 20K, normal LFT, alkaline phosphatase mildly elevated 160, and acute renal failure creatinine 1.6 COVID-[address] abdomen pelvis shows significantly distended gallbladder with sludge, large hyperdense filling defect in the dilated common bile duct, right upper quadrant ultrasound shows positive stone and sludge within the gallbladder lumen, and distended CBD duct at 1 cm along with choledocholithiasis with a combination of sludge and gallstone within the proximal common biliary tract GI evaluation requested, patient was seen by [facility] team in the ER, Underwent ERCP today Admission Exam Per Admitting Provider Constitutional: WD/WN, vitals as above + ill appearing Eyes: + anicteric sclerae ENMT: Dry oral mucous membrane Neck: trachea midline, no thyromegaly Respiratory: normal respiratory effort; no respiratory distress and no cough Auscultation: lungs clear to auscultation bilaterally; no wheezes Cardiovascular: RRR, no murmur, no edema Gastrointestinal (Abdomen): Percussion/Palpation: abdomen soft Epigastric and right upper quadrant tenderness Musculoskeletal: Generalized weakness Skin: no rashes, warm and dry Neurologic: PERRL, EOMI, accommodation nl, no face palsy, no dysarthria Psychiatric: Orientation: alert Confused, oriented to person only Principal Diagnosis Status post endoscopic retrograde cholangiopancreatography: S/P laparoscopic cholecystectomy: Cholangitis: Sepsis with leukocytosis secondary Cholangitis with Choledocholithiasis Metabolic encephalopathy Chronic kidney disease stage IV Hypokalemia, Hypomagnesemia Hyponatremia is ruled out Hypertension Type 2 diabetes with intermission coordinator current use of insulin Discharge Exam See Below Discharge Data Allergies Allergy/AdvReac Type Severity Reaction Status Date / Time Chpgate-Aqt-Qdh Reductase AdvReac Mild leg Verified 10/25/19 09:19 Inhibitor cramping Consultations 10/25/19 12:08 ED Decision to Admit Stat 10/25/19 13:19 Consult Gastroenterology Routine 10/25/19 13:21 Consult Gastroenterology Stat 10/25/19 13:24 Consult General Surgery Routine 10/25/19 13:26 Consult Case Management - Discharge Planning Routine 11/02/19 10:33 Consult Gastroenterology Routine 11/03/19 15:36 Consult Infectious Diseases Routine Procedures Performed Operation Date: 10/25/19 13:50 Actual Procedures p Endoscopic Retrograde Cholangiopancreatogram(Not Applicable) - Marcia Mesa MD Operation Date: 10/27/19 07:30 Actual Procedures p Laparoscopic Cholecystectomy(Not Applicable) - Yovani Mendez MD, FACS Operation Date: 11/03/19 12:00 Actual Procedures p Endoscopic Retrograde Cholangiopancreatography(Not Applicable) - Marcia Mesa MD Ordered Studies 10/25/19 08:58 CT head/brain wo con Stat 10/25/19 09:00 US venous doppler LE LT Stat 10/25/19 11:49 CT abd pelvis wo con Stat 10/25/19 12:37 US gallbladder Stat 10/25/19 17:00 FL ERCP biliary ductal Routine 11/01/19 14:27 CT abd pelvis wo con Routine 11/03/19 07:00 FL ERCP biliary ductal Routine 11/04/19 14:00 US venous doppler LE RT Routine 11/06/19 09:00 CT abd pelvis wo con Routine CT chest wo con Routine Current Diagnoses Other cholangitis (10/25/19) Encounter for other preprocedural examination (10/25/19) Acquired absence of other specified parts of digestive tract (10/25/19) Other specified postprocedural states (10/25/19) Allergies Ovzmvfv-Xjv-Vny Reductase Inhibitor Adverse Reaction (Mild, Verified 10/25/19 09:19) leg cramping Height/Weight/Isolation Height 5 ft 4 in Weight 58.7 kg Isolation Type Contact Precautions Chemistry 11/08/19 06:07 Sodium 135 L Potassium 3.6 Chloride 100 Carbon Dioxide 24 Anion Gap 11.0 BUN 22 H Creatinine 1.93 H Glucose 139 H Hospital Course (1) Status post endoscopic retrograde cholangiopancreatography: (2) S/P laparoscopic cholecystectomy: (3) Cholangitis: Sepsis with leukocytosis secondary Cholangitis with Choledocholithiasis Metabolic encephalopathy status post ERCP and Laparoscopic cholecystectomy with lysis of adhesions on this hospital stay -leukocytosis of 20,00 on admission, admission CT suggesting choledocholithiasis in the presence of leukocytosis. 10/25/2019 ERCP found Choledocholithiasis and this was removed by gastronenterology team. -was initially started on empiric antibiotic Ertapenem -10/26/2019 Patient is not in distress. She denies acute pain or respiratory dist ress. She is a poor historian. She knows that she is from a group home and reports that she walks with a walker at the group home. However, she cannot describe her symptoms on prior to coming to hospital. She does not seem to understand that results of her ERCP yesterday. Gastroenterology service had recommended patient to have cholecystectomy with general surgery. General surgery Dr. Yovani Mendez discussed with her son and power of research fellow Geraldo, , about consent for cholecystectomy planned for Monday10/27/2019 -10/27/2019: status post by Dr. Mendez. -10/28/2019: her earlier admission blood cultures with no growth to date. however WBC counts remains elevated. is 16,000 on 10/28/2019. broaden antibiotics from Ertapenem to Zosyn q8 hours for now and repeat blood culture on 10/28/2019 -10/29/2019: WBC 13,500. Continue broad spectrum Zosyn for now. can consider switching antibiotics when WBC normalizes or depending on 10/28/2019 blood cultures -Patient lives at [facility]. PT recommending SNF/rehab prior to return. continue PT/OT evaluations -prn nebulizers if wheezing Chronic kidney disease stage IV -her admission creatinine labs reviewed and does not reflect acute renal failure as her creatinine of 1.6 consistent with numbers in the past with creatinine clearance slightly under 30. she was given IV fluids on this admission with HCTZ held. she did get 1 dose of Lasix on 10/27/2019 evening when she was wheezing and also nebulizer treatment. also As per nurse on 10/28/2019 AM that patient had episode of shortness of breath overnight and patient was given Lasix. -creatinine on 10/29/2019 remains stable as 1.6 Hypokalemia, Hypomagnesemia Hyponatremia is ruled out -serum sodium as 135 is not consistent with a hyponatremia. her recent serum sodium levels are generally normal -serum potassium is 3 and serum magnesium is 1.7 on 10/26/2019 and IV and oral potassium and magnesium supplements given; additional potassium given on 10/27/2019 -10/29/2019 current serum electrolytes at goal Hypertension -continue home dose atenolol -prn IV hydralazine -resumed home dose HCTZ 12.5 mg every Monday/Mon/Monday on this admission Type 2 diabetes with intermission coordinator current use of insulin -Insulin sliding scale for now based on blood sugar glucose -Lantus 10 units BID for now (home dose Lantus is reported to be 30 units qhs). titrate up as needed based on patient's hospital blood sugars. DVT prophylaxis: SCDs CODE STATUS: DNR/DNI Patient lives at [facility]. PT recommending SNF/rehab prior to return Rec from ID at [facility]-Switch to Zosyn, CT C/Abd/Pelvis, but Cr elevated, to look for infection source, recheck cdt, can't do WBC scans here, On 11/07 WBCs down to 11, DC on Augmentin x 7 Days ROS-No Headache, No Visual Changes, No Nausea, No Vomiting, No Fever, No Chills, No Neck Pain or Stiffness, No Chest Pain, No Palpitations, No SOB, No RAYGOZA, No Cough, No Sputum, No Wheezing, No Abdominal Pain, No Diarrhea, No Hematemesis, No Hemoptysis, No Unexpected Weight Loss, No Flank pain, No Melena, No Hematochezia, No Frequency, No Urgency, No Burning, No Hematuria, No Rashes, No Diaphoresis. Appetite is Normal Physical Exam Gen-AAO x 3, NAD, Afebrile Head-NCAT, EOMI, PERRLA, Anicteric Sclera, No Posterior Pharyngeal Erythema Neck-Supple, No JVD, No Thyromegaly, No Masses, No LAD, No Bruits Lungs-Clear to Auscultation Bilaterally, No Rales, No Rhonchi, No Wheezing, No Crepitus Chest-No S4, +S1, +S2, No S3, No Murmurs, No Rubs, No Gallops, No Ectopy Abdomen-Soft, Bowel Sounds Present, Non Tender, Non Distended, No Hepatomegaly, No Splenomegaly, No Palpable Masses, No Rebound, No Rigidity, No Guarding Musculoskeletal-Full Range of Motion Bilaterally, No CVAT Extremities-No Cyanosis, No Clubbing, No Edema Nuero-Cranial Nerves II-XII grossly intact, Motor WNL, DTRs WNL, Strength WNL, Non Focal Psych-Normal Mood Total Time Total Time Spent Total Time Spent (In Minutes): 45 mins Total Time Includes: Examination of the Patient, Discharge Planning, Medication Reconciliation and Communication With Other Providers Discharge Plan Discharge Items Patient Disposition: Transfer Custodial Fac Reason For Visit: DIARRHEA,ABDOMINAL PAIN,SEPSIS Discharge Diagnosis: Sepsis with leukocytosis secondary Cholangitis with Choledocholithiasis Metabolic encephalopathy Chronic kidney disease stage IV Hypokalemia, Hypomagnesemia Hypertension Type 2 diabetes with group home current use of insulin Condition on Discharge: Good Activity: Per Instructions section Activity Comment: light activity for 3 weeks Lifting: No more than 10 pounds Bathing Comment: may shower Exercise/Sports: Wait until after follow-up appointment Weightbearing: Full weightbearing Non-emergency contact: Primary Care Provider Call non-emergency contact if: you have any medication questions, your symptoms worsen, your pain is not controlled, your pain is worsening, your pain is unusual for you, you have a fever, your temperature is above 101.5, your wound has increased redness and your wound has increased drainage Follow-up/Referrals: Yovani Mendez MD, FACS [Physician] - [employer] [Primary Care Provider] - Diet: Regular Addtl Attending Provider Instructions: SPECIAL CARE INSTRUCTIONS: * Cover incisions and change daily for comfort/drainage. * May use ibuprofen for pain as tolerated. * Expect some swelling and bruising. Call your doctor if: * Temperature above 101 degrees * Pain not relieved by pain medicine ordered * There is increased drainage or redness from any incision * You have any unanswered questions or concerns [phone]. FOLLOW UP VISIT: If not already scheduled, please call the office for a follow-up visit. OFFICE PHONE NUMBER: Dr. Mendez Office Pending Studies at Discharge: No Stand-Alone Forms: My [facility] Skilled Items Patient informed of condition?: Yes DNR: Yes Discharge Level of Care: Skilled Communicable Disease: Yes Discharge Prognosis: Improving Lines: None Urinary Catheter: No Medications and DC Order Prescriptions: New amlodipine [Norvasc] 5 mg Tablet 5 mg PO QAM Qty: 30 RF: 0 Lactobacillus acidoph-L.bulgar [Floranex] 1 million cell Tablet 4 tab PO TIDM Qty: 30 RF: 0 amoxicillin-pot clavulanate [Augmentin] 875-125 mg tablet 1 tab PO Q12H Qty: 14 RF: 0 Continued Vitamin B-12 50 mcg Tablet 50 mcg PO DAILY RF: 0 cholecalciferol (vitamin D3) [Vitamin D3] 1,000 unit Capsule 1,000 unit PO DAILY RF: 0 hydrochlorothiazide 12.5 mg Tablet 12.5 mg PO MOWEFR RF: 0 atenolol 25 mg tablet 12.5 mg PO PM RF: 0 sertraline 25 mg tablet 25 mg PO HS RF: 0 Trulicity 0.75 mg/0.5 mL pen injector 0.75 mg SUBCUT WK RF: 0 acetaminophen [Mapap (acetaminophen)] 325 mg Tablet 650 mg PO Q6H PRN (Reason: mild pain (scale score 1-4)) Qty: 30 RF: 0 pantoprazole 40 mg tablet,delayed release (DR/EC) 40 mg PO QAM RF: 0 docusate sodium 100 mg Capsule 100 mg PO BID RF: 0 polyethylene glycol 3350 [Miralax] 17 gram/dose Powder 17 g PO DAILY PRN (Reason: Constipation) RF: 0 Therems-M 27-0.4 mg Tablet 1 tab PO DAILY RF: 0 Basaglar KwikPen U-100 Insulin 100 unit/mL (3 mL) insulin pen 30 unit SUBCUT HS RF: 0 tramadol 50 mg tablet 25 mg PO Q12H PRN (Reason: pain) RF: 0 Discontinued (DME) OneTouch Ultra Blue Test Strip Strip See Rx Instructions .ROUTE .MEDSUPPLY Qty: 100 RF: 3 nitrofurantoin monohyd/m-cryst 100 mg capsule 100 mg PO BID RF: 0 Discharge Orders: Discharge Order (Routine); Ordered 11/08/19 Ordered By: Bebeto Goff/Other Patient Handouts: High Blood Sugar (Hyperglycemia), Hypoglycemia (Low Blood Sugar), Managing Type 2 Diabetes Admission Data Admit Date/Time: 10/25/19 13:19 Attending Provider: Bebeto Richardson Admit Provider: Brandee Sun Primary Care Provider: Solis Esteves,[facility] Other Providers: Marcia Mesa ; Nichole Pollack ; [facility] [place] ; Bebeto Navarro ; Brandee Sun ; Marguerite Zimmerman ; Fernanda Davis ; Elana Zheng ; Dacia Kline ; Herb Moraes ; Kenneth Ramirez ; Jessica Segal ; Kaitlynn Payne ; Hao Dodson ; Gene Brambila ; Layla Fraser ; Mariza Espinosa ; Joanne Lombardi ; Gerri Krishna ; Terrance Nieves ; Mary Camacho ; Kathleen Ramirez ; Guerrero Fonseca ; Houston Miranda ; Lennie Damon ; Dane Lowe ; Fernanda Issa ; Yovani Gregg Jr ; Zachariah Hazel ; Gerri Son ; Rashawn Haywood ; Ross Juan ; Shun Ross I. ; Luís Harvey II ; Tanya Keita ; Terrance Bryan
[2019-11-08] MEDS: CYANOCOBALAMIN (VITAMIN B-12) 100 MCG TABLET PO SCH (09:26)
[2019-11-08] MEDS: HEPARIN SOD 5,000 UNIT/0.5 ML VIAL SQ SCH (09:27)
[2019-11-08] MEDS: ATENOLOL 25 MG TABLET PO SCH (09:27)
[2019-11-08] MEDS: amLODIPine BESYLATE 5 MG TAB PO SCH (09:27)
[2019-11-08] MEDS: PANTOprazole 40 MG TAB PO SCH (09:27)
[2019-11-08] MEDS: LACTOBACILLUS ACIDOPHILUS (FLORANEX) TAB PO SCH ×2 (09:28→11:38)
[2019-11-08] MEDS: CHOLECALCIFEROL 1,000 UNITS 25 MCG TAB PO SCH (09:28)
[2019-11-08] MEDS: SERTRALINE HCL 50 MG TABLET PO SCH (09:28)
[2019-11-08] MEDS: MAGNESIUM OXIDE 400 MG TAB PO SCH (09:28)
[2019-11-08] MEDS: INSULIN ASPART 100 UNITS/ML 3 ML PEN SC SCH ×2 (09:30→13:51)
[2019-11-09] MEDS ORDERED: PIPERACILLIN/TAZOBACTAM 3.375 GM in DEXTROSE 5% 100 ML IV SCH
== END 2019-11-08 17:09 | DRG 853 ==
LOC: ED 08:07 → SUATTDRO 13:19 → 2E 13:19 → 3W 11-05 16:32

== ENCOUNTER 2019-12-10 17:11 | Observation (INO) ==
[2019-12-10] MEDS ORDERED: SODIUM CHLORIDE 0.9% 1000ML 500 ML IV ONE (18:28)
[2019-12-10] MEDS ORDERED: PIPERACILLIN/TAZOBACTAM 4.5 GM/120 ML BAG IV ONE (18:34)
[2019-12-10] MEDS ORDERED: PIPERACILL/TAZOBAC CONSULT ACTIVE PRN (18:34)
[2019-12-10 18:39] LABS: Calcium 8.7 mg/dl (8.5-10.1); Chloride 106 mmol/L (98-107); Potassium 3.7 mmol/L (3.5-5.1); Sodium 138 mmol/L (136-145)
[2019-12-10 18:43] LABS: Alanine Aminotransferase 24 U/L (12-78); Albumin Level 2.3 gm/dl (3.4-5.0); Aspartate Aminotransferase 20 U/L (15-37); BUN Creatinine Ratio 16.7 (10-20); Blood Urea Nitrogen 28 mg/dl (7-18); Carbon Dioxide 21 mmol/L (21-32); Creatinine Clr Calc Pharmacy 23.1 ml/min; Est GFR (African American) 32.7; Est GFR (Non-African American) 28.2; Glucose 168 mg/dl (70-99)
[2019-12-10 18:46] LABS: Albumin Globulin Ratio 0.5 (0.9-2); Alkaline Phosphatase 112 U/L (45-117); Bilirubin,Total 0.5 mg/dl (0.2-1); Globulin 4.6 gm/dl (2.5-4.0); Magnesium 1.5 mg/dl (1.8-2.4); Total Protein 6.9 gm/dl (6.4-8.2)
[2019-12-10 18:48] LABS: Basophils # (auto) 0.04 K/uL (0-0.2); Basophils % (auto) 0.1 %; Eosinophils # (auto) 0.06 K/uL (0-0.5); Eosinophils % (auto) 0.2 %; Immature Granulocytes # (auto) 0.38 K/uL (0.00-0.02); Immature Granulocytes % (auto) 1.1 %; Lymphocytes # (auto) 0.57 K/uL (1.2-3.4); Lymphocytes % (auto) 1.6 %; Mean Corpuscular Hemoglobin 28.3 pg (25-34); Mean Corpuscular Hgb Conc 32.3 g/dL (32-36); Mean Corpuscular Volume 87.8 fL (80-100); Mean Platelet Volume 9.6 fL (7.4-10.4); Monocytes % (auto) 3.3 %; Neutrophils # (auto) 33.71 K/uL (1.4-6.5); Neutrophils % (auto) 93.7 %; Platelet Count 562 K/uL (130-400); RDW Coefficient of Variation 15.9 % (11.5-14.5); RDW Standard Deviation 51.2 fL (36.4-46.3); Red Blood Count 3.53 M/uL (4.2-5.4); White Blood Count 35.96 K/uL (4.8-10.8)
[2019-12-10 18:56] LABS: INR 1.1 (0.9-1.1); Partial Thromboplastin Ratio 1.3; Prothrombin Time 11.4 Seconds (9.0-12.0)
[2019-12-10 19:05] LABS: Troponin I < 0.015 ng/ml (0-0.045)
[2019-12-10 19:19] LABS: Appearance Urine Clear (Clear); Bacteria Urine Automated Negative (Negative); Bilirubin Urine Negative (Negative); Blood Urine Negative (Negative); Color Urine Dark Yellow; Epithelial Cell Urine Auto 20-30 /lpf (0-5); Glucose Urine UA Negative (Negative); Ketones Urine Negative (Negative); Leukocyte Esterase Urine Negative (Negative); Nitrite Urine Negative (Negative); Protein Urine 1+ (Negative); RBC Urine Automated 0-4 /hpf (0-4); Specific Gravity Urine 1.016 (1.000-1.030); Urobilinogen Urine Negative (Negative)
[2019-12-10] MEDS ORDERED: DiphenhydrAMINE HCL 50 MG/ML VIAL IV STA (19:46)
[2019-12-10] MEDS ORDERED: FAMOTIDINE 20 MG in SYRINGE 3 ML IV STA (19:47)
[2019-12-10] MEDS ORDERED: methylPREDNISolone 60 MG in SYRINGE 1 ML IV STA (19:47)
[2019-12-10] MEDS ORDERED: FAMOTIDINE 20MG/5ML IV PUSH IV ONE (19:51)
[2019-12-10] MEDS ORDERED: methylPREDNISolone 125 MG/2 ML VIAL ONE (19:51)
--- NOTE | 2019-12-10 19:51 | CT Scan Report ---
CT chest wo con CLINICAL HISTORY: aspiration, hypoxia COMPARISON STUDY: CT scan dated 11/06/2019 CT DOSE: 220.26 mGy.cm TECHNIQUE: CT of the thorax was performed from the thoracic inlet to the lung bases. Images are revi ewed in the axial, sagittal, and coronal planes. IV contrast was not administered for this examinatio n. A dose lowering technique was utilized adhering to the principles of ALARA. FINDINGS: Thyroid: There is a suspected 14 mm left lobe thyroid nodule similar to the prior study. There is a r ing calcification within the right lobe the thyroid measuring 7 mm. Thoracic aorta: The thoracic aorta is normal in course and caliber, noting standard 3 vessel arch munir kiera. Heart: The heart is normal in size. There are coronary artery calcifications. There is trace pericard ial fluid. Lungs and pleural spaces: There is a nonsolid 15 mm left apical nodule, similar to the preceding stud y. There is respiratory motion artifact. There is a stable subpleural 7 mm nodule. There are no areas of parenchymal consolidation suspicious for pneumonia. There is a stable area of subtle architectura l distortion within the right upper lobe, similar to the preceding study. There is a stable 4 mm radha d nodule in the superior segment of the right lower lobe. Mediastinum: There is a minimally enlarged subcarinal lymph node, similar to the prior study Adele: There is no evidence of pathologic hilar adenopathy given the limitations of a noncontrast stud y Axilla: There is known to pathologic axillary lymphadenopathy Upper abdomen: There is pneumobilia. Skeletal structures: There are no lytic or blastic osseous lesions. IMPRESSION: 1. Stable solid and groundglass pulmonary nodules. 2. Stable mild mediastinal lymphadenopathy 3. No acute parenchymal consolidation 4. 12 month follow-up is recommended. ACT 112: Negative or not required by law. Electronically signed by: Frederic Landers M.D. 12/10/2019 7:49 PM
[2019-12-10] MEDS ORDERED: MAGNESIUM SULFATE / D5W 1 GM/100 ML BAG IV STA (20:08)
--- NOTE | 2019-12-10 20:08 | XRay Report ---
XR chest 1V portable CLINICAL HISTORY: SEPSIS COMPARISON STUDY: 10/28/2019 FINDINGS: The heart is normal in size. There is stable mild interstitial thickening. There is no foca l pulmonary consolidation. There are no significant pleural effusions.[ IMPRESSION: 1. Stable mild interstitial thickening/edema 2. No acute findings. ACT 112: Negative or not required by law. Electronically signed by: Frederic Landers M.D. 12/10/2019 8:06 PM
[2019-12-10] MEDS ORDERED: MoRPHine SULFATE 2 MG/ML CARP IV STA (22:47)
[2019-12-10] MEDS ORDERED: ALBUTEROL 0.5% NEB SOLN 2.5 MG/0.5 ML VIAL NEB STA (22:47)
--- NOTE | 2019-12-11 00:32 | History and Physical Report ---
DATE OF ADMISSION: 12/10/2019 CHIEF COMPLAINT: Fever. HISTORY OF PRESENT ILLNESS: This is an 84-year-old female with past medical history significant for type 2 diabetes, COPD, hypertension, chronic kidney disease stage 3, cognitive deficits, lumbar spinal stenosis, gait instability, history of colon cancer, status post right hemicolectomy in 2014. As per the ER, she had an episode of emesis hypoxia and fever, question of aspiration. Her CT chest was okay. Currently hemodynamically stable. Her white count is 35k. CAT scan showing stable solid and ground-glass pulmonary nodules, 15 mm left apical nodule similar to the preceding study, a subpleural 7 mm nodule, stable 4 mm solid nodule in the superior segment of the right lower lobe, stable mild mediastinal lymphadenopathy, no acute parenchymal consolidation. 12-month followup is recommended. The patient's white count is 35.96, seems to be it has been elevated in the past, but it is more than prior. She is on Macrobid for UTI. Creatinine 1.6, seems at baseline. Lactate is normal at 0.9, magnesium is 1.5. Procalcitonin is elevated at 3.94. COVID test done in the ER is negative. The patient is somewhat sleepy, hard of hearing, but able to answer appropriately. Patient is alert to name and place, knows her date of , but could not tell current month. She says she lives alone. No family in the town. Ambulates without any support. For me she denies any nausea and vomiting. She says she passed out yesterday. Denies any headache. Denies any earache, no runny nose, no sore throat, no cough, no shortness of breath, no chest pain, no nausea, no vomiting, no abdominal pain. States she is eating okay. Denies any diarrhea or constipation. Normal bladder movements. Currently hemodynamically stable, saturating fine on room air. She was in hospital In October at that time she had sepsis secondary to cholangitis with choledocholithiasis with metabolic encephalopathy. Was status post laparoscopic cholecystectomy, status post ERCP at that time. She is a an [facility] resident.She is a poor historian. ALLERGIES: STATINS, [employer] INH[employer]. PAST MEDICAL HISTORY: As mentioned above. PAST SURGICAL HISTORY: Laparoscopic cholecystectomy, ERCP, cataract, choledocholithiasis, partial colectomy with anastomosis, adenoidectomy, tonsillectomy, total abdominal hysterectomy with removal of tubes. MEDICATIONS: The patient is on Tylenol 650 mg p.o. q. 6 hours p.r.n., amlodipine 5 mg p.o. a.m., atenolol 12.5 mg p.m., Basaglar insulin 30 units subcutaneous at bedtime, vitamin D 1000 units p.o. daily, vitamin B12 50 mcg p.o. daily, Colace 100 mg p.o. b.i.d., ferrous sulfate 325 mg p.o. b.i.d., hydrochlorothiazide 12.5 mg p.o. 3 times a week, nitrofurantoin 100 mg p.o. b.i.d., Protonix 40 mg p.o. daily, MiraLax 17 g p.o. daily p.r.n., sertraline 12.5 mg at bedtime, Therems-M 1 tablet p.o. daily, Trulicity 0.75 mg subcutaneous weekly. FAMILY HISTORY: Significant for diabetes, lung cancer and stroke. SOCIAL HISTORY: Single, quit smoking in 2019. No alcohol use, no drug use. REVIEW OF SYMPTOMS: As per HPI. Rest of review of symptoms negative. PHYSICAL EXAMINATION: GENERAL: The patient is old and frail, seems somewhat sleepy, hard of hearing. VITAL SIGNS: Temperature 37.5, pulse 88, respiratory rate 22, blood pressure 124/68, oxygen 94% room air. HEENT: No pallor, no icterus. Pupils equal, round, reactive to light. Oral mucosa dry. NECK: No neck masses seen. CARDIOVASCULAR: S1, S2 heard, regular rate and rhythm, no murmur, no gallop. RESPIRATORY SYSTEM: Normal AP diameter. No accessory muscle use. No wheezing, no crackles. ABDOMEN: Soft, bowel sounds present, nontender. No distention. CENTRAL NERVOUS SYSTEM: She is alert and oriented to name and place, can tell her date of , obeys simple commands. Moves extremities. No facial droop. Speech is clear. EXTREMITIES: Lower extremity edema present, no erythema seen. LABORATORY DATA: WBC 35.9, hemoglobin 10, hematocrit 31, platelets 562. PT 11.4, INR 1.1, APTT 35. Sodium 138, potassium 3.7, chloride 106, CO2 of 21, BUN 28, creatinine 1.66, serum glucose 168, lactate 0.9, calcium 8.7, magnesium 1.5, total bilirubin 0.5, AST 20, ALT 24, alkaline phosphatase 112. Troponin I less than 0.015. Procalcitonin 3.9. Urinalysis negative. COVID-19 PCR negative. IMAGING: CT of the chest, stable solid and ground-glass pulmonary nodules, 15 mm left apical nodule, stable subpleural 7 mm nodule, 4 mm solid nodule in the superior segment of the right lower lobe, stable mild mediastinal lymphadenopathy, no acute parenchymal consolidation, 12-month followup recommended. Chest x-ray, no acute findings. EKG: Sinus tachycardia at a rate of 102. No significant change was found. ASSESSMENT AND PLAN: This is an 84-year-old female who presents with questionable emesis and hypoxia and fever. She was found to have hives in the ER with possible allergic reaction to MACROBID,Imaging studies sgowing stable solid nodules on the chest with mild lymphadenopathy and patient says she had episode of syncope and also found to have elevated leukocytosis. 1. Allergic reaction, could be from Macrobid, received Benadryl and Solu-Medrol in the ER. Currently, seems to be stable. Question of fever and hypoxia. Chest x-rayand CT chest looks fine. Saturating okay in the ER. A COVID-19 PCR test is negative. Was on Macrobid for UTI recently. ER added Zosyn, which we will continue. 2. Leukocytosis. Her white count has been elevated seems for sometime, on recent admission, she had a sepsis from cholangitis, could be leukemoid reaction, but her white count was fine yesterday. It suddenly went up from 13.3 yesterday to today 35.9, possible leukemoid reaction, possible ongoing infectious process, underlying rule out any malignancy. Currently getting Zosyn. IV fluids.Follow the blood cultures, if concerning, will consult Heme/Onc.Also ordered ct abd/pelvis as recently had cholecystectomy. 3. Chronic kidney disease stage III to IV, present creatinine 1.6, looks at baseline. We will follow the labs. 4. Hypomagnesemia, will replace. 5. Anemia of chronic kidney disease. Hemoglobin seems stable. We will follow the labs. 6. Diabetes. Continue home Lantus and insulin sliding scale. Follow the blood sugars. 7. Hypertension. Continue amlodipine, atenolol with holding parameters, hydrochlorothiazide with holding parameters. 8. Gastroesophageal reflux disease. Continue PPI. 9. Depression. Continue Zoloft. 10. Question of aspiration, the patient has emesis.Aspiration precautions 11. Deep venous thrombosis prophylaxis. Will be placed on Lovenox. 12. Code status. Was DNR/DNI on last admission, but per my discussion, she was okay for full code. 13. Disposition: Admit to med/tele. PT and OT prior to discharge. Expect discharge to [facility] when stable. addendum: Patinet later complained of sob. Ws saturating ok on nasal canula. tachycardia. Ordered nebs. D dimer was elevated. Ordered lower extremity Doppler and v/q scan empirically started on low dose iv heparin. MTDD
[2019-12-11 01:48] LABS: D Dimer 12090 ug/L FEU (0-500)
--- NOTE | 2019-12-11 02:12 | Emergency Department Note ---
History of Present Illness General Chief complaint: Fever Source: patient and RN notes reviewed Mode of arrival: EMS Limitations: no limitations History of Present Illness Provider complaint: Fever, rash This patient is an 84-year-old female who presents to the emergency department from custodial with complaints of fever, "dark liquid" from her mouth and hypoxia to mid 80s per report from custodial staff to EMS. Upon arrival to the emergency department, the patient is found to be oxygenating well on room air, and complains only of an itchy rash that began today. Patient denies any vomiting or diarrhea. Patient states she is diabetic. She denies any recent cough or shortness of breath. She denies any choking episodes. Of note the patient did begin Macrobid yesterday for UTI according to custodial records. Home Medications Home Medications Medication Instructions Recorded Confirmed Type cholecalciferol (vitamin D3) 1,000 unit PO DAILY 11/28/18 12/10/19 History [Vitamin D3] hydrochlorothiazide 12.5 mg PO 3XWK 11/28/18 12/10/19 History Trulicity 0.75 mg SUBCUT WK 07/10/19 12/10/19 History atenolol 12.5 mg PO QPM 07/10/19 12/10/19 History sertraline 25 mg PO HS 07/10/19 12/10/19 History Basaglar SandyikPen U-100 Insulin 30 unit SUBCUT HS 10/25/19 12/10/19 History Therems-M 1 tab PO DAILY 10/25/19 12/10/19 History docusate sodium 100 mg PO BID 10/25/19 12/10/19 History pantoprazole 40 mg PO QAM 10/25/19 12/10/19 History polyethylene glycol 3350 [Miralax] 17 g PO DAILY PRN 10/25/19 12/10/19 History amlodipine [Norvasc] 5 mg PO QAM #30 tab 11/08/19 12/10/19 Rx acetaminophen [Mapap 650 mg PO Q6H PRN MDD 3 GM APAP/12/10/19 12/10/19 History (acetaminophen)] HOUR cyanocobalamin (vitamin B-12) 50 mcg PO DAILY 12/10/19 12/10/19 History [Vitamin B-12] ferrous sulfate 325 mg PO BID 12/10/19 12/10/19 History nitrofurantoin monohyd/m-cryst 100 mg PO BID 12/10/19 12/10/19 History Allergies Allergy/AdvReac Type Severity Reaction Status Date / Time Naeldsf-Nvk-Hra Reductase AdvReac Mild leg Verified 12/10/19 18:41 Inhibitor cramping Past Med/Surg History Medical History Colon cancer Colonic mass GERD (gastroesophageal reflux disease) History of malignant neoplasm of colon HTN (hypertension) Hyperlipidemia Lumbar degenerative disc disease Type II diabetes mellitus Surgical History H/O right hemicolectomy H/O: hysterectomy History of cataract extraction History of tonsillectomy and adenoidectomy Family History Father Lung cancer Mother Stroke syndrome Hypertension Cancer Diabetes Sister Diabetes Social History Smoking Status: Never smoker Cigarettes Per Day: 3 packs; Hx Alcohol Use: No Hx Substance Use: No Preferred Language: Ivorian Communication Ability: Effective Visual Impairment: No Limitations Hearing Ability: Normal Electrophysiology Scientist Required: No Beliefs That Will Affect Care: None marital status: / Current Living Situation: Spouse current occupational status: retired Feels Safe at Home: Yes Assistive Devices: Walker Review of Systems See HPI for pertinent positives & negatives. and A total of 10 systems reviewed and were otherwise negative Physical Exam Vital Signs Vital Signs - 24 hr 12/10/19 17:20 12/10/19 17:28 12/10/19 17:35 Temperature 37 C Temperature Source Oral Pulse Rate 106 H 109 H 105 H Pulse Rate [Left Finger] Pulse Rate from SpO2 Sensor 106 H 105 H Pulse Rhythm Regular Pulse Strength Normal Respiratory Rate 24 16 24 Respiratory Effort / Characteristics Non-Labored Spontaneous Respiratory Depth Normal Respiratory Pattern Regular Blood Pressure 138/72 138/72 Blood Pressure [Right Arm] Blood Pressure Mean 109 94 Blood Pressure Mean [Right Arm] Blood Pressure Position Lying Blood Pressure Position [Right Arm] Pulse Oximetry 96 96 95 Oxygen Delivery Method Room Air Room Air Oxygen Flow Rate Sepsis Recent Fever Within 48 Hours Yes Sepsis New/Unexplained Change in Mental Status No Sepsis Action Taken by Nursing No Action Required Oxygen Flow Rate - Titration Pulse Oximetry Post Tiitration 12/10/19 17:36 12/10/19 18:00 12/10/19 18:30 Temperature Temperature Source Pulse Rate 102 H 106 H Pulse Rate [Left Finger] Pulse Rate from SpO2 Sensor 102 H 107 H Pulse Rhythm Pulse Strength Respiratory Rate 24 20 Respiratory Effort / Characteristics Respiratory Depth Respiratory Pattern Blood Pressure Blood Pressure [Right Arm] Blood Pressure Mean Blood Pressure Mean [Right Arm] Blood Pressure Position Blood Pressure Position [Right Arm] Pulse Oximetry 97 94 94 Oxygen Delivery Method Room Air Oxygen Flow Rate Sepsis Recent Fever Within 48 Hours Sepsis New/Unexplained Change in Mental Status Sepsis Action Taken by Nursing Oxygen Flow Rate - Titration Pulse Oximetry Post Tiitration 12/10/19 19:00 12/10/19 19:01 12/10/19 19:09 Temperature 37.5 C Temperature Source Rectal Pulse Rate 111 H 105 H Pulse Rate [Left Finger] Pulse Rate from SpO2 Sensor 110 H 105 H Pulse Rhythm Pulse Strength Respiratory Rate 27 H 28 H Respiratory Effort / Characteristics Respiratory Depth Respiratory Pattern Blood Pressure 111/62 Blood Pressure [Right Arm] Blood Pressure Mean 68 Blood Pressure Mean [Right Arm] Blood Pressure Position Blood Pressure Position [Right Arm] Pulse Oximetry 93 93 Oxygen Delivery Method Oxygen Flow Rate Sepsis Recent Fever Within 48 Hours Sepsis New/Unexplained Change in Mental Status Sepsis Action Taken by Nursing Oxygen Flow Rate - Titration Pulse Oximetry Post Tiitration 12/10/19 19:28 12/10/19 19:42 12/10/19 19:45 Temperature Temperature Source Pulse Rate Pulse Rate [Left Finger] Pulse Rate from SpO2 Sensor 100 H 105 H Pulse Rhythm Pulse Strength Respiratory Rate 18 30 H 22 Respiratory Effort / Characteristics Non-Labored Respiratory Depth Respiratory Pattern Blood Pressure Blood Pressure [Right Arm] Blood Pressure Mean 89 Blood Pressure Mean [Right Arm] Blood Pressure Position Blood Pressure Position [Right Arm] Pulse Oximetry 93 92 93 Oxygen Delivery Method Room Air Oxygen Flow Rate Sepsis Recent Fever Within 48 Hours Sepsis New/Unexplained Change in Mental Status Sepsis Action Taken by Nursing Oxygen Flow Rate - Titration Pulse Oximetry Post Tiitration 12/10/19 19:47 12/10/19 19:50 12/10/19 20:00 Temperature Temperature Source Pulse Rate Pulse Rate [Left Finger] Pulse Rate from SpO2 Sensor 110 H 100 H Pulse Rhythm Pulse Strength Respiratory Rate 18 19 22 Respiratory Effort / Characteristics Respiratory Depth Respiratory Pattern Blood Pressure 124/68 Blood Pressure [Right Arm] 124/68 Blood Pressure Mean 73 Blood Pressure Mean [Right Arm] 86 Blood Pressure Position Blood Pressure Position [Right Arm] Sitting Pulse Oximetry 93 92 94 Oxygen Delivery Method Room Air Oxygen Flow Rate Sepsis Recent Fever Within 48 Hours Sepsis New/Unexplained Change in Mental Status Sepsis Action Taken by Nursing Oxygen Flow Rate - Titration Pulse Oximetry Post Tiitration 12/10/19 20:30 12/10/19 21:00 12/10/19 21:30 Temperature Temperature Source Pulse Rate 89 88 Pulse Rate [Left Finger] Pulse Rate from SpO2 Sensor Pulse Rhythm Pulse Strength Respiratory Rate 24 22 22 Respiratory Effort / Characteristics Respiratory Depth Respiratory Pattern Blood Pressure Blood Pressure [Right Arm] Blood Pressure Mean Blood Pressure Mean [Right Arm] Blood Pressure Position Blood Pressure Position [Right Arm] Pulse Oximetry Oxygen Delivery Method Oxygen Flow Rate Sepsis Recent Fever Within 48 Hours Sepsis New/Unexplained Change in Mental Status Sepsis Action Taken by Nursing Oxygen Flow Rate - Titration Pulse Oximetry Post Tiitration 12/10/19 22:00 12/10/19 22:31 12/10/19 22:35 Temperature Temperature Source Pulse Rate 88 117 H Pulse Rate [Left Finger] Pulse Rate from SpO2 Sensor Pulse Rhythm Pulse Strength Respiratory Rate 16 26 H Respiratory Effort / Characteristics Respiratory Depth Respiratory Pattern Blood Pressure 98/69 L Blood Pressure [Right Arm] Blood Pressure Mean 87 Blood Pressure Mean [Right Arm] Blood Pressure Position Blood Pressure Position [Right Arm] Pulse Oximetry 88 L Oxygen Delivery Method Room Air Nasal Cannula Oxygen Flow Rate Sepsis Recent Fever Within 48 Hours Sepsis New/Unexplained Change in Mental Status Sepsis Action Taken by Nursing Oxygen Flow Rate - Titration 3 Pulse Oximetry Post Tiitration 95 12/10/19 22:45 12/10/19 22:46 12/10/19 22:57 Temperature Temperature Source Pulse Rate 104 H 104 H Pulse Rate [Left Finger] 96 H Pulse Rate from SpO2 Sensor 104 H 104 H Pulse Rhythm Pulse Strength Respiratory Rate 27 H 32 H 22 Respiratory Effort / Characteristics Spontaneous Respiratory Depth Respiratory Pattern Blood Pressure 171/72 H 160/87 H Blood Pressure [Right Arm] Blood Pressure Mean 142 121 Blood Pressure Mean [Right Arm] Blood Pressure Position Blood Pressure Position [Right Arm] Pulse Oximetry 98 98 98 Oxygen Delivery Method Nasal Cannula Nasal Cannula Oxygen Flow Rate 3 3 Sepsis Recent Fever Within 48 Hours Sepsis New/Unexplained Change in Mental Status Sepsis Action Taken by Nursing Oxygen Flow Rate - Titration Pulse Oximetry Post Tiitration 12/10/19 23:19 09/23/20 00:09 12/11/19 01:53 Temperature Temperature Source Pulse Rate 96 H Pulse Rate [Left Finger] 80 Pulse Rate from SpO2 Sensor 92 H Pulse Rhythm Pulse Strength Respiratory Rate 16 14 Respiratory Effort / Characteristics Respiratory Depth Respiratory Pattern Blood Pressure 100/59 L Blood Pressure [Right Arm] 93/43 L Blood Pressure Mean 64 Blood Pressure Mean [Right Arm] 59 Blood Pressure Position Blood Pressure Position [Right Arm] Pulse Oximetry 100 98 Oxygen Delivery Method Nasal Cannula Nasal Cannula Oxygen Flow Rate 3 3 Sepsis Recent Fever Within 48 Hours Sepsis New/Unexplained Change in Mental Status Sepsis Action Taken by Nursing Oxygen Flow Rate - Titration Pulse Oximetry Post Tiitration Vital signs reviewed. General: Elderly, chronically ill-appearing 84-year-old female, with urticarial type rash around the neck, arms and scratching. HEENT: No scleral icterus, positive indira-orbital erythema PERRLA, neck supple. Posterior pharynx is clear. Cardiovascular: Regular rate and rhythm, no extra sounds. Pulmonary: Clear to auscultation bilaterally, normal work of breathing. Abdomen: Soft, nontender, nondistended, positive bowel sounds. Musculoskeletal: Atraumatic, no peripheral edema. Neurologic: Patient awake alert and answers questions appropriately. Skin: Warm, dry, urticaria noted to the face, neck, upper chest, arms, lower abdomen/groin Course Administered Medications Discontinued Medications Albuterol (Albuterol 0.5% Neb Soln 2.5 Mg/0.5 Ml Vial) 2.5 mg NEB NOW STA Stop: 12/10/19 22:48 Last Admin: 12/10/19 22:57 Dose: 2.5 mg Documented by: [id number] Diphenhydramine HCl (Diphenhydramine Hcl 50 Mg/Ml Vial) 25 mg IV NOW STA Stop: 12/10/19 19:47 Last Admin: 12/10/19 20:01 Dose: 25 mg Documented by: [id number] Famotidine (Famotidine 20mg/5ml Iv Push) Confirm Administered Dose 20 mg IV .STK-MED ONE Stop: 12/10/19 19:52 Last Admin: 12/10/19 20:00 Dose: 20 mg Documented by: [id number] Sodium Chloride (Nss 1000ml) 500 mls @ 999 mls/hr IV .Q31M ONE Stop: 12/10/19 18:58 Last Infusion: 12/10/19 20:46 Dose: 0 mls/hr Documented by: [id number] Admin: 12/10/19 20:01 Dose: 999 mls/hr Documented by: [id number] Piperacillin Sod/Tazobactam Sod (Zosyn) 4.5 gm in 120 mls @ 240 mls/hr IV NOW ONE Stop: 12/10/19 19:03 Last Infusion: 12/10/19 20:47 Dose: 0 mls/hr Documented by: [id number] Admin: 12/10/19 20:08 Dose: 240 mls/hr Documented by: [id number] Famotidine 20 mg/ Syringe 5 mls @ 2.5 mls/min IV NOW STA Stop: 12/10/19 19:48 Last Admin: 12/10/19 20:01 Dose: Not Given Documented by: [id number] Methylprednisolone 60 mg/ (Syringe) 1.96 mls @ 1.5 mls/min IV NOW STA Stop: 12/10/19 19:48 Last Admin: 12/10/19 20:01 Dose: Not Given Documented by: [id number] Magnesium Sulfate/Dextrose (Magnesium Sulfate / D5w) 1 gm in 100 mls @ 100 mls/hr IV NOW STA Stop: 12/10/19 21:07 Last Infusion: 12/10/19 20:46 Dose: 0 mls/hr Documented by: [id number] Admin: 12/10/19 20:40 Dose: 100 mls/hr Documented by: [id number] Methylprednisolone (Methylprednisolone 125 Mg/2 Ml Vial) Confirm Administered Dose 125 mg .ROUTE .STK-MED ONE Stop: 12/10/19 19:52 Last Admin: 12/10/19 20:00 Dose: 60 mg Documented by: [id number] Morphine Sulfate (Morphine Sulfate 2 Mg/Ml Carp) 1 mg IV NOW STA Stop: 12/10/19 22:48 Last Admin: 12/10/19 22:53 Dose: 1 mg Documented by: [id number] Medical Decision Making Differential Diagnosis Differential diagnosis of this patient's presentation includes viral illness, pneumonia, malignancy, aspiration, GI bleed, PE, UTI, allergic reaction Medical Records Attestation: I reviewed the patient's medical records. Home Medications Current Medication List: was personally reviewed by me Laboratory Data Attestation: I reviewed the patient's lab results. Result diagrams: 12/10/19 18:15 12/10/19 18:15 Lab Results 12/10/19 12/10/19 12/10/19 Range/Units 18:15 18:15 18:15 WBC 35.96 H* (4.8-10.8) K/uL RBC 3.53 L (4.2-5.4) M/uL Hgb 10.0 L (12.0-16.0) g/dL Hct 31.0 L (37-47) % MCV 87.8 (80-100) fL MCH 28.3 (25-34) pg MCHC 32.3 (32-36) g/dL RDW Std Deviation 51.2 H (36.4-46.3) fL RDW Coeff of Remy 15.9 H (11.5-14.5) % Plt Count 562 H (130-400) K/uL MPV 9.6 (7.4-10.4) fL Immature Gran % (Auto) 1.1 % Neut % (Auto) 93.7 % Lymph % (Auto) 1.6 % Wharton % (Auto) 3.3 % Eos % (Auto) 0.2 % Baso % (Auto) 0.1 % Neut # (Auto) 33.71 H (1.4-6.5) K/uL Lymph # (Auto) 0.57 L (1.2-3.4) K/uL Wharton # (Auto) 1.20 H (0.11-0.59) K/uL Eos # (Auto) 0.06 (0-0.5) K/uL Baso # (Auto) 0.04 (0-0.2) K/uL Immature Gran # (Auto) 0.38 H (0.00-0.02) K/uL PT 11.4 (9.0-12.0) Seconds INR 1.1 (0.9-1.1) APTT 35.0 H (21.0-31.0) Seconds PTT Ratio 1.3 D-Dimer (0-500) ug/L FEU Sodium 138 (136-145) mmol/L Potassium 3.7 (3.5-5.1) mmol/L Chloride 106 (98-107) mmol/L Carbon Dioxide 21 (21-32) mmol/L Anion Gap 11.0 (3-11) BUN 28 H (7-18) mg/dl Creatinine 1.66 H (0.6-1.2) mg/dl Est Cr Clr Drug Dosing 23.1 ml/min Est GFR ( Amer) 32.7 Est GFR (Non-Af Amer) 28.2 BUN/Creatinine Ratio 16.7 (10-20) Glucose 168 H (70-99) mg/dl Lactate (0.4-2.0) mmol/L Calcium 8.7 (8.5-10.1) mg/dl Magnesium 1.5 L (1.8-2.4) mg/dl Total Bilirubin 0.5 (0.2-1) mg/dl AST 20 (15-37) U/L ALT 24 (12-78) U/L Alkaline Phosphatase 112 (45-117) U/L Troponin I < 0.015 (0-0.045) ng/ml Total Protein 6.9 (6.4-8.2) gm/dl Albumin 2.3 L (3.4-5.0) gm/dl Globulin 4.6 H (2.5-4.0) gm/dl Albumin/Globulin Ratio 0.5 L (0.9-2) Procalcitonin (0-0.5) ng/ml Urine Color Urine Appearance (Clear) Urine pH (4.5-7.5) Ur Specific [place] (1.000-1.030) Urine Protein (Negative) Urine Glucose (UA) (Negative) Urine Ketones (Negative) Urine Blood (Negative) Urine Nitrite (Negative) Urine Bilirubin (Negative) Urine Urobilinogen (Negative) Ur Leukocyte Esterase (Negative) Urine WBC (Auto) (0-5) /hpf Urine RBC (Auto) (0-4) /hpf U Hyaline Cast (Auto) (0-5) /lpf U Epithel Cells (Auto) (0-5) /lpf Urine Bacteria (Auto) (Negative) COVID-19 Eval Order COVID-19 PCR (Negative) 12/10/19 12/10/19 12/10/19 Range/Units 18:15 18:15 19:00 WBC (4.8-10.8) K/uL RBC (4.2-5.4) M/uL Hgb (12.0-16.0) g/dL Hct (37-47) % MCV (80-100) fL MCH (25-34) pg MCHC (32-36) g/dL RDW Std Deviation (36.4-46.3) fL RDW Coeff of Remy (11.5-14.5) % Plt Count (130-400) K/uL MPV (7.4-10.4) fL Immature Gran % (Auto) % Neut % (Auto) % Lymph % (Auto) % Wharton % (Auto) % Eos % (Auto) % Baso % (Auto) % Neut # (Auto) (1.4-6.5) K/uL Lymph # (Auto) (1.2-3.4) K/uL Wharton # (Auto) (0.11-0.59) K/uL Eos # (Auto) (0-0.5) K/uL Baso # (Auto) (0-0.2) K/uL Immature Gran # (Auto) (0.00-0.02) K/uL PT (9.0-12.0) Seconds INR (0.9-1.1) APTT (21.0-31.0) Seconds PTT Ratio D-Dimer (0-500) ug/L FEU Sodium (136-145) mmol/L Potassium (3.5-5.1) mmol/L Chloride (98-107) mmol/L Carbon Dioxide (21-32) mmol/L Anion Gap (3-11) BUN (7-18) mg/dl Creatinine (0.6-1.2) mg/dl Est Cr Clr Drug Dosing ml/min Est GFR ( Amer) Est GFR (Non-Af Amer) BUN/Creatinine Ratio (10-20) Glucose (70-99) mg/dl Lactate 0.9 (0.4-2.0) mmol/L Calcium (8.5-10.1) mg/dl Magnesium (1.8-2.4) mg/dl Total Bilirubin (0.2-1) mg/dl AST (15-37) U/L ALT (12-78) U/L Alkaline Phosphatase (45-117) U/L Troponin I (0-0.045) ng/ml Total Protein (6.4-8.2) gm/dl Albumin (3.4-5.0) gm/dl Globulin (2.5-4.0) gm/dl Albumin/Globulin Ratio (0.9-2) Procalcitonin 3.94 H (0-0.5) ng/ml Urine Color Dark Yellow Urine Appearance Clear (Clear) Urine pH 5.0 (4.5-7.5) Ur Specific [place] 1.016 (1.000-1.030) Urine Protein 1+ H (Negative) Urine Glucose (UA) Negative (Negative) Urine Ketones Negative (Negative) Urine Blood Negative (Negative) Urine Nitrite Negative (Negative) Urine Bilirubin Negative (Negative) Urine Urobilinogen Negative (Negative) Ur Leukocyte Esterase Negative (Negative) Urine WBC (Auto) 1-5 (0-5) /hpf Urine RBC (Auto) 0-4 (0-4) /hpf U Hyaline Cast (Auto) 1-5 (0-5) /lpf U Epithel Cells (Auto) 20-30 H (0-5) /lpf Urine Bacteria (Auto) Negative (Negative) COVID-19 Eval Order COVID-19 PCR (Negative) 12/10/19 12/10/19 12/11/19 Range/Units 19:00 19:00 01:10 WBC (4.8-10.8) K/uL RBC (4.2-5.4) M/uL Hgb (12.0-16.0) g/dL Hct (37-47) % MCV (80-100) fL MCH (25-34) pg MCHC (32-36) g/dL RDW Std Deviation (36.4-46.3) fL RDW Coeff of Remy (11.5-14.5) % Plt Count (130-400) K/uL MPV (7.4-10.4) fL Immature Gran % (Auto) % Neut % (Auto) % Lymph % (Auto) % Wharton % (Auto) % Eos % (Auto) % Baso % (Auto) % Neut # (Auto) (1.4-6.5) K/uL Lymph # (Auto) (1.2-3.4) K/uL Wharton # (Auto) (0.11-0.59) K/uL Eos # (Auto) (0-0.5) K/uL Baso # (Auto) (0-0.2) K/uL Immature Gran # (Auto) (0.00-0.02) K/uL PT (9.0-12.0) Seconds INR (0.9-1.1) APTT (21.0-31.0) Seconds PTT Ratio D-Dimer 97323 H* (0-500) ug/L FEU Sodium (136-145) mmol/L Potassium (3.5-5.1) mmol/L Chloride (98-107) mmol/L Carbon Dioxide (21-32) mmol/L Anion Gap (3-11) BUN (7-18) mg/dl Creatinine (0.6-1.2) mg/dl Est Cr Clr Drug Dosing ml/min Est GFR ( Amer) Est GFR (Non-Af Amer) BUN/Creatinine Ratio (10-20) Glucose (70-99) mg/dl Lactate (0.4-2.0) mmol/L Calcium (8.5-10.1) mg/dl Magnesium (1.8-2.4) mg/dl Total Bilirubin (0.2-1) mg/dl AST (15-37) U/L ALT (12-78) U/L Alkaline Phosphatase (45-117) U/L Troponin I (0-0.045) ng/ml Total Protein (6.4-8.2) gm/dl Albumin (3.4-5.0) gm/dl Globulin (2.5-4.0) gm/dl Albumin/Globulin Ratio (0.9-2) Procalcitonin (0-0.5) ng/ml Urine Color Urine Appearance (Clear) Urine pH (4.5-7.5) Ur Specific [place] (1.000-1.030) Urine Protein (Negative) Urine Glucose (UA) (Negative) Urine Ketones (Negative) Urine Blood (Negative) Urine Nitrite (Negative) Urine Bilirubin (Negative) Urine Urobilinogen (Negative) Ur Leukocyte Esterase (Negative) Urine WBC (Auto) (0-5) /hpf Urine RBC (Auto) (0-4) /hpf U Hyaline Cast (Auto) (0-5) /lpf U Epithel Cells (Auto) (0-5) /lpf Urine Bacteria (Auto) (Negative) COVID-19 Eval Order Covid19 Done at [facility] COVID-19 PCR NEGATIVE (Negative) Imaging Data Radiologist's Impression: XR chest 1V portable CLINICAL HISTORY: SEPSIS COMPARISON STUDY: 10/28/2019 FINDINGS: The heart is normal in size. There is stable mild interstitial thickening. There is no focal pulmonary consolidation. There are no significant pleural effusions.[ IMPRESSION: 1. Stable mild interstitial thickening/edema 2. No acute findings. ACT 112: Negative or not required by law. Electronically signed by: Frederic Landers M.D. 12/10/2019 8:06 PM Dictated: 12/10/192004 Transcribed: 12/10/192004 CT chest wo con CLINICAL HISTORY: aspiration, hypoxia COMPARISON STUDY: CT scan dated 11/06/2019 CT DOSE: 220.26 mGy.cm TECHNIQUE: CT of the thorax was performed from the thoracic inlet to the lung bases. Images are reviewed in the axial, sagittal, and coronal planes. IV contrast was not administered for this examination. A dose lowering technique was utilized adhering to the principles of ALARA. FINDINGS: Thyroid: There is a suspected 14 mm left lobe thyroid nodule similar to the prior study. There is a ring calcification within the right lobe the thyroid measuring 7 mm. Thoracic aorta: The thoracic aorta is normal in course and caliber, noting standard 3 vessel arch anatomy. Heart: The heart is normal in size. There are coronary artery calcifications. There is trace pericardial fluid. Lungs and pleural spaces: There is a nonsolid 15 mm left apical nodule, similar to the preceding study. There is respiratory motion artifact. There is a stable subpleural 7 mm nodule. There are no areas of parenchymal consolidation suspicious for pneumonia. There is a stable area of subtle architectural distortion within the right upper lobe, similar to the preceding study. There is a stable 4 mm solid nodule in the superior segment of the right lower lobe. Mediastinum: There is a minimally enlarged subcarinal lymph node, similar to the prior study Adele: There is no evidence of pathologic hilar adenopathy given the limitations of a noncontrast study Axilla: There is known to pathologic axillary lymphadenopathy Upper abdomen: There is pneumobilia. Skeletal structures: There are no lytic or blastic osseous lesions. IMPRESSION: 1. Stable solid and groundglass pulmonary nodules. 2. Stable mild mediastinal lymphadenopathy 3. No acute parenchymal consolidation 4. 12 month follow-up is recommended. ACT 112: Negative or not required by law. Electronically signed by: Frederic Landers M.D. 12/10/2019 7:49 PM Dictated: 12/10/191941 Transcribed: 12/10/191941 ECG Data Attestation: I personally reviewed and interpreted this ECG as follows: Indication: + tachycardia Rate (beats per minute): 102 Rhythm: + normal sinus ECG Intervals/blocks: + Normal QT-c (453) ECG [place]: + Normal ECG ST segments: + Normal ST segments ECG Findings: + Other (L atrial enlargement) Blood Pressure Blood Pressure Findings: Elevated blood pressure Blood Pressure Disposition: further management by hospitalist MDM Narrative This patient was evaluated and appeared to be in some discomfort. An order for cardiac monitoring was placed and the patient is noted to be in a normal sinus rhythm at 89 bpm. Patient is noted to have a urticaria, likely secondary to recent antibiotic administration Macrobid from UTI. Patient was given Benadryl, IV Solu-Medrol and IV Pepcid. Chest x-ray was performed reveals stable mild interstitial thickening/edema. CT imaging of the chest was performed stable so lid and groundglass pulmonary nodules. Mediastinal lymphadenopathy is also noted. There is no evidence of breakable consolidation. Patient's laboratory work is notable for a WBC of 35,000. This appears to be new. There is great concern for underlying malignancy. Patient was COVID swabbed and negative. IV Zosyn 4.5 g was administered empirically and the case was discussed with the hospitalist for further evaluation and management. Patient is aware of the plan and agrees. Impression & Plan Leukocytosis, Acute febrile illness, Allergic reaction Discharge Plan Visit Data Chief Complaint: Fever ED Provider: Sandy Zamora Discharge Problem: Leukocytosis, Acute febrile illness, Allergic reaction Patient Disposition: Admitted As Inpatient Discharge Instructions Interventions: ED Discharge Assessment Last Done: 12/10/19 23:19 Forms Stand Alone Forms: My [facility] Prescriptions Prescriptions: No Action cholecalciferol (vitamin D3) [Vitamin D3] 1,000 unit Capsule 1,000 unit PO DAILY RF: 0 hydrochlorothiazide 12.5 mg Tablet 12.5 mg PO 3XWK RF: 0 atenolol 25 mg tablet 12.5 mg PO QPM RF: 0 sertraline 25 mg tablet 25 mg PO HS RF: 0 Trulicity 0.75 mg/0.5 mL pen injector 0.75 mg SUBCUT WK RF: 0 pantoprazole 40 mg tablet,delayed release (DR/EC) 40 mg PO QAM RF: 0 docusate sodium 100 mg Capsule 100 mg PO BID RF: 0 polyethylene glycol 3350 [Miralax] 17 gram/dose Powder 17 g PO DAILY PRN (Reason: Constipation) RF: 0 Therems-M 27-0.4 mg Tablet 1 tab PO DAILY RF: 0 Basaglar KwikPen U-100 Insulin 100 unit/mL (3 mL) insulin pen 30 unit SUBCUT HS RF: 0 amlodipine [Norvasc] 5 mg Tablet 5 mg PO QAM Qty: 30 RF: 0 cyanocobalamin (vitamin B-12) [Vitamin B-12] 100 mcg Tablet 50 mcg PO DAILY RF: 0 ferrous sulfate 325 mg (65 mg iron) Tablet 325 mg PO BID RF: 0 nitrofurantoin monohyd/m-cryst 100 mg capsule 100 mg PO BID RF: 0 acetaminophen [Mapap (acetaminophen)] 325 mg tablet 650 mg PO Q6H MDD 3 GM APAP/24 HOUR PRN (Reason: Fever Or Pain) RF: 0 Referrals Referrals: [facility] [facility] [Primary Care Provider[facility] - Discharge Problem: Leukocytosis Qualifiers: Leukocytosis type: unspecified Qualified Code(s): D72.829 - Elevated white blood cell count, unspecified Allergic reaction Qualifiers: Encounter type: initial encounter Qualified Code(s): T78.40XA - Allergy, u nspecified, initial encounter
[2019-12-11] MEDS ORDERED: POLYETHYLENE (MIRALAX) 17 GM PACK PO PRN ×2 (03:23)
[2019-12-11] MEDS ORDERED: XOPENEX/ATROVENT 0.63mg/0.5MG NEB COMBO NEB PRN (03:23)
[2019-12-11] MEDS ORDERED: HEPARIN SODIUM/DEXTROSE 25,000 UNITS/500 ML BAG IV SCH (03:23)
[2019-12-11] MEDS ORDERED: Heparin IV Low Dose *NO* Bolus ONE (03:23)
[2019-12-11] MEDS ORDERED: MAGNESIUM SULFATE / D5W 1 GM/100 ML BAG IV ONE (03:23)
[2019-12-11] MEDS ORDERED: ONDANSETRON INJ 2 MG/ML 2 ML VIAL IV PRN (03:23)
[2019-12-11] MEDS ORDERED: LEVALBUTEROL HCL 0.63 MG/3 ML NEB NEB PRN (03:23)
[2019-12-11] MEDS ORDERED: ACETAMINOPHEN 325 MG TAB PO PRN ×2 (03:23)
[2019-12-11] MEDS ORDERED: IPRATROPIUM BROMIDE NEB SOLN 0.02% 2.5 ML VIAL INH PRN (03:23)
[2019-12-11] MEDS ORDERED: NITROGLYCERIN SL 0.4 MG/TAB TAB SL PRN (03:23)
[2019-12-11] MEDS: SODIUM CHLORIDE 0.9% 1000ML 1,000 ML IV SCH ×3 (04:02→20:48)
[2019-12-11] MEDS: PIPERACILLIN/TAZOBACTAM 3.375 GM in DEXTROSE 5% 100 ML IV SCH ×3 (04:02→20:48)
[2019-12-11 06:27] LABS: Hematocrit (blood only) 30.8 % (37-47); Mean Corpuscular Hemoglobin 28.5 pg (25-34); Mean Corpuscular Hgb Conc 32.5 g/dL (32-36); Mean Corpuscular Volume 87.7 fL (80-100); Mean Platelet Volume 10.1 fL (7.4-10.4); Platelet Count 541 K/uL (130-400); RDW Coefficient of Variation 16.1 % (11.5-14.5); RDW Standard Deviation 51.7 fL (36.4-46.3); Red Blood Count 3.51 M/uL (4.2-5.4); White Blood Count 24.44 K/uL (4.8-10.8)
[2019-12-11 06:50] LABS: Partial Thromboplastin Ratio 1.6
[2019-12-11 06:54] LABS: BUN Creatinine Ratio 17.5 (10-20); Blood Urea Nitrogen 37 mg/dl (7-18); Calcium 8.4 mg/dl (8.5-10.1); Carbon Dioxide 19 mmol/L (21-32); Chloride 107 mmol/L (98-107); Creatinine Clr Calc Pharmacy 18.4 ml/min; Est GFR (African American) 24.7; Est GFR (Non-African American) 21.4; Glucose 293 mg/dl (70-99); Magnesium 2.1 mg/dl (1.8-2.4); Potassium 3.8 mmol/L (3.5-5.1); Sodium 137 mmol/L (136-145)
--- NOTE | 2019-12-11 06:56 | Hospitalist Progress Note ---
Date of Service December 11, 2019 Assessment & Plan Admission and Anticipated Discharge Date Admission Date: December 11, 2019 Subjective Questionable syncope. Will follow echo. monitor on tele. Results & Data Results & Data ([facility]) Vital Signs (Past 12 Hours) Vital Signs Temp Pulse Pulse Resp BP BP Pulse Ox 12/11/19 05:08 84 12/11/19 02:45 36.4 C L 82 18 112/65 94 12/11/19 01:53 80 14 93/43 L 98 12/11/19 00:09 96 H 16 100/59 L 100 12/10/19 22:57 96 H 22 98 12/10/19 22:46 104 H 32 H 160/87 H 98 12/10/19 22:45 104 H 27 H 171/72 H 98 12/10/19 22:35 88 L 12/10/19 22:31 117 H 26 H 98/69 L 12/10/19 22:00 88 16 12/10/19 21:30 88 22 12/10/19 21:00 89 22 12/10/19 20:30 24 12/10/19 20:00 22 94 12/10/19 19:50 19 124/68 92 12/10/19 19:47 18 124/68 93 12/10/19 19:45 22 93 12/10/19 19:42 30 H 92 12/10/19 19:28 18 93 12/10/19 19:09 37.5 C 12/10/19 19:01 105 H 28 H 93 12/10/19 19:00 111 H 27 H 111/62 93
[2019-12-11 06:58] LABS: Troponin I < 0.015 ng/ml (0-0.045)
[2019-12-11 07:02] LABS: Basophils # (auto) 0.02 K/uL (0-0.2); Basophils % (auto) 0.1 %; Eosinophils # (auto) 0.01 K/uL (0-0.5); Immature Granulocytes % (auto) 1.6 %; Lymphocytes # (auto) 1.01 K/uL (1.2-3.4); Lymphocytes % (auto) 4.1 %; Monocytes # (auto) 0.81 K/uL (0.11-0.59); Monocytes % (auto) 3.3 %; Neutrophils # (auto) 22.19 K/uL (1.4-6.5); Neutrophils % (auto) 90.9 %
--- NOTE | 2019-12-11 07:10 | CT Scan Report ---
CT OF THE ABDOMEN AND PELVIS WITHOUT CONTRAST CLINICAL HISTORY: emesis. leukocytosis COMPARISON STUDY: CT of the abdomen and pelvis November 06, 2019. TECHNIQUE: Axial images of the abdomen and pelvis were obtained without IV contrast. Images were revi ewed in the axial, sagittal, and coronal planes. Automated exposure control was utilized for the philip dy. A dose lowering technique was utilized adhering to the principles of ALARA. FINDINGS: An 8 mm right lower lobe nodule is suboptimally assessed on this exam due to motion artifac t but is unchanged from earlier exams. This is likely benign. Bilateral adrenal nodules also unchange d from earlier exams. These are benign. Pneumobilia is again noted. Mild biliary ductal dilatation st atus post cholecystectomy is similar to prior exam. There is no peripancreatic infiltration. There is pancreatic glandular atrophy. Right colon resection is noted. There is no evidence for a bowel obstr uction. There is no pneumatosis, free air or portal venous gas. No ascites is present. There is no ly mphadenopathy. There are no suspicious osseous lesions. There is no hydronephrosis. No urinary calcul i identified. Symmetric bilateral perinephric infiltration is unchanged. Exam is mildly compromised b y motion artifact. Small fat-containing right ventral and umbilical hernias are present. IMPRESSION: 1. No acute process within the abdomen or pelvis on unenhanced exam. 2. Stable mild biliary ductal dilatation status post cholecystectomy. Redemonstration of pneumobilia. 3. Symmetric bilateral perinephric infiltration which is of doubtful significance but could be correl ated with urinalysis. ACT 112: Negative or not required by law. Electronically signed by: Get Hollingsworth M.D. 12/11/2019 7:09 AM
[2019-12-11 07:57] LABS: Estimated Average Glucose 166 mg/dl; Hemoglobin A1C 7.4 % (4.5-5.6)
[2019-12-11] MEDS: hydroCHLOROthiazide 25 MG TAB PO SCH (08:01)
[2019-12-11] MEDS: FERROUS SULFATE 325 MG TAB PO SCH ×2 (08:03→17:29)
--- NOTE | 2019-12-11 09:04 | Ultrasound Report ---
BILATERAL LOWER EXTREMITY VENOUS DOPPLER CLINICAL HISTORY: dvt, lower ext edema, sob COMPARISON STUDY: Left lower extremity venous Doppler ultrasound October 25, 2019 and right lower extr emity venous Doppler ultrasound November 04, 2019. TECHNIQUE: Sonography of the deep venous system of the bilateral lower extremities was performed. Co mpression and augmentation were evaluated. FINDINGS: The bilateral common femoral, superficial femoral and popliteal veins were compressible. A ugmentation was normal. Flow was shown within the deep calf vessels. A 4 x 1.4 x 1.8 cm left poplitea l cyst is noted. IMPRESSION: No evidence of deep venous thrombus within the bilateral lower extremities. ACT 112: Negative or not required by law. Electronically signed by: Get Hollingsworth M.D. 12/11/2019 9:02 AM
[2019-12-11] MEDS: DOCUSATE SODIUM 100 MG CAP PO SCH ×2 (09:28→20:50)
[2019-12-11] MEDS: CEROVITE ADV FORMULA TAB PO SCH (09:28)
[2019-12-11] MEDS: CHOLECALCIFEROL 1,000 UNITS 25 MCG TAB PO SCH (09:29)
[2019-12-11] MEDS: CYANOCOBALAMIN (VITAMIN B-12) 100 MCG TABLET PO SCH (09:29)
[2019-12-11] MEDS: PANTOprazole 40 MG TAB PO SCH (09:29)
[2019-12-11] MEDS: AMLODIPINE BESYLATE 5 MG TAB PO SCH (09:30)
[2019-12-11] MEDS: INSULIN ASPART 100 UNITS/ML 3 ML PEN SC SCH ×4 (09:32→22:30)
[2019-12-11 11:29] LABS: Partial Thromboplastin Ratio 2.3
[2019-12-11 11:39] LABS: Partial Thromboplastin Time 65.5 Seconds (21.0-31.0)
--- NOTE | 2019-12-11 13:21 | Hospitalist Progress Note ---
Date of Service December 11, 2019 Assessment & Plan (1) Weakness: (2) Acute febrile illness: (3) Leukocytosis: Pt said that she has been feeling tired and weak for the last few days WBC on admission 35K, Elevated Procalcitonin, D-dimer and creatinine No clear source of infection CT chest showed stable solid and groundglass pulmonary nodules, stable mild mediastinal lymphadenopathy and no acute parenchymal consolidation CT abd/pelvis showed o acute process within the abdomen or pelvis; Symmetric bilateral perinephric infiltration UA negative Starting on IV abx with Zosyn Blood cx pending WBC trending down to 24K today Continue monitor CBC Will continue monitor CBC If not improvement in WBC, will consult hematology PT/OT eval Elevated D-dimer Doppler of B/L LE showed no DVT V/Q scan showed normal perfusion seen throughout the lungs. No segmental defects identified. Will discontinue heparin drip Acute Kidney injury Chronic kidney disease stage III to IV Creatinine 1.6 on admission, baseline creatinine 1.6 to 1.8 Creatinine 2.09 today Will continue to hold HCTZ Continue monitor BMP Hypomagnesemia Mg on admission 1.5 Mg today 2.1 Stable Anemia of chronic kidney disease. Hemoglobin stable at 10 Continue monitor CBC Diabetes type 2 Most recent Hba1c 7.4 on 12/07 BS elevated on Lantus and novolog sliding scale Sliding scale adjusted Continue monitor BS Hypertension. Continue amlodipine, atenolol with holding parameters, Will continue to hold HCTZ due to elevate creatinine Gastroesophageal reflux disease. Continue PPI. Depression. Continue Zoloft. Deep venous thrombosis prophylaxis. Currently on heparin drip, will d/c and transition to subq heparin Code status FULL CODE (will address that with son) Disposition: Expect discharge to [facility] when stable. PT/OT eval Admission and Anticipated Discharge Date Admission Date: December 10, 2019 Subjective Pt was seen and examined Lying in bed with no distress Pt said that she feels weak and tired She denies any abdominal pain, nausea, vomiting and SOB Physical Exam Physical Exam: General- No acute distress Head- atraumatic Eyes- PERRL, EOMI, ENT- oropharynx clear Neck- supple, no JVD Lungs- clear to auscultation Heart- regular rhythm; no murmur Abdomen- normal bowel sounds, soft, nontender Extremities- no calf tenderness Neuro- alert, oriented x 3; PERRL, EOMI; no facial palsy; no dysarthria Skin- warm & dry Results & Data Results & Data ([facility]) Vital Signs (Past 12 Hours) Vital Signs Temp Pulse Pulse Resp BP Pulse Ox 12/11/19 07:23 36.3 C L 94 H 20 108/66 99 12/11/19 05:08 84 12/11/19 02:45 36.4 C L 82 18 112/65 94 12/11/19 01:53 80 14 93/43 L 98 (1) Leukocytosis Leukocytosis type: unspecified Qualified Code(s): D72.829 - Elevated white blood cell count, unspecified
[2019-12-11] MEDS ORDERED: INSULIN GLARGINE SOLOSTAR 100 UNITS/ML 3 ML PEN SC ONE (13:57)
--- NOTE | 2019-12-11 14:35 | Nuclear Medicine Report ---
NM pul perfusion CLINICAL HISTORY: Shortness of breath. Assess for pulmonary embolus.. COMPARISON STUDY: Chest 12/10/2019. TECHNIQUE: Immediately following the intravenous administration of 5.6 mCi of technetium 99 M MAA for the perfusion scan, anterior, oblique, lateral, and posterior views of the chest were obtained. The ventilation scan was not performed due to coronavirus restrictions. FINDINGS: Normal perfusion seen throughout the lungs. No segmental defects identified. IMPRESSION: Above findings suggest a normal/very low probability scan. ACT 112: Negative or not required by law. Electronically signed by: Nitesh Gonsalez M.D. 12/11/2019 2:34 PM
[2019-12-11] MEDS: SERTRALINE HCL 50 MG TABLET PO SCH (20:48)
[2019-12-11] MEDS: ATENOLOL 25 MG TABLET PO SCH (20:49)
[2019-12-11] MEDS ORDERED: INSULIN GLARGINE SOLOSTAR 100 UNITS/ML 3 ML PEN SQ SCH (21:00)
[2019-12-12] MEDS: PIPERACILLIN/TAZOBACTAM 3.375 GM in DEXTROSE 5% 100 ML IV SCH ×2 (05:00→17:27)
[2019-12-12] MEDS ORDERED: Nursing to Pharmacy Communication SCH (06:00)
[2019-12-12] MEDS: CYANOCOBALAMIN (VITAMIN B-12) 100 MCG TABLET PO SCH (07:41)
[2019-12-12] MEDS: SODIUM CHLORIDE 0.9% 1000ML 1,000 ML IV SCH ×2 (07:41→20:28)
[2019-12-12] MEDS: CEROVITE ADV FORMULA TAB PO SCH (07:41)
[2019-12-12] MEDS: AMLODIPINE BESYLATE 5 MG TAB PO SCH (07:42)
[2019-12-12] MEDS: PANTOprazole 40 MG TAB PO SCH (07:42)
[2019-12-12] MEDS: FERROUS SULFATE 325 MG TAB PO SCH ×2 (07:42→17:27)
[2019-12-12] MEDS: CHOLECALCIFEROL 1,000 UNITS 25 MCG TAB PO SCH (07:42)
[2019-12-12] MEDS: DOCUSATE SODIUM 100 MG CAP PO SCH ×2 (07:47→20:28)
[2019-12-12] MEDS: CARBOHYDRATES FOR HYPOGLYCEMIA PO PRN ×3 (07:50→08:33)
[2019-12-12] MEDS ORDERED: GLUCOSE 40% GEL 15 GM TUBE PO PRN (08:00)
[2019-12-12] MEDS ORDERED: GLUCOSE 10 TABS/TUBE PO PRN (08:00)
[2019-12-12] MEDS ORDERED: DEXTROSE 50% 50 ML SYRINGE IV PRN (08:00)
[2019-12-12] MEDS ORDERED: GLUCAGON FOR INJ 1 MG VIAL IM PRN (08:00)
[2019-12-12] MEDS: INSULIN ASPART 100 UNITS/ML 3 ML PEN SC SCH ×4 (08:34→20:29)
[2019-12-12] MEDS: INSULIN GLARGINE SOLOSTAR 100 UNITS/ML 3 ML PEN SQ SCH ×2 (08:55→20:29)
[2019-12-12 09:27] LABS: Calcium 8.5 mg/dl (8.5-10.1); Est GFR (African American) 25.8; Est GFR (Non-African American) 22.2; Potassium 3.4 mmol/L (3.5-5.1)
[2019-12-12 09:35] LABS: Hematocrit (blood only) 31.2 % (37-47); Hemoglobin 9.6 g/dL (12.0-16.0); Mean Corpuscular Hemoglobin 27.3 pg (25-34); Mean Corpuscular Hgb Conc 30.8 g/dL (32-36); Mean Corpuscular Volume 88.6 fL (80-100); Mean Platelet Volume 9.7 fL (7.4-10.4); Platelet Count 507 K/uL (130-400); RDW Coefficient of Variation 16.3 % (11.5-14.5); RDW Standard Deviation 52.8 fL (36.4-46.3); Red Blood Count 3.52 M/uL (4.2-5.4)
[2019-12-12] MEDS ORDERED: POTASSIUM CHLORIDE 20 MEQ TABCR PO STA (12:01)
--- NOTE | 2019-12-12 17:25 | Hospitalist Progress Note ---
Date of Service December 12, 2019 Assessment & Plan (1) Weakness: (2) Acute febrile illness: (3) Leukocytosis: Pt said that she has been feeling tired and weak for the last few days WBC on admission 35K, Elevated Procalcitonin, D-dimer and creatinine No clear source of infection CT chest showed stable solid and groundglass pulmonary nodules, stable mild mediastinal lymphadenopathy and no acute parenchymal consolidation CT abd/pelvis showed o acute process within the abdomen or pelvis; Symmetric bilateral perinephric infiltration UA negative Starting on IV abx with Zosyn Blood cx no growth WBC trending down to 24K, then back to normal Son said that today while feeding her pt was coughing alittle Will consult speech to evaluate for aspiration Continue PT/OT eval Elevated D-dimer Doppler of B/L LE showed no DVT V/Q scan showed normal perfusion seen throughout the lungs. No segmental defects identified. heparin drip discontinued Acute Kidney injury Chronic kidney disease stage III to IV Creatinine 1.6 on admission, baseline creatinine 1.6 to 1.8 Creatinine 2. today Will continue to hold HCTZ Continue monitor BMP Hypomagnesemia Mg on admission 1.5 Mg today 2.1 Stable Anemia of chronic kidney disease. Hemoglobin stable at 9.6 Continue monitor CBC Diabetes type 2 Most recent Hba1c 7.4 on 12/07 Hypoglycemia this morning Morning dose insulin held this morning on Lantus and novolog sliding scale Continue monitor BS Hypertension. Continue amlodipine, atenolol with holding parameters, Will continue to hold HCTZ due to elevate creatinine Gastroesophageal reflux disease. Continue PPI. Depression. Continue Zoloft. Deep venous thrombosis prophylaxis. Currently on heparin drip, will d/c and transition to subq heparin Code status DNR as per son Disposition: Expect discharge to [facility] when stable. PT/OT eval Admission and Anticipated Discharge Date Admission Date: December 10, 2019 Subjective Pt was seen and examined Sitting in chair with no distress eating lunch Pt said that she feels ok Update provided with the son Denies any chest pain, palpitation, dizziness and SOB Physical Exam Physical Exam: General- No acute distress Head- atraumatic Eyes- PERRL, EOMI, ENT- oropharynx clear Neck- supple, no JVD Lungs- clear to auscultation Heart- regular rhythm; no murmur Abdomen- normal bowel sounds, soft, nontender Extremities- no calf tenderness Neuro- alert, oriented x 3; PERRL, EOMI; no facial palsy; no dysarthria Skin- warm & dry Results & Data Results & Data ([facility]) Vital Signs (Past 12 Hours) Vital Signs Temp Pulse Pulse Resp BP BP Pulse Ox 12/12/19 16:31 66 12/12/19 15:30 36.6 C 79 18 113/66 95 12/12/19 11:45 36.5 C 68 20 115/62 95 12/12/19 10:41 12/12/19 08:00 63 12/12/19 07:36 36.8 C 68 18 100/61 93 Pulse Ox Pulse Ox 12/12/19 16:31 12/12/19 15:30 12/12/19 11:45 12/12/19 10:41 89 L 89 L 12/12/19 08:00 12/12/19 07:36 (1) Leukocytosis Leukocytosis type: unspecified Qualified Code(s): D72.829 - Elevated white blood cell count, unspecified
[2019-12-12] MEDS: SERTRALINE HCL 50 MG TABLET PO SCH (20:28)
[2019-12-12] MEDS: ATENOLOL 25 MG TABLET PO SCH (20:28)
[2019-12-13] MEDS: PIPERACILLIN/TAZOBACTAM 3.375 GM in DEXTROSE 5% 100 ML IV SCH ×2 (06:01→17:17)
[2019-12-13 07:06] LABS: BUN Creatinine Ratio 13.2 (10-20); Calcium 8.3 mg/dl (8.5-10.1); Creatinine Clr Calc Pharmacy 20.1 ml/min; Est GFR (African American) 27.6; Est GFR (Non-African American) 23.8; Potassium 3.6 mmol/L (3.5-5.1)
[2019-12-13] MEDS: CARBOHYDRATES FOR HYPOGLYCEMIA PO PRN (07:55)
[2019-12-13] MEDS: HEPARIN SOD 5,000 UNIT/0.5 ML VIAL SQ SCH ×3 (08:43→22:35)
[2019-12-13] MEDS: INSULIN ASPART 100 UNITS/ML 3 ML PEN SC SCH ×4 (08:43→20:36)
[2019-12-13] MEDS: hydroCHLOROthiazide 25 MG TAB PO SCH (08:44)
[2019-12-13] MEDS: PANTOprazole 40 MG TAB PO SCH (08:44)
[2019-12-13] MEDS: CHOLECALCIFEROL 1,000 UNITS 25 MCG TAB PO SCH (08:44)
[2019-12-13] MEDS: CEROVITE ADV FORMULA TAB PO SCH (08:44)
[2019-12-13] MEDS: AMLODIPINE BESYLATE 5 MG TAB PO SCH (08:44)
[2019-12-13] MEDS: FERROUS SULFATE 325 MG TAB PO SCH ×2 (08:44→17:07)
[2019-12-13] MEDS: CYANOCOBALAMIN (VITAMIN B-12) 100 MCG TABLET PO SCH (08:44)
[2019-12-13] MEDS: DOCUSATE SODIUM 100 MG CAP PO SCH ×2 (08:45→21:26)
[2019-12-13] MEDS: INSULIN GLARGINE SOLOSTAR 100 UNITS/ML 3 ML PEN SQ SCH ×2 (08:45→21:32)
--- NOTE | 2019-12-13 11:32 | Electrocardiogram Report ---
Test Reason : Blood Pressure : / mmHG Vent. Rate : 102 BPM Atrial Rate : 102 BPM P-R Int : 148 ms QRS Dur : 074 ms QT Int : 348 ms P-R-T Axes : 075 063 074 degrees QTc Int : 453 ms Sinus tachycardia Possible Left atrial enlargement Borderline ECG When compared with ECG of 25-OCT-2019 08:24, No significant change was found Confirmed by Trenton Gould ([id number]) on 12/13/2019 11:32:16 AM Referred By: REFERRED SELF Confirmed By:Trenton Gould
--- NOTE | 2019-12-13 11:59 | Electrocardiogram Report ---
Test Reason : Blood Pressure : / mmHG Vent. Rate : 085 BPM Atrial Rate : 085 BPM P-R Int : 148 ms QRS Dur : 072 ms QT Int : 380 ms P-R-T Axes : 088 050 076 degrees QTc Int : 452 ms Normal sinus rhythm Normal ECG When compared with ECG of 10-DEC-2019 18:48, (unconfirmed) No significant change was found Confirmed by Trenton Gould ([id number]) on 12/13/2019 11:59:39 AM Referred By: REFERRED SELF Confirmed By:Trenton Gould
--- NOTE | 2019-12-13 12:34 | Electrocardiogram Report ---
Test Reason : Blood Pressure : / mmHG Vent. Rate : 064 BPM Atrial Rate : 064 BPM P-R Int : 146 ms QRS Dur : 088 ms QT Int : 458 ms P-R-T Axes : 074 068 076 degrees QTc Int : 472 ms Normal sinus rhythm Normal ECG When compared with ECG of 11-DEC-2019 06:31, (unconfirmed) No significant change was found Confirmed by Trenton Gould ([id number]) on 12/13/2019 12:33:58 PM Referred By: REFERRED SELF Confirmed By:Trenton Gould
--- NOTE | 2019-12-13 16:04 | Hospitalist Progress Note ---
Date of Service December 13, 2019 Assessment & Plan (1) Weakness: (2) Acute febrile illness: (3) Leukocytosis: Pt said that she has been feeling tired and weak for the last few days WBC on admission 35K, Elevated Procalcitonin, D-dimer and creatinine No clear source of infection CT chest showed stable solid and groundglass pulmonary nodules, stable mild mediastinal lymphadenopathy and no acute parenchymal consolidation CT abd/pelvis showed o acute process within the abdomen or pelvis; Symmetric bilateral perinephric infiltration UA negative Starting on IV abx with Zosyn Blood cx no growth WBC trending down to 24K, then back to normal Son said that while feeding her pt was coughing alittle Speech on board recommended minced and moist diet No aspiration as per speech Continue PT/OT eval Elevated D-dimer Doppler of B/L LE showed no DVT V/Q scan showed normal perfusion seen throughout the lungs. No segmental defects identified. heparin drip discontinued Acute Kidney injury Chronic kidney disease stage III to IV Creatinine 1.6 on admission, baseline creatinine 1.6 to 1.8 Creatinine 1.9 today HCTZ resumed for MWF Continue monitor BMP Hypomagnesemia Mg on admission 1.5 Stable Anemia of chronic kidney disease. Hemoglobin stable at 9.6 Continue monitor CBC Diabetes type 2 Most recent Hba1c 7.4 on 12/07 Hypoglycemia this morning Morning dose lantus held this morning Will decrease lantus to 8 units Continue novolog sliding scale Continue monitor BS Hypertension. Continue amlodipine, atenolol with holding parameters, HCTZ resumed Gastroesophageal reflux disease. Continue PPI. Depression. Continue Zoloft. Deep venous thrombosis prophylaxis. On Subq heparin Code status DNR as per son Disposition: Expect discharge to [facility] tomorrow PT/OT eval Admission and Anticipated Discharge Date Admission Date: December 12, 2019 Subjective Pt was seen and examined Lying in bed with no distress Pt said that she has more energy today Denies any chest pain, palpitation, dizziness and SOB Physical Exam Physical Exam: General- No acute distress Head- atraumatic Eyes- PERRL, EOMI, ENT- oropharynx clear Neck- supple, no JVD Lungs- clear to auscultation Heart- regular rhythm; no murmur Abdomen- normal bowel sounds, soft, nontender Extremities- no calf tenderness Neuro- alert, oriented x 3; PERRL, EOMI; no facial palsy; no dysarthria Skin- warm & dry Results & Data Results & Data ([facility]) Vital Signs (Past 12 Hours) Vital Signs Temp Pulse Pulse Resp BP Pulse Ox 12/13/19 14:56 37.0 C 84 16 151/66 H 90 12/13/19 11:15 36.9 C 81 16 145/64 H 93 12/13/19 08:00 84 12/13/19 07:45 36.7 C 76 16 146/77 H 91 (1) Leukocytosis Leukocytosis type: unspecified Qualified Code(s): D72.829 - Elevated white blood cell count, unspecified
[2019-12-13] MEDS: SERTRALINE HCL 50 MG TABLET PO SCH (21:28)
[2019-12-13] MEDS: ATENOLOL 25 MG TABLET PO SCH (22:25)
[2019-12-14] MEDS: HEPARIN SOD 5,000 UNIT/0.5 ML VIAL SQ SCH ×3 (05:08→21:00)
[2019-12-14] MEDS: CHOLECALCIFEROL 1,000 UNITS 25 MCG TAB PO SCH (08:12)
[2019-12-14] MEDS: CEROVITE ADV FORMULA TAB PO SCH (08:13)
[2019-12-14] MEDS: CYANOCOBALAMIN (VITAMIN B-12) 100 MCG TABLET PO SCH (08:13)
[2019-12-14] MEDS: AMLODIPINE BESYLATE 5 MG TAB PO SCH (08:13)
[2019-12-14] MEDS: PANTOprazole 40 MG TAB PO SCH (08:13)
[2019-12-14] MEDS: FERROUS SULFATE 325 MG TAB PO SCH ×2 (08:13→16:52)
[2019-12-14] MEDS: DOCUSATE SODIUM 100 MG CAP PO SCH ×2 (08:14→20:56)
[2019-12-14] MEDS: INSULIN ASPART 100 UNITS/ML 3 ML PEN SC SCH ×4 (08:17→20:56)
[2019-12-14] MEDS: INSULIN GLARGINE SOLOSTAR 100 UNITS/ML 3 ML PEN SQ SCH ×2 (08:17→20:56)
--- NOTE | 2019-12-14 19:26 | Hospitalist Progress Note ---
Date of Service December 14, 2019 Assessment & Plan (1) Weakness: (2) Acute febrile illness: (3) Leukocytosis: Pt said that she has been feeling tired and weak for the last few days WBC on admission 35K, Elevated Procalcitonin, D-dimer and creatinine No clear source of infection CT chest showed stable solid and groundglass pulmonary nodules, stable mild mediastinal lymphadenopathy and no acute parenchymal consolidation CT abd/pelvis showed o acute process within the abdomen or pelvis; Symmetric bilateral perinephric infiltration UA negative IV Zosyn discontinued Blood cx no growth WBC trending down to 24K, then back to normal Son said that while feeding her pt was coughing alittle Speech on board recommended minced and moist diet No aspiration as per speech Continue PT/OT eval Elevated D-dimer Doppler of B/L LE showed no DVT V/Q scan showed normal perfusion seen throughout the lungs. No segmental defects identified. heparin drip discontinued Acute Kidney injury Chronic kidney disease stage III to IV Creatinine 1.6 on admission, baseline creatinine 1.6 to 1.8 Creatinine 1.9 HCTZ resumed for MWF Continue monitor BMP Hypomagnesemia Mg on admission 2.1 Stable Anemia of chronic kidney disease. Hemoglobin stable at 9.6 Continue monitor CBC Diabetes type 2 Most recent Hba1c 7.4 on 12/07 Hypoglycemia this morning Morning dose lantus held this morning Continue lantus to 8 units Continue novolog sliding scale Continue monitor BS Hypertension. Continue amlodipine, atenolol with holding parameters, HCTZ resumed Gastroesophageal reflux disease. Continue PPI. Depression. Continue Zoloft. Deep venous thrombosis prophylaxis. On Subq heparin Code status DNR as per son Disposition: Expect discharge to [facility] once able to take her PT/OT eval Admission and Anticipated Discharge Date Admission Date: December 12, 2019 Subjective Pt was seen and examined Lying in bed with no distress Pt said that she feels fine Denies any chest pain, palpitation, dizziness and SOB Physical Exam Physical Exam: General- No acute distress Head- atraumatic Eyes- PERRL, EOMI, ENT- oropharynx clear Neck- supple, no JVD Lungs- clear to auscultation Heart- regular rhythm; no murmur Abdomen- normal bowel sounds, soft, nontender Extremities- no calf tenderness Neuro- alert, oriented x 3; PERRL, EOMI; no facial palsy; no dysarthria Skin- warm & dry Results & Data Results & Data ([facility]) Vital Signs (Past 12 Hours) Vital Signs Temp Pulse Resp BP Pulse Ox 12/14/19 15:37 36.7 C 75 19 164/74 H 97 12/14/19 10:55 36.9 C 62 20 146/74 H 96 (1) Leukocytosis Leukocytosis type: unspecified Qualified Code(s): D72.829 - Elevated white blood cell count, unspecified
[2019-12-14] MEDS: ATENOLOL 25 MG TABLET PO SCH (20:57)
[2019-12-14] MEDS: SERTRALINE HCL 50 MG TABLET PO SCH (20:57)
[2019-12-15] MEDS: HEPARIN SOD 5,000 UNIT/0.5 ML VIAL SQ SCH ×3 (06:14→21:02)
[2019-12-15] MEDS: AMLODIPINE BESYLATE 5 MG TAB PO SCH (09:00)
[2019-12-15] MEDS: CYANOCOBALAMIN (VITAMIN B-12) 100 MCG TABLET PO SCH (09:01)
[2019-12-15] MEDS: FERROUS SULFATE 325 MG TAB PO SCH ×2 (09:02→17:11)
[2019-12-15] MEDS: CHOLECALCIFEROL 1,000 UNITS 25 MCG TAB PO SCH (09:02)
[2019-12-15] MEDS: PANTOprazole 40 MG TAB PO SCH (09:03)
[2019-12-15] MEDS: CEROVITE ADV FORMULA TAB PO SCH (09:04)
[2019-12-15] MEDS: INSULIN GLARGINE SOLOSTAR 100 UNITS/ML 3 ML PEN SQ SCH ×2 (09:05→20:52)
[2019-12-15] MEDS: INSULIN ASPART 100 UNITS/ML 3 ML PEN SC SCH ×4 (09:09→20:53)
[2019-12-15] MEDS: DOCUSATE SODIUM 100 MG CAP PO SCH ×2 (10:46→20:51)
--- NOTE | 2019-12-15 19:17 | Hospitalist Progress Note ---
Date of Service December 15, 2019 Assessment & Plan (1) Weakness: (2) Acute febrile illness: (3) Leukocytosis: Pt said that she has been feeling tired and weak for the last few days WBC on admission 35K, Elevated Procalcitonin, D-dimer and creatinine No clear source of infection CT chest showed stable solid and groundglass pulmonary nodules, stable mild mediastinal lymphadenopathy and no acute parenchymal consolidation CT abd/pelvis showed o acute process within the abdomen or pelvis; Symmetric bilateral perinephric infiltration UA negative IV Zosyn discontinued Blood cx no growth WBC trending down to 24K, then back to normal Son said that while feeding her pt was coughing alittle Speech on board recommended minced and moist diet No aspiration as per speech Continue PT/OT eval Elevated D-dimer Doppler of B/L LE showed no DVT V/Q scan showed normal perfusion seen throughout the lungs. No segmental defects identified. heparin drip discontinued Acute Kidney injury Chronic kidney disease stage III to IV Creatinine 1.6 on admission, baseline creatinine 1.6 to 1.8 Creatinine 1.9 HCTZ resumed for MWF Continue monitor BMP Hypomagnesemia Mg on admission 2.1 Stable Anemia of chronic kidney disease. Hemoglobin stable at 9.6 Continue monitor CBC Diabetes type 2 Most recent Hba1c 7.4 on 12/07 Hypoglycemia this morning Morning dose lantus held this morning Continue lantus to 8 units Continue novolog sliding scale Continue monitor BS Hypertension. Continue amlodipine, atenolol with holding parameters, HCTZ resumed Gastroesophageal reflux disease. Continue PPI. Depression. Continue Zoloft. Deep venous thrombosis prophylaxis. On Subq heparin Code status DNR as per son Disposition: Waiting for placement to [facility] PT/OT eval Admission and Anticipated Discharge Date Admission Date: December 12, 2019 Subjective Pt was seen and examined Lying in bed with no distress Pt said that she feels fine Denies any chest pain, palpitation, dizziness and SOB Physical Exam Physical Exam: General- No acute distress Head- atraumatic Eyes- PERRL, EOMI, ENT- oropharynx clear Neck- supple, no JVD Lungs- clear to auscultation Heart- regular rhythm; +murmur Abdomen- normal bowel sounds, soft, nontender Extremities- no calf tenderness Neuro- alert, oriented x 3; PERRL, EOMI; no facial palsy; no dysarthria Skin- warm & dry Results & Data Results & Data ([facility]) Vital Signs (Past 12 Hours) Vital Signs Temp Pulse Resp BP Pulse Ox 12/15/19 15:42 36.9 C 74 20 131/64 94 12/15/19 11:14 36.8 C 60 20 153/80 H 95 12/15/19 08:00 36.9 C 66 20 147/64 H 97 (1) Leukocytosis Leukocytosis type: unspecified Qualified Code(s): D72.829 - Elevated white blood cell count, unspecified
[2019-12-15] MEDS: ATENOLOL 25 MG TABLET PO SCH (20:54)
[2019-12-15] MEDS: SERTRALINE HCL 50 MG TABLET PO SCH (20:55)
[2019-12-16] MEDS: HEPARIN SOD 5,000 UNIT/0.5 ML VIAL SQ SCH ×2 (05:30→13:48)
[2019-12-16] MEDS: hydroCHLOROthiazide 25 MG TAB PO SCH (07:21)
[2019-12-16] MEDS: CYANOCOBALAMIN (VITAMIN B-12) 100 MCG TABLET PO SCH (07:21)
[2019-12-16] MEDS: AMLODIPINE BESYLATE 5 MG TAB PO SCH (07:21)
[2019-12-16] MEDS: PANTOprazole 40 MG TAB PO SCH (07:21)
[2019-12-16] MEDS: FERROUS SULFATE 325 MG TAB PO SCH (07:22)
[2019-12-16] MEDS: DOCUSATE SODIUM 100 MG CAP PO SCH (07:22)
[2019-12-16] MEDS: CEROVITE ADV FORMULA TAB PO SCH (07:22)
[2019-12-16] MEDS: CHOLECALCIFEROL 1,000 UNITS 25 MCG TAB PO SCH (07:22)
[2019-12-16] MEDS: INSULIN ASPART 100 UNITS/ML 3 ML PEN SC SCH ×2 (08:16→12:15)
[2019-12-16] MEDS: INSULIN GLARGINE SOLOSTAR 100 UNITS/ML 3 ML PEN SQ SCH (08:17)
--- NOTE | 2019-12-16 14:31 | Hospitalist Progress Note ---
Date of Service December 16, 2019 Assessment & Plan (1) Weakness: (2) Acute febrile illness: (3) Leukocytosis: Pt said that she has been feeling tired and weak for the last few days WBC on admission 35K, Elevated Procalcitonin, D-dimer and creatinine No clear source of infection CT chest showed stable solid and groundglass pulmonary nodules, stable mild mediastinal lymphadenopathy and no acute parenchymal consolidation CT abd/pelvis showed o acute process within the abdomen or pelvis; Symmetric bilateral perinephric infiltration UA negative Covid 19 negative (on 12/16/19) IV Zosyn discontinued Blood cx no growth WBC trending down to 24K, then back to normal Son said that while feeding her pt was coughing alittle Speech on board recommended minced and moist diet No aspiration as per speech 2 step exercise done and no oxygen supplement requires Continue PT/OT eval Elevated D-dimer Doppler of B/L LE showed no DVT V/Q scan showed normal perfusion seen throughout the lungs. No segmental defects identified. heparin drip discontinued Acute Kidney injury Chronic kidney disease stage III to IV Creatinine 1.6 on admission, baseline creatinine 1.6 to 1.8 Creatinine 1.9 HCTZ resumed for MWF Continue monitor BMP Hypomagnesemia Mg on admission 2.1 Stable Anemia of chronic kidney disease. Hemoglobin stable at 9.6 Continue monitor CBC Diabetes type 2 Most recent Hba1c 7.4 on 12/07 Hypoglycemia this morning Morning dose lantus held this morning Continue lantus to 8 units Continue novolog sliding scale Continue monitor BS Hypertension. Continue amlodipine, atenolol with holding parameters, HCTZ resumed Gastroesophageal reflux disease. Continue PPI. Depression. Continue Zoloft. Deep venous thrombosis prophylaxis. On Subq heparin Code status DNR as per son Disposition: COVID 19 negative Will go to [facility] today PT/OT eval Admission and Anticipated Discharge Date Admission Date: December 12, 2019 Subjective Pt was seen and examined Lying in bed with no distress Pt said that she feels ok She had a 2 step exercise done and does not require any oxygen Denies any chest pain, palpitation, dizziness and SOB Physical Exam Physical Exam: General- No acute distress Head- atraumatic Eyes- PERRL, EOMI, ENT- oropharynx clear Neck- supple, no JVD Lungs- clear to auscultation Heart- regular rhythm; +murmur Abdomen- normal bowel sounds, soft, nontender Extremities- no calf tenderness Neuro- alert, oriented x 3; PERRL, EOMI; no facial palsy; no dysarthria Skin- warm & dry Results & Data Results & Data ([facility]) Vital Signs (Past 12 Hours) Vital Signs Temp Pulse Pulse Pulse Pulse Resp Resp 12/16/19 12:04 36.7 C 72 18 12/16/19 11:41 91 H 86 70 21 12/16/19 07:28 37.0 C 67 16 12/16/19 03:10 36.8 C 57 L 19 Resp Resp BP Pulse Ox Pulse Ox Pulse Ox Pulse Ox 12/16/19 12:04 115/72 93 12/16/19 11:41 20 17 94 94 95 12/16/19 07:28 157/69 H 92 12/16/19 03:10 155/78 H 94 (1) Leukocytosis Leukocytosis type: unspecified Qualified Code(s): D72.829 - Elevated white blood cell count, unspecified
--- NOTE | 2019-12-17 08:33 | Discharge Summary ---
Date of Service December 16, 2019 Admission HPI Per Admitting Provider CHIEF COMPLAINT: Fever. HISTORY OF PRESENT ILLNESS: This is an 84-year-old female with past medical history significant for type 2 diabetes, COPD, hypertension, chronic kidney disease stage 3, cognitive deficits, lumbar spinal stenosis, gait instability, history of colon cancer, status post right hemicolectomy in 2014. As per the ER, she had an episode of emesis hypoxia and fever, question of aspiration. Her CT chest was okay. Currently hemodynamically stable. Her white count is 35k. CAT scan showing stable solid and ground-glass pulmonary nodules, 15 mm left apical nodule similar to the preceding study, a subpleural 7 mm nodule, stable 4 mm solid nodule in the superior segment of the right lower lobe, stable mild mediastinal lymphadenopathy, no acute parenchymal consolidation. 12-month followup is recommended. The patient's white count is 35.96, seems to be it has been elevated in the past, but it is more than prior. She is on Macrobid for UTI. Creatinine 1.6, seems at baseline. Lactate is normal at 0.9, magnesium is 1.5. Procalcitonin is elevated at 3.94. COVID test done in the ER is negative. The patient is somewhat sleepy, hard of hearing, but able to answer appropriately. Patient is alert to name and place, knows her date of , but could not tell current month. She says she lives alone. No family in the town. Ambulates without any support. For me she denies any nausea and vomiting. She says she passed out yesterday. Denies any headache. Denies any earache, no runny nose, no sore throat, no cough, no shortness of breath, no chest pain, no nausea, no vomiting, no abdominal pain. States she is eating okay. Denies any diarrhea or constipation. Normal bladder movements. Currently hemodynamically stable, saturating fine on room air. She was in hospital In October at that time she had sepsis secondary to cholangitis with choledocholithiasis with metabolic encephalopathy. Was status post laparoscopic cholecystectomy, status post ERCP at that time. She is a an [facility] resident.She is a poor historian. Admission Exam Per Admitting Provider GENERAL: The patient is old and frail, seems somewhat sleepy, hard of hearing. VITAL SIGNS: Temperature 37.5, pulse 88, respiratory rate 22, blood pressure 124/68, oxygen 94% room air. HEENT: No pallor, no icterus. Pupils equal, round, reactive to light. Oral mucosa dry. NECK: No neck masses seen. CARDIOVASCULAR: S1, S2 heard, regular rate and rhythm, no murmur, no gallop. RESPIRATORY SYSTEM: Normal AP diameter. No accessory muscle use. No wheezing, no crackles. ABDOMEN: Soft, bowel sounds present, nontender. No distention. CENTRAL NERVOUS SYSTEM: She is alert and oriented to name and place, can tell her date of , obeys simple commands. Moves extremities. No facial droop. Speech is clear. EXTREMITIES: Lower extremity edema present, no erythema seen. Principal Diagnosis Weakness: Acute febrile illness: Leukocytosis: Elevated D-dimer Chronic kidney disease stage III to IV Hypomagnesemia Anemia of chronic kidney disease. Diabetes type 2 Hypoglycemia Hypertension. Gastroesophageal reflux disease. Depression. Discharge Exam General- No acute distress Head- atraumatic Eyes- PERRL, EOMI, ENT- oropharynx clear Neck- supple, no JVD Lungs- clear to auscultation Heart- regular rhythm; +murmur Abdomen- normal bowel sounds, soft, nontender Extremities- no calf tenderness Neuro- alert, oriented x 3; PERRL, EOMI; no facial palsy; no dysarthria Skin- warm & dry Discharge Data Allergies Allergy/AdvReac Type Severity Reaction Status Date / Time Jaglkls-Bmy-Qgn Reductase AdvReac Mild leg Verified 12/10/19 18:41 Inhibitor cramping Consultations 12/10/19 21:11 ED Decision to Admit Stat 12/11/19 03:23 Consult Case Management - Discharge Planning Routine Ordered Studies 12/10/19 19:08 CT chest wo con Stat 12/10/19 21:51 CT abd pelvis wo con Urgent 12/11/19 08:00 US venous doppler LE BI Urgent NM pul perfusion CLINICAL HISTORY: Shortness of breath. Assess for pulmonary embolus.. COMPARISON STUDY: Chest 12/10/2019. TECHNIQUE: Immediately following the intravenous administration of 5.6 mCi of technetium 99 M MAA for the perfusion scan, anterior, oblique, lateral, and posterior views of the chest were obtained. The ventilation scan was not performed due to coronavirus restrictions. FINDINGS: Normal perfusion seen throughout the lungs. No segmental defects identified. IMPRESSION: Above findings suggest a normal/very low probability scan. ACT 112: Negative or not required by law. Electronically signed by: Nitesh Gonsalez M.D. 12/11/2019 2:34 PM Dictated: 12/11/19 1432 Transcribed: 12/11/19 143 BILATERAL LOWER EXTREMITY VENOUS DOPPLER CLINICAL HISTORY: dvt, lower ext edema, sob COMPARISON STUDY: Left lower extremity venous Doppler ultrasound October 25, 2019 and right lower extremity venous Doppler ultrasound November 04, 2019. TECHNIQUE: Sonography of the deep venous system of the bilateral lower extremities was performed. Compression and augmentation were evaluated. FINDINGS: The bilateral common femoral, superficial femoral and popliteal veins were compressible. Augmentation was normal. Flow was shown within the deep calf vessels. A 4 x 1.4 x 1.8 cm left popliteal cyst is noted. IMPRESSION: No evidence of deep venous thrombus within the bilateral lower extremities. ACT 112: Negative or not required by law. Electronically signed by: Get Hollingsworth M.D. 12/11/2019 9:02 AM Dictated: 12/11/19 09 Transcribed: 12/11/19900 CT OF THE ABDOMEN AND PELVIS WITHOUT CONTRAST CLINICAL HISTORY: emesis. leukocytosis COMPARISON STUDY: CT of the abdomen and pelvis November 06, 2019. TECHNIQUE: Axial images of the abdomen and pelvis were obtained without IV contrast. Images were reviewed in the axial, sagittal, and coronal planes. Automated exposure control was utilized for the study. A dose lowering technique was utilized adhering to the principles of ALARA. FINDINGS: An 8 mm right lower lobe nodule is suboptimally assessed on this exam due to motion artifact but is unchanged from earlier exams. This is likely benign. Bilateral adrenal nodules also unchanged from earlier exams. These are benign. Pneumobilia is again noted. Mild biliary ductal dilatation status post cholecystectomy is similar to prior exam. There is no peripancreatic infiltration. There is pancreatic glandular atrophy. Right colon resection is noted. There is no evidence for a bowel obstruction. There is no pneumatosis, free air or portal venous gas. No ascites is present. There is no lymphadenopathy. There are no suspicious osseous lesions. There is no hydronephrosis. No urinary calculi identified. Symmetric bilateral perinephric infiltration is unchanged. Exam is mildly compromised by motion artifact. Small fat-containing right ventral and umbilical hernias are present. IMPRESSION: 1. No acute process within the abdomen or pelvis on unenhanced exam. 2. Stable mild biliary ductal dilatation status post cholecystectomy. Redemonstration of pneumobilia. 3. Symmetric bilateral perinephric infiltration which is of doubtful significance but could be correlated with urinalysis. ACT 112: Negative or not required by law. Electronically signed by: Get Hollingsworth M.D. 12/11/2019 7:09 AM Dictated: 12/11/19701 Transcribed: 12/11/19701 CT chest wo con CLINICAL HISTORY: aspiration, hypoxia COMPARISON STUDY: CT scan dated 11/06/2019 CT DOSE: 220.26 mGy.cm TECHNIQUE: CT of the thorax was performed from the thoracic inlet to the lung bases. Images are reviewed in the axial, sagittal, and coronal planes. IV contrast was not administered for this examination. A dose lowering technique was utilized adhering to the principles of ALARA. FINDINGS: Thyroid: There is a suspected 14 mm left lobe thyroid nodule similar to the prior study. There is a ring calcification within the right lobe the thyroid measuring 7 mm. Thoracic aorta: The thoracic aorta is normal in course and caliber, noting standard 3 vessel arch anatomy. Heart: The heart is normal in size. There are coronary artery calcifications. There is trace pericardial fluid. Lungs and pleural spaces: There is a nonsolid 15 mm left apical nodule, similar to the preceding study. There is respiratory motion artifact. There is a stable subpleural 7 mm nodule. There are no areas of parenchymal consolidation yuli picious for pneumonia. There is a stable area of subtle architectural distortion within the right upper lobe, similar to the preceding study. There is a stable 4 mm solid nodule in the superior segment of the right lower lobe. Mediastinum: There is a minimally enlarged subcarinal lymph node, similar to the prior study Adele: There is no evidence of pathologic hilar adenopathy given the limitations of a noncontrast study Axilla: There is known to pathologic axillary lymphadenopathy Upper abdomen: There is pneumobilia. Skeletal structures: There are no lytic or blastic osseous lesions. IMPRESSION: 1. Stable solid and groundglass pulmonary nodules. 2. Stable mild mediastinal lymphadenopathy 3. No acute parenchymal consolidation 4. 12 month follow-up is recommended. ACT 112: Negative or not required by law. Electronically signed by: Frederic Landers M.D. 12/10/2019 7:49 PM Dictated: 12/10/191941 Transcribed: 12/10/191941 XR chest 1V portable CLINICAL HISTORY: SEPSIS COMPARISON STUDY: 10/28/2019 FINDINGS: The heart is normal in size. There is stable mild interstitial thickening. There is no focal pulmonary consolidation. There are no significant pleural effusions.[ IMPRESSION: 1. Stable mild interstitial thickening/edema 2. No acute findings. ACT 112: Negative or not required by law. Electronically signed by: Frederic Landers M.D. 12/10/2019 8:06 PM Dictated: 12/10/192004 Transcribed: 12/10/192004 Hospital Course (1) Weakness: (2) Acute febrile illness: (3) Leukocytosis: Pt said that she has been feeling tired and weak for the last few days WBC on admission 35K, Elevated Procalcitonin, D-dimer and creatinine No clear source of infection CT chest showed stable solid and groundglass pulmonary nodules, stable mild mediastinal lymphadenopathy and no acute parenchymal consolidation CT abd/pelvis showed o acute process within the abdomen or pelvis; Symmetric bilateral perinephric infiltration UA negative Covid 19 negative (on 12/16/19) IV Zosyn discontinued Blood cx no growth WBC trending down to 24K, then back to normal Son said that while feeding her pt was coughing alittle Speech on board recommended minced and moist diet No aspiration as per speech 2 step exercise done and no oxygen supplement requires Continue PT/OT eval Elevated D-dimer Doppler of B/L LE showed no DVT V/Q scan showed normal perfusion seen throughout the lungs. No segmental defects identified. heparin drip discontinued Acute Kidney injury Chronic kidney disease stage III to IV Creatinine 1.6 on admission, baseline creatinine 1.6 to 1.8 Creatinine 1.9 HCTZ resumed for MWF Continue monitor BMP Hypomagnesemia Mg on admission 2.1 Stable Anemia of chronic kidney disease. Hemoglobin stable at 9.6 Continue monitor CBC Diabetes type 2 Most recent Hba1c 7.4 on 12/07 Hypoglycemia this morning Morning dose lantus held this morning Continue lantus to 8 units Continue novolog sliding scale Continue monitor BS Hypertension. Continue amlodipine, atenolol with holding parameters, HCTZ resumed Gastroesophageal reflux disease. Continue PPI. Depression. Continue Zoloft. Deep venous thrombosis prophylaxis. On Subq heparin Code status DNR as per son Disposition: COVID 19 negative Will go to [facility] today PT/OT eval Total Time Total Time Spent Total Time Spent (In Minutes): 35 minutes Total Time Includes: Examination of the Patient, Discharge Planning, Medication Reconciliation, Communication With Other Providers and Other Discharge Plan Discharge Items Patient Disposition: Personal Fdc Reason For Visit: FEVER Discharge Diagnosis: Weakness: Acute febrile illness: Leukocytosis: Elevated D-dimer Chronic kidney disease stage III to IV Hypomagnesemia Anemia of chronic kidney disease. Diabetes type 2 Hypoglycemia Hypertension. Gastroesophageal reflux disease. Depression. Activity: Resume your previous activity Non-emergency contact: Primary Care Provider Call non-emergency contact if: you have any medication questions Follow-up/Referrals: Mario Ghosh MD [Staff Physician] - 12/17/19 11:20 am (Date & Time 12/17/2019 11:20 AM Provider Mario Ghosh MD Department Family Practice [facility] ) [employer] [Primary Care Provider] - Diet: Carb Consistent or DM2 Addtl Attending Provider Instructions: follow up with your primary care provider Dr. Ghosh on 12/17/19 @ 11:20 AM Continue physical and occupational therapy Continue monitor your blood sugar and bring your blood sugar log at your next appointment with your provider Since your blood sugar was low during the hospital course, we will decrease your insulin Basaglar to 15 unit at night Fall precaution Follow a minced moist diet Aspiration precaution Pending Studies at Discharge: No Stand-Alone Forms: My [employer] ([employer]), Smoking Cessation Skilled Items Patient informed of condition?: Yes DNR: Yes Discharge Level of Care: Other Communicable Disease: No Discharge Prognosis: Stable Lines: None Urinary Catheter: No Medications and DC Order Prescriptions: Continued amlodipine [Norvasc] 5 mg tablet 5 mg PO QAM Qty: 30 RF: 5 cholecalciferol (vitamin D3) [Vitamin D3] 1,000 unit Capsule 1,000 unit PO DAILY RF: 0 hydrochlorothiazide 12.5 mg Tablet 12.5 mg PO 3XWK RF: 0 atenolol 25 mg tablet 12.5 mg PO QPM RF: 0 sertraline 25 mg tablet 25 mg PO HS RF: 0 Trulicity 0.75 mg/0.5 mL pen injector 0.75 mg SUBCUT WK RF: 0 pantoprazole 40 mg tablet,delayed release (DR/EC) 40 mg PO QAM RF: 0 docusate sodium 100 mg Capsule 100 mg PO BID RF: 0 polyethylene glycol 3350 [Miralax] 17 gram/dose Powder 17 g PO DAILY PRN (Reason: Constipation) RF: 0 Therems-M 27-0.4 mg Tablet 1 tab PO DAILY RF: 0 cyanocobalamin (vitamin B-12) [Vitamin B-12] 100 mcg Tablet 50 mcg PO DAILY RF: 0 ferrous sulfate 325 mg (65 mg iron) Tablet 325 mg PO BID RF: 0 acetaminophen [Mapap (acetaminophen)] 325 mg tablet 650 mg PO Q6H MDD 3 GM APAP/24 HOUR PRN (Reason: Fever Or Pain) RF: 0 Changed Basaglar KwikPen U-100 Insulin 100 unit/mL (3 mL) insulin pen 15 unit SUBCUT HS Qty: 0 RF: 0 Discontinued nitrofurantoin monohyd/m-cryst 100 mg capsule 100 mg PO BID RF: 0 Discharge Orders: Discharge Order (Routine); Ordered 12/16/19 Ordered By: Urbano Goff/Other Patient Handouts: Managing Type 2 Diabetes Admission Data Admit Date/Time: 12/12/19 17:49 Attending Provider: Urbano Estrada Admit Provider: Cristobal Dunlap Primary Care Provider: [facility], [facility] Other Providers: Cristobal Dunlap ; Brandee Sun ; [place] Other Interventions: Discharge Summary Assessment (RN) Last Done: 12/16/19 14:46
--- NOTE | 2019-12-25 09:23 | Coding Query ---
A supporting diagnosis is required for the test/procedure performed on this patient in order for us to be reimbursed by the patient's insurance. Please provide a supporting diagnosis for the following test/procedure listed below next to the test name along with your signature. *If there is no additional diagnosis for this patient that would support the following test/procedure please document that below next to the test/procedure. Test(s)/Procedure(s) that require a supporting diagnosis: VENOUS DOPPLER LOWER EXT BILAT DIAGNOSIS:____Lower extremity edema. rule out DVT Provider Signature: Date: Thank you Ekaterina Lowry Health Information Management Once completed, please kindly fax back to [phone] For questions please call [phone] LYNNE
== END 2019-12-16 15:04 | disposition home or self-care (01) ==
LOC: ED 17:11 → EDINP 17:11 → 2W 17:11 → SUATTDRO 12-11 → 2W 12-11
DX: Z88.8 Allergy status to other drugs, medicaments and biological substances; D63.1 Anemia in chronic kidney disease; J44.9 Chronic obstructive pulmonary disease, unspecified; I12.9 Hypertensive chronic kidney disease with stage 1 through stage 4 chronic kidney disease, or unspecified chronic kidney disease; E83.42 Hypomagnesemia; N17.9 Acute kidney failure, unspecified; D72.829 Elevated white blood cell count, unspecified; R53.1 Weakness; E78.5 Hyperlipidemia, unspecified; Z85.038 Personal history of other malignant neoplasm of large intestine; E11.9 Type 2 diabetes mellitus without complications; N18.3 Chronic kidney disease, stage 3 (moderate); N39.0 Urinary tract infection, site not specified; T78.40XA Allergy, unspecified, initial encounter; Z66 Do not resuscitate; R91.8 Other nonspecific abnormal finding of lung field; K21.9 Gastro-esophageal reflux disease without esophagitis; Z87.891 Personal history of nicotine dependence; F32.9 Major depressive disorder, single episode, unspecified; R60.0 Localized edema; Z79.899 Other long term (current) drug therapy